=== PATIENT | female | born 1980 | race African-American/Black ===

== ENCOUNTER 2017-01-12 17:14 | Emergency (ER) | payer OTHER ==
[2017-01-12 17:28] VITALS: BP 159/116; PULSE 115; TEMP 98.6; BMI 38.6
[2017-01-12] MEDS ORDERED: predniSONE 20 MG TABLET (UD) PO ONE (19:34)
--- NOTE | 2017-01-12 19:38 | PDOC ---
History of Present Illness - General Chief Complaint: Asthma Stated Complaint: ASTHMA ATTACK Time Seen by Provider: 01/12/17 19:05 History Source: Patient Exam Limitations: No Limitations - History of Present Illness Initial Comments: 01/12/17 19:32 asthma exacerbation - empress EMT, given self 4 Albuterol treatments and requesting prednisone. has probable with asthma exacerbations with cold weather, and her recent move from [place] patient has without primary care. was intubated last year secondary to severe asthma attack, and feels she needs steroid treatment. States the episode where she needed intubation was by far worse than this asthma exacerbation. Denies fever, denies any ear or throat pain, states is probably primarily an asthma exacerbation with poor control 01/12/17 19:36 01/12/17 20:27 Timing/Duration: reports: changing over time, getting worse Severity: reports: moderate Associated Symptoms: reports: cough, fever/chills, nasal congestion, shortness of breath Past History - Travel Traveled outside of the country in the last 30 days: No Close contact w/someone who was outside of country & ill: No - Past Medical History Allergies/Adverse Reactions: Allergies Allergy/AdvReac Type Severity Reaction Status Date / Time No Known Allergies Allergy Verified 01/12/17 17:23 Home Medications: Ambulatory Orders Insulin Glargine,Hum.rec.anlog [Tonyaaglric Jeffers U-100] 30 unit SQ HS 10/18/16 Albuterol Sulfate Inhaler - [Ventolin HFA Inhaler -] 2 inh PO Q4H #1 inhaler Guaifenesin AC [Robitussin AC -] 5 ml PO TID PRN 3 Days MDD 15 cc /day 10/20/16 Montelukast Na [Singulair -] 10 mg PO HS #30 tablet 10/20/16 Tiotropium [place] [Spiriva] 1 puff IH DAILY #1 inh 10/20/16 Amlodipine Besylate [Norvasc -] 10 mg PO DAILY #30 tablet 10/21/16 Lisinopril [Prinivil] 20 mg PO DAILY #30 tablet 10/21/16 Prednisone 10 mg PO ASDIR #29 tablet 10/21/16 Prednisone [Deltasone -] 20 mg PO BID #20 tablet 01/12/17 Anemia: No Asthma: Yes Cancer: No Cardiac Disorders: No CVA: No COPD: No Dementia: No Diabetes: No Dialysis: No GI Disorders: No Disorders: No HTN: No Hypercholesterolemia: Yes HIV: No Kidney Stones: No Liver Disease: No Suicide Attempt (Hx): No Seizures: No - Surgical History Abdominal Surgery: No Appendectomy: No Cardiac Surgery: No Cholecystectomy: No Neurologic Surgery: No - Immunization History Td Vaccination: Yes TDAP Vaccination: No Immunization Up to Date: Yes - Psycho/Social/Smoking Cessation Hx Anxiety: No Suicidal Ideation: No Smoking Status: No Smoking History: Never smoked Years of Tobacco Use: 0 Have you smoked in the past 12 months: No Number of Cigarettes Smoked Daily: 0 Cigars Per Day: 0 Hx Alcohol Use: No Drug/Substance Use Hx: No Substance Use Type: None Respiratory Specific PMHX - Complaint Specific PMHX Bronchitis: Yes Review of Systems - Review of Systems Able to Perform ROS?: Yes Is the patient limited Italian proficient: Yes Constitutional: Yes: Symptoms Reported, See HPI, Loss of Appetite, Malaise. No : Fever HEENTM: Yes: Symptoms Reported, See HPI, Nose Congestion. No: Throat Pain Respiratory: Yes: Symptoms reported, See HPI, Cough, Orthopnea, Wheezing Musculoskeletal: Yes: Symptoms Reported, See HPI Integumentary: Yes: Symptoms Reported Neurological: Yes: Symptoms reported All Other Systems: Reviewed and Negative *Physical Exam - Vital Signs Last Vital Signs Temp Pulse Resp BP Pulse Ox 98.6 F 115 H 21 159/116 99 01/12/17 17:23 01/12/17 17:23 01/12/17 17:23 01/12/17 17:23 01/12/17 17:23 - Physical Exam General Appearance: Yes: Nourished, Appropriately Dressed, Apparent Distress, Mild Distress HEENT: positive: TAMMY, Normal ENT Inspection, TMs Normal (congested but landmarks easily visualized), Pharynx Normal, Nasal Congestion, Rhinorrhea. negative: Pharyngeal Erythema Neck: positive: Supple. negative: Lymphadenopathy (R), Lymphadenopathy (L) Respiratory/Chest: positive: Accessory Muscle Use, Wheezing (tight inspiratory and expiratory breath sounds with end expiratory wheezing throughout). negative : Lungs Clear, Normal Breath Sounds Gastrointestinal/Abdominal: positive: Soft Extremity: positive: Normal Capillary Refill, Normal Inspection, Normal Range of Motion Integumentary: positive: Dry, Warm, Pale Progress Note - Progress Note Progress Note: Severe asthma exacerbation, treating with duo nebs and prednisone, patient is clearing after fourth treatment Medical Decision Making - Medical Decision Making 01/12/17 20:54 much improved after 5th treat emt and Prednisone- mionmal wheezing and states is ready for discharge,. *DC/Admit/Observation/Transfer Diagnosis at time of Disposition: Acute asthma exacerbation Qualifiers: Asthma severity: unspecified severity Qualified Code(s): J45.901 - Unspecified asthma with (acute) exacerbation - Discharge Dispostion Disposition: HOME Condition at time of disposition: Stable Admit: No - Prescriptions Prescriptions: Prednisone [Deltasone -] 20 mg PO BID #10 tablet - Referrals Referrals: Mohinder Betancourt MD [Staff Physician] - - Patient Instructions Printed Discharge Instructions: Asthma -- Adult Additional Instructions: Rest, drink lots of fluids: Teas, water, soups, Pedialyte [place] gargles Steamy showers/seem to face break up mucus Avoid contact with others until fevers and cough resolved Lots of handwashing and good hygiene Continue [id number] medications for symptomatic relief Tylenol or Motrin for fever and pain Continue DuoNeb every 6 hours throughout weekend Continue prednisone 40 mg daily Followup with private physician in one to 2 days as needed Return to emergency department for worsened symptoms, fevers, dehydration - Post Discharge Activity Work/School Note: Back to Work
[2017-01-12] MEDS ORDERED: predniSONE 20 MG TABLET (UD) ONE (19:43)
[2017-01-12] MEDS ORDERED: ALBUTEROL SO4 2.5/IPRATROPIUM 0.5 INH SOL 3 ML VIAL.NEB. NEB ONE ×2 (19:47→20:27)
== END 2017-01-12 21:00 | disposition home or self-care (01) ==
LOC: JERFT 17:14
PROC: 3E0F7GC Introduction of Other Therapeutic Substance into Respiratory Tract, Via Natural or Artificial Opening (ICD-10-PCS; principal; 2017-01-12)
DX: J45.901 Unspecified asthma with (acute) exacerbation (principal)
CPT/HCPCS: 94640; 99281-25

== ENCOUNTER 2017-02-09 17:51 | Emergency (ER) | payer SELFPAY ==
[2017-02-09 18:01] VITALS: BMI 42.9
[2017-02-09] MEDS ORDERED: IPRATROPIUM BR 0.02% 0.5 MG/2.5 ML VIAL.NEB. NEB ONE (18:10)
[2017-02-09] MEDS ORDERED: ALBUTEROL SO4 0.083% IH SOL 2.5 MG/3 ML VIAL.NEB. NEB ONE ×2 (18:10→19:11)
[2017-02-09] MEDS ORDERED: MAGNESIUM SULF 50% (8.12 MEQ/2 ML-1 GM VIAL) IVPB ONE (18:10)
[2017-02-09] MEDS ORDERED: methylPREDNISolone NA SUCC 125 MG/2 ML VIAL IVPB ONE (18:10)
[2017-02-09 18:34] LABS: BASOPHIL 0.3 % (0-2.0); EOSINOPHIL 5.3 % (0-4.5); MCH 23.3 pg (25.7-33.7); MCHC 31.4 g/dl (32.0-36.0); MEAN CELL VOLUME 74.3 fl (80-96); MEAN PLT VOLUME 7.9 fl (7.5-11.1); NEUTROPHILS 58.8 % (42.8-82.8); PLATELET COUNT 282 K/MM3 (134-434); RDW 18.1 % (11.6-15.6)
--- NOTE | 2017-02-09 18:38 | PDOC ---
History of Present Illness - History of Present Illness Initial Comments: 02/09/17 18:57 Patient is a 36 year old female with significant medical hx of HTN, GERD, obesity, asthma (intubation 2015), coma secondary to respiratory failure (03/2015 ), and diabetes who is presenting to the ED with asthma exacerbation for the past two days. Patient complains of wheezing and shortness of breath that worsened today; the patient arrived in the ED in respiratory distress and anxious. The patient was immediately seen by ER physician upon arrival. Denies fevers, chills, coughing, weakness, headache, palpitations or chest pain. <Dejah Garrett - Last Filed: 02/09/17 18:57> - General History Source: Patient Exam Limitations: No Limitations <Keaton Marion - Last Filed: 02/09/17 19:03> <Edith Eduardo - Last Filed: 02/10/17 20:12> - General Chief Complaint: Asthma Stated Complaint: ASTHMA Time Seen by Provider: 02/09/17 17:54 Past History <Dejah Garrett - Last Filed: 02/09/17 18:57> - Past Medical History Anemia: No Asthma: Yes Cancer: No Cardiac Disorders: No CVA: No COPD: No Dementia: No Diabetes: Yes Dialysis: No GI Disorders: No Disorders: No HTN: No Hypercholesterolemia: Yes HIV: No Kidney Stones: No Liver Disease: No Suicide Attempt (Hx): No Seizures: No Other medical history: intubated 2014 - Surgical History Abdominal Surgery: No Appendectomy: No Cardiac Surgery: No Cholecystectomy: No Neurologic Surgery: No - Immunization History Td Vaccination: Yes TDAP Vaccination: No Immunization Up to Date: Yes - Psycho/Social/Smoking Cessation Hx Anxiety: No Suicidal Ideation: No Smoking Status: No Smoking History: Never smoked Years of Tobacco Use: 0 Have you smoked in the past 12 months: No Number of Cigarettes Smoked Daily: 0 Cigars Per Day: 0 Information on smoking cessation initiated: No Hx Alcohol Use: No Drug/Substance Use Hx: No Substance Use Type: None <Keaton Marion - Last Filed: 02/09/17 19:03> <Edith Eduardo - Last Filed: 02/10/17 20:12> - Past Medical History Allergies/Adverse Reactions: Allergies Allergy/AdvReac Type Severity Reaction Status Date / Time No Known Allergies Allergy Verified 02/09/17 17:59 Home Medications: Ambulatory Orders Insulin Glargine,Hum.rec.anlog [Basaglar Lauraikpen U-100] 30 unit SQ HS 10/18/16 Albuterol Sulfate Inhaler - [Ventolin HFA Inhaler -] 2 inh PO Q4H #1 inhaler Montelukast Na [Singulair -] 10 mg PO HS #30 tablet 10/20/16 Tiotropium [place] [Spiriva] 1 puff IH DAILY #1 inh 10/20/16 Amlodipine Besylate [Norvasc -] 10 mg PO DAILY #30 tablet 10/21/16 Lisinopril [Prinivil] 20 mg PO DAILY #30 tablet 10/21/16 Azithromycin [Zithromax -] 250 mg PO DAILY #4 tablet 02/09/17 Prednisone [Deltasone -] 40 mg PO DAILY #10 tablet 02/09/17 Review of Systems - Review of Systems Comments:: 02/09/17 18:58 GENERAL/CONSTITUTIONAL: No fever or chills. No weakness. HEAD, EYES, EARS, NOSE AND THROAT: No change in vision. No ear pain or discharge. No sore throat. CARDIOVASCULAR: No chest pain. RESPIRATORY: Wheezing, shortness of breath. No cough or hemoptysis. GASTROINTESTINAL: No nausea, vomiting, diarrhea or constipation. GENITOURINARY: No dysuria, frequency, or change in urination. MUSCULOSKELETAL: No joint or muscle swelling or pain. No neck or back pain. SKIN: No rash NEUROLOGIC: No headache, vertigo, loss of consciousness, or change in strength/ sensation. <Dejah Garrett - Last Filed: 02/09/17 18:57> *Physical Exam - Vital Signs Last Vital Signs Temp Pulse Resp BP Pulse Ox 98.4 F 109 H 22 141/101 100 02/09/17 17:59 02/09/17 18:45 02/09/17 18:45 02/09/17 18:45 02/09/17 18:45 - Physical Exam Comments: 02/09/17 18:58 GENERAL: Awake, alert, and fully oriented. Anxious, in moderate distress HEAD: No signs of trauma EYES: PERRLA, EOMI, sclera anicteric, conjunctiva clear ENT: Auricles normal inspection, hearing grossly normal, nares patent, oropharynx clear without exudates. Moist mucosa NECK: Normal ROM, supple, no lymphadenopathy, JVD, or masses LUNGS: Respiratory distress. Expiratory wheezing bilaterally. Speaking with few words. HEART: Regular rate and rhythm, normal S1 and S2, no murmurs, rubs or gallops ABDOMEN: Soft, nontender, normoactive bowel sounds. No guarding, no rebound. No masses EXTREMITIES: Normal range of motion, no edema. No clubbing or cyanosis. No cords, erythema, or tenderness NEUROLOGICAL: Cranial nerves II through XII grossly intact. Normal speech, normal gait SKIN: Warm, Dry, normal turgor, no rashes or lesions noted. ENDOCRINE: No increased thirst. No abnormal weight change. HEMATOLOGIC/LYMPHATIC: No anemia, easy bleeding, or history of blood clots. ALLERGIC/IMMUNOLOGIC: No hives or skin allergy. <Dejah Garrett - Last Filed: 02/09/17 18:57> - Vital Signs Last Vital Signs Temp Pulse Resp BP Pulse Ox 98.4 F 147 H 32 H 148/96 100 02/09/17 17:59 02/09/17 17:59 02/09/17 17:59 02/09/17 17:59 02/09/17 18:10 <Keaton Marion - Last Filed: 02/09/17 19:03> - Vital Signs Last Vital Signs Temp Pulse Resp BP Pulse Ox 98.2 F 104 H 26 H 145/94 100 02/09/17 19:50 02/09/17 19:50 02/09/17 19:50 02/09/17 19:50 02/09/17 19:50 <Edith Eduardo - Last Filed: 02/10/17 20:12> ED Treatment Course - LABORATORY CBC & Chemistry Diagram: 02/09/17 18:20 02/09/17 18:20 - ADDITIONAL ORDERS Additional order review: Laboratory Results 02/09/17 18:20 Serum , Qual Negative 02/09/17 18:20 RBC 4.61 MCV 74.3 L MCHC 31.4 L RDW 18.1 H MPV 7.9 Neutrophils % 58.8 D Lymphocytes % 30.0 D Monocytes % 5.6 D Eosinophils % 5.3 H D Basophils % 0.3 - Medications Given in the ED: ED Medications Discontinued Medications Generic Name Dose Route Start Last Admin Trade Name Jesús PRN Reason Stop Dose Admin Albuterol Sulfate 3 amp 02/09/17 18:10 02/09/17 18:01 Ventolin 0.083% Nebulizer Soln - NEB 02/09/17 18:11 3 amp ONCE ONE Administration Ipratropium [place] 1 amp 02/09/17 18:10 02/09/17 18:00 Atrovent 0.02% Nebulizer - NEB 02/09/17 18:11 1 amp ONCE ONE Administration Magnesium Sulfate 2 gm 02/09/17 18:10 02/09/17 18:00 Magnesium Sulfate IVPB 02/09/17 18:11 2 gm ONCE ONE Administration Methylprednisolone Sodium Succinate 125 mg 02/09/17 18:10 02/09/17 18:08 Solu-Medrol - IVPB 02/09/17 18:11 125 mg ONCE ONE Administration <Dejah Garrett - Last Filed: 02/09/17 18:57> - LABORATORY CBC & Chemistry Diagram: 02/09/17 18:20 02/09/17 18:20 - RADIOLOGY Radiology Studies Ordered: Category Date Time Status CHEST X-RAY PORTABLE* [RAD] Stat Radiology 02/09/17 18:10 Ordered - Medications Given in the ED: ED Medications Discontinued Medications Generic Name Dose Route Start Last Admin Trade Name Jesús PRN Reason Stop Dose Admin Albuterol Sulfate 3 amp 02/09/17 18:10 02/09/17 18:01 Ventolin 0.083% Nebulizer Soln - NEB 02/09/17 18:11 3 amp ONCE ONE Administration Ipratropium [place] 1 amp 02/09/17 18:10 02/09/17 18:00 Atrovent 0.02% Nebulizer - NEB 02/09/17 18:11 1 amp ONCE ONE Administration Magnesium Sulfate 2 gm 02/09/17 18:10 02/09/17 18:00 Magnesium Sulfate IVPB 02/09/17 18:11 2 gm ONCE ONE Administration Methylprednisolone Sodium Succinate 125 mg 02/09/17 18:10 02/09/17 18:08 Solu-Medrol - IVPB 02/09/17 18:11 125 mg ONCE ONE Administration <Keaton Marion - Last Filed: 02/09/17 19:03> - LABORATORY CBC & Chemistry Diagram: 02/09/17 18:20 02/09/17 18:20 - ADDITIONAL ORDERS Additional order review: Laboratory Results 02/09/17 02/09/17 18:20 18:20 Sodium 141 Potassium 4.1 Chloride 109 H Carbon Dioxide 25 Anion Gap 7 L BUN 8 Creatinine 0.8 Creat Clearance w eGFR > 60 Random Glucose 125 H Calcium 8.8 Total Bilirubin 0.2 D AST 16 D ALT 24 D Alkaline Phosphatase 95 Total Protein 6.6 Albumin 3.4 Serum , Qual Negative 02/09/17 18:20 RBC 4.61 MCV 74.3 L MCHC 31.4 L RDW 18.1 H MPV 7.9 Neutrophils % 58.8 D Lymphocytes % 30.0 D Monocytes % 5.6 D Eosinophils % 5.3 H D Basophils % 0.3 - Medications Given in the ED: ED Medications Discontinued Medications Generic Name Dose Route Start Last Admin Trade Name Freq PRN Reason Stop Dose Admin Albuterol Sulfate 3 amp 02/09/17 18:10 02/09/17 18:01 Ventolin 0.083% Nebulizer Soln - NEB 02/09/17 18:11 3 amp ONCE ONE Administration Ipratropium [place] 1 amp 02/09/17 18:10 02/09/17 18:00 Atrovent 0.02% Nebulizer - NEB 02/09/17 18:11 1 amp ONCE ONE Administration Magnesium Sulfate 2 gm 02/09/17 18:10 02/09/17 18:00 Magnesium Sulfate IVPB 02/09/17 18:11 2 gm ONCE ONE Administration Methylprednisolone Sodium Succinate 125 mg 02/09/17 18:10 02/09/17 18:08 Solu-Medrol - IVPB 02/09/17 18:11 125 mg ONCE ONE Administration <Edith Eduardo - Last Filed: 02/10/17 20:12> Medical Decision Making - Medical Decision Making 02/09/17 18:49 A portion of this note was documented by scribe services under my direction. I have reviewed the details of the note, within reason, and agree with the documentation with the following case summary and management plan written by me. Patient treated in the ED. Nursing notes are reviewed and incorporated into the medical decision-making. Vital signs reviewed. Peripheral IV access obtained by the nurse, laboratory studies are drawn and sent, reviewed and interpreted by myself. Vital Signs Temp Pulse Resp BP Pulse Ox 98.4 F 109 H 22 141/101 100 02/09/17 17:59 02/09/17 18:45 02/09/17 18:45 02/09/17 18:45 02/09/17 18:45 36-year-old female with past medical history obesity, asthma, diabetes, prior history of intubation last year presents with asthma exacerbation. Patient reports several days of wheezing that worsened today. Denies coughing. She came into the ED in respiratory distress and anxiousness. Patient has been diffusely wheezy and patient seen immediately by me. She is placed on BiPAP and given several rounds of nebulizers, SoluMedrol and IV magnesium. We'll obtain labs and chest x-ray given the respiratory distress. Low threshold for antibiotics. 02/09/17 19:03 Case signed out to DR. Eduardo for further management and disposition. <Keaton Marion - Last Filed: 02/09/17 19:03> - Medical Decision Making 02/10/17 20:11 Pt improved throughout the night. SHe improved with her meds. Ultimately we removed her from the BiPAP and she ambulated about the ER without desaturation of oxygen. She will go home with steroids and singulair. Follow with medicine clinic; Call 911 for further asthma exacerbation <Edith Eduardo - Last Filed: 02/10/17 20:12> *DC/Admit/Observation/Transfer - Attestations Scribe Attestion: 02/09/17 18:59 Documentation prepared by Dejah Garrett, acting as medical research assistant for Keaton Marion MD. <Dejah Garrett - Last Filed: 02/09/17 18:57> <Keaton Marion - Last Filed: 02/09/17 19:03> - Discharge Dispostion Admit: No <Edith Eduardo - Last Filed: 02/10/17 20:12> Diagnosis at time of Disposition: Acute asthma exacerbation, Bronchitis, Cough - Discharge Dispostion Disposition: HOME Condition at time of disposition: Improved - Prescriptions Prescriptions: Prednisone [Deltasone -] 40 mg PO DAILY #10 tablet Azithromycin [Zithromax -] 250 mg PO DAILY #4 tablet - Referrals Referrals: Dave Don MD [Staff Physician] - - Patient Instructions Printed Discharge Instructions: Asthma -- Adult, DI for Acute Bronchitis
[2017-02-09 19:01] LABS: ALBUMIN 3.4 g/dl (3.4-5.0); ANION GAP 7 (8-16); BILIRUBIN,TOTAL 0.2 mg/dL (0.2-1.0); CO2 25 mmol/L (21-32); CREATININE 0.8 mg/dL (0.55-1.02); GLUCOSE,RANDOM 125 mg/dL (74-106); SGOT/AST 16 U/L (15-37); SGPT/ALT 24 U/L (12-78); TOT PROT 6.6 g/dl (6.4-8.2)
[2017-02-09 19:18] LABS: ALK PHOS 95 U/L (45-117); CALCIUM 8.8 mg/dL (8.5-10.1)
[2017-02-09] MEDS ORDERED: AZITHROMYCIN 250 MG TABLET (FP) PO ONE (22:55)
[2017-02-09] MEDS ORDERED: AZITHROMYCIN 250 MG TABLET (FP) ONE (23:08)
[2017-02-09 23:29] VITALS: BP 156/93; PULSE 100; TEMP 97.6
== END 2017-02-09 23:23 | disposition home or self-care (01) ==
LOC: JER 17:51
PROC: 3E0F7GC Introduction of Other Therapeutic Substance into Respiratory Tract, Via Natural or Artificial Opening (ICD-10-PCS; principal; 2017-02-09)
PROC: 3E0F7GC Introduction of Other Therapeutic Substance into Respiratory Tract, Via Natural or Artificial Opening (ICD-10-PCS; 2017-02-09)
PROC: 3E0333Z Introduction of Anti-inflammatory into Peripheral Vein, Percutaneous Approach (ICD-10-PCS; 2017-02-09)
PROC: 3E033GC Introduction of Other Therapeutic Substance into Peripheral Vein, Percutaneous Approach (ICD-10-PCS; 2017-02-09)
PROC: 5A09357 Assistance with Respiratory Ventilation, Less than 24 Consecutive Hours, Continuous Positive Airway Pressure (ICD-10-PCS; 2017-02-09)
DX: J45.901 Unspecified asthma with (acute) exacerbation (principal)
CPT/HCPCS: 36415; 71010-TC; 80053; 84703; 85025; 99284-25

== ENCOUNTER 2017-02-24 12:16 | Inpatient (IN) | payer OTHER ==
[2017-02-24] MEDS ORDERED: ALBUTEROL SO4 2.5/IPRATROPIUM 0.5 INH SOL 3 ML VIAL.NEB. NEB ONE ×2 (12:56→12:58)
[2017-02-24] MEDS ORDERED: predniSONE 20 MG TABLET (UD) ONE (12:57)
--- NOTE | 2017-02-24 13:01 | PDOC ---
History of Present Illness - General History Source: Patient Exam Limitations: No Limitations - History of Present Illness Initial Comments: 02/24/17 13:06 Patient is a 36 year old female with a significant past medical hx of HTN, GERD , obesity, asthma (intubation 2015), seasonal allergies, coma secondary to respiratory failure (03/2015), and diabetes, who is revisiting to the ED with difficulty breathing. She was seen in the ED on 02/08/17 and was treated with inhalers and steroids. She was called on 02/10/17 after her chest x-ray results came back and was informed she may have pneumonia. She was subsequently put on Amoxicillin. She states her symptoms are a little better but still bad. Patient denies fever, chills, nausea, vomiting, diarrhea, dysuria, hematuria. She denies smoking, drinking alcohol. <Christiano Lewis - Last Filed: 02/24/17 13:06> <Mariela Munoz - Last Filed: 02/24/17 17:00> - General Chief Complaint: Wheezing Stated Complaint: SOB Time Seen by Provider: 02/24/17 12:48 Past History <Christiano Lewis - Last Filed: 02/24/17 13:06> - Past Medical History Anemia: No Asthma: Yes Cancer: No Cardiac Disorders: No CVA: No COPD: No Dementia: No Diabetes: Yes Dialysis: No GI Disorders: No Disorders: No HTN: No Hypercholesterolemia: Yes HIV: No Kidney Stones: No Liver Disease: No Suicide Attempt (Hx): No Seizures: No - Surgical History Abdominal Surgery: No Appendectomy: No Cardiac Surgery: No Cholecystectomy: No Neurologic Surgery: No - Immunization History Td Vaccination: Yes TDAP Vaccination: No Immunization Up to Date: Yes - Psycho/Social/Smoking Cessation Hx Anxiety: No Suicidal Ideation: No Smoking Status: No Smoking History: Never smoked Years of Tobacco Use: 0 Have you smoked in the past 12 months: No Number of Cigarettes Smoked Daily: 0 Cigars Per Day: 0 Information on smoking cessation initiated: No Hx Alcohol Use: No Drug/Substance Use Hx: No Substance Use Type: None <Mariela Munoz - Last Filed: 02/24/17 17:00> - Past Medical History Allergies/Adverse Reactions: Allergies Allergy/AdvReac Type Severity Reaction Status Date / Time No Known Allergies Allergy Verified 02/24/17 12:26 Home Medications: Ambulatory Orders Insulin Glargine,Hum.rec.anlog [Tonyaaglric Ortizpen U-100] 30 unit SQ HS 10/18/16 Albuterol Sulfate Inhaler - [Ventolin HFA Inhaler -] 2 inh PO Q4H #1 inhaler Montelukast Na [Singulair -] 10 mg PO HS #30 tablet 10/20/16 Tiotropium [place] [Spiriva] 1 puff IH DAILY #1 inh 10/20/16 Amlodipine Besylate [Norvasc -] 10 mg PO DAILY #30 tablet 10/21/16 Lisinopril [Prinivil] 20 mg PO DAILY #30 tablet 10/21/16 Respiratory Specific PMHX - Complaint Specific PMHX Bronchitis: Yes <Mariela Munoz - Last Filed: 02/24/17 17:00> Review of Systems - Review of Systems Able to Perform ROS?: Yes Comments:: 02/24/17 13:06 GENERAL/CONSTITUTIONAL: No fever or chills. No weakness. HEAD, EYES, EARS, NOSE AND THROAT: No change in vision. No ear pain or discharge. No sore throat. CARDIOVASCULAR: No chest pain or shortness of breath. RESPIRATORY: + wheezing, cough. No hemoptysis. GASTROINTESTINAL: No nausea, vomiting, diarrhea or constipation. GENITOURINARY: No dysuria, frequency, or change in urination. MUSCULOSKELETAL: No joint or muscle swelling or pain. No neck or back pain. SKIN: No rash NEUROLOGIC: No headache, vertigo, loss of consciousness, or change in strength/ sensation. ENDOCRINE: No increased thirst. No abnormal weight change. HEMATOLOGIC/LYMPHATIC: No anemia, easy bleeding, or history of blood clots. ALLERGIC/IMMUNOLOGIC: No hives or skin allergy. <Christiano Lewis - Last Filed: 02/24/17 13:06> *Physical Exam - Vital Signs Last Vital Signs Temp Pulse Resp BP Pulse Ox 98.1 F 102 H 20 150/119 99 02/24/17 12:26 02/24/17 12:26 02/24/17 12:26 02/24/17 12:26 02/24/17 12:26 - Physical Exam Comments: 02/24/17 13:07 GENERAL: Awake, alert, and fully oriented, in no acute distress HEAD: No signs of trauma EYES: PERRLA, EOMI, sclera anicteric, conjunctiva clear ENT: Auricles normal inspection, hearing grossly normal, nares patent, oropharynx clear without exudates. Moist mucosa NECK: Normal ROM, supple, no lymphadenopathy, JVD, or masses LUNGS: Bilateral wheezing, clear to auscultation bilaterally. No wheezes, and no crackles HEART: Tachycardia. Normal S1 and S2, no murmurs, rubs or gallops ABDOMEN: Soft, nontender, normoactive bowel sounds. No guarding, no rebound. No masses EXTREMITIES: Normal range of motion, no edema. No clubbing or cyanosis. No cords, erythema, or tenderness NEUROLOGICAL: Normal speech, normal gait SKIN: Warm, Dry, normal turgor, no rashes or lesions noted. <Christiano Lewis - Last Filed: 02/24/17 13:06> - Vital Signs Last Vital Signs Temp Pulse Resp BP Pulse Ox 98.1 F 102 H 20 150/119 99 02/24/17 12:26 02/24/17 12:26 02/24/17 12:26 02/24/17 12:26 02/24/17 12:26 <Mariela Munoz - Last Filed: 02/24/17 17:00> ED Treatment Course - Medications Given in the ED: ED Medications Discontinued Medications Generic Name Dose Route Start Last Admin Trade Name Freq PRN Reason Stop Dose Admin Albuterol/Ipratropium 1 amp 02/24/17 12:56 02/24/17 13:05 Duoneb - NEB 02/24/17 12:57 1 amp ONCE ONE Administration <Christiano Lewis - Last Filed: 02/24/17 13:06> - LABORATORY CBC & Chemistry Diagram: 02/24/17 14:10 02/24/17 14:10 <Mariela Munoz - Last Filed: 02/24/17 17:00> Medical Decision Making - Medical Decision Making 02/24/17 13:00 36 yo F with h/o DM, asthma recently seen and released for asthma exacerbation on 02/08/17. dc on prednisone and amoxicillin. called back to [facility] on cxr on 02/10.pt states finished amoxicillin. no imrpvoment to sxs. still wheezing. no f/c no n/v no chest pain .no h/o dvt or pe. on exam bilateral wheezing differential: pna, bronchitis, asthma exacerbation allergy trigger. plan cxr nebs. steroids. reasses. <Mariela Munoz - Last Filed: 02/24/17 17:00> *DC/Admit/Observation/Transfer - Attestations Scribe Attestion: 02/24/17 13:09 Documentation prepared by Christiano Lewis, acting as health care / medical job titles for Mariela Munoz MD, . <Christiano Lewis - Last Filed: 02/24/17 13:06> - Discharge Dispostion Admit: Yes <Mariela Munoz - Last Filed: 02/24/17 17:00> Diagnosis at time of Disposition: Asthma exacerbation, Pneumonia
[2017-02-24] MEDS ORDERED: MAGNESIUM SULF 50% (8.12 MEQ/2 ML-1 GM VIAL) ONE (13:39)
[2017-02-24] MEDS ORDERED: MAGNESIUM SULF 50% (8.12 MEQ/2 ML-1 GM VIAL) IVPB ONE (13:39)
[2017-02-24] MEDS ORDERED: predniSONE 20 MG TABLET (UD) PO ONE (14:10)
[2017-02-24] MEDS ORDERED: LEVOFLOXACIN 750 MG IVPB 150 ML IVPB ONE ×2 (14:14→14:29)
[2017-02-24 14:18] LABS: BASOPHIL 0.3 % (0-2.0); EOSINOPHIL 4.8 % (0-4.5); MCHC 32.1 g/dl (32.0-36.0); MEAN CELL VOLUME 74.7 fl (80-96); MEAN PLT VOLUME 7.3 fl (7.5-11.1); NEUTROPHILS 48.2 % (42.8-82.8); PLATELET COUNT 256 K/MM3 (134-434); RDW 18.2 % (11.6-15.6); WHITE BLOOD COUNT 7.4 K/mm3 (4.0-10.0)
[2017-02-24 14:44] LABS: ALBUMIN 3.2 g/dl (3.4-5.0); ANION GAP 11 (8-16); CALCIUM 8.4 mg/dL (8.5-10.1); CO2 24 mmol/L (21-32); COCKROFT - GAULT 125.6215; GLUCOSE,RANDOM 123 mg/dL (74-106); SGOT/AST 16 U/L (15-37); SGPT/ALT 23 U/L (12-78)
[2017-02-24 14:46] LABS: ALK PHOS 82 U/L (45-117); BILIRUBIN,TOTAL 0.2 mg/dL (0.2-1.0); TOT PROT 6.3 g/dl (6.4-8.2)
--- NOTE | 2017-02-24 17:18 | HP ---
CHIEF COMPLAINT: wheezing,shortness of breath PCP: none/needs referral HISTORY OF PRESENT ILLNESS: The patient is a 36 year old female, with significant past medical history of asthma (intubated 2015), coma secondary to respiratory failure (03/2015) seasonal allergies,and diabetes. Patient is revisiting to the ED with difficulty breathing. She was seen in the ED on 02/08/17 and was treated with inhalers and steroids. She was called on 02/10/17 after her chest x-ray results showed possible pneumonia. She was put then prescribed Amoxicillin and her symptoms improved slightly. but now worsening. Patient denies fever, chills, nausea, vomiting or diarrhea. She is a non smoker. ER course was notable for: (1) chl 110, cbc,bmp, chest xray (2) Predinsone 60mg PO, magnesium iv x 1 (3) dunoneb nebulizer treatments Recent Travel: denies PAST MEDICAL HISTORY: asthma (intubated 2015), coma secondary to respiratory failure (03/2015) seasonal allergies,and diabetes PAST SURGICAL HISTORY: Social History: Smoking: denies Alcohol: occasional Drugs: denies Family History: Allergies: nectar No Known Allergies Allergy (Verified 02/24/17 12:26) HOME MEDICATIONS: Home Medications Medication Instructions Recorded Albuterol Sulfate Inhaler - 2 inh PO Q4H #1 inhaler 10/20/16 [Ventolin HFA Inhaler -] Amlodipine Besylate [Norvasc -] 10 mg PO DAILY #30 tablet 10/21/16 Lisinopril [Prinivil] 20 mg PO DAILY #30 tablet 10/21/16 Albuterol 0.083% Nebulizer Nahomy 1 neb NEB QID 02/24/17 [Ventolin 0.083%] Insulin (Novolog) [Novolog] 0 units SQ TID 02/24/17 Insulin Glargine,Hum.rec.anlog 30 units SQ HS 02/24/17 [Lantus Solostar PEN (NF)] REVIEW OF SYSTEMS CONSTITUTIONAL: Absent: fever, chills, diaphoresis, generalized weakness, malaise, loss of appetite, weight change HEENT: Absent: rhinorrhea, nasal congestion, throat pain, throat swelling, difficulty swallowing, mouth swelling, ear pain, eye pain, visual changes CARDIOVASCULAR: Absent: chest pain, syncope, palpitations, irregular heart rate, lightheadedness , peripheral edema RESPIRATORY: Present: non productive cough, shortness of breath, dyspnea, +wheezing on bilateral lung alvarado, anterior lungs +wheezing. GASTROINTESTINAL: Absent: abdominal pain, abdominal distension, nausea, vomiting, diarrhea, constipation, melena, hematochezia GENITOURINARY: Absent: dysuria, frequency, urgency, hesitancy, hematuria, flank pain, genital pain MUSCULOSKELETAL: Absent: myalgia, arthralgia, joint swelling, back pain, neck pain SKIN: Absent: rash, itching, pallor HEMATOLOGIC/IMMUNOLOGIC: Absent: easy bleeding, easy bruising, lymphadenopathy, frequent infections ENDOCRINE: Absent: unexplained weight gain, unexplained weight loss, heat intolerance, cold intolerance NEUROLOGIC: Absent: headache, focal weakness or paresthesias, dizziness, unsteady gait, seizure, mental status changes, bladder or bowel incontinence PSYCHIATRIC: Absent: anxiety, depression, suicidal or homicidal ideation, hallucinations. PHYSICAL EXAMINATION Vital Signs - 24 hr 02/24/17 16:48 Temperature 98.0 F Pulse Rate [ 120 H Right] Respiratory 22 Rate Blood Pressure 162/100 [Left Arm] O2 Sat by Pulse 95 Oximetry (%) GENERAL: Awake, alert, and fully oriented, in mild respiratory distress. HEAD: Normal with no signs of trauma. EYES: Pupils equal, round and reactive to light, extraocular movements intact, sclera anicteric, conjunctiva clear. No lid lag. EARS, NOSE, THROAT: Ears normal, nares patent, oropharynx clear without exudates. Moist mucous membranes. NECK: Normal range of motion, supple without lymphadenopathy, JVD, or masses. LUNGS: Breath sounds equal, clear to auscultation bilaterally. b/l diffuse wheezes present both inspiratory and expiratory, some conversational dyspnea No accessory muscle use. HEART: Regular rate and rhythm, normal S1 and S2 without murmur, rub or gallop. ABDOMEN: Soft, nontender, not distended, normoactive bowel sounds, no guarding, no rebound, no masses. No hepatomegaly or splenomegaly. MUSCULOSKELETAL: Normal range of motion at all joints. No bony deformities or tenderness. No CVA tenderness. UPPER EXTREMITIES: 2+ pulses, warm, well-perfused. No cyanosis. No clubbing. Cap refill <2 seconds. No peripheral edema. LOWER EXTREMITIES: 2+ pulses, warm, well-perfused. No calf tenderness. No peripheral edema. NEUROLOGICAL: Cranial nerves II-XII intact. Normal speech. Normal gait. PSYCHIATRIC: Cooperative. Good eye contact. Appropriate mood and affect. SKIN: Warm, dry, normal turgor, no rashes or lesions noted. ASSESSMENT/PLAN: The patient is a 36 year old female, with significant past medical history of asthma (intubated 2015), coma secondary to respiratory failure (03/2015) seasonal allergies,and diabetes. Patient is revisiting to the ED with difficulty breathing. She was seen in the ED on 02/08/17 and was treated with inhalers and steroids. She was called on 02/10/17 after her chest x-ray results showed possible pneumonia. She was then prescribed Amoxicillin and her symptoms improved slightly. but now worsening. Patient denies fever, chills, nausea, vomiting or diarrhea. She is a non smoker. Pulmonary: Acute exacerbation of asthma Assessment/Plan: In ER, her symptoms improved when she received a single dose of magnesium, duonebs and prednisone 60mg Continues to have dyspnea with minimal exertion, some conversational dyspnea on exam. Duonebs scheduled q 4 Levaquin 750mg daily Solumedrol 40mg q 6 2 liters of nasal cannula ordered Singular @ hs Claritin daily Pulmonary consult Cardiology: Hypertension - chronic Assessment/Plan: On Lisinopril and Amlodopine Monitor BP Endocrine: Diabetes II Assessment/Plan: On sliding scale Will add Levemir 30units @ hs Monitor blood sugar diabetic diet F.E.N. Fluids: tolerating PO Electrolytes: monitor with bmp Nutrition: diabetic diet Prophylaxis: DVT: heparin BID, ambulation GI: Protonix 40mg daily Disposition: Requires inpatient hospitalization. Full Code. Visit type - Emergency Visit Emergency Visit: Yes ED Registration Date: 02/24/17 Care time: The patient presented to the Emergency Department on the above date and was hospitalized for further evaluation of their emergent condition. - New Patient This patient is new to me today: Yes Date on this admission: 02/25/17 - Critical Care Critical Care patient: No
[2017-02-24] MEDS ORDERED: ALBUTEROL SO4 2.5/IPRATROPIUM 0.5 INH SOL 3 ML VIAL.NEB. NEB SCH (18:00)
[2017-02-24] MEDS: methylPREDNISolone NA SUCC 40 MG/1 ML VIAL IVPB SCH ×2 (19:13→20:49)
[2017-02-24] MEDS: LORATADINE 10 MG TABLET PO SCH (19:13)
[2017-02-24] MEDS: FLUTICASONE/SALMETEROL 100 MCG/50 MCG DISKUS IH SCH ×2 (19:14→22:07)
[2017-02-24 19:23] VITALS: BMI 42.7
[2017-02-24] MEDS: MONTELUKAST NA 10 MG TABLET PO SCH (21:51)
[2017-02-24] MEDS: DOCUSATE SODIUM 100 MG CAPSULE (FP) PO SCH (21:51)
[2017-02-24] MEDS: HEPARIN NA (PORCINE) 5,000 UNITS/ML 1ML VIAL SQ SCH (21:51)
[2017-02-24] MEDS: INSULIN DETEMIR 100 UNITS/ML MDV SQ SCH (21:52)
[2017-02-24] MEDS: INSULIN SLIDING SCALE (NOVOLOG) 1 VIAL SQ SCH (21:53)
[2017-02-24] MEDS ORDERED: PT OWN MED DRAWER 7, Y5N ONE (22:04)
[2017-02-24] MEDS: ALBUTEROL SO4 2.5/IPRATROPIUM 0.5 INH SOL 3 ML VIAL.NEB. NEB SCH (22:30)
[2017-02-25] MEDS: ALBUTEROL SO4 2.5/IPRATROPIUM 0.5 INH SOL 3 ML VIAL.NEB. NEB SCH ×3 (01:45→10:05)
[2017-02-25] MEDS: methylPREDNISolone NA SUCC 40 MG/1 ML VIAL IVPB SCH ×4 (03:37→21:44)
[2017-02-25] MEDS: INSULIN SLIDING SCALE (NOVOLOG) 1 VIAL SQ SCH ×4 (06:14→22:50)
[2017-02-25 08:00] LABS: BASOPHIL 0.2 % (0-2.0); MCH 23.8 pg (25.7-33.7); MEAN CELL VOLUME 74.5 fl (80-96); MEAN PLT VOLUME 7.7 fl (7.5-11.1); NEUTROPHILS 91.7 % (42.8-82.8); PLATELET COUNT 262 K/MM3 (134-434); RDW 17.7 % (11.6-15.6); WHITE BLOOD COUNT 12.2 K/mm3 (4.0-10.0)
[2017-02-25 08:42] LABS: ALBUMIN 3.1 g/dl (3.4-5.0); ALK PHOS 81 U/L (45-117); ANION GAP 8 (8-16); BILIRUBIN,TOTAL 0.4 mg/dL (0.2-1.0); CALCIUM 8.5 mg/dL (8.5-10.1); CO2 23 mmol/L (21-32); CREATININE 0.9 mg/dL (0.55-1.02); GLUCOSE,RANDOM 177 mg/dL (74-106); MAGNESIUM 2.2 mg/dL (1.8-2.4); SGOT/AST 15 U/L (15-37); SGPT/ALT 21 U/L (12-78); TOT PROT 6.5 g/dl (6.4-8.2)
[2017-02-25] MEDS: FLUTICASONE/SALMETEROL 100 MCG/50 MCG DISKUS IH SCH (09:08)
[2017-02-25] MEDS: DOCUSATE SODIUM 100 MG CAPSULE (FP) PO SCH ×2 (09:09→21:46)
[2017-02-25] MEDS: HEPARIN NA (PORCINE) 5,000 UNITS/ML 1ML VIAL SQ SCH ×2 (09:09→21:46)
[2017-02-25] MEDS: LEVOFLOXACIN 750 MG IVPB 150 ML IVPB SCH (09:09)
[2017-02-25] MEDS: LORATADINE 10 MG TABLET PO SCH (09:09)
[2017-02-25] MEDS: amLODIPine BESYLATE 10 MG TABLET (FP) PO SCH (09:09)
[2017-02-25] MEDS: PANTOPRAZOLE 40 MG TABLET (FP) PO SCH (09:10)
--- NOTE | 2017-02-25 09:43 | PN ---
Physical Exam: SUBJECTIVE: Patient seen and examined. Patient complaining of midsternal chest pain/pressure, 8/10 that started now. She denies that the chest pain radiates to either arm or associated with shortness of breath States the pain is worse when she is laying down flat in the bed, hurts to take a deep breath in. Pain improves with position changes Patient states she was coughing during the night As per patient she had a sleep study done @ [place] and was on a CPAP but had insurance difficulties and did not use it @ home. State she wakes up at night short of breath and has to grab her inhaler for relief. OBJECTIVE: Chest pain reproducible on palpation of midsternal area Troponin stat now and q 6 hours x 3 EKG shows normal sinus rhythm, no ST elevation seen, compared with EKG of 02/24 which shows sinus tachycardia Motrin 600mg x 1 for acute pain Monitor closely Guaifenesin DM tussin ordered CPAP ordered Vital Signs Period Temp Pulse Resp BP Sys/Mendez Pulse Ox Last 24 Hr 98.0 F-98.7 F 97-120 18-22 121-162/84-100 95-98 GENERAL: Awake, alert, and fully oriented, in mild respiratory distress. HEAD: Normal with no signs of trauma. EYES: Pupils equal, round and reactive to light, extraocular movements intact, sclera anicteric, conjunctiva clear. No lid lag. EARS, NOSE, THROAT: Ears normal, nares patent, oropharynx clear without exudates. Moist mucous membranes. NECK: Normal range of motion, supple without lymphadenopathy, JVD, or masses. LUNGS: Breath sounds equal, clear to auscultation bilaterally. No wheezing auscultated on exam, bilateral lung alvarado diminished but mostly clear ABDOMEN: Soft, nontender, not distended, normoactive bowel sounds, no guarding, no rebound, no masses. No hepatomegaly or splenomegaly. MUSCULOSKELETAL: chest pain reproducible on palpation of midsternal region UPPER EXTREMITIES: 2+ pulses, warm, well-perfused. No cyanosis. No clubbing. Cap refill <2 seconds. No peripheral edema. LOWER EXTREMITIES: 2+ pulses, warm, well-perfused. No calf tenderness. No peripheral edema. NEUROLOGICAL: Normal speech. Normal gait. PSYCHIATRIC: Cooperative. Good eye contact. Appropriate mood and affect. SKIN: Warm, dry, normal turgor, no rashes or lesions noted. Laboratory Results - last 24 hr 02/24/17 02/25/17 02/25/17 21:50 06:00 06:00 WBC 12.2 H D RBC 4.44 Hgb 10.6 L Hct 33.1 MCV 74.5 L MCHC 32.0 RDW 17.7 H Plt Count 262 MPV 7.7 Neutrophils % 91.7 H D Lymphocytes % 6.3 L D Monocytes % 1.8 L D Eosinophils % 0.0 D Basophils % 0.2 Sodium 140 Potassium 4.5 Chloride 109 H Carbon Dioxide 23 Anion Gap 8 BUN 12 Creatinine 0.9 Creat Clearance w eGFR > 60 POC Glucometer 224 Random Glucose 177 H D Calcium 8.5 Magnesium 2.2 Total Bilirubin 0.4 D AST 15 ALT 21 Alkaline Phosphatase 81 Total Protein 6.5 Albumin 3.1 L 02/25/17 06:12 WBC RBC Hgb Hct MCV MCHC RDW Plt Count MPV Neutrophils % Lymphocytes % Monocytes % Eosinophils % Basophils % Sodium Potassium Chloride Carbon Dioxide Anion Gap BUN Creatinine Creat Clearance w eGFR POC Glucometer 189 Random Glucose Calcium Magnesium Total Bilirubin AST ALT Alkaline Phosphatase Total Protein Albumin Active Medications Generic Name Dose Route Start Last Admin Trade Name Freq PRN Reason Stop Dose Admin Albuterol/Ipratropium 1 amp 02/24/17 22:00 02/25/17 07:08 Duoneb - NEB 1 amp Q4HPO SARAVANAN Administration Amlodipine Besylate 10 mg 02/25/17 10:00 02/25/17 09:09 Norvasc - PO 10 mg DAILY SARAVANAN Administration Docusate Sodium 100 mg 02/24/17 22:00 02/25/17 09:09 Colace - PO 100 mg BID SARAVANAN Administration Heparin Sodium (Porcine) 5,000 unit 02/24/17 22:00 02/25/17 09:09 Heparin - SQ 5,000 unit BID SARAVANAN Administration Levofloxacin 150 mls @ 150 mls/hr 02/25/17 10:00 02/25/17 09:09 Levaquin 750 Mg Premixed Ivpb - IVPB 150 mls/hr DAILY SARAVANAN Administration Insulin Aspart 1 vial 02/24/17 22:00 02/25/17 06:14 Novolog Vial Sliding Scale - SQ 2 units ACHS SARAVANAN Administration Protocol Insulin Detemir 30 units 02/24/17 22:00 02/24/17 21:52 Levemir Vial SQ 30 units HS SARAVANAN Administration Lisinopril 20 mg 02/25/17 10:00 02/25/17 09:10 Prinivil PO 20 mg DAILY SARAVANAN Administration Loratadine 10 mg 02/24/17 17:45 02/25/17 09:09 Claritin - PO 10 mg DAILY SARAVANAN Administration Methylprednisolone Sodium Succinate 40 mg 02/24/17 17:15 02/25/17 09:08 Solu-Medrol - IVPB 40 mg Q6H-IV SARAVANAN Administration Montelukast Sodium 10 mg 02/24/17 22:00 02/24/17 21:51 Singulair - PO 10 mg HS SARAVANAN Administration Pantoprazole Sodium 40 mg 02/25/17 10:00 02/25/17 09:10 Protonix - PO 40 mg DAILY SARAVANAN Administration Fluticasone/Salmeterol 1 puff 02/24/17 22:00 02/25/17 09:08 Advair 100mcg/50mcg - IH 1 puff BID SARAVANAN Administration ASSESSMENT/PLAN: The patient is a 36 year old female, with significant past medical history of asthma (intubated 2015), coma secondary to respiratory failure (03/2015) seasonal allergies,sleep apnea and diabetes. Patient is revisiting to the ED with difficulty breathing. She was seen in the ED on 02/08/17 and was treated with inhalers and steroids. She was called on 02/10/17 after her chest x-ray results showed possible pneumonia. She was then prescribed Amoxicillin and her symptoms improved slightly. but now worsening. Patient denies fever, chills, nausea, vomiting or diarrhea. She is a non smoker. Pulmonary: Acute exacerbation of asthma - improving Assessment/Plan: Tolerating room air with 2 liters of oxygen prn Less dyspnea on exam, lungs clear to auscultation, no wheezing Levaquin 750mg (day 2) Solumedrol 40mg q6, will taper as tolerated Duonebs scheduled q 4 Singulair @ hs Claritin daily CPAP at night, as pt states she was recommended to wear a cpap but she never did secondary to lack of funds Pulmonary following Cardiology: Hypertension - chronic Assessment/Plan: On Lisinopril 20mg and Amlodopine 10mg home dose BPs elevated today, will increase to Lisinopril 40mg and monitor Chest Pain - acute Assessment/Plan: Mid-sternal chest pain this a.m. with elevated BP Chest pain reproducible on palpation, pain does not radiate, chest pain better with positioning Patient states she was coughing all night - anti-tussive added Troponins x 1 negative, await 2 more EKG reviewed, no significant changes Monitor troponins Endocrine: Diabetes II Assessment/Plan: On sliding scale Levemir 30units @ hs Monitor blood sugar q6 ac/hs diabetic diet F.E.N. Fluids: tolerating PO Electrolytes: monitor with bmp Nutrition: diabetic diet Prophylaxis: DVT: heparin BID, ambulation GI: Protonix 40mg daily Disposition: Requires inpatient hospitalization. Full Code. Visit type - Emergency Visit Emergency Visit: Yes ED Registration Date: 02/24/17 Care time: The patient presented to the Emergency Department on the above date and was hospitalized for further evaluation of their emergent condition. - New Patient This patient is new to me today: No - Critical Care Critical Care patient: No - Discharge Referral Referred to [facility] Med P.C.: No
[2017-02-25] MEDS ORDERED: guaiFENesin/D-M SUGAR-FREE/ACLHOL-FREE 118 ML BOTTLE PO PRN ×2 (09:52→10:30)
[2017-02-25] MEDS ORDERED: LISINOPRIL 20 MG TABLET (FP) PO SCH (10:00)
[2017-02-25] MEDS ORDERED: IBUPROFEN 600 MG TABLET (FP) PO ONE (10:15)
[2017-02-25 10:25] LABS: TROPONIN I < 0.02 ng/ml (0.00-0.05)
--- NOTE | 2017-02-25 10:40 | EKG ---
Test Reason : Blood Pressure : / mmHG Vent. Rate : 092 BPM Atrial Rate : 092 BPM P-R Int : 156 ms QRS Dur : 084 ms QT Int : 382 ms P-R-T Axes : 046 010 011 degrees QTc Int : 472 ms NORMAL SINUS RHYTHM MINIMAL VOLTAGE CRITERIA FOR LVH, MAY BE NORMAL VARIANT Confirmed by MD LAILA, LETITIA ([id number]) on 02/25/2017 10:40:00 AM Referred By: JORDY RIBERA Confirmed By:LETITIA ULLOA MD
--- NOTE | 2017-02-25 10:54 | EKG ---
Test Reason : Blood Pressure : / mmHG Vent. Rate : 117 BPM Atrial Rate : 117 BPM P-R Int : 138 ms QRS Dur : 082 ms QT Int : 362 ms P-R-T Axes : 007 027 039 degrees QTc Int : 504 ms SINUS TACHYCARDIA NONSPECIFIC T WAVE ABNORMALITY ABNORMAL ECG Confirmed by MD LAILA, LETITIA ([id number]) on 02/25/2017 10:54:24 AM Referred By: Confirmed By:LETITIA ULLOA MD
--- NOTE | 2017-02-25 12:47 | PN ---
Progress Note (short form) - Note Progress Note: PULMONARY CONSULTATION DICTATED 02/25/17 IMP CHRONIC PERSISTENT ASTHMA WITH ACUTE EXACERBATION RECENT PNEUMONIA OSAS HTN DM PLAN IV STEROIDS INHALED BRONCHODILATORS NASAL O2 PEAK FLOW IGE LEVEL OUTPATIENT PFTS OUTPATIENT CPAP TITRATION OUTPATIENT DR RIVERA Problem List - Problems (1) Asthma exacerbation Code(s): J45.901 - UNSPECIFIED ASTHMA WITH (ACUTE) EXACERBATION (2) Acute asthma exacerbation Code(s): J45.901 - UNSPECIFIED ASTHMA WITH (ACUTE) EXACERBATION (3) Cough Code(s): R05 - COUGH (4) Diabetes Code(s): E11.9 - TYPE 2 DIABETES MELLITUS WITHOUT COMPLICATIONS (5) Hypertension Code(s): I10 - ESSENTIAL (PRIMARY) HYPERTENSION (6) Sleep apnea, obstructive Code(s): G47.33 - OBSTRUCTIVE SLEEP APNEA (ADULT) (PEDIATRIC)
[2017-02-25] MEDS ORDERED: ALBUTEROL SO4 0.5 % INH SOLN 2.5 MG/0.5 ML VIAL.NEB. NEB PRN (12:49)
[2017-02-25] MEDS ORDERED: predniSONE 20 MG TABLET (UD) PO ONE (12:57)
[2017-02-25] MEDS ORDERED: LISINOPRIL 20 MG TABLET (FP) PO ONE ×2 (13:14→16:30)
[2017-02-25] MEDS ORDERED: ALBUTEROL SO4 0.5 % INH SOLN 2.5 MG/0.5 ML VIAL.NEB. NEB ONE (13:30)
[2017-02-25] MEDS: TIOTROPIUM BROMIDE 18 MCG/INH (DEVICE W/ 5 CAPSULES) IH SCH (16:29)
[2017-02-25] MEDS: guaiFENesin/D-M SUGAR-FREE/ACLHOL-FREE 118 ML BOTTLE PO SCH (16:29)
[2017-02-25] MEDS: BUDESONIDE/FORMETEROL FUMARATE 160/4.5 mcg INHALER IH SCH ×2 (16:30→22:45)
--- NOTE | 2017-02-25 21:27 | CONS ---
DATE OF CONSULTATION: 02/25/2017 REFERRING PROVIDER: HEIDI Mccoy The patient is a 36-year-old black female with a past medical history of chronic persistent asthma, history of respiratory failure in the past, chronic ventilatory support in 2014, obstructive sleep apnea, not on CPAP, nonsmoker, admitted to [facility] with complaint of increasing shortness of breath, cough, and wheezing. The patient states that she had been doing well. For the past month or so she started noticing increasing shortness of breath and cough. She went to the emergency room on February 18 and was treated with inhaled bronchodilators and steroids. At the time, she was called back secondary to an abnormality on her chest x-ray, who felt that she had pneumonia. She was prescribed Augmentin, with improvement in her symptoms. She now presented to [facility] with increasing shortness of breath and bronchospasm, dyspnea on exertion. Denies any nausea, vomiting or diaphoresis. Denies any fevers or chills. Denies hemoptysis. Past medical history again includes obstructive sleep apnea, not on CPAP, history of chronic persistent asthma, intubated in 2015, as well as 2014. Past medical history also includes diabetes as well as hypertension. REVIEW OF SYSTEMS: Positive orthopnea, positive dyspnea, positive cough, positive bronchospasm, positive snoring, positive excessive daytime sleepiness. No abdominal pain. No fevers, no chills. No hemoptysis. No lower extremity edema. Current medications prior to admission include albuterol, amlodipine, lisinopril (Prinivil), NovoLog, Solu-Medrol, Advair, Levaquin, heparin, , DuoNeb, Colace, Levemir, Singulair, Protonix. PHYSICAL EXAMINATION: General: The patient is an obese female, was awake, alert, in no acute distress. Vital Signs: She is currently afebrile. Blood pressure 155/90. Respiratory rate is 18. O2 is 98% on room air. HEENT: Normocephalic, atraumatic. Neck: Supple. Heart: Regular, S1, S2. Chest: A few scattered bilateral wheezes. Abdomen: Soft. Bowel sounds are positive. Extremities: No cyanosis, edema. LABORATORIES: WBC 12.2, hemoglobin 10.6, hematocrit 33.1, with a platelet count of 262,000. BUN 12, creatinine 0.9. Chest x-ray: No acute infiltrates or effusions. IMPRESSION: 1. Chronic persistent asthma acute exacerbation. 2. Obstructive sleep apnea, not on CPAP. 3. Hypertension. 4. Diabetes. PLAN: Continue inhaled bronchodilator, supplemental O2, steroids, slow taper, CPAP, CPAP titration as outpatient. Glycemic control. PFTs as outpatient, and DVT prophylaxis, and supplemental O2. NATALIE RIVERA M.D. [id number]
[2017-02-25] MEDS: MONTELUKAST NA 10 MG TABLET PO SCH (21:46)
[2017-02-25] MEDS: INSULIN DETEMIR 100 UNITS/ML MDV SQ SCH (21:47)
[2017-02-26] MEDS: guaiFENesin/D-M SUGAR-FREE/ACLHOL-FREE 118 ML BOTTLE PO SCH ×5 (00:50→19:02)
[2017-02-26] MEDS: methylPREDNISolone NA SUCC 40 MG/1 ML VIAL IVPB SCH ×3 (02:04→21:00)
[2017-02-26] MEDS: ACETAMINOPHEN 325 MG TABLET (FP) PO PRN ×2 (04:41→13:32)
[2017-02-26] MEDS: INSULIN SLIDING SCALE (NOVOLOG) 1 VIAL SQ SCH ×4 (06:14→21:04)
[2017-02-26 08:08] LABS: BASOPHIL 0.2 % (0-2.0); MCH 23.8 pg (25.7-33.7); MCHC 31.8 g/dl (32.0-36.0); MEAN CELL VOLUME 74.8 fl (80-96); MEAN PLT VOLUME 7.8 fl (7.5-11.1); NEUTROPHILS 91.5 % (42.8-82.8); PLATELET COUNT 242 K/MM3 (134-434); RDW 18.4 % (11.6-15.6); WHITE BLOOD COUNT 14.6 K/mm3 (4.0-10.0)
[2017-02-26 08:42] LABS: ALBUMIN 3.1 g/dl (3.4-5.0); ALK PHOS 79 U/L (45-117); ANION GAP 7 (8-16); BILIRUBIN,TOTAL 0.3 mg/dL (0.2-1.0); CALCIUM 8.6 mg/dL (8.5-10.1); CO2 25 mmol/L (21-32); CREATININE 0.8 mg/dL (0.55-1.02); GLUCOSE,RANDOM 185 mg/dL (74-106); SGOT/AST 10 U/L (15-37); SGPT/ALT 20 U/L (12-78); TOT PROT 6.4 g/dl (6.4-8.2)
[2017-02-26 08:58] LABS: TROPONIN I < 0.02 ng/ml (0.00-0.05)
[2017-02-26] MEDS ORDERED: PT OWN MED DRAWER 7, Y5N ONE ×4 (10:20→18:47)
[2017-02-26] MEDS: TIOTROPIUM BROMIDE 18 MCG/INH (DEVICE W/ 5 CAPSULES) IH SCH (10:27)
[2017-02-26] MEDS: LISINOPRIL 20 MG TABLET (FP) PO SCH (10:28)
[2017-02-26] MEDS: PANTOPRAZOLE 40 MG TABLET (FP) PO SCH (10:28)
[2017-02-26] MEDS: amLODIPine BESYLATE 10 MG TABLET (FP) PO SCH (10:28)
[2017-02-26] MEDS: HEPARIN NA (PORCINE) 5,000 UNITS/ML 1ML VIAL SQ SCH ×2 (10:28→21:00)
[2017-02-26] MEDS: LORATADINE 10 MG TABLET PO SCH (10:28)
[2017-02-26] MEDS: DOCUSATE SODIUM 100 MG CAPSULE (FP) PO SCH ×2 (10:28→20:59)
[2017-02-26] MEDS: LEVOFLOXACIN 750 MG IVPB 150 ML IVPB SCH (10:29)
--- NOTE | 2017-02-26 10:46 | PN ---
Progress Note (short form) - Note Progress Note: PULMONARY States breathing is significantly improved. Peak flow after nebulizer yesterday 370, her previous best was 350. +cough and wheezing. Last Vital Signs Temp Pulse Resp BP Pulse Ox 98 F 85 20 153/84 98 02/26/17 05:44 02/26/17 05:44 02/26/17 05:44 02/26/17 05:44 02/25/17 20:58 Gen: NAD at rest Heart: RRR Lung: distant breath sounds, no wheezes Abd: soft, nontender Ext: no edema CBC, BMP 02/26/17 07:00 02/26/17 07:00 Active Medications Acetaminophen (Tylenol -) 650 mg PO Q4H PRN PRN Reason: FEVER OR PAIN Last Admin: 02/26/17 04:41 Dose: 650 mg Albuterol Sulfate (Ventolin 0.5% -) 1 amp NEB Q4H PRN PRN Reason: SHORT OF BREATH/WHEEZING Last Admin: 02/25/17 13:32 Dose: 1 amp Amlodipine Besylate (Norvasc -) 10 mg PO DAILY [facility] Last Admin: 02/26/17 10:28 Dose: 10 mg Budesonide/Formoterol Fumarate (Symbicort 160/4.5mcg -) 2 puff IH BID [facility] Last Admin: 02/25/17 22:45 Dose: 2 puff Docusate Sodium (Colace -) 100 mg PO BID [facility] Last Admin: 02/26/17 10:28 Dose: 100 mg Guaifenesin (Diabetic Tussin Dm -) 10 ml PO Q6HPO [facility] Last Admin: 02/26/17 08:47 Dose: Not Given Heparin Sodium (Porcine) (Heparin -) 5,000 unit SQ BID [facility] Last Admin: 02/26/17 10:28 Dose: 5,000 unit Levofloxacin (Levaquin 750 Mg Premixed Ivpb -) 150 mls @ 150 mls/hr IVPB DAILY [facility] Last Admin: 02/26/17 10:29 Dose: 150 mls/hr Insulin Aspart (Novolog Vial Sliding Scale -) 1 vial SQ ACHS [facility] PRN Reason: Protocol Last Admin: 02/26/17 06:14 Dose: 2 units Insulin Detemir (Levemir Vial) 30 units SQ HS [facility] Last Admin: 02/25/17 21:47 Dose: 30 units Lisinopril (Prinivil) 40 mg PO DAILY [facility] Last Admin: 02/26/17 10:28 Dose: 40 mg Loratadine (Claritin -) 10 mg PO DAILY [facility] Last Admin: 02/26/17 10:28 Dose: 10 mg Methylprednisolone Sodium Succinate (Solu-Medrol -) 40 mg IVPB Q6H-IV [facility] Last Admin: 02/26/17 09:32 Dose: 40 mg Montelukast Sodium (Singulair -) 10 mg PO HS [facility] Last Admin: 02/25/17 21:46 Dose: 10 mg Pantoprazole Sodium (Protonix -) 40 mg PO DAILY [facility] Last Admin: 02/26/17 10:28 Dose: 40 mg Tiotropium [place] (Spiriva -) 1 puff IH DAILY [facility] Last Admin: 02/26/17 10:27 Dose: 1 puff A/P Acute Asthma Exacerbation Obstructive Sleep Apnea Morbid Obesity HTN DM - can decrease medrol to q12h - inhaled bronchodilators - monitor peak flow - O2 as needed - CPAP at night - PFTs as outpt - DVT prophylaxis
[2017-02-26] MEDS ORDERED: INSULIN (NOVOLOG) ASPART 100 UNITS/ML 10ML VIAL ONE (12:11)
--- NOTE | 2017-02-26 14:03 | PN ---
Physical Exam: SUBJECTIVE: Patient seen and examined. States she feels better, able to ambulate up and down the pod tolerating room air without shortness of breath. Could not tolerate CPAP last night. Asking for PCP and Pulmonary referrals on d/c Denies chest pain. OBJECTIVE: Patient ambulating, no dyspnea on ambulation Bilateral upper wheezing, but much improved Troponins negative to date Having upper back pain - will order Lidoderm patch Vital Signs Period Temp Pulse Resp BP Sys/Mendez Pulse Ox Last 24 Hr 97.6 F-98.0 F 85-112 20-20 127-153/70-95 98-100 GENERAL: Awake, alert, and fully oriented, in no respiratory distress. HEAD: Normal with no signs of trauma. EYES: Pupils equal, round and reactive to light, extraocular movements intact, sclera anicteric, conjunctiva clear. No lid lag. EARS, NOSE, THROAT: Ears normal, nares patent, oropharynx clear without exudates. Moist mucous membranes. NECK: Normal range of motion, supple without lymphadenopathy, JVD, or masses. LUNGS: very mild expiratory wheezing on posterior upper lobes. ABDOMEN: Soft, nontender, not distended, normoactive bowel sounds, no guarding, no rebound, no masses. MUSCULOSKELETAL: having pain of upper back - lidoderm patch ordered UPPER EXTREMITIES: 2+ pulses, warm, well-perfused. No cyanosis. No clubbing. Cap refill <2 seconds. No peripheral edema. LOWER EXTREMITIES: 2+ pulses, warm, well-perfused. No calf tenderness. No peripheral edema. NEUROLOGICAL: Normal speech. Normal gait. PSYCHIATRIC: Cooperative. Good eye contact. Appropriate mood and affect. SKIN: Warm, dry, normal turgor, no rashes or lesions noted. Laboratory Results - last 24 hr 02/25/17 02/25/17 02/25/17 16:47 18:45 21:42 WBC RBC Hgb Hct MCV MCHC RDW Plt Count MPV Neutrophils % Lymphocytes % Monocytes % Eosinophils % Basophils % Sodium Potassium Chloride Carbon Dioxide Anion Gap BUN Creatinine Creat Clearance w eGFR POC Glucometer 187 248 Random Glucose Calcium Total Bilirubin AST ALT Alkaline Phosphatase Creatine Kinase Troponin I < 0.02 Total Protein Albumin 02/26/17 02/26/17 02/26/17 05:52 07:00 07:00 WBC 14.6 H RBC 4.16 Hgb 9.9 L Hct 31.1 L MCV 74.8 L MCHC 31.8 L RDW 18.4 H Plt Count 242 MPV 7.8 Neutrophils % 91.5 H Lymphocytes % 5.5 L Monocytes % 2.8 L Eosinophils % 0.0 Basophils % 0.2 Sodium 141 Potassium 4.5 Chloride 109 H Carbon Dioxide 25 Anion Gap 7 L BUN 15 D Creatinine 0.8 Creat Clearance w eGFR > 60 POC Glucometer 190 Random Glucose 185 H Calcium 8.6 Total Bilirubin 0.3 D AST 10 L D ALT 20 Alkaline Phosphatase 79 Creatine Kinase 138 Troponin I < 0.02 Total Protein 6.4 Albumin 3.1 L 02/26/17 07:00 WBC RBC Hgb Hct MCV MCHC RDW Plt Count MPV Neutrophils % Lymphocytes % Monocytes % Eosinophils % Basophils % Sodium Potassium Chloride Carbon Dioxide Anion Gap BUN Creatinine Creat Clearance w eGFR POC Glucometer Random Glucose Calcium Total Bilirubin AST ALT Alkaline Phosphatase Creatine Kinase Troponin I Cancelled Total Protein Albumin Active Medications Generic Name Dose Route Start Last Admin Trade Name Freq PRN Reason Stop Dose Admin Acetaminophen 650 mg 02/26/17 04:07 02/26/17 13:32 Tylenol - PO 650 mg Q4H PRN Administration FEVER OR PAIN Albuterol Sulfate 1 amp 02/25/17 12:49 02/25/17 13:32 Ventolin 0.5% - NEB 1 amp Q4H PRN Administration SHORT OF BREATH/WHEEZING Amlodipine Besylate 10 mg 02/25/17 10:00 02/26/17 10:28 Norvasc - PO 10 mg DAILY [facility] Administration Budesonide/Formoterol Fumarate 2 puff 02/25/17 13:00 02/25/17 22:45 Symbicort 160/4.5mcg - IH 2 puff BID SAR[facility]NAN Administration Docusate Sodium 100 mg 02/24/17 22:00 02/26/17 10:28 Colace - PO 100 mg BID [facility]N Administration Guaifenesin 10 ml 02/25/17 13:00 02/26/17 12:47 Diabetic Tussin Dm - PO 10 ml Q6HPO [facility] Administration Heparin Sodium (Porcine) 5,000 unit 02/24/17 22:00 02/26/17 10:28 Heparin - SQ 5,000 unit BID [facility]N Administration Levofloxacin 150 mls @ 150 mls/hr 02/25/17 10:00 02/26/17 10:29 Levaquin 750 Mg Premixed Ivpb - IVPB 150 mls/hr DAILY [facility] Administration Insulin Aspart 1 vial 02/24/17 22:00 02/26/17 12:13 Novolog Vial Sliding Scale - SQ 2 units ACHS [facility]N Administration Protocol Insulin Detemir 30 units 02/24/17 22:00 02/25/17 21:47 Levemir Vial SQ 30 units HS [facility] Administration Lidocaine 1 patch 02/26/17 14:00 Lidoderm Patch - TP DAILY [facility]N Lisinopril 40 mg 02/26/17 10:00 02/26/17 10:28 Prinivil PO 40 mg DAILY [facility] Administration Loratadine 10 mg 02/24/17 17:45 02/26/17 10:28 Claritin - PO 10 mg DAILY [facility] Administration Methylprednisolone Sodium Succinate 40 mg 02/26/17 22:00 Solu-Medrol - IVPB BID [facility]NAN Montelukast Sodium 10 mg 02/24/17 22:00 02/25/17 21:46 Singulair - PO 10 mg HS [facility] Administration Pantoprazole Sodium 40 mg 02/25/17 10:00 02/26/17 10:28 Protonix - PO 40 mg DAILY [facility]N Administration Tiotropium [place] 1 puff 02/25/17 13:00 02/26/17 10:27 Spiriva - IH 1 puff DAILY [facility]N Administration ASSESSMENT/PLAN: The patient is a 36 year old female, with significant past medical history of asthma (intubated 2015), coma secondary to respiratory failure (03/2015) seasonal allergies,sleep apnea and diabetes. Patient is revisiting to the ED with difficulty breathing. She was seen in the ED on 02/08/17 and was treated with inhalers and steroids. She was called on 02/10/17 after her chest x-ray results showed possible pneumonia. She was then prescribed Amoxicillin and her symptoms improved slightly. but now worsening. Patient denies fever, chills, nausea, vomiting or diarrhea. 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 Pulmonary: Acute exacerbation of asthma - much improved Assessment/Plan: Tolerating room air, ambulating without any shortness of breath very mild expiratory wheezing on upper lobes Levaquin 750mg (day 3) Solumedrol 40mg q12 Duonebs, Singulair @ hs, Claritin daily CPAP at night, but patient is now refusing cpap Pulmonary following Cardiology: Hypertension - chronic Assessment/Plan: On Lisinopril 40mg and Amlodopine 10mg home dose monitor bp Chest Pain - resolved Assessment/Plan: Troponins x 3 negative EKG reviewed, no significant changes Endocrine: Diabetes II Assessment/Plan: On sliding scale Levemir 30units @ hs Monitor blood sugar ac/hs diabetic diet F.E.N. Fluids: tolerating PO Electrolytes: monitor with bmp Nutrition: diabetic diet Prophylaxis: DVT: heparin BID, ambulation GI: Protonix 40mg daily Disposition: Requires inpatient hospitalization. Full Code. Visit type - Emergency Visit Emergency Visit: Yes ED Registration Date: 02/24/17 Care time: The patient presented to the Emergency Department on the above date and was hospitalized for further evaluation of their emergent condition. - New Patient This patient is new to me today: No - Critical Care Critical Care patient: No - Discharge Referral Referred to [facility] No
[2017-02-26] MEDS: LIDOCAINE 5% TOPICAL PATCH TP SCH (16:59)
[2017-02-26] MEDS: BUDESONIDE/FORMETEROL FUMARATE 160/4.5 mcg INHALER IH SCH ×2 (17:38→21:06)
[2017-02-26] MEDS: MONTELUKAST NA 10 MG TABLET PO SCH (20:59)
[2017-02-26] MEDS: INSULIN DETEMIR 100 UNITS/ML MDV SQ SCH (21:05)
[2017-02-27] MEDS: guaiFENesin/D-M SUGAR-FREE/ACLHOL-FREE 118 ML BOTTLE PO SCH ×6 (00:11→23:43)
[2017-02-27] MEDS ORDERED: PT OWN MED DRAWER 7, Y5N ONE (05:30)
[2017-02-27] MEDS: INSULIN SLIDING SCALE (NOVOLOG) 1 VIAL SQ SCH ×4 (06:25→21:05)
[2017-02-27 07:55] LABS: BASOPHIL 0.2 % (0-2.0); MCH 23.6 pg (25.7-33.7); MCHC 31.7 g/dl (32.0-36.0); MEAN CELL VOLUME 74.7 fl (80-96); NEUTROPHILS 83.2 % (42.8-82.8); PLATELET COUNT 233 K/MM3 (134-434); RDW 18.1 % (11.6-15.6); WHITE BLOOD COUNT 11.5 K/mm3 (4.0-10.0)
[2017-02-27 08:14] LABS: ALBUMIN 2.9 g/dl (3.4-5.0); ANION GAP 10 (8-16); CALCIUM 8.4 mg/dL (8.5-10.1); CO2 27 mmol/L (21-32); CREATININE 0.8 mg/dL (0.55-1.02); GLUCOSE,RANDOM 179 mg/dL (74-106); SGOT/AST 7 U/L (15-37); SGPT/ALT 17 U/L (12-78)
[2017-02-27 08:17] LABS: ALK PHOS 74 U/L (45-117); BILIRUBIN,TOTAL 0.4 mg/dL (0.2-1.0); TOT PROT 6.1 g/dl (6.4-8.2)
--- NOTE | 2017-02-27 10:27 | PN ---
Progress Note (short form) - Note Progress Note: PULMONARY Breathing continues to improve. Last Vital Signs Temp Pulse Resp BP Pulse Ox 97.9 F 70 20 157/97 99 02/27/17 06:00 02/27/17 06:00 02/27/17 06:00 02/27/17 06:00 02/26/17 21:00 Gen: NAD at rest Heart: RRR Lung: distant breath sounds, no wheezes Abd: soft, nontender Ext: no edema CBC, BMP 02/27/17 06:00 02/27/17 06:00 Active Medications Acetaminophen (Tylenol -) 650 mg PO Q4H PRN PRN Reason: FEVER OR PAIN Last Admin: 02/26/17 13:32 Dose: 650 mg Albuterol Sulfate (Ventolin 0.5% -) 1 amp NEB Q4H PRN PRN Reason: SHORT OF BREATH/WHEEZING Last Admin: 02/25/17 13:32 Dose: 1 amp Amlodipine Besylate (Norvasc -) 10 mg PO DAILY [facility] Last Admin: 02/26/17 10:28 Dose: 10 mg Budesonide/Formoterol Fumarate (Symbicort 160/4.5mcg -) 2 puff IH BID [facility] Last Admin: 02/26/17 21:06 Dose: 2 puff Docusate Sodium (Colace -) 100 mg PO BID [facility] Last Admin: 02/26/17 20:59 Dose: 100 mg Guaifenesin (Diabetic Tussin Dm -) 10 ml PO Q6HPO [facility] Last Admin: 02/27/17 06:25 Dose: 10 ml Heparin Sodium (Porcine) (Heparin -) 5,000 unit SQ BID [facility] Last Admin: 02/26/17 21:00 Dose: 5,000 unit Levofloxacin (Levaquin 750 Mg Premixed Ivpb -) 150 mls @ 150 mls/hr IVPB DAILY [facility] Last Admin: 02/26/17 10:29 Dose: 150 mls/hr Insulin Aspart (Novolog Vial Sliding Scale -) 1 vial SQ ACHS [facility] PRN Reason: Protocol Last Admin: 02/27/17 06:25 Dose: 4 units Insulin Detemir (Levemir Vial) 30 units SQ HS [facility] Last Admin: 02/26/17 21:05 Dose: 30 units Lidocaine (Lidoderm Patch -) 1 patch TP DAILY [facility] Last Admin: 02/26/17 16:59 Dose: 1 patch Lisinopril (Prinivil) 40 mg PO DAILY [facility] Last Admin: 02/26/17 10:28 Dose: 40 mg Loratadine (Claritin -) 10 mg PO DAILY [facility] Last Admin: 02/26/17 10:28 Dose: 10 mg Methylprednisolone Sodium Succinate (Solu-Medrol -) 40 mg IVPB BID [facility] Last Admin: 02/26/17 21:00 Dose: 40 mg Montelukast Sodium (Singulair -) 10 mg PO HS [facility] Last Admin: 02/26/17 20:59 Dose: 10 mg Pantoprazole Sodium (Protonix -) 40 mg PO DAILY [facility] Last Admin: 02/26/17 10:28 Dose: 40 mg Tiotropium [place] (Spiriva -) 1 puff IH DAILY [facility] Last Admin: 02/26/17 10:27 Dose: 1 puff A/P Acute Asthma Exacerbation improving Obstructive Sleep Apnea Morbid Obesity HTN DM - can change steroids to PO prednisone 40mg daily in AM and taper as outpt - inhaled bronchodilators - monitor peak flow - O2 as needed - CPAP at night - PFTs as outpt - DVT prophylaxis
[2017-02-27] MEDS: LEVOFLOXACIN 750 MG IVPB 150 ML IVPB SCH (10:40)
[2017-02-27] MEDS: HEPARIN NA (PORCINE) 5,000 UNITS/ML 1ML VIAL SQ SCH ×2 (10:41→21:01)
[2017-02-27] MEDS: LIDOCAINE 5% TOPICAL PATCH TP SCH (10:41)
[2017-02-27] MEDS: DOCUSATE SODIUM 100 MG CAPSULE (FP) PO SCH ×2 (10:42→21:01)
[2017-02-27] MEDS: LORATADINE 10 MG TABLET PO SCH (10:42)
[2017-02-27] MEDS: LISINOPRIL 20 MG TABLET (FP) PO SCH (10:42)
[2017-02-27] MEDS: amLODIPine BESYLATE 10 MG TABLET (FP) PO SCH (10:42)
[2017-02-27] MEDS: PANTOPRAZOLE 40 MG TABLET (FP) PO SCH (10:42)
[2017-02-27] MEDS: methylPREDNISolone NA SUCC 40 MG/1 ML VIAL IVPB SCH ×2 (10:43→21:06)
[2017-02-27] MEDS: TIOTROPIUM BROMIDE 18 MCG/INH (DEVICE W/ 5 CAPSULES) IH SCH (10:43)
[2017-02-27] MEDS: BUDESONIDE/FORMETEROL FUMARATE 160/4.5 mcg INHALER IH SCH ×2 (10:43→21:00)
--- NOTE | 2017-02-27 16:31 | PN ---
Physical Exam: SUBJECTIVE: Patient seen and examined. She reports her breathing has significantly improved since admission. No longer using supplemental oxygen. Able to ambulate up and down the pod without any shortness of breath. Denies any chest pain, discomfort. Has chronic back pain. OBJECTIVE: No wheezing on exam, appears comfortable on room air Discharge planning discussed with patient who is in agreement to follow up with Dr. Betancourt Vital Signs Period Temp Pulse Resp BP Sys/Mendez Pulse Ox Last 24 Hr 97.9 F-98.9 F 70-88 18-20 140-166/78-109 99-99 ENERAL: Awake, alert, and fully oriented, in no respiratory distress. - on room air HEAD: Normal with no signs of trauma. EYES: Pupils equal, round and reactive to light, extraocular movements intact, sclera anicteric, conjunctiva clear. No lid lag. EARS, NOSE, THROAT: Ears normal, nares patent, oropharynx clear without exudates. Moist mucous membranes. NECK: Normal range of motion, supple without lymphadenopathy, JVD, or masses. LUNGS: No wheezing auscultated on exam. lungs clear bilaterally. ABDOMEN: Soft, nontender, not distended, normoactive bowel sounds, no guarding, no rebound, no masses. MUSCULOSKELETAL: having pain of upper back - lidoderm patch ordered UPPER EXTREMITIES: 2+ pulses, warm, well-perfused. No cyanosis. No clubbing. Cap refill <2 seconds. No peripheral edema. LOWER EXTREMITIES: 2+ pulses, warm, well-perfused. No calf tenderness. No peripheral edema. NEUROLOGICAL: Normal speech. Normal gait. PSYCHIATRIC: Cooperative. Good eye contact. Appropriate mood and affect. SKIN: Warm, dry, normal turgor, no rashes or lesions noted. Laboratory Results - last 24 hr 02/26/17 02/26/17 02/26/17 12:06 17:34 21:03 WBC RBC Hgb Hct MCV MCHC RDW Plt Count MPV Neutrophils % Lymphocytes % Monocytes % Eosinophils % Basophils % Sodium Potassium Chloride Carbon Dioxide Anion Gap BUN Creatinine Creat Clearance w eGFR POC Glucometer 175 165 239 Random Glucose Calcium Total Bilirubin AST ALT Alkaline Phosphatase Total Protein Albumin 02/27/17 02/27/17 02/27/17 05:41 06:00 06:00 WBC 11.5 H RBC 4.34 Hgb 10.3 L Hct 32.4 MCV 74.7 L MCHC 31.7 L RDW 18.1 H Plt Count 233 MPV 8.0 Neutrophils % 83.2 H Lymphocytes % 11.9 D Monocytes % 4.7 Eosinophils % 0.0 Basophils % 0.2 Sodium 142 Potassium 4.4 Chloride 105 Carbon Dioxide 27 Anion Gap 10 BUN 13 Creatinine 0.8 Creat Clearance w eGFR > 60 POC Glucometer 202 Random Glucose 179 H Calcium 8.4 L Total Bilirubin 0.4 D AST 7 L D ALT 17 Alkaline Phosphatase 74 Total Protein 6.1 L Albumin 2.9 L 02/27/17 13:08 WBC RBC Hgb Hct MCV MCHC RDW Plt Count MPV Neutrophils % Lymphocytes % Monocytes % Eosinophils % Basophils % Sodium Potassium Chloride Carbon Dioxide Anion Gap BUN Creatinine Creat Clearance w eGFR POC Glucometer 140 Random Glucose Calcium Total Bilirubin AST ALT Alkaline Phosphatase Total Protein Albumin Active Medications Generic Name Dose Route Start Last Admin Trade Name Freq PRN Reason Stop Dose Admin Acetaminophen 650 mg 02/26/17 04:07 02/26/17 13:32 Tylenol - PO 650 mg Q4H PRN Administration FEVER OR PAIN Albuterol Sulfate 1 amp 02/25/17 12:49 02/25/17 13:32 Ventolin 0.5% - NEB 1 amp Q4H PRN Administration SHORT OF BREATH/WHEEZING Amlodipine Besylate 10 mg 02/25/17 10:00 02/27/17 10:42 Norvasc - PO 10 mg DAILY [facility] Administration Budesonide/Formoterol Fumarate 2 puff 02/25/17 13:00 02/27/17 10:43 Symbicort 160/4.5mcg - IH 2 puff BID [facility] Administration Docusate Sodium 100 mg 02/24/17 22:00 02/27/17 10:42 Colace - PO 100 mg BID [facility] Administration Guaifenesin 10 ml 02/25/17 13:00 02/27/17 06:25 Diabetic Tussin Dm - PO 10 ml Q6HPO [facility] Administration Heparin Sodium (Porcine) 5,000 unit 02/24/17 22:00 02/27/17 10:41 Heparin - SQ 5,000 unit BID [facility] Administration Levofloxacin 150 mls @ 150 mls/hr 02/25/17 10:00 02/27/17 10:40 Levaquin 750 Mg Premixed Ivpb - IVPB 150 mls/hr DAILY [facility] Administration Insulin Aspart 1 vial 05/20/17 22:00 02/27/17 16:02 Novolog Vial Sliding Scale - SQ Not Given ACHS [facility] Protocol Insulin Detemir 30 units 02/24/17 22:00 02/26/17 21:05 Levemir Vial SQ 30 units HS [facility] Administration Lidocaine 1 patch 02/26/17 14:00 02/27/17 10:41 Lidoderm Patch - TP 1 patch DAILY [facility] Administration Lisinopril 40 mg 02/26/17 10:00 02/27/17 10:42 Prinivil PO 40 mg DAILY [facility] Administration Loratadine 10 mg 02/24/17 17:45 02/27/17 10:42 Claritin - PO 10 mg DAILY [facility] Administration Methylprednisolone Sodium Succinate 40 mg 02/26/17 22:00 02/27/17 10:43 Solu-Medrol - IVPB 40 mg BID [facility] Administration Montelukast Sodium 10 mg 02/24/17 22:00 02/26/17 20:59 Singulair - PO 10 mg HS [facility] Administration Pantoprazole Sodium 40 mg 02/25/17 10:00 02/27/17 10:42 Protonix - PO 40 mg DAILY [facility] Administration Tiotropium [place] 1 puff 02/25/17 13:00 02/27/17 10:43 Spiriva - IH 1 puff DAILY [facility] Administration ASSESSMENT/PLAN: The patient is a 36 year old female, with significant past medical history of asthma (intubated 2015), coma secondary to respiratory failure (03/2015) seasonal allergies,sleep apnea and diabetes. Patient is revisiting to the ED with difficulty breathing. She was seen in the ED on 02/08/17 and was treated with inhalers and steroids. She was called on 02/10/17 after her chest x-ray results showed possible pneumonia. She was then prescribed Amoxicillin and her symptoms improved slightly. but now worsening. Patient denies fever, chills, nausea, vomiting or diarrhea. 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: Acute exacerbation of asthma - much improved/no wheezing/tolerating room air - resolving Assessment/Plan: Tolerating room air, ambulating without any shortness of breath No wheezing auscultated on exam, Levaquin 750mg (day 4) - will convert to PO tomorrow Solumedrol 40mg q12 today, will convert to Prednisone 40mg PO tomorrow [place]dr[place] @ hs, Claritin daily CPAP at night, but patient is now refusing cpap Sleep study as outpatient if patient is willing Pre and post prior to discharge Pulmonary following Cardiology: Hypertension - chronic Assessment/Plan: On Lisinopril 40mg and Amlodopine 10mg home dose monitor bp Chest Pain - resolved Assessment/Plan: Troponins x 3 negative EKG reviewed, no significant changes Endocrine: Diabetes II - chronic Assessment/Plan: On sliding scale Levemir 30units @ hs Monitor blood sugar ac/hs diabetic diet F.E.N. Fluids: tolerating PO Electrolytes: monitor with bmp Nutrition: diabetic diet Prophylaxis: DVT: heparin BID, ambulation GI: Protonix 40mg daily Disposition: Requires inpatient hospitalization. Likely discharge tomorrow with PCP and Pulmonary (Dr. Betancourt) follow up. Patient requesting PCP referral. Full Code. Visit type - Emergency Visit Emergency Visit: Yes ED Registration Date: 02/24/17 Care time: The patient presented to the Emergency Department on the above date and was hospitalized for further evaluation of their emergent condition. - New Patient This patient is new to me today: No - Critical Care Critical Care patient: No - Discharge Referral Referred to [facility] No
[2017-02-27] MEDS ORDERED: INSULIN (NOVOLOG) ASPART 100 UNITS/ML 10ML VIAL ONE ×2 (17:53→20:34)
[2017-02-27] MEDS: hydrALAZINE HCL 10 MG TABLET PO SCH (18:11)
[2017-02-27] MEDS ORDERED: hydrALAZINE HCL 20 MG/ML VIAL IVPUSH ONE (20:38)
[2017-02-27] MEDS ORDERED: hydrALAZINE HCL 10 MG TABLET PO ONE (20:42)
[2017-02-27] MEDS: MONTELUKAST NA 10 MG TABLET PO SCH (21:02)
[2017-02-27] MEDS: INSULIN DETEMIR 100 UNITS/ML MDV SQ SCH (21:03)
[2017-02-28] MEDS ORDERED: LEVOFLOXACIN 250 MG TABLET (FP) PO SCH (06:00)
[2017-02-28] MEDS: guaiFENesin/D-M SUGAR-FREE/ACLHOL-FREE 118 ML BOTTLE PO SCH ×3 (06:23→18:56)
[2017-02-28] MEDS: INSULIN SLIDING SCALE (NOVOLOG) 1 VIAL SQ SCH ×3 (06:25→18:55)
[2017-02-28] MEDS ORDERED: INSULIN (NOVOLOG) ASPART 100 UNITS/ML 10ML VIAL ONE (06:47)
[2017-02-28] MEDS: hydrALAZINE HCL 10 MG TABLET PO SCH ×2 (06:56→09:27)
[2017-02-28 07:44] LABS: BASOPHIL 0.6 % (0-2.0); EOSINOPHIL 0.1 % (0-4.5); MCHC 32.1 g/dl (32.0-36.0); MEAN CELL VOLUME 74.9 fl (80-96); MEAN PLT VOLUME 8.4 fl (7.5-11.1); NEUTROPHILS 82.2 % (42.8-82.8); PLATELET COUNT 221 K/MM3 (134-434); RDW 17.9 % (11.6-15.6); WHITE BLOOD COUNT 11.8 K/mm3 (4.0-10.0)
[2017-02-28 07:58] LABS: ALBUMIN 2.9 g/dl (3.4-5.0); ANION GAP 10 (8-16); BILIRUBIN,TOTAL 0.2 mg/dL (0.2-1.0); CALCIUM 8.3 mg/dL (8.5-10.1); CO2 24 mmol/L (21-32); CREATININE 0.8 mg/dL (0.55-1.02); GLUCOSE,RANDOM 188 mg/dL (74-106); SGOT/AST 10 U/L (15-37); SGPT/ALT 20 U/L (12-78); TOT PROT 6.3 g/dl (6.4-8.2)
[2017-02-28 07:59] LABS: ALK PHOS 77 U/L (45-117)
[2017-02-28] MEDS ORDERED: PT OWN MED DRAWER 7, Y5N ONE (09:24)
[2017-02-28] MEDS: amLODIPine BESYLATE 10 MG TABLET (FP) PO SCH (09:27)
[2017-02-28] MEDS: LORATADINE 10 MG TABLET PO SCH (09:27)
[2017-02-28] MEDS: LISINOPRIL 20 MG TABLET (FP) PO SCH (09:27)
[2017-02-28] MEDS: PANTOPRAZOLE 40 MG TABLET (FP) PO SCH (09:27)
[2017-02-28] MEDS: TIOTROPIUM BROMIDE 18 MCG/INH (DEVICE W/ 5 CAPSULES) IH SCH (09:28)
[2017-02-28] MEDS: LIDOCAINE 5% TOPICAL PATCH TP SCH (09:28)
[2017-02-28] MEDS: BUDESONIDE/FORMETEROL FUMARATE 160/4.5 mcg INHALER IH SCH (09:28)
[2017-02-28] MEDS: HEPARIN NA (PORCINE) 5,000 UNITS/ML 1ML VIAL SQ SCH (09:28)
[2017-02-28] MEDS: DOCUSATE SODIUM 100 MG CAPSULE (FP) PO SCH (09:28)
[2017-02-28] MEDS ORDERED: predniSONE 20 MG TABLET (UD) PO SCH (10:00)
[2017-02-28] MEDS ORDERED: HYDROCHLOROTHIAZIDE 25 MG TABLET (FP) PO ONE ×2 (10:05→13:08)
--- NOTE | 2017-02-28 10:23 | DS ---
Physical Exam: SUBJECTIVE: Patient seen and examined in AM. Pt states she is agitated d.t being woken up in the middle of the night for BP checks and could not fall back asleep. She c/o back pain d/t hospital bed. OBJECTIVE: Vital Signs Period Temp Pulse Resp BP Sys/Mendez Pulse Ox Last 24 Hr 98.5 F-98.9 F 68-112 18-18 143-168/87-112 94 PE Neuro: alert, awake, cn 2-12intact Pulm: distant, but clear, no wheezing no sob/cough CV: s1 s2 rrr no mrg Abd: s nt nd + bs Ext: warm, no le edema Laboratory Results - last 24 hr 02/28/17 02/28/17 02/28/17 06:10 06:10 06:15 WBC 11.8 H RBC 4.81 Hgb 11.5 D Hct 36.0 MCV 74.9 L MCHC 32.1 RDW 17.9 H Plt Count 221 MPV 8.4 Neutrophils % 82.2 Lymphocytes % 12.5 Monocytes % 4.6 Eosinophils % 0.1 D Basophils % 0.6 Sodium 140 Potassium 4.6 Chloride 106 Carbon Dioxide 24 Anion Gap 10 BUN 14 Creatinine 0.8 Creat Clearance w eGFR > 60 POC Glucometer 178 Random Glucose 188 H Calcium 8.3 L Total Bilirubin 0.2 D AST 10 L D ALT 20 Alkaline Phosphatase 77 Total Protein 6.3 L Albumin 2.9 L HOSPITAL COURSE: Date of Admission:02/24/17 Date of Discharge: 02/28/17 Minutes to complete discharge: 35 Discharge Summary Reason For Visit: ASTHMA WITH ACUTE EXCERBATION,PNEUMONIA Current Active Problems Asthma exacerbation (Acute) Pneumonia (Acute) Sleep apnea, obstructive (Acute) Hospital Course: Initial Hospital Course: Briefly, this 36 year old female, with significant past medical history of asthma (intubated 2015), coma secondary to respiratory failure (03/2015) seasonal allergies,and diabetes admitted with difficulty breathing. She was seen in the ED on 02/08/17 and was treated with inhalers and steroids. She was called on 02/10/17 after her chest x-ray results showed possible pneumonia. She was put then prescribed Amoxicillin and her symptoms improved slightly. but then returned with worsening symptoms. Subsequent Hospital Course/Progress Note/Discharge Summary by a/p Plan: 1. Acute asthma exacerbation - Completed course solumedrol - Home with po prednisone taper - CPAP at night - Outpt sleep study - Continue singular - Continue spiriva - Continue symbicort - Levaquin 750mg x7 days 2. HTN - Prior to discharge elevated BP, improved with x1 dose of clonidine 0.1mg - Home with increased dose lisinopril 40mg - Amlodipine 10mg - Restart HCTZ 25mg daily - Outpt follow up with Cardiology Dr. 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 Atypical chest pa - Resolved - r/o [place] trops x3 resolved - EKG with no is Diabetes II - chronic Assessment/Plan: On sliding scale Levemir 30units @ hs Monitor blood sugar ac/hs diabetic diet F.E.N. Fluids: tolerating PO Electrolytes: monitor with bmp Nutrition: diabetic diet Prophylaxis: DVT: heparin BID, ambulation GI: Protonix 40mg daily Disposition: Requires inpatient hospitalization. Likely discharge tomorrow with PCP and Pulmonary (Dr. Betancourt) follow up. Patient requesting PCP referral. Full Code. Condition: Improved - Instructions Diet, Activity, Other Instructions: Please return to the ED for any new, persistent, or worsening symptoms. Follow up with your PCP in 1 week. (referral enclosed) or refer [facility] for alternate clinic Please follow up with Dr. Betancourt within 1 week after discharge. Follow up with Dr. Lynch (cardiology) for cardiology management. Take medication as listed on home medication list Lisinopril 40mg daily Amlodipine 10mg daily Hydrochlorothiazide 25mg daily Take prednisone taper as directed Complete antibiotics as directed Referrals: Mohinder Betancourt MD [Staff Physician] - Rafita Vasquez MD [Staff Physician] - Tomas Lynch MD [Staff Physician] - Disposition: HOME - Home Medications Comprehensive Discharge Medication List: Ambulatory Orders Amlodipine Besylate [Norvasc -] 10 mg PO DAILY #30 tablet 10/21/16 Albuterol 0.083% Nebulizer [place] [Ventolin 0.083% Nebulizer Soln -] 1 neb NEB QID 02/24/17 Insulin (Novolog) [Novolog -] 0 units SQ TID 02/24/17 Insulin Glargine,Hum.rec.anlog [Lantus Solostar PEN -] 30 units SQ HS 02/24/17 Albuterol Sulfate Inhaler - [Ventolin HFA Inhaler -] 2 inh PO Q4H #1 inhaler Budesonide/Formeterol Fumarate [SYMBICORT 160/4.5mcg -] 2 puff IH BID #1 inhaler 02/27/17 Levofloxacin [Levaquin -] 750 mg PO DAILY@0600 #3 tablet 02/27/17 Loratadine [Claritin -] 10 mg PO DAILY tablet 02/27/17 Montelukast Na [Singulair -] 10 mg PO HS #30 tablet 02/27/17 Pantoprazole Sodium [Protonix -] 40 mg PO DAILY #30 tab 02/27/17 Tiotropium [place] [Spiriva] 1 puff IH DAILY #1 inh 02/27/17 Hydrochlorothiazide 25 mg PO DAILY #30 tablet 02/28/17 Lisinopril [Prinivil -] 40 mg PO DAILY #30 tablet 02/28/17 Prednisone 10 mg PO ASDIR #30 tablet 02/28/17 - Discharge Referral Referred to [facility] No
[2017-02-28 14:55] VITALS: TEMP 98.1
[2017-02-28] MEDS ORDERED: METOPROLOL TARTRATE 5 MG/5 ML VIAL IVPB ONE (15:22)
[2017-02-28] MEDS ORDERED: LIDOCAINE 5% TOPICAL PATCH TP ONE (15:23)
[2017-02-28] MEDS ORDERED: traMADol HCL 50 MG TABLET PO ONE (15:45)
[2017-02-28] MEDS ORDERED: cloNIDine HCL 0.1 MG TABLET PO ONE (17:28)
[2017-02-28 20:09] VITALS: BP 140/90; PULSE 86
[2017-02-28] MEDS ORDERED: LIDOCAINE PATCH REMOVAL MC SCH (22:00)
== END 2017-02-28 21:18 | disposition home or self-care (01) | DRG 141 ==
LOC: JER 12:16 → JERBED 16:16 → J7W 17:58
PROVIDERS: ADMIT Internal Medicine; ATTEND Nurse Practitioner Acute Care
DX: J45.901 Unspecified asthma with (acute) exacerbation (principal); E66.01 Morbid (severe) obesity due to excess calories; E11.9 Type 2 diabetes mellitus without complications; Z68.41 Body mass index [BMI] 40.0-44.9, adult; I10 Essential (primary) hypertension; K21.9 Gastro-esophageal reflux disease without esophagitis; E66.9 Obesity, unspecified; J45.909 Unspecified asthma, uncomplicated; G47.33 Obstructive sleep apnea (adult) (pediatric); R07.89 Other chest pain; Z79.4 Long term (current) use of insulin
CPT/HCPCS: 36415; 71020-TC; 80048; 80053; 82550; 82553; 83735; 84484; 85025; 85027; 87040; 93005; 93010; 94150; 94640; 94660; 94761; 97116-GP; 97161-GP; 99284-25; J1644

== ENCOUNTER 2017-04-09 18:27 | Emergency (ER) | payer OTHER ==
[2017-04-09 18:32] VITALS: BP 138/98; PULSE 117; TEMP 98.3; BMI 42.1
--- NOTE | 2017-04-09 20:50 | PDOC ---
History of Present Illness - General History Source: Patient Exam Limitations: No Limitations - History of Present Illness Initial Comments: 04/09/17 20:51 Chief Complaint: L hand pain History of Present Illness: The patient is a 36 year old female, with a significant past medical history of Asthma, Diabetes, HTN, GERD who presents to the emergency department with injury to the L hand. Patient is a [employer] employee who injured her L 3rd metacarpal area last night 04/08/2016. Patient states she caught her hand on a stretcher. Patient denies any further injuries or trauma. Patient denies taking any medications for relief nor is she requesting any medications in the ED. She reports icing the area relieves the pain. Patient requesting X Ray and note for work. She denies any numbness or tingling in her L hand. Patient presents to the ED for further evaluation Note: Patient is L hand dominant and states she is not . <Cassie Gottlieb - Last Filed: 04/09/17 20:51> <Jess Pavon - Last Filed: 04/09/17 21:22> - General Chief Complaint: Injury Stated Complaint: LT HAND INJURY Time Seen by Provider: 04/09/17 19:56 Past History <Cassie Gottlieb - Last Filed: 04/09/17 20:51> - Past Medical History Anemia: No Asthma: Yes (intubation x1) Cancer: No Cardiac Disorders: No CVA: No COPD: No Dementia: No Diabetes: Yes (iddm) Dialysis: No GI Disorders: No Disorders: No HTN: Yes Hypercholesterolemia: Yes HIV: No Kidney Stones: No Liver Disease: No Suicide Attempt (Hx): No Seizures: No - Surgical History Abdominal Surgery: No Appendectomy: No Cardiac Surgery: No Cholecystectomy: No Neurologic Surgery: No - Immunization History Td Vaccination: Yes TDAP Vaccination: No Immunization Up to Date: Yes - Psycho/Social/Smoking Cessation Hx Anxiety: No Suicidal Ideation: No Smoking Status: No Smoking History: Never smoked Years of Tobacco Use: 0 Have you smoked in the past 12 months: No Number of Cigarettes Smoked Daily: 0 Cigars Per Day: 0 Information on smoking cessation initiated: No Hx Alcohol Use: No Drug/Substance Use Hx: No Substance Use Type: None <Jess Pavon - Last Filed: 04/09/17 21:22> - Past Medical History Allergies/Adverse Reactions: Allergies Allergy/AdvReac Type Severity Reaction Status Date / Time No Known Allergies Allergy Verified 04/09/17 18:28 Home Medications: Ambulatory Orders Amlodipine Besylate [Norvasc -] 10 mg PO DAILY #30 tablet 10/21/16 Albuterol 0.083% Nebulizer Nahomy [Ventolin 0.083% Nebulizer Soln -] 1 neb NEB QID 02/24/17 Insulin (Novolog) [Novolog -] 0 units SQ TID 02/24/17 Insulin Glargine,Hum.rec.anlog [Lantus Solostar PEN -] 30 units SQ HS 02/24/17 Albuterol Sulfate Inhaler - [Ventolin HFA Inhaler -] 2 inh PO Q4H #1 inhaler Budesonide/Formeterol Fumarate [SYMBICORT 160/4.5mcg -] 2 puff IH BID #1 inhaler 02/27/17 Levofloxacin [Levaquin -] 750 mg PO DAILY@0600 #3 tablet 02/27/17 Loratadine [Claritin -] 10 mg PO DAILY tablet 02/27/17 Montelukast Na [Singulair -] 10 mg PO HS #30 tablet 02/27/17 Pantoprazole Sodium [Protonix -] 40 mg PO DAILY #30 tab 02/27/17 Tiotropium [place] [Spiriva] 1 puff IH DAILY #1 inh 02/27/17 Hydrochlorothiazide 25 mg PO DAILY #30 tablet 02/28/17 Lisinopril [Prinivil -] 40 mg PO DAILY #30 tablet 02/28/17 Prednisone 10 mg PO ASDIR #30 tablet 02/28/17 Review of Systems - Review of Systems Able to Perform ROS?: Yes Comments:: 04/09/17 20:52 CONSTITUTIONAL: Absent: fever, no chills, no fatigue EYES: Absent: visual changes ENT: Absent: ear pain, no sore throat CARDIOVASCULAR: Absent: chest pain, no palpitations RESPIRATORY: Absent: cough, no SOB GI: Absent: abdominal pain, no nausea, no vomiting, no constipation, no diarrhea GENITOURINARY: Absent: dysuria, no frequency, no hematuria MUSCULOSKELETAL: +L hand pain. Absent: back pain, no arthralgia, no myalgia SKIN: Absent: rash NEURO: Absent: headache <Cassie Gottlieb - Last Filed: 04/09/17 20:51> *Physical Exam - Vital Signs Last Vital Signs Temp Pulse Resp BP Pulse Ox 98.3 F 117 H 18 138/98 100 04/09/17 18:30 04/09/17 18:30 04/09/17 18:30 04/09/17 18:30 04/09/17 18:30 - Physical Exam Comments: 04/09/17 20:52 GENERAL: Well-appearing, well-nourished. No apparent distress. HEENT: Normocephalic, atraumatic. PERRL, EOM intact. CARDIOVASCULAR: Normal S1, S2. Regular rate and rhythm. PULMONARY: Clear to auscultation bilaterally. ABDOMEN: Soft, non-distended, non-tender. EXTREMITIES: +Slight swelling over L 3rd metacarpal joint. +Full ROM for L wrist and R digits. +Minimal swelling no redness noted. No decreased sensation in L digits. No gross deformities. SKIN: Warm, dry. No rash NEUROLOGICAL: No focal neurological deficits. <Cassie Gottlieb - Last Filed: 04/09/17 20:51> - Vital Signs Last Vital Signs Temp Pulse Resp BP Pulse Ox 98.3 F 117 H 18 138/98 100 04/09/17 18:30 04/09/17 18:30 04/09/17 18:30 04/09/17 18:30 04/09/17 18:30 <Jess Pavon - Last Filed: 04/09/17 21:22> ED Treatment Course - RADIOLOGY Radiology Studies Ordered: Category Date Time Status HAND- LEFT [RAD] Stat Radiology 04/09/17 20:39 Ordered <Jess Pavon - Last Filed: 04/09/17 21:22> Medical Decision Making - Medical Decision Making 04/09/17 21:18 04/09/17 21:19 The patient is a 36 year old female, with a significant past medical history of Asthma, Diabetes, HTN, GERD who presents to the emergency department with injury to the L hand. Patient is a [employer] employee who injured her L 3rd metacarpal area last night 04/08/2016. Patient states she caught her hand on a stretcher. Patient denies any further injuries or trauma. Patient denies taking any medications for relief nor is she requesting any medications in the ED. She reports icing the area relieves the pain. r/o fracture left hand PLAN: xray left hand no fracture noted acetaminophen 1000 mg po now martin wrap left hand 3 inch follow up with orthopedist in 2 days <Jess Pavon - Last Filed: 04/09/17 21:22> *DC/Admit/Observation/Transfer - Attestations Scribe Attestion: 04/09/17 20:53 Documentation prepared by Cassie Gottlieb, acting as medical director/head team physician for Jess Pavon NP <Cassie Gottlieb - Last Filed: 04/09/17 20:51> <Jess Pavon - Last Filed: 04/09/17 21:22> Diagnosis at time of Disposition: Contusion of hand, left Qualifiers: Encounter type: initial encounter Qualified Code(s): S60.222A - Contusion of left hand, initial encounter - Discharge Dispostion Disposition: HOME Condition at time of disposition: Stable - Referrals Referrals: Moncho Villela MD [Primary Care Provider] - Nino Canales MD [Staff Physician] - - Patient Instructions Additional Instructions: You may continue to apply ice to left hand every 2-3 hours for 10-15 minutes each time today and tomorrow Wear Martin wrap during the day may take off at night to left hand Follow-up with orthopedist in 2 days if pain persists Take acetaminophen as needed as directed by supervisor multifocal lens for pain Return to emergency room if pain worsens or any numbness of your left hand or fingers Patient voiced understanding of discharge instructions and all questions were answered - Post Discharge Activity Work/School Note: Back to Work
[2017-04-09] MEDS ORDERED: ACETAMINOPHEN 500 MG TABLET (FP) PO ONE (21:23)
[2017-04-09] MEDS ORDERED: ACETAMINOPHEN 500 MG TABLET (FP) ONE (21:24)
== END 2017-04-09 21:34 | disposition home or self-care (01) ==
LOC: JERFT 18:27
DX: S60.222A Contusion of left hand, initial encounter (principal); W23.0XXA Caught, crushed, jammed, or pinched between moving objects, initial encounter; Y93.F9 Activity, other caregiving; Y92.89 Other specified places as the place of occurrence of the external cause; Y99.0 Civilian activity done for income or pay; I10 Essential (primary) hypertension; E11.9 Type 2 diabetes mellitus without complications; Z79.4 Long term (current) use of insulin; E78.00 Pure hypercholesterolemia, unspecified; J45.909 Unspecified asthma, uncomplicated
CPT/HCPCS: 73130-TC-LT; 99281-25

== ENCOUNTER 2017-08-03 22:59 | Emergency (ER) | payer OTHER ==
[2017-08-03 23:03] VITALS: TEMP 99.4; BMI 40.7
[2017-08-03] MEDS ORDERED: ALBUTEROL SO4 2.5/IPRATROPIUM 0.5 INH SOL 3 ML VIAL.NEB. NEB ONE ×3 (23:16→23:53)
--- NOTE | 2017-08-03 23:17 | PDOC ---
Attending Attestation - Resident Resident Name: NeKaela - HPI HPI: 08/04/17 01:40 Wheezing after exposure to bleach and bathroom shallot cleaner earlier tonight - Physicial Exam PE: 08/04/17 01:42 VSS/NAD - Medical Decision Making 08/04/17 01:[address] Olivia's Assessment and plan 08/04/17 04:57 Patient still wheezing 08/04/17 05:00 Patient is willing to stay simply because she does not feel well enough to go home. 08/04/17 05:[address] Ojeda and her team, patient refusing to stay - wants to go home, will dc with antibiotics and steroids. Discharge Disposition - Diagnosis Bronchitis, Cough Asthma exacerbation Qualifiers: Asthma severity: moderate Acute asthma exacerbation Qualifiers: Asthma severity: moderate Asthma persistence: persistent Qualified Code(s): J45.41 - Moderate persistent asthma with (acute) exacerbation; J45.41 - Moderate persistent asthma with (acute) exacerbation; J45.41 - Moderate persistent asthma with (acute) exacerbation - Discharge Dispostion Disposition: HOME Condition at time of disposition: Improved Last Admission D/C Date: 02/28/17 Admit: No - Prescriptions
[2017-08-03] MEDS: ASPIRIN 325 MG TABLET PO ONE ×2 (23:42→23:46)
[2017-08-03] MEDS ORDERED: ASPIRIN 325 MG TABLET ONE (23:42)
[2017-08-03] MEDS ORDERED: predniSONE 20 MG TABLET (UD) PO ONE (23:53)
[2017-08-03] MEDS ORDERED: predniSONE 20 MG TABLET (UD) ONE (23:53)
--- NOTE | 2017-08-04 00:22 | PDOC ---
History of Present Illness - General History Source: Patient - History of Present Illness Initial Comments: 08/04/17 00:18 Patient is a 36 y.o. female with a PMH of Asthma who presents with two days of increasing dyspnea following cleaning fungus from her bathroom with a bleach cleaning solution. Patient endorses pleuritic chest pain, however does note " it feels like an elephant on my chest" and also notes an intermittent non- productive cough. Patient denies any diaphoresis, lightheadedness, palpitations. 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 Patient further notes she has been self-treating at home with multiple nebulizer treatments. NKDA Surgical: none Social: denies cigarettes, denies alcohol, denies recreational drug PMD: Dr. Vasquez <Kaela Olivia - Last Filed: 08/04/17 05:37> <Dinesh Fisher - Last Filed: 08/04/17 06:00> - General Chief Complaint: Shortness of Breath Stated Complaint: SHORTNESS OF BREATH Time Seen by Provider: 08/03/17 23:15 Past History - Past Medical History Anemia: No Asthma: Yes (intubation x1) Cancer: No Cardiac Disorders: No CVA: No COPD: No Dementia: No Diabetes: Yes (iddm) Dialysis: No GI Disorders: No Disorders: No HTN: Yes Hypercholesterolemia: Yes Kidney Stones: No Liver Disease: No Seizures: No - Surgical History Abdominal Surgery: No Appendectomy: No Cardiac Surgery: No Cholecystectomy: No Neurologic Surgery: No - Immunization History Td Vaccination: Yes TDAP Vaccination: No Immunization Up to Date: Yes - Suicide/Smoking/Psychosocial Hx Smoking Status: No Smoking History: Never smoked Years of Tobacco Use: 0 Have you smoked in the past 12 months: No Number of Cigarettes Smoked Daily: 0 Cigars Per Day: 0 Hx Alcohol Use: No Drug/Substance Use Hx: No Substance Use Type: None <Kaela Olivia - Last Filed: 08/04/17 05:37> <Dinesh Fisher - Last Filed: 08/04/17 06:00> - Past Medical History Allergies/Adverse Reactions: Allergies Allergy/AdvReac Type Severity Reaction Status Date / Time No Known Allergies Allergy Verified 08/03/17 23:03 Home Medications: Ambulatory Orders Amlodipine Besylate [Norvasc -] 10 mg PO DAILY #30 tablet 10/21/16 Albuterol 0.083% Nebulizer Nahomy [Ventolin 0.083% Nebulizer Soln -] 1 neb NEB QID 02/24/17 Albuterol Sulfate Inhaler - [Ventolin HFA Inhaler -] 2 inh PO Q4H #1 inhaler Budesonide/Formeterol Fumarate [SYMBICORT 160/4.5mcg -] 2 puff IH BID #1 inhaler 02/27/17 Montelukast Na [Singulair -] 10 mg PO HS #30 tablet 02/27/17 Pantoprazole Sodium [Protonix -] 40 mg PO DAILY #30 tab 02/27/17 Tiotropium [place] [Spiriva] 1 puff IH DAILY #1 inh 02/27/17 Hydrochlorothiazide 25 mg PO DAILY #30 tablet 02/28/17 Lisinopril [Prinivil -] 40 mg PO DAILY #30 tablet 02/28/17 Metformin HCl [Metformin HCl ER] 500 mg PO BID 08/04/17 Review of Systems - Review of Systems Constitutional: No: Chills, Fever Respiratory: Yes: Cough, Shortness of Breath Cardiac (ROS): Yes: Chest Pain. No: Lightheadedness, Palpitations ABD/GI: No: Constipated, Diarrhea, Nausea, Vomiting <Kaela Olivia - Last Filed: 08/04/17 05:37> *Physical Exam - Vital Signs Last Vital Signs Temp Pulse Resp BP Pulse Ox 99.4 F 105 H 20 139/102 97 08/03/17 23:00 08/03/17 23:00 08/03/17 23:00 08/03/17 23:00 08/03/17 23:00 - Physical Exam General Appearance: Yes: Nourished, Obese Respiratory/Chest: positive: Wheezing (B/L wheezing in all 3 lung alvarado) Cardiovascular: positive: S1, S2 Integumentary: positive: Normal Color, Dry, Warm Neurologic: positive: Fully Oriented <Kaela Olivia - Last Filed: 08/04/17 05:37> - Vital Signs Last Vital Signs Temp Pulse Resp BP Pulse Ox 99.4 F 102 H 20 126/76 95 08/03/17 23:00 08/04/17 05:36 08/04/17 05:36 08/04/17 05:36 08/04/17 05:36 <Dinesh Fisher - Last Filed: 08/04/17 06:00> ED Treatment Course - LABORATORY CBC & Chemistry Diagram: 08/04/17 00:00 08/04/17 00:00 - RADIOLOGY Radiology Studies Ordered: Category Date Time Status CHEST PA & LAT [RAD] Stat Radiology 08/03/17 23:20 Ordered - Medications Given in the ED: ED Medications Discontinued Medications Generic Name Dose Route Start Last Admin Trade Name Jesús PRN Reason Stop Dose Admin Albuterol/Ipratropium 1 amp 08/03/17 23:26 08/03/17 23:20 Duoneb - NEB 08/03/17 23:27 1 amp ONCE ONE Administration Albuterol/Ipratropium 1 amp 08/03/17 23:53 08/03/17 23:55 Duoneb - NEB 08/03/17 23:54 1 amp ONCE ONE Administration Aspirin 325 mg 08/03/17 23:22 08/03/17 23:46 Asa - PO 08/03/17 23:23 Not Given ONCE ONE Prednisone 60 mg 08/03/17 23:53 08/03/17 23:55 Deltasone - PO 08/03/17 23:54 60 mg ONCE ONE Administration <Kaela Olivia - Last Filed: 08/04/17 05:37> - LABORATORY CBC & Chemistry Diagram: 08/04/17 00:00 08/04/17 00:00 - ADDITIONAL ORDERS Additional order review: Laboratory Results 08/04/17 00:00 Sodium 142 Potassium 3.7 Chloride 108 H Carbon Dioxide 22 Anion Gap 12 BUN 11 D Creatinine 0.8 Creat Clearance w eGFR > 60 Random Glucose 82 D Calcium 8.4 L Magnesium 1.9 Total Bilirubin 0.4 D AST 13 L D ALT 24 Alkaline Phosphatase 79 Creatine Kinase 199 H Creatine Kinase Index 0.5 CK-MB (CK-2) < 1.000 Troponin I < 0.02 Total Protein 6.6 Albumin 3.4 08/04/17 00:00 RBC 4.09 MCV 74.6 L MCHC 32.9 RDW 17.1 H MPV 7.7 Neutrophils % 57.3 D Lymphocytes % 32.7 D Monocytes % 5.2 Eosinophils % 3.9 D Basophils % 0.9 - Medications Given in the ED: ED Medications Discontinued Medications Generic Name Dose Route Start Last Admin Trade Name Jesús PRN Reason Stop Dose Admin Albuterol/Ipratropium 1 amp 08/03/17 23:26 08/03/17 23:20 Duoneb - NEB 08/03/17 23:27 1 amp ONCE ONE Administration Albuterol/Ipratropium 1 amp 08/03/17 23:53 08/03/17 23:55 Duoneb - NEB 08/03/17 23:54 1 amp ONCE ONE Administration Aspirin 325 mg 08/03/17 23:22 08/03/17 23:46 Asa - PO 08/03/17 23:23 Not Given ONCE ONE Ceftriaxone Sodium 2 gm/ 100 mls @ 200 mls/hr 08/04/17 04:35 08/04/17 05:26 Dextrose IVPB 08/04/17 05:04 200 mls/hr ONCE ONE Administration Magnesium Sulfate 2 gm 08/04/17 02:56 08/04/17 03:35 Magnesium Sulfate IVPB 08/04/17 02:57 2 gm ONCE ONE Administration Methylprednisolone Sodium Succinate 125 mg 08/04/17 02:56 08/04/17 03:35 Solu-Medrol - IVPUSH 08/04/17 02:57 125 mg ONCE ONE Administration Prednisone 60 mg 08/03/17 23:53 08/03/17 23:55 Deltasone - PO 08/03/17 23:54 60 mg ONCE ONE Administration <Dinesh Fisher - Last Filed: 08/04/17 06:00> Medical Decision Making - Medical Decision Making 08/04/17 03:20 Patient is a 36 y.o. female with a PMH who presents with dyspnea and wheezing following the use of bleach cleaning solution. PLAN: 1. Duo Nebs 2. Predisone 3. CXR 4. Troponin - low likelihood for ACS, Heart Score +1 however patient c/o of "elephant on my chest" pain Reasess 08/04/17 03:42 Troponin (-) x1 As patient continues to wheeze, IV Solumedrol + Duo Nebs + Mg, patient refuses to stand for X-ray, portable XR pending 08/04/17 05:35 Upon re-evaluation patient continues to have diffuse, B/L wheezing in upper and lower lung alvarado. Patient of [place], hospitalist paged for admission requests PFT, patient to be admitted to observation. <Kaela Olivia - Last Filed: 08/04/17 05:37> *DC/Admit/Observation/Transfer <Kaela Olivia - Last Filed: 08/04/17 05:37> - Discharge Dispostion Admit: No <Dinesh Fisher - Last Filed: 08/04/17 06:00> Diagnosis at time of Disposition: Bronchitis, Cough Asthma exacerbation Qualifiers: Qualified Code(s): J45.41 - Moderate persistent asthma with (acute) exacerbation - Discharge Dispostion Disposition: HOME Condition at time of disposition: Improved
[2017-08-04 00:46] LABS: BASOPHIL 0.9 % (0-2.0); EOSINOPHIL 3.9 % (0-4.5); MCH 24.5 pg (25.7-33.7); MCHC 32.9 g/dl (32.0-36.0); MEAN CELL VOLUME 74.6 fl (80-96); MEAN PLT VOLUME 7.7 fl (7.5-11.1); NEUTROPHILS 57.3 % (42.8-82.8); PLATELET COUNT 246 K/MM3 (134-434); RDW 17.1 % (11.6-15.6); WHITE BLOOD COUNT 9.4 K/mm3 (4.0-10.0)
[2017-08-04 01:15] LABS: ALBUMIN 3.4 g/dl (3.4-5.0); ANION GAP 12 (8-16); BILIRUBIN,TOTAL 0.4 mg/dL (0.2-1.0); CALCIUM 8.4 mg/dL (8.5-10.1); CO2 22 mmol/L (21-32); CREATININE 0.8 mg/dL (0.55-1.02); GLUCOSE,RANDOM 82 mg/dL (74-106); MAGNESIUM 1.9 mg/dL (1.8-2.4); SGOT/AST 13 U/L (15-37); SGPT/ALT 24 U/L (12-78); TOT PROT 6.6 g/dl (6.4-8.2)
[2017-08-04 01:18] LABS: ALK PHOS 79 U/L (45-117); CPK 199 IU/L (26-192); TROPONIN I < 0.02 ng/ml (0.00-0.05)
[2017-08-04] MEDS ORDERED: methylPREDNISolone NA SUCC 125 MG/2 ML VIAL IVPUSH ONE (02:56)
[2017-08-04] MEDS ORDERED: MAGNESIUM SULF 50% (8.12 MEQ/2 ML-1 GM VIAL) IVPB ONE (02:56)
[2017-08-04] MEDS ORDERED: MAGNESIUM SULF 50% (8.12 MEQ/2 ML-1 GM VIAL) ONE (03:02)
[2017-08-04] MEDS ORDERED: methylPREDNISolone NA SUCC 125 MG/2 ML VIAL ONE (03:03)
[2017-08-04] MEDS ORDERED: CEFTRIAXONE 2 GM in DEXTROSE 5%-WATER - 100 ML IVPB ONE (04:35)
[2017-08-04] MEDS ORDERED: AZITHROMYCIN IVPB 500 MG in DEXTROSE 5%-WATER - 250 ML IVPB ONE (04:35)
[2017-08-04] MEDS ORDERED: AZITHROMYCIN IVPB 250 ML IVPB ONE (05:21)
[2017-08-04] MEDS ORDERED: CEFTRIAXONE 100 ML IVPB ONE (05:25)
[2017-08-04 05:38] VITALS: BP 126/76; PULSE 102
--- NOTE | 2017-08-04 06:05 | PDOC ---
*Physical Exam - Vital Signs Last Vital Signs Temp Pulse Resp BP Pulse Ox 99.4 F 102 H 20 126/76 95 08/03/17 23:00 08/04/17 05:36 08/04/17 05:36 08/04/17 05:36 08/04/17 05:36 ED Treatment Course - LABORATORY CBC & Chemistry Diagram: 08/04/17 00:00 08/04/17 00:00 - ADDITIONAL ORDERS Additional order review: Laboratory Results 08/04/17 00:00 Sodium 142 Potassium 3.7 Chloride 108 H Carbon Dioxide 22 Anion Gap 12 BUN 11 D Creatinine 0.8 Creat Clearance w eGFR > 60 Random Glucose 82 D Calcium 8.4 L Magnesium 1.9 Total Bilirubin 0.4 D AST 13 L D ALT 24 Alkaline Phosphatase 79 Creatine Kinase 199 H Creatine Kinase Index 0.5 CK-MB (CK-2) < 1.000 Troponin I < 0.02 Total Protein 6.6 Albumin 3.4 08/04/17 00:00 RBC 4.09 MCV 74.6 L MCHC 32.9 RDW 17.1 H MPV 7.7 Neutrophils % 57.3 D Lymphocytes % 32.7 D Monocytes % 5.2 Eosinophils % 3.9 D Basophils % 0.9 - Medications Given in the ED: ED Medications Discontinued Medications Generic Name Dose Route Start Last Admin Trade Name Jesús PRN Reason Stop Dose Admin Albuterol/Ipratropium 1 amp 08/03/17 23:26 08/03/17 23:20 Duoneb - NEB 08/03/17 23:27 1 amp ONCE ONE Administration Albuterol/Ipratropium 1 amp 08/03/17 23:53 08/03/17 23:55 Duoneb - NEB 08/03/17 23:54 1 amp ONCE ONE Administration Aspirin 325 mg 08/03/17 23:22 08/03/17 23:46 Asa - PO 08/03/17 23:23 Not Given ONCE ONE Ceftriaxone Sodium 2 gm/ 100 mls @ 200 mls/hr 08/04/17 04:35 08/04/17 05:26 Dextrose IVPB 08/04/17 05:04 200 mls/hr ONCE ONE Administration Magnesium Sulfate 2 gm 08/04/17 02:56 08/04/17 03:35 Magnesium Sulfate IVPB 08/04/17 02:57 2 gm ONCE ONE Administration Methylprednisolone Sodium Succinate 125 mg 08/04/17 02:56 08/04/17 03:35 Solu-Medrol - IVPUSH 08/04/17 02:57 125 mg ONCE ONE Administration Prednisone 60 mg 08/03/17 23:53 08/03/17 23:55 Deltasone - PO 08/03/17 23:54 60 mg ONCE ONE Administration *DC/Admit/Observation/Transfer Diagnosis at time of Disposition: Bronchitis, Cough Asthma exacerbation Qualifiers: Asthma severity: moderate Acute asthma exacerbation Qualifiers: Asthma severity: moderate Asthma persistence: persistent Qualified Code(s): J45.41 - Moderate persistent asthma with (acute) exacerbation - Discharge Dispostion Disposition: HOME Condition at time of disposition: Improved Admit: No - Prescriptions Prescriptions: Methylprednisolone [Medrol Dose David] 4 mg PO ASDIR #21 tablet Azithromycin [Zithromax -] 250 mg PO UTDICT #6 tab - Referrals Referrals: Rafita Vasquez MD [Staff Physician] - - Patient Instructions Printed Discharge Instructions: DI for Asthma -- Adult - Post Discharge Activity Forms/Work/School Notes: Back to Work
--- NOTE | 2017-08-04 09:40 | EKG ---
Test Reason : Blood Pressure : / mmHG Vent. Rate : 098 BPM Atrial Rate : 098 BPM P-R Int : 148 ms QRS Dur : 082 ms QT Int : 364 ms P-R-T Axes : 045 011 011 degrees QTc Int : 464 ms NORMAL SINUS RHYTHM MINIMAL VOLTAGE CRITERIA FOR LVH, MAY BE NORMAL VARIANT BORDERLINE ECG WHEN COMPARED WITH ECG OF 25-FEB-2017 09:46, NO SIGNIFICANT CHANGE WAS FOUND Confirmed by BEKA BRIZUELA, JANETTE ([id number]) on 08/04/2017 9:39:24 AM Referred By: Confirmed By:JANETTE IRELAND MD
== END 2017-08-04 06:11 | disposition home or self-care (01) ==
LOC: JER 22:59 → JERBED 08-04 05:01 → UNDOADMOB 08-04 05:01 → JERBED 08-04 05:35 → UNDOADMOB 08-04 05:35 → JER 08-04 06:11
PROC: 3E0F7GC Introduction of Other Therapeutic Substance into Respiratory Tract, Via Natural or Artificial Opening (ICD-10-PCS; principal; 2017-08-03)
PROC: 3E0F7GC Introduction of Other Therapeutic Substance into Respiratory Tract, Via Natural or Artificial Opening (ICD-10-PCS; 2017-08-03)
PROC: 3E03329 Introduction of Other Anti-infective into Peripheral Vein, Percutaneous Approach (ICD-10-PCS; 2017-08-03)
PROC: 3E0333Z Introduction of Anti-inflammatory into Peripheral Vein, Percutaneous Approach (ICD-10-PCS; 2017-08-03)
PROC: 3E033GC Introduction of Other Therapeutic Substance into Peripheral Vein, Percutaneous Approach (ICD-10-PCS; 2017-08-03)
DX: J45.41 Moderate persistent asthma with (acute) exacerbation (principal); J40 Bronchitis, not specified as acute or chronic
CPT/HCPCS: 36415; 80053; 82550; 82553; 83735; 84484; 85025; 93005; 93010; 94640; 96365; 96375; 99283-25

== ENCOUNTER 2017-09-19 16:15 | Inpatient (IN) | payer OTHER ==
[2017-09-19] MEDS ORDERED: ALBUTEROL SO4 2.5/IPRATROPIUM 0.5 INH SOL 3 ML VIAL.NEB. NEB ONE ×5 (16:24→22:23)
--- NOTE | 2017-09-19 16:24 | PDOC ---
Rapid Medical Evaluation Chief Complaint: Asthma Time Seen by Provider: 09/19/17 16:21 Medical Evaluation: Allergies Allergy/AdvReac Type Severity Reaction Status Date / Time No Known Allergies Allergy Verified 09/19/17 16:21 09/19/17 16:22 The patient presents with a chief complaint of: asthma exac, went to pulmologist , Dr. Wall who gave alb neb without improvement and sent her to the ED for further management I have performed a brief in-person evaluation of this patient. Pertinent physical exam findings: inspiratory/expiratory wheezing, 96 % ra I have ordered the following: duo The patient will proceed to the ED for further evaluation. Discharge Disposition - Diagnosis Acute asthma exacerbation - Referrals - Patient Instructions - Post Discharge Activity
[2017-09-19] MEDS ORDERED: predniSONE 20 MG TABLET (UD) PO ONE (17:52)
[2017-09-19] MEDS ORDERED: MAGNESIUM SULF 50% (8.12 MEQ/2 ML-1 GM VIAL) IVPB ONE (17:53)
[2017-09-19] MEDS ORDERED: predniSONE 20 MG TABLET (UD) ONE (18:04)
[2017-09-19] MEDS ORDERED: MAGNESIUM SULF 50% (8.12 MEQ/2 ML-1 GM VIAL) ONE ×2 (18:04→18:08)
[2017-09-19] MEDS: ALBUTEROL SO4 2.5/IPRATROPIUM 0.5 INH SOL 3 ML VIAL.NEB. NEB SCH ×2 (18:32→18:51)
--- NOTE | 2017-09-19 18:43 | PDOC ---
History of Present Illness - General Chief Complaint: Asthma Stated Complaint: ASTHMA Time Seen by Provider: 09/19/17 16:21 - History of Present Illness Initial Comments: 09/19/17 18:40 "The patient is a 36 year old female with a significant PMH of asthma, HTN, diabetes, and recurrent pneumonia (~6 in the past year) who presents to the emergency department after being sent by Dr. Wall for evaluation of asthma exacerbation. The patient reports shortness of breath beginning approximately 3 days ago which has progressively worsened despite using her home Albuterol nebulizer and Spiriva with minimal relief. Pt denies F/C. Denies cough. Denies chest pain. Pt has been intubated once in the past but states she feels nowhere near as bad as she did that time. The patient denies chest pain, shortness of breath, headache and dizziness. Denies fever, chills, nausea, vomit, diarrhea and constipation. Denies dysuria, frequency, urgency and hematuria. Allergies: NKA Past surgical history: None reported. Social history: No reported cigarette, alcohol, or drug use. PCP: Dr. Vasquez Appeals Reviewer Veteran: Dr. Wall " Past History - Past Medical History Allergies/Adverse Reactions: Allergies Allergy/AdvReac Type Severity Reaction Status Date / Time No Known Allergies Allergy Verified 09/19/17 16:21 Home Medications: Ambulatory Orders Amlodipine Besylate [Norvasc -] 10 mg PO DAILY #30 tablet 10/21/16 Albuterol 0.083% Nebulizer Nahomy [Ventolin 0.083% Nebulizer Soln -] 1 neb NEB QID 02/24/17 Albuterol Sulfate Inhaler - [Ventolin HFA Inhaler -] 2 inh PO Q4H #1 inhaler Budesonide/Formeterol Fumarate [SYMBICORT 160/4.5mcg -] 2 puff IH BID #1 inhaler 02/27/17 Montelukast Na [Singulair -] 10 mg PO HS #30 tablet 02/27/17 Pantoprazole Sodium [Protonix -] 40 mg PO DAILY #30 tab 02/27/17 Tiotropium [place] [Spiriva] 1 puff IH DAILY #1 inh 02/27/17 Hydrochlorothiazide 25 mg PO DAILY #30 tablet 05/24/17 Lisinopril [Prinivil -] 40 mg PO DAILY #30 tablet 02/28/17 Azithromycin [Zithromax -] 250 mg PO UTDICT #6 tab 08/04/17 Metformin HCl [Metformin HCl ER] 500 mg PO BID 08/04/17 Methylprednisolone [Medrol Dose David] 4 mg PO ASDIR #21 tablet 08/04/17 Anemia: No Asthma: Yes (intubation x1) Cancer: No Cardiac Disorders: No CVA: No COPD: No Dementia: No Diabetes: Yes (iddm) Dialysis: No GI Disorders: No Disorders: No HTN: Yes Hypercholesterolemia: Yes Kidney Stones: No Liver Disease: No Seizures: No - Surgical History Abdominal Surgery: No Appendectomy: No Cardiac Surgery: No Cholecystectomy: No Neurologic Surgery: No - Immunization History Td Vaccination: Yes TDAP Vaccination: No Immunization Up to Date: Yes - Suicide/Smoking/Psychosocial Hx Smoking Status: No Smoking History: Never smoked Years of Tobacco Use: 0 Have you smoked in the past 12 months: No Number of Cigarettes Smoked Daily: 0 Cigars Per Day: 0 Hx Alcohol Use: No Drug/Substance Use Hx: No Substance Use Type: None Respiratory Specific PMHX - Complaint Specific PMHX Bronchitis: Yes Review of Systems - Review of Systems Comments:: 09/19/17 18:42 "GENERAL/CONSTITUTIONAL: No fever or chills. No weakness. HEAD, EYES, EARS, NOSE AND THROAT: No change in vision. No ear pain or discharge. No sore throat. CARDIOVASCULAR: (+) shortness of breath, wheezing. No chest pain. RESPIRATORY: No cough, wheezing, or hemoptysis. GASTROINTESTINAL: No nausea, vomiting, diarrhea or constipation. GENITOURINARY: No dysuria, frequency, or change in urination. MUSCULOSKELETAL: No joint or muscle swelling or pain. No neck or back pain. SKIN: No rash NEUROLOGIC: No headache, vertigo, loss of consciousness, or change in strength/ sensation. ENDOCRINE: No increased thirst. No abnormal weight change. HEMATOLOGIC/LYMPHATIC: No anemia, easy bleeding, or history of blood clots. ALLERGIC/IMMUNOLOGIC: No hives or skin allergy. " *Physical Exam - Vital Signs Last Vital Signs Temp Pulse Resp BP Pulse Ox 98.1 F 114 H 22 149/90 98 09/19/17 16:21 09/19/17 16:21 09/19/17 16:21 09/19/17 16:21 09/19/17 16:21 - Physical Exam Comments: 09/19/17 18:42 "GENERAL: Awake, alert, and fully oriented, in no acute distress HEAD: No signs of trauma EYES: PERRLA, EOMI, sclera anicteric, conjunctiva clear ENT: Auricles normal inspection, hearing grossly normal, nares patent, oropharynx clear without exudates. Moist mucosa NECK: Nontender, no stepoffs, Normal ROM, supple, no lymphadenopathy, JVD, or masses LUNGS: bilateral inspiratory and expiratory wheezes, no rhonchi, no rales HEART: Regular rate and rhythm, normal S1 and S2, no murmurs, rubs or gallops ABDOMEN: Soft, nontender, normoactive bowel sounds. No guarding, no rebound. No masses EXTREMITIES: Normal range of motion, no edema. No clubbing or cyanosis. No cords, erythema, or tenderness NEUROLOGICAL: Cranial nerves II through XII intact. 5/5 strength and sensation in all extremities, Normal speech, normal gait SKIN: Warm, Dry, normal turgor, no rashes or lesions noted. " ED Treatment Course - LABORATORY CBC & Chemistry Diagram: 09/19/17 18:50 09/19/17 18:37 - RADIOLOGY Radiology Studies Ordered: Category Date Time Status CHEST PA & LAT [RAD] Stat Radiology 09/19/17 17:51 Ordered - Medications Given in the ED: ED Medications Discontinued Medications Generic Name Dose Route Start Last Admin Trade Name Freq PRN Reason Stop Dose Admin Albuterol/Ipratropium 1 amp 09/19/17 16:24 09/19/17 17:27 Duoneb - NEB 09/19/17 16:25 1 amp ONCE ONE Administration Prednisone 40 mg 09/19/17 17:52 09/19/17 18:32 Deltasone - PO 09/19/17 17:53 40 mg ONCE ONE Administration Medical Decision Making - Medical Decision Making 09/19/17 18:42 36 F with wheezing x 3 days, consistent with asthma exacerbation. Pt with no fevers to suggest infectious process but has h/o recurrent PNA. Pt with no DVT risk factors. - Labs - CXR - Duonebs, prednisone, Mg - Reassess 09/19/17 19:35 Pt signed out to oncoming attending at 7pm, pending labs, CXR, and re- evaluation. *DC/Admit/Observation/Transfer Diagnosis at time of Disposition: Acute asthma exacerbation - Referrals Referrals: Rafita Vasquez MD [Primary Care Provider] - - Patient Instructions - Post Discharge Activity
[2017-09-19 19:02] LABS: BASOPHIL 0.4 % (0-2.0); EOSINOPHIL 5.4 % (0-4.5); MCH 24.4 pg (25.7-33.7); MCHC 32.4 g/dl (32.0-36.0); MEAN CELL VOLUME 75.5 fl (80-96); MEAN PLT VOLUME 7.2 fl (7.5-11.1); NEUTROPHILS 52.6 % (42.8-82.8); PLATELET COUNT 327 K/MM3 (134-434); RDW 17.2 % (11.6-15.6); WHITE BLOOD COUNT 7.4 K/mm3 (4.0-10.0)
[2017-09-19 20:14] LABS: ALBUMIN 3.1 g/dl (3.4-5.0); ANION GAP 10 (8-16); CALCIUM 8.5 mg/dL (8.5-10.1); CO2 27 mmol/L (21-32); CREATININE 0.9 mg/dL (0.55-1.02); GLUCOSE,RANDOM 181 mg/dL (74-106); SGOT/AST 14 U/L (15-37); TOT PROT 6.3 g/dl (6.4-8.2)
[2017-09-19 20:32] LABS: ALK PHOS 81 U/L (45-117); BILIRUBIN,TOTAL 0.1 mg/dL (0.2-1.0); SGPT/ALT 18 U/L (12-78)
--- NOTE | 2017-09-19 21:54 | PDOC ---
*Physical Exam - Vital Signs Last Vital Signs Temp Pulse Resp BP Pulse Ox 98.1 F 114 H 22 149/90 98 09/19/17 16:21 09/19/17 16:21 09/19/17 16:21 09/19/17 16:21 09/19/17 16:21 ED Treatment Course - LABORATORY CBC & Chemistry Diagram: 09/19/17 18:50 09/19/17 19:32 - ADDITIONAL ORDERS Additional order review: Laboratory Results 09/19/17 09/19/17 19:32 18:37 Sodium 140 Cancelled Potassium 3.1 L Cancelled Chloride 103 Cancelled Carbon Dioxide 27 D Cancelled Anion Gap 10 Cancelled BUN 9 Cancelled Creatinine 0.9 Cancelled Creat Clearance w eGFR > 60 Cancelled Random Glucose 181 H D Cancelled Calcium 8.5 Cancelled Total Bilirubin 0.1 L D Cancelled AST 14 L Cancelled ALT 18 D Cancelled Alkaline Phosphatase 81 Cancelled Total Protein 6.3 L Cancelled Albumin 3.1 L Cancelled 09/19/17 18:50 RBC 4.08 MCV 75.5 L MCHC 32.4 RDW 17.2 H MPV 7.2 L Neutrophils % 52.6 Lymphocytes % 35.9 Monocytes % 5.7 Eosinophils % 5.4 H Basophils % 0.4 - Medications Given in the ED: ED Medications Discontinued Medications Generic Name Dose Route Start Last Admin Trade Name Trayq PRN Reason Stop Dose Admin Albuterol/Ipratropium 1 amp 09/19/17 16:24 09/19/17 17:27 Duoneb - NEB 09/19/17 16:25 1 amp ONCE ONE Administration Albuterol/Ipratropium 1 amp 09/19/17 18:00 09/19/17 18:51 Duoneb - NEB 09/19/17 18:46 1 amp Q15M SARAVANAN Administration Magnesium Sulfate 2 gm 09/19/17 17:53 09/19/17 18:50 Magnesium Sulfate IVPB 09/19/17 17:54 2 gm ONCE ONE Administration Prednisone 40 mg 09/19/17 17:52 09/19/17 18:32 Deltasone - PO 09/19/17 17:53 40 mg ONCE ONE Administration Medical Decision Making - Medical Decision Making 09/19/17 21:56 Pt still has very coarse wheezing despite treatment in the department. Pt still have has persistent cough. Will admit pt. *DC/Admit/Observation/Transfer Diagnosis at time of Disposition: Acute asthma exacerbation - Discharge Dispostion Condition at time of disposition: Stable Admit: Yes - Referrals Referrals: Rafita Vasquez MD [Primary Care Provider] - - Patient Instructions - Post Discharge Activity
[2017-09-19] MEDS ORDERED: LEVOFLOXACIN 750 MG IVPB 750 MG/150 ML BAG IVPB ONE ×2 (21:55→22:24)
[2017-09-19] MEDS ORDERED: POTASSIUM CHLORIDE TABS 20 MEQ TABLET.ER (FP) PO ONE ×2 (21:56→22:23)
[2017-09-19] MEDS ORDERED: ALBUTEROL SO4 0.083% IH SOL 2.5 MG/3 ML VIAL.NEB. NEB PRN (23:00)
--- NOTE | 2017-09-19 23:39 | HP ---
<Carlos Lugo - Last Filed: 09/20/17 01:38> 36 year old female with history of asthma, previous intubation and recent hospitalization for asthma exacerbation presents to the ED c/o SOB and wheezing that did not respond to home medications ( nebulizers) Patient is seen and examined. Vital Signs Temperature 98.1 F 09/19/17 16:21 Pulse Rate 114 H 09/19/17 16:21 Respiratory Rate 22 09/19/17 16:21 Blood Pressure 149/90 09/19/17 16:21 O2 Sat by Pulse Oximetry (%) 98 09/19/17 16:21 LUNGS: Prolonged expiratory phase. Diffuse wheezes. No rales or rhonchi. No accessory muscle use. HEART: Tachycardic, normal S1 and S2 without murmur ABDOMEN: Soft, nontender, nondistended, normoactive bowel sounds, no guarding MUSCULOSKELETAL: No CVA tenderness. CBC, BMP 09/19/17 18:50 09/19/17 19:32 1. Acute asthma exacerbation- history of prior intubation, no improvement afterinhaled steroids - IV steroids BID - nebs - peak flow - O2 2. Hypomagnesemia and hypokalemia - supplement and repeat levels 3. Uncontrolled DM - SS coverage - HB a1c Based on the high risk of respiratory failure and intubation , need for IV steroids and gradual taper , respiratory monitoring , Peak flow monitoring anticipated length of stay is greater then 2 midnights. Will admit <Augie Casanova - Last Filed: 09/20/17 04:17> CHIEF COMPLAINT: Wheezing PCP: Dr. Vasquez In Home Baby Sitter: Dr. Wall HISTORY OF PRESENT ILLNESS: 36yo F with significant history of asthma with one time intubation, recently diagnosed OFELIA, HTN, and DM who presented to the ED for wheezing. Pt reports having increased wheezing and non-productive cough starting a day ago. 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 Pt reports trying her inhaler at home for the wheezing however she had only had at maximum 1 minute of relief. Pt saw Dr. Wall today for her asthma exacerbation and was sent here for further evaluation. Pt denies any fever/chills, sore throat, ear pain, sinus pain, CP, abdominal pain, diarrhea/ constipation. Pt was previously seen in ER for same symptoms, however at that time pt's exacerbation was triggered by cleaning aerosols that she was using. Pt was discharged from ED at that point due to complete resolution of symptoms. ER course was notable for: (1) Duonebs, Prednisone 40mg, MgSO4 2gm and KDur 40mEq administration (2) CXR - No acute pathology or infilitrates seen (3) Levaquin 750 given Recent Travel: Denies PAST MEDICAL HISTORY: Asthma OFELIA HTN DM PAST SURGICAL HISTORY: None Social History: Smoking: Denies Alcohol: Holidays Drugs: None Allergies No Known Allergies Allergy (Verified 09/19/17 16:21) HOME MEDICATIONS: Home Medications Medication Instructions Recorded Amlodipine Besylate [Norvasc -] 10 mg PO DAILY #30 tablet 10/21/16 Albuterol 0.083% Nebulizer Nahomy 1 neb NEB QID 02/24/17 [Ventolin 0.083% Nebulizer Soln -] Albuterol Sulfate Inhaler - 2 inh PO Q4H #1 inhaler 02/27/17 [Ventolin HFA Inhaler -] Budesonide/Formeterol Fumarate 2 puff IH BID #1 inhaler 02/27/17 [SYMBICORT 160/4.5mcg -] Montelukast Na [Singulair -] 10 mg PO HS #30 tablet 02/27/17 Pantoprazole Sodium [Protonix -] 40 mg PO DAILY #30 tab 02/27/17 Tiotropium [place] [Spiriva] 1 puff IH DAILY #1 inh 02/27/17 Hydrochlorothiazide 25 mg PO DAILY #30 tablet 02/28/17 Lisinopril [Prinivil -] 40 mg PO DAILY #30 tablet 02/28/17 Azithromycin [Zithromax -] 250 mg PO UTDICT #6 tab 08/04/17 Metformin HCl [Metformin HCl ER] 500 mg PO BID 08/04/17 Methylprednisolone [Medrol Dose 4 mg PO ASDIR #21 tablet 08/04/17 David] REVIEW OF SYSTEMS CONSTITUTIONAL: Absent: fever, chills, diaphoresis, generalized weakness, malaise, loss of appetite, weight change HEENT: Absent: rhinorrhea, nasal congestion, throat pain, throat swelling, difficulty swallowing, mouth swelling, ear pain, eye pain, visual changes CARDIOVASCULAR: Absent: chest pain, syncope, palpitations, irregular heart rate, lightheadedness , peripheral edema RESPIRATORY: Present: cough, shortness of breath, Absent: dyspnea with exertion, orthopnea, wheezing, stridor, hemoptysis GASTROINTESTINAL: Absent: abdominal pain, abdominal distension, nausea, vomiting, diarrhea, constipation, melena, hematochezia GENITOURINARY: Absent: dysuria, frequency, urgency, hesitancy, hematuria, flank pain, genital pain MUSCULOSKELETAL: Absent: myalgia, arthralgia, joint swelling, back pain, neck pain NEUROLOGIC: Absent: headache, focal weakness or paresthesias, dizziness, unsteady gait, seizure, mental status changes, bladder or bowel incontinence PSYCHIATRIC: Absent: anxiety, depression PHYSICAL EXAMINATION Vital Signs - 24 hr 09/19/17 16:21 Temperature 98.1 F Pulse Rate 114 H Respiratory 22 Rate Blood Pressure 149/90 O2 Sat by Pulse 98 Oximetry (%) GENERAL: NAD, awake, alert, undergoing duoneb treatment HEENT: NC/AT, EOMI, ANA, No JVD, Moist mucous membranes, no erythema or plaques in posterior oropharynx. Absent nasal flairing LUNGS: Prolonged expiratory phase. Diffuse expiratory wheezes. No rales or rhonchi. No accessory muscle use. HEART: Tachycardic, normal S1 and S2 without murmur ABDOMEN: Soft, nontender, nondistended, normoactive bowel sounds, no guarding MUSCULOSKELETAL: No CVA tenderness. EXTREMITIES: 2+ DP pulses, warm, well-perfused. No peripheral edema. NEUROLOGICAL: Nonfocal. Normal speech. Normal gait. strength 5/5 throughout PSYCHIATRIC: Cooperative. Good eye contact. Appropriate mood and affect. SKIN: Warm, no rashes or lesions noted, cap refill <2sec Laboratory Results - last 24 hr 09/19/17 09/19/17 09/19/17 18:37 18:50 19:32 WBC 7.4 RBC 4.08 Hgb 10.0 L Hct 30.8 L MCV 75.5 L MCH 24.4 L MCHC 32.4 RDW 17.2 H Plt Count 327 D MPV 7.2 L Neutrophils % 52.6 Lymphocytes % 35.9 Monocytes % 5.7 Eosinophils % 5.4 H Basophils % 0.4 Sodium Cancelled 140 Potassium Cancelled 3.1 L Chloride Cancelled 103 Carbon Dioxide Cancelled 27 D Anion Gap Cancelled 10 BUN Cancelled 9 Creatinine Cancelled 0.9 Creat Clearance w eGFR Cancelled > 60 Random Glucose Cancelled 181 H D Calcium Cancelled 8.5 Total Bilirubin Cancelled 0.1 L D AST Cancelled 14 L ALT Cancelled 18 D Alkaline Phosphatase Cancelled 81 Total Protein Cancelled 6.3 L Albumin Cancelled 3.1 L ASSESSMENT/PLAN: 36yo F with significant history of asthma with one time intubation, recently diagnosed OFELIA, HTN, and DM who presented to the ED for wheezing found to be in acute asthma exacerbation 1) Asthma exacerbation --Duonebs QID henry --Albuterol neb q4h PRN --Continue singulair --Hold symbicort --Solumedrol 40mg BID IV --SpO2 currently 98% on RA --Mg given in ER 2) HTN --Continued Norvasc 10mg qdaily --Continued HCTZ 25mg qDaily --Continue Lisinopri 40mg qDaily --Currently BP is 139/90, however most likely elevated due to exacerbation --Continue to monitor 3) DM --BGM ACHS --ISS coverage --Held metformin currently --Diabetic diet 4) GERD --Continued protonix 40mg qdaily FEN: Fluids: Not indicated currently Electrolyte abnormalities: Hypokalemia (repleted in ED 40 KDur; trend) Nutrition: Diabetic Diet PPX DVT - SCDs GI - no indicated, however takes protonix anyway Dispo: Admit to M/S Case discussed with Dr. Parish Casanova, DO - Internal Medicine PGY-1 Visit type - Emergency Visit Emergency Visit: Yes ED Registration Date: 09/19/17 Care time: The patient presented to the Emergency Department on the above date and was hospitalized for further evaluation of their emergent condition. - New Patient This patient is new to me today: Yes Date on this admission: 09/20/17 - Critical Care Critical Care patient: No
[2017-09-20] MEDS: ALBUTEROL SO4 2.5/IPRATROPIUM 0.5 INH SOL 3 ML VIAL.NEB. NEB SCH ×3 (00:13→18:00)
[2017-09-20 05:24] VITALS: BMI 40.7
[2017-09-20] MEDS: INSULIN SLIDING SCALE (NOVOLOG) 1 VIAL SQ SCH ×4 (06:54→21:20)
--- NOTE | 2017-09-20 07:39 | PN ---
Physical Exam: SUBJECTIVE: Patient seen and examined. Pt states she is doing better, breathing better. Initially wanted to sign out AMA, but explained to patient that we recommend her staying in the hospital continuing her steroid treatments. States she feels back to normal. No CP, no SOB. OBJECTIVE: Vital Signs Period Temp Pulse Resp BP Sys/Mendez Pulse Ox Last 24 Hr 98.1 F-98.6 F 114-116 20-22 138-149/85-90 98-98 GEN: AAOx3, NAD, speaking in full sentences, initially agitated and wanting to go home HEENT: PERRLA, EOMi CV: S1, S2, RRR, no murmur LUNG: Poor air movement, Inspiratory wheezes, prolonged expiratory phase ABD: Obese, soft, NT, ND MSK: No edema, no erythema NEURO: CN 2-12 intact, no sensation or MSK deficits Active Medications Generic Name Dose Route Start Last Admin Trade Name Freq PRN Reason Stop Dose Admin Albuterol Sulfate 1 amp 09/19/17 23:00 Ventolin 0.083% Nebulizer Soln - NEB Q4H PRN SHORT OF BREATH/WHEEZING Albuterol/Ipratropium 1 amp 09/20/17 00:00 09/20/17 00:13 Duoneb - NEB 1 amp QIDR SARAVANAN Administration Amlodipine Besylate 10 mg 09/20/17 10:00 Norvasc - PO DAILY SARAVANAN Hydrochlorothiazide 25 mg 09/20/17 10:00 Hctz - PO DAILY SARAVANAN Insulin Aspart 1 vial 09/20/17 07:00 09/20/17 06:54 Novolog Vial Sliding Scale - SQ Not Given ACHS SARAVANAN Protocol Lisinopril 40 mg 09/20/17 10:00 Prinivil PO DAILY SARAVANAN Methylprednisolone Sodium Succinate 40 mg 09/20/17 10:00 Solu-Medrol - IVPUSH BID SARAVANAN Montelukast Sodium 10 mg 09/20/17 22:00 Singulair - PO HS SARAVANAN Pantoprazole Sodium 40 mg 09/20/17 10:00 Protonix - PO DAILY SARAVANAN ASSESSMENT/PLAN: 36yo F with significant history of asthma with one time intubation, recently diagnosed OFELIA, HTN, and DM who presented to the ED for wheezing found to be in acute asthma exacerbation # Acute Asthma Exacerbation - Sent from Dr Wall (pulmonology) office after running out of medications. IV Solumderol 40mg BID. Patient states she is doing better but still objectively wheezes with poor air movement. Increase IV Solumedrol to 60 TID. Continue Duonebs QID + Albuterol Q4 PRN. Continue Singulair, Spiriva, Symbicort. Received Levaquin in the ER, no concern for infection, CXR clear, will d/c for now. - Discussed w/ Dr Wall, who will see the patient, agrees with current management. If patient improves, can d/c tmrw on prednisone taper starting 40mg taper by 10mg Q3 days. # OFELIA - Primary study completed as outpatient, needs titration study. Discussed w/ Dr Wall, will start on CPAP at 10 HS. # Hypokalemia - Repleted in ED, check today # HTN - Well controlled on home medications Norvasc 10 daily, HCTZ 25 daily, Lisinopril 40 daily # NIDDM - Hold metformin, continue BGM + ISS ACHS # GERD - Continue home protonix 40 daily # FEN - No IVF, watch hypokalemia, diabetic diet # PPx - SCDs, no GI ppx needed, PT not needed # Dispo - Continue monitoring with IV steroids d/w Dr Rosalia Arreola MD - PGY1 resident Internal Medicine Visit type - Emergency Visit Emergency Visit: No - New Patient This patient is new to me today: No - Critical Care Critical Care patient: No - Discharge Referral [facility]erred to [facility] Med P.C.: No
[2017-09-20 09:35] LABS: MCH 23.7 pg (25.7-33.7); MCHC 31.2 g/dl (32.0-36.0); MEAN CELL VOLUME 75.9 fl (80-96); MEAN PLT VOLUME 7.1 fl (7.5-11.1); PLATELET COUNT 345 K/MM3 (134-434); RDW 17.5 % (11.6-15.6); WHITE BLOOD COUNT 10.3 K/mm3 (4.0-10.0)
[2017-09-20] MEDS ORDERED: BUDESONIDE/FORMETEROL FUMARATE 160/4.5 mcg INHALER IH SCH (10:00)
[2017-09-20 10:11] LABS: ANION GAP 10 (8-16); CALCIUM 8.8 mg/dL (8.5-10.1); CO2 25 mmol/L (21-32); CREATININE 0.9 mg/dL (0.55-1.02); GLUCOSE,RANDOM 149 mg/dL (74-106); MAGNESIUM 2.2 mg/dL (1.8-2.4)
[2017-09-20] MEDS: HYDROCHLOROTHIAZIDE 25 MG TABLET (FP) PO SCH (10:44)
[2017-09-20] MEDS: LISINOPRIL 20 MG TABLET (FP) PO SCH (10:44)
[2017-09-20] MEDS: methylPREDNISolone NA SUCC 40 MG/1 ML VIAL IVPUSH SCH ×2 (10:45→17:15)
[2017-09-20] MEDS: amLODIPine BESYLATE 10 MG TABLET (FP) PO SCH (10:45)
[2017-09-20] MEDS: PANTOPRAZOLE 40 MG TABLET (FP) PO SCH (10:45)
[2017-09-20] MEDS ORDERED: ZOLPIDEM TARTRATE 5 MG TABLET PO PRN (12:49)
--- NOTE | 2017-09-20 14:08 | PN ---
Teaching Attending Note Name of Resident: Navin Arreola ATTENDING PHYSICIAN STATEMENT I saw and evaluated the patient. I reviewed the resident's note and discussed the case with the resident. I agree with the resident's findings and plan as documented. SUBJECTIVE:continues to have dyspnea at rest and unable to sleep due to breathing. continues to have non productive cough. 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 was using rescue inhaler around the clock the 3 days prior to coming in including throughout the night. denies CP, fever, chills, N/V/C/D, hemopysis. baseline peak flow 350 OBJECTIVE: Last Vital Signs Temp Pulse Resp BP Pulse Ox 98.6 F 110 H 18 133/74 98 09/20/17 04:58 09/20/17 12:21 09/20/17 10:00 09/20/17 10:00 09/20/17 12:21 General NAD CV S1 S2 tachy Lungs diffuse wheezing abdomen soft NT/ND Extremities no pedal edema ASSESSMENT AND PLAN: 36yo F wtih PMH asthma with intubation in 2014, HTN and morbid obesity presented to the ER with dyspnea 1. Acute Asthma exacerbation- remains dyspnic although able to speak in full sentences. increase medrol dosing to 60mg Q8H, duonebs RTC and prn. obtain peak flow to monitor progress. consult pulmonary. received levaquin in the ER. will d /c at this time as CXR clear, afebrile, no leukocytosis and non productive cough. cont symbicort, singulair 2. Hypomagnesmia- resolved 3. hypokalemia- resolved 4. Microcytic anemia- check iron studies. hggb stable. no signs of bleeding 5. HTN- controlled. 6. OFELIA-newly diagnosed. call place to pulmonolgist for CPAP settings. 7. Morbid obesity- bariatric referral 8. DVT ppx- start loenox
--- NOTE | 2017-09-20 15:05 | CON.PULM ---
Consult - History of Present Illness Chief Complaint: shortness of breath History of Present Illness: 36 year old woman transferred from office to ED because of status astmaticus. Pt has a long history of bronchial asthma. Recently she had increased wheezing and dyspnea. She ran out of Proair and required neb treatment and treatment with Lama in the office before she could be sent to the ER. No chest pain or palpitations. No syncope. No history of hemoptysis or Tb. Non-smoker. Several years ago had to be intubated because of asthma while living in [place]. Patient has Obstructive Sleep Apnea-polysomnography at [facility] 07/25/2017 revealed AHI 26.7. Pt was also treated for pneumonia and exacerbation bronchial asthma about ago at the [facility] ER and was treated with a course of Prednisone. - History Source History Provided By: Patient, Medical Record - Past Medical History ...: No - Alcohol/Substance Use Hx Alcohol Use: No - Smoking History Smoking history: Never smoked Have you smoked in the past 12 months: No Aproximately how many cigarettes per day: 0 Home Medications - Allergies Allergies/Adverse Reactions: Allergies Allergy/AdvReac Type Severity Reaction Status Date / Time No Known Allergies Allergy Verified 09/19/17 16:21 - Home Medications Home Medications: Ambulatory Orders Amlodipine Besylate [Norvasc -] 10 mg PO DAILY #30 tablet 10/21/16 Albuterol 0.083% Nebulizer Nahomy [Ventolin 0.083% Nebulizer Soln -] 1 neb NEB QID 02/24/17 Albuterol Sulfate Inhaler - [Ventolin HFA Inhaler -] 2 inh PO Q4H #1 inhaler Budesonide/Formeterol Fumarate [SYMBICORT 160/4.5mcg -] 2 puff IH BID #1 inhaler 02/27/17 Montelukast Na [Singulair -] 10 mg PO HS #30 tablet 02/27/17 Pantoprazole Sodium [Protonix -] 40 mg PO DAILY #30 tab 02/27/17 Tiotropium [place] [Spiriva] 1 puff IH DAILY #1 inh 02/27/17 Hydrochlorothiazide 25 mg PO DAILY #30 tablet 02/28/17 Lisinopril [Prinivil -] 40 mg PO DAILY #30 tablet 02/28/17 Azithromycin [Zithromax -] 250 mg PO UTDICT #6 tab 08/04/17 Metformin HCl [Metformin HCl ER] 500 mg PO BID 08/04/17 Methylprednisolone [Medrol Dose David] 4 mg PO ASDIR #21 tablet 08/04/17 Review of Systems - Review of Systems Constitutional: denies: Chills, Fever Cardiovascular: reports: Shortness of Breath. denies: Chest Pain, Edema, Palpitations Respiratory: reports: Cough, SOB, Wheezing. denies: Hemoptysis Gastrointestinal: denies: Abdominal Pain, Rectal Bleeding, Vomiting, Vomiting Blood Neurological: denies: Syncope Physical Exam Vital Sings: Vital Signs Temperature 98.6 F 09/20/17 04:58 Pulse Rate 110 H 09/20/17 12:21 Respiratory Rate 18 09/20/17 10:00 Blood Pressure 133/74 09/20/17 10:00 O2 Sat by Pulse Oximetry (%) 98 09/20/17 12:21 Labs: CBC, BMP 09/20/17 09:24 09/20/17 09:24 Imaging - Results Chest X-ray: Report Reviewed, Image Reviewed (KAYDEN)
--- NOTE | 2017-09-20 15:27 | CON.PULM ---
Consult - History of Present Illness History of Present Illness: 36 year old woman transferred from office to ED because of status astmaticus. Pt has a long history of bronchial asthma. Recently she had increased wheezing and dyspnea. She ran out of Proair and required neb treatment and treatment with Lama in the office before she could be sent to the ER. No chest pain or palpitations. No syncope. No history of hemoptysis or Tb. Non-smoker. Several years ago had to be intubated because of asthma while living in [place]. Patient has Obstructive Sleep Apnea-polysomnography at [facility] 07/25/2017 revealed AHI 26.7. Pt was also treated for pneumonia and exacerbation bronchial asthma about ago at the [facility] ER and was treated with a course of Prednisone. - - Past Medical History ...: No - Alcohol/Substance Use Hx Alcohol Use: No - Smoking History Smoking history: Never smoked Have you smoked in the past 12 months: No Aproximately how many cigarettes per day: 0 Home Medications - Allergies Allergies/Adverse Reactions: Allergies Allergy/AdvReac Type Severity Reaction Status Date / Time No Known Allergies Allergy Verified 09/19/17 16:21 - Home Medications Home Medications: Ambulatory Orders Amlodipine Besylate [Norvasc -] 10 mg PO DAILY #30 tablet 10/21/16 Albuterol 0.083% Nebulizer Nahomy [Ventolin 0.083% Nebulizer Soln -] 1 neb NEB QID 02/24/17 Albuterol Sulfate Inhaler - [Ventolin HFA Inhaler -] 2 inh PO Q4H #1 inhaler Budesonide/Formeterol Fumarate [SYMBICORT 160/4.5mcg -] 2 puff IH BID #1 inhaler 02/27/17 Montelukast Na [Singulair -] 10 mg PO HS #30 tablet 02/27/17 Pantoprazole Sodium [Protonix -] 40 mg PO DAILY #30 tab 02/27/17 Tiotropium [place] [Spiriva] 1 puff IH DAILY #1 inh 02/27/17 Hydrochlorothiazide 25 mg PO DAILY #30 tablet 02/28/17 Lisinopril [Prinivil -] 40 mg PO DAILY #30 tablet 02/28/17 Azithromycin [Zithromax -] 250 mg PO UTDICT #6 tab 08/04/17 Metformin HCl [Metformin HCl ER] 500 mg PO BID 08/04/17 Methylprednisolone [Medrol Dose David] 4 mg PO ASDIR #21 tablet 08/04/17 Review of Systems - Review of Systems Constitutional: denies: Chills, Fever Cardiovascular: reports: Shortness of Breath. denies: Chest Pain, Edema, Palpitations Respiratory: reports: Cough, SOB, Wheezing. denies: Hemoptysis Gastrointestinal: denies: Abdominal Pain, Rectal Bleeding, Vomiting Blood Neurological: denies: Syncope Physical Exam Vital Sings: Vital Signs Temperature 98.6 F 09/20/17 04:58 Pulse Rate 110 H 09/20/17 12:21 Respiratory Rate 18 09/20/17 10:00 Blood Pressure 133/74 09/20/17 10:00 O2 Sat by Pulse Oximetry (%) 98 09/20/17 12:21 Constitutional: Yes: No Distress, Obese Eyes: No: Sclera Icterus HENT: Yes: Atraumatic, Pharyngeal Erythema Neck: Yes: Supple, Trachea Midline Cardiovascular: Yes: Regular Rate and Rhythm. No: JVD Respiratory: Yes: CTA Bilaterally ...Percussion: No: Dullnes, Hyperresonance ...Clubbing: No Gastrointestinal: Yes: Soft. No: Hepatomegaly, Splenomegaly, Tenderness Edema: No Neurological: Yes: Alert, Oriented Labs: CBC, BMP 09/20/17 09:24 09/20/17 09:24 Imaging - Results Chest X-ray: Report Reviewed, Image Reviewed (KAYDEN) Problem List - Problems (1) Status asthmaticus Code(s): J45.902 - UNSPECIFIED ASTHMA WITH STATUS ASTHMATICUS (2) Obstructive sleep apnea (adult) (pediatric) Code(s): G47.33 - OBSTRUCTIVE SLEEP APNEA (ADULT) (PEDIATRIC) Assessment/Plan 36 year old with status asthmaticus. Pt now improving with stable respiratory status. Pt also has Obstructive Sleep Apnea. A titation study is pending. Suggest: Systemic steroid taper is in progress Spiriva and Synbicort Montelukast Albuterol PRN O2 to maintain SaO2 greater than 90 As outpt :Titration study In hospital trial of CPAP 10 cm during sleep. Thank you for referring this patient for consultation.
[2017-09-20] MEDS: ENOXAPARIN NA (PORCINE) 40 MG/0.4 ML DISP.SYRIN SQ SCH (15:36)
[2017-09-20] MEDS ORDERED: INSULIN (NOVOLOG) ASPART 100 UNITS/ML 10ML VIAL ONE ×2 (17:10→20:52)
[2017-09-20] MEDS: BUDESONIDE/FORMETEROL FUMARATE 160/4.5 mcg INHALER IH SCH (21:46)
[2017-09-20] MEDS ORDERED: MONTELUKAST NA 10 MG TABLET PO SCH (22:00)
[2017-09-21] MEDS: ALBUTEROL SO4 2.5/IPRATROPIUM 0.5 INH SOL 3 ML VIAL.NEB. NEB SCH ×3 (00:15→11:43)
[2017-09-21] MEDS: methylPREDNISolone NA SUCC 40 MG/1 ML VIAL IVPUSH SCH ×3 (03:04→11:48)
[2017-09-21] MEDS: INSULIN SLIDING SCALE (NOVOLOG) 1 VIAL SQ SCH ×2 (06:28→12:20)
[2017-09-21 07:48] VITALS: TEMP 97.8
[2017-09-21 07:59] LABS: MCH 24.1 pg (25.7-33.7); MEAN CELL VOLUME 75.5 fl (80-96); MEAN PLT VOLUME 7.5 fl (7.5-11.1); PLATELET COUNT 341 K/MM3 (134-434); RDW 17.5 % (11.6-15.6); WHITE BLOOD COUNT 11.1 K/mm3 (4.0-10.0)
[2017-09-21 08:36] LABS: ANION GAP 7 (8-16); CALCIUM 8.8 mg/dL (8.5-10.1); CO2 26 mmol/L (21-32); CREATININE 0.7 mg/dL (0.55-1.02); GLUCOSE,RANDOM 143 mg/dL (74-106)
[2017-09-21 08:38] LABS: FERRITIN 9.499 ng/ml (6.9-282.5)
[2017-09-21 09:21] VITALS: BP 146/92; PULSE 96
[2017-09-21] MEDS ORDERED: TIOTROPIUM BROMIDE 18 MCG/INH (DEVICE W/ 5 CAPSULES) IH SCH (10:00)
[2017-09-21] MEDS: ENOXAPARIN NA (PORCINE) 40 MG/0.4 ML DISP.SYRIN SQ SCH (11:31)
[2017-09-21] MEDS: PANTOPRAZOLE 40 MG TABLET (FP) PO SCH (11:31)
[2017-09-21] MEDS: LISINOPRIL 20 MG TABLET (FP) PO SCH (11:31)
[2017-09-21] MEDS: HYDROCHLOROTHIAZIDE 25 MG TABLET (FP) PO SCH (11:31)
[2017-09-21] MEDS: amLODIPine BESYLATE 10 MG TABLET (FP) PO SCH (11:31)
[2017-09-21] MEDS: BUDESONIDE/FORMETEROL FUMARATE 160/4.5 mcg INHALER IH SCH (11:47)
[2017-09-21] MEDS ORDERED: predniSONE 20 MG TABLET (UD) PO ONE (12:00)
--- NOTE | 2017-09-21 12:05 | PN ---
Teaching Attending Note Name of Resident: Navin Arreola ATTENDING PHYSICIAN STATEMENT I saw and evaluated the patient. I reviewed the resident's note and discussed the case with the resident. I agree with the resident's findings and plan as documented. SUBJECTIVE:improved. requesting to go home. denies Cp, SOB, fever, chills, cough , n/V/C/D OBJECTIVE: Last Vital Signs Temp Pulse Resp BP Pulse Ox 97.8 F 96 H 18 146/92 95 09/21/17 06:00 09/21/17 09:20 09/21/17 09:20 09/21/17 09:20 09/20/17 22:00 General NAD CV S1 S2 RRR no murmur/rub/gallop Lungs minimal wheezing, improved inspiratory effort ASSESSMENT AND PLAN: 36yo F wtih PMH asthma with intubation in 2014, HTN and morbid obesity presented to the ER with dyspnea 1. Acute Asthma exacerbation-clinically improved. peak flow today 330. baseline 350. slow steroid taper as per pulmonary. encouraged need for compliance and follow up. instructed to call pulm if becomes more dyspnic during taper as he may be instructed to increase steroid. should follow up with pulm prior to completing steroid dose. cont symbicort, spiriva, singulair 2. Hypomagnesmia- resolved 3. hypokalemia- resolved 4. Microcytic anemia- iron studies pending. hggb stable. no signs of bleeding.instructed ot have PMD follow up iron studies as may require iron supplements 5. HTN- controlled. 6. OFELIA-newly diagnosed. tolerated cpap most of the night. slept better. f/u with pulm for cpap machine 7. Morbid obesity- bariatric referral 8. DVT ppx- start loenox 9. d/c home
[2017-09-21] MEDS ORDERED: INSULIN (NOVOLOG) ASPART 100 UNITS/ML 10ML VIAL ONE (12:09)
[2017-09-22 08:10] LABS: SERUM IRON 28 ug/dL (27-159); TOTAL IRON BINDING CAPACITY 370 ug/dL (250-450); UIBC 342 ug/dL (131-425)
== END 2017-09-21 13:46 | disposition home or self-care (01) | DRG 141 ==
LOC: JER 16:15 → JERBED 21:54 → OBSVTOIN 22:35 → J5S 09-20 04:59
PROVIDERS: ADMIT Internal Medicine; ATTEND Internal Medicine
PROC: 5A09357 Assistance with Respiratory Ventilation, Less than 24 Consecutive Hours, Continuous Positive Airway Pressure (ICD-10-PCS; principal; 2017-09-20)
DX: J45.902 Unspecified asthma with status asthmaticus (principal); I10 Essential (primary) hypertension; E66.01 Morbid (severe) obesity due to excess calories; E83.42 Hypomagnesemia; E78.00 Pure hypercholesterolemia, unspecified; E11.9 Type 2 diabetes mellitus without complications; E87.6 Hypokalemia; D64.9 Anemia, unspecified; G47.33 Obstructive sleep apnea (adult) (pediatric); Z68.41 Body mass index [BMI] 40.0-44.9, adult; K21.9 Gastro-esophageal reflux disease without esophagitis; Z79.84 Long term (current) use of oral hypoglycemic drugs
CPT/HCPCS: 36415; 71020-TC; 80048; 80053; 82728; 83540; 83550; 83735; 84703; 85025; 85027; 87040; 94150; 94640; 99282-25; G0378

== ENCOUNTER 2017-10-01 17:37 | Emergency (ER) | payer OTHER ==
[2017-10-01 17:45] VITALS: BP 134/97; PULSE 116; TEMP 99.6; BMI 37.8
--- NOTE | 2017-10-01 18:44 | PDOC ---
History of Present Illness - General Chief Complaint: Edema Stated Complaint: SWELLING ON LT SIDE OF FACE Time Seen by Provider: 10/01/17 17:59 History Source: Patient Exam Limitations: No Limitations - History of Present Illness Initial Comments: 10/01/17 18:40 The patient is a 36F with a PMH of asthma, HTN, diabetes, and recurrent pneumonia who presents to the ER with L sided facial swelling. The patient states that the swelling and pain started yesterday while she was at work and has worsened until her presentation today. She states that she has had a subjective fever (temp 99.6) and tenderness to palpation. She also states she has been "getting a lot more sick recently". She denies chills, nausea, vomiting , CP, SOB. Past History - Past Medical History Allergies/Adverse Reactions: Allergies Allergy/AdvReac Type Severity Reaction Status Date / Time No Known Allergies Allergy Verified 10/01/17 17:43 Home Medications: Ambulatory Orders Amlodipine Besylate [Norvasc -] 10 mg PO DAILY #30 tablet 10/21/16 Albuterol 0.083% Nebulizer Nahomy [Ventolin 0.083% Nebulizer Soln -] 1 neb NEB QID 02/24/17 Budesonide/Formeterol Fumarate [SYMBICORT 160/4.5mcg -] 2 puff IH BID #1 inhaler 02/27/17 Montelukast Na [Singulair -] 10 mg PO HS #30 tablet 02/27/17 Pantoprazole Sodium [Protonix -] 40 mg PO DAILY #30 tab 02/27/17 Tiotropium [place] [Spiriva] 1 puff IH DAILY #1 inh 02/27/17 Hydrochlorothiazide 25 mg PO DAILY #30 tablet 02/28/17 Lisinopril [Prinivil -] 40 mg PO DAILY #30 tablet 02/28/17 Metformin HCl [Metformin HCl ER] 500 mg PO BID 08/04/17 Albuterol 0.083% Nebulizer Nahomy [Ventolin 0.083% Nebulizer Soln -] 1 amp NEB Q4H PRN #1 amp 09/21/17 Albuterol Sulfate Inhaler - [Ventolin HFA Inhaler -] 2 inh PO Q4H #1 inhaler Anemia: No Asthma: Yes (intubation x1) Cancer: No Cardiac Disorders: No CVA: No COPD: No Dementia: No Diabetes: Yes (iddm) Dialysis: No GI Disorders: No Disorders: No HTN: Yes Hypercholesterolemia: Yes Kidney Stones: No Liver Disease: No Seizures: No Thyroid Disease: No - Surgical History Abdominal Surgery: No Appendectomy: No Cardiac Surgery: No Cholecystectomy: No Neurologic Surgery: No - Immunization History Td Vaccination: Yes TDAP Vaccination: No Immunization Up to Date: Yes - Suicide/Smoking/Psychosocial Hx Smoking Status: No Smoking History: Never smoked Years of Tobacco Use: 0 Have you smoked in the past 12 months: No Number of Cigarettes Smoked Daily: 0 Cigars Per Day: 0 Hx Alcohol Use: No Drug/Substance Use Hx: No Substance Use Type: None Hx Substance Use Treatment: No Review of Systems - Review of Systems Able to Perform ROS?: Yes Comments:: 10/01/17 18:58 GENERAL/CONSTITUTIONAL: No fever or chills. No weakness. HEAD, EYES, EARS, NOSE AND THROAT: Positive for swelling of the face. No change in vision. No ear pain or discharge. No sore throat. GASTROINTESTINAL: No nausea, vomiting, diarrhea, constipation, or abdominal pain. GENITOURINARY: No dysuria, frequency, hematuria, or change in urination. CARDIOVASCULAR: No chest pain, palpitations, or lightheadedness. RESPIRATORY: No cough, wheezing, shortness of breath, or hemoptysis. MUSCULOSKELETAL: No joint or muscle swelling or pain. No neck or back pain. SKIN: No rash or lesions. NEUROLOGIC: No headache, numbness, tingling, weakness, loss of consciousness, or change in strength/sensation. ENDOCRINE: No increased thirst. No abnormal weight change. HEMATOLOGIC/LYMPHATIC: No anemia, easy bleeding, or history of blood clots. ALLERGIC/IMMUNOLOGIC: No hives or skin allergy. Is the patient limited Malay proficient: No *Physical Exam - Vital Signs Last Vital Signs Temp Pulse Resp BP Pulse Ox 99.6 F 116 H 18 134/97 100 10/01/17 17:43 10/01/17 17:43 10/01/17 17:43 10/01/17 17:43 10/01/17 17:43 - Physical Exam Comments: 10/01/17 19:00 GENERAL: Well developed, well nourished. Awake and alert. No acute distress. HEENT: L sided facial swelling near mandibular gland. Intact dentition. No abscess seen on inside of mouth. Normocephalic, atraumatic. Hearing grossly normal. Moist mucous membranes. PERRLA, EOMI. No conjunctival pallor. Sclera are non-icteric. Oropharynx is clear. NECK: Supple. Full ROM. No JVD. Carotid pulses 2+ and symmetric, without bruits. No thyromegaly. No lymphadenopathy. CARDIOVASCULAR: Regular rate and rhythm. No murmurs, rubs, or gallops. Distal pulses are 2+ and symmetric. PULMONARY: No evidence of respiratory distress. Lungs clear to auscultation bilaterally. No wheezing, rales or rhonchi. ABDOMINAL: Soft. Non-tender. Non-distended. No rebound or guarding. No organomegaly. Normoactive bowel sounds. GENITOURINARY: No CVA tenderness bilaterally. MUSCULOSKELETAL: Normal range of motion at all joints. No bony deformities or tenderness. EXTREMITIES: No cyanosis. No clubbing. No edema. No calf tenderness. SKIN: Warm and dry. Normal capillary refill. No rashes. No jaundice. NEUROLOGICAL: Alert, awake, appropriate. Cranial nerves 2-12 intact. Normal speech. Gait is normal without ataxia. PSYCHIATRIC: Cooperative. Good eye contact. Appropriate mood and affect. ED Treatment Course - RADIOLOGY Radiology Studies Ordered: Category Date Time Status FACIAL BONES CT W/O CONTRAST [CT] Stat CT Scan 10/01/17 18:29 Ordered Medical Decision Making - Medical Decision Making 10/01/17 19:01 The patient is a 36F with a PMH of asthma, HTN, diabetes, and recurrent pneumonia who presents with L sided mandibular swelling. I will order u-preg and CT face to look for abscess, tracking, infectious process and dispo the patient based on findings. 10/01/17 19:10 Patient signed out to fermin Cardona team. *DC/Admit/Observation/Transfer - Referrals Referrals: Rafita Vasquez MD [Primary Care Provider] - - Patient Instructions - Post Discharge Activity
--- NOTE | 2017-10-01 20:14 | PDOC ---
Attending Attestation - Resident Resident Name: Tomas Hatch - ED Attending Attestation I have performed the following: I have examined & evaluated the patient, The case was reviewed & discussed with the resident, I agree w/resident's findings & plan, Exceptions are as noted - Medical Decision Making 10/01/17 20:05 36yo F hx asthma, recurrent PNA p/w L facial swelling. Temp mildly elevated to 99.6, exam with swelling of parotid gland, tenderness c/f possible collection vs parotitis. Will obtain labs, CT, reassess 10/01/17 20:59 CT with parotitis w/o abscess. Given low grade temps, will prescribe augmentin and advise sialogogues and warm compresses. Results explained to patient, requests DC home. I discussed the physical exam findings, ancillary test results and final diagnoses with the patient. I answered all of the patient's questions. The patient was satisfied with the care received and felt comfortable with the discharge plan and treatment plan. The patient will call their primary care physician within 24 hours to arrange follow-up and will return to the Emergency Department with any new, persistent or worsening symptoms. <Yuriy Fernandez - Last Filed: 10/01/17 20:59> - HPI HPI: 10/01/17 20:46 The patient is a 36 year old female with history of hypertension, diabetes, asthma, who presents to the ED complaining of 1 day of left sided face and jaw swelling and pain.She also reports low grade fever, Tmax 99.6. The patient denies chills, nausea, vomiting, or diarrhea. - Physicial Exam PE: 10/01/17 21:34 GENERAL: Awake, alert, and fully oriented, in no acute distress HEAD: L parotid gland is tender and edematous, no fluctuance or erythema EYES: PERRLA, EOMI, sclera anicteric, conjunctiva clear ENT: No intraoral abscesses, no tenderness with pressure to the left maxillary teeth. Auricles normal inspection, hearing grossly normal, nares patent, oropharynx clear without exudates. Moist mucosa NECK: Normal ROM, supple, no lymphadenopathy, JVD, or masses LUNGS: Breath sounds equal, clear to auscultation bilaterally. No wheezes, and no crackles HEART: Regular rate and rhythm, normal S1 and S2, no murmurs, rubs or gallops ABDOMEN: Soft, nontender, normoactive bowel sounds. No guarding, no rebound. No masses EXTREMITIES: Normal range of motion, no edema. No clubbing or cyanosis. No cords, erythema, or tenderness BACK: No midline spinal tenderness in cervical/thoracic/lumbar region NEUROLOGICAL: Normal speech, cranial nerves intact, negative pronator drift, 5/ 5 strength in all 4 extremities, normal sensation to light touch in all 4 extremities, normal cerebellar exam, normal gait, normal reflexes and tone SKIN: Warm, Dry, normal turgor, no rashes or lesions noted. - Medical Decision Making 10/01/17 20:[address], read and reviewed by Imaging Medium Cycle Salesperson. IMPRESSION: Left-sided parotitis without abscess. Documentation prepared by Eunice Kimble, acting as medical reception for Yuriy Fernandez MD. <Eunice Kimble - Last Filed: 10/01/17 21:34> Discharge Disposition - Discharge Dispostion Last Admission D/C Date: 09/21/17 <Yuriy Fernandez - Last Filed: 10/01/17 20:59> <Eunice Kimble - Last Filed: 10/01/17 21:34> - Diagnosis Parotitis - Discharge Dispostion Disposition: HOME Condition at time of disposition: Stable - Prescriptions Prescriptions: Amox-Tr/K Cl [Augmentin - 250Mg Tablet] 1 tab PO Q8H #9 tablet - Referrals Referrals: Rafita Vasquez MD [Primary Care Provider] - - Patient Instructions Printed Discharge Instructions: DI for Parotitis-Adult Additional Instructions: For your parotitis, use chewing gum or sialogogues such as lemon drops or sour candy and warm compresses to help with the swelling. Follow up with Dr. Rivera within 2-3 days. Return to the emergency department if you have any new, worsening, or concerning symptoms. - Post Discharge Activity
== END 2017-10-01 21:09 | disposition home or self-care (01) ==
LOC: JER 17:37
DX: K11.20 Sialoadenitis, unspecified (principal); J45.909 Unspecified asthma, uncomplicated
CPT/HCPCS: 70486-TC; 84703; 99281-25

== ENCOUNTER 2017-11-22 13:55 | Emergency (ER) | payer OTHER ==
[2017-11-22 14:22] VITALS: BP 152/97; PULSE 113; TEMP 98.1; BMI 39.4
--- NOTE | 2017-11-22 15:00 | PDOC ---
History of Present Illness - General Chief Complaint: Pain, Acute Stated Complaint: SEND BY PCP Time Seen by Provider: 11/22/17 14:37 Past History - Past Medical History Allergies/Adverse Reactions: Allergies Allergy/AdvReac Type Severity Reaction Status Date / Time No Known Allergies Allergy Verified 11/22/17 14:16 Home Medications: Ambulatory Orders Amlodipine Besylate [Norvasc -] 10 mg PO DAILY #30 tablet 10/21/16 Albuterol 0.083% Nebulizer Nahomy [Ventolin 0.083% Nebulizer Soln -] 1 neb NEB QID 02/24/17 Budesonide/Formeterol Fumarate [SYMBICORT 160/4.5mcg -] 2 puff IH BID #1 inhaler 02/27/17 Montelukast Na [Singulair -] 10 mg PO HS #30 tablet 02/27/17 Pantoprazole Sodium [Protonix -] 40 mg PO DAILY #30 tab 02/27/17 Tiotropium [place] [Spiriva] 1 puff IH DAILY #1 inh 02/27/17 Hydrochlorothiazide 25 mg PO DAILY #30 tablet 02/28/17 Lisinopril [Prinivil -] 40 mg PO DAILY #30 tablet 02/28/17 Metformin HCl [Metformin HCl ER] 500 mg PO BID 08/04/17 Albuterol 0.083% Nebulizer [place]ah[place] [Ventolin 0.083% Nebulizer Soln -] 1 amp NEB Q4H PRN #1 amp 09/21/17 Albuterol Sulfate Inhaler - [Ventolin HFA Inhaler -] 2 inh PO Q4H #1 inhaler Anemia: No Asthma: Yes (intubation x1) Cancer: No Cardiac Disorders: No CVA: No COPD: No Dementia: No Diabetes: Yes (iddm) Dialysis: No GI Disorders: No Disorders: No HTN: Yes Hypercholesterolemia: Yes Kidney Stones: No Liver Disease: No Seizures: No Thyroid Disease: No - Surgical History Abdominal Surgery: No Appendectomy: No Cardiac Surgery: No Cholecystectomy: No Neurologic Surgery: No - Immunization History Td Vaccination: Yes TDAP Vaccination: No Immunization Up to Date: Yes - Suicide/Smoking/Psychosocial Hx Smoking Status: No Smoking History: Never smoked Years of Tobacco Use: 0 Have you smoked in the past 12 months: No Number of Cigarettes Smoked Daily: 0 Cigars Per Day: 0 Information on smoking cessation initiated: No Hx Alcohol Use: No Drug/Substance Use Hx: No Substance Use Type: None Hx Substance Use Treatment: No *Physical Exam - Vital Signs Last Vital Signs Temp Pulse Resp BP Pulse Ox 98.1 F 113 H 17 152/97 99 11/22/17 14:17 11/22/17 14:17 11/22/17 14:17 11/22/17 14:17 11/22/17 14:17 Medical Decision Making - Medical Decision Making 11/22/17 16:08 DVT study is negative at this time. No evidence of DVT, Loving's cyst in the right leg. Most likely a strain at this time. We'll discharge home with ortho follow-up. *DC/Admit/Observation/Transfer Diagnosis at time of Disposition: Hamstring strain Qualifiers: Encounter type: initial encounter Laterality: unspecified laterality Qualified Code(s): S76.319A - Strain of muscle, fascia and tendon of the posterior muscle group at thigh level, unspecified thigh, initial encounter - Discharge Dispostion Disposition: HOME Condition at time of disposition: Stable Admit: No - Referrals Referrals: Rafita Vasquez MD [Primary Care Provider] - Nino Canales MD [Staff Physician] - Juan Perkins MD [Staff Physician] - - Patient Instructions Printed Discharge Instructions: DI for Hamstring Strain Additional Instructions: Your DVT study today was negative. There is no evidence of blood clot at this time. You most likely have a muscle strain. Please take Tylenol 650 mg every 4 hours as needed for pain, not to exceed 4000 mg a day. Apply heat to the area. Please follow-up with orthopedics in the next week. Return to the emergency department if you have worsening leg pain, numbness and tingling to the foot, weakness of the leg, or any changes in your symptoms. - Post Discharge Activity Forms/Work/School Notes: Back to Work
--- NOTE | 2017-11-22 16:08 | PDOC ---
*Physical Exam - Vital Signs Last Vital Signs Temp Pulse Resp BP Pulse Ox 98.1 F 113 H 17 152/97 99 11/22/17 14:17 11/22/17 14:17 11/22/17 14:17 11/22/17 14:17 11/22/17 14:17 Medical Decision Making - Medical Decision Making 11/22/17 16:08 Pt seen by the Advanced Practice Provider under my direct supervision Ancillary studies reviewed I agree with plan as outlined by the Advanced Practice Provider RANDEE Stewart *DC/Admit/Observation/Transfer Diagnosis at time of Disposition: Hamstring strain - Discharge Dispostion Disposition: HOME Condition at time of disposition: Stable - Referrals Referrals: Rafita Vasquez MD [Primary Care Provider] - Juan Perkins MD [Staff Physician] - Nino Canales MD [Staff Physician] - - Patient Instructions Printed Discharge Instructions: DI for Hamstring Strain Additional Instructions: Your DVT study today was negative. There is no evidence of blood clot at this time. You most likely have a muscle strain. Please take Tylenol 650 mg every 4 hours as needed for pain, not to exceed 4000 mg a day. Apply heat to the area. Please follow-up with orthopedics in the next week. Return to the emergency department if you have worsening leg pain, numbness and tingling to the foot, weakness of the leg, or any changes in your symptoms. - Post Discharge Activity Forms/Work/School Notes: Back to Work
== END 2017-11-22 17:27 | disposition home or self-care (01) ==
LOC: JER 13:55
DX: S76.311A Strain of muscle, fascia and tendon of the posterior muscle group at thigh level, right thigh, initial encounter (principal); X58.XXXA Exposure to other specified factors, initial encounter; Y93.89 Activity, other specified; Y92.89 Other specified places as the place of occurrence of the external cause; Y99.8 Other external cause status
CPT/HCPCS: 93971-TC; 99282-25

== ENCOUNTER 2018-04-02 11:37 | Emergency (ER) | payer OTHER ==
[2018-04-02] MEDS ORDERED: ALBUTEROL SO4 2.5/IPRATROPIUM 0.5 INH SOL 3 ML VIAL.NEB. NEB ONE ×3 (11:43→13:06)
[2018-04-02] MEDS ORDERED: methylPREDNISolone NA SUCC 125 MG/2 ML VIAL IVPB ONE (11:44)
[2018-04-02] MEDS ORDERED: methylPREDNISolone NA SUCC 125 MG/2 ML VIAL ONE (11:44)
[2018-04-02] MEDS ORDERED: RANITIDINE HCL 50 MG/2 ML VIAL ONE (11:45)
[2018-04-02] MEDS ORDERED: RANITIDINE HCL 150 MG TABLET (FP) NR ONE (11:47)
[2018-04-02 11:52] VITALS: TEMP 98.2; BMI 37.8
--- NOTE | 2018-04-02 11:53 | PDOC ---
Medical Decision Making - Medical Decision Making 04/02/18 11:50 37 yo F with a history of allergic reaction to plums Pt ate a plum Became short of breath Examination significant for : No uvula edema No urticarial rash (+) wheezing diffusely Given: Solumedrol Benadryl Nebs Re assess Pt seen by Midlevel Provider under my direct supervision I agree with plan as outlined by Midlevel Provider *DC/Admit/Observation/Transfer Diagnosis at time of Disposition: Allergic reaction - Discharge Dispostion Disposition: HOME Condition at time of disposition: Improved - Prescriptions Prescriptions: Albuterol 0.083% Nebulizer [place] [Ventolin 0.083% Nebulizer Soln -] 1 neb NEB Q4H PRN #1 box PRN Reason: Wheezing - Referrals - Patient Instructions Printed Discharge Instructions: DI for General Allergic Reactions Additional Instructions: Relax today staying indoors. Drink plenty of fluids. Carry your albuterol inhaler with you. If any given time, you experience similar symptoms return to ED, by calling 911 - Post Discharge Activity Forms/Work/School Notes: Back to Work
--- NOTE | 2018-04-02 12:00 | PDOC ---
History of Present Illness - General Chief Complaint: Allergic Reaction Stated Complaint: ALLERGIC REACTION Time Seen by Provider: 04/02/18 11:43 History Source: Patient Exam Limitations: No Limitations - History of Present Illness Initial Comments: 04/02/18 11:35 37 yr old female presents to the ED with complaints of difficulty breathing, wheezing and throat itching after eating a plum approximately half hour ago. Patient states history of allergies to cherries and peaches with similar reaction. Pt took 2 Benadryl prior to arrival. Patient states symptoms continued and so decided come to the ER. Patient denies chest pain, nausea, dizziness, weakness. Timing/Duration: 1/2 hour, 1 hour Severity: moderate Associated Symptoms: reports: cough, shortness of breath Past History - Travel Traveled outside of the country in the last 30 days: No - Past Medical History Allergies/Adverse Reactions: Allergies Allergy/AdvReac Type Severity Reaction Status Date / Time No Known Allergies Allergy Verified 04/02/18 11:47 Home Medications: Ambulatory Orders Amlodipine Besylate [Norvasc -] 10 mg PO DAILY #30 tablet 10/21/16 Albuterol 0.083% Nebulizer Nahomy [Ventolin 0.083% Nebulizer Soln -] 1 neb NEB QID PRN 02/24/17 Budesonide/Formeterol Fumarate [SYMBICORT 160/4.5mcg -] 2 puff IH BID #1 inhaler 02/27/17 Montelukast Na [Singulair -] 10 mg PO HS #30 tablet 02/27/17 Pantoprazole Sodium [Protonix -] 40 mg PO DAILY #30 tab 02/27/17 Tiotropium [place] [Spiriva] 1 puff IH DAILY #1 inh 02/27/17 Hydrochlorothiazide 25 mg PO DAILY #30 tablet 02/28/17 Lisinopril [Prinivil -] 40 mg PO DAILY #30 tablet 02/28/17 Metformin HCl [Metformin HCl ER] 500 mg PO BID 08/04/17 Albuterol Sulfate Inhaler - [Ventolin HFA Inhaler -] 2 inh PO Q4H #1 inhaler Anemia: No Asthma: Yes (intubation x1) Cancer: No Cardiac Disorders: No CVA: No COPD: No Dementia: No Diabetes: Yes (iddm) Dialysis: No GI Disorders: No Disorders: No HTN: Yes Hypercholesterolemia: Yes Kidney Stones: No Liver Disease: No Seizures: No Thyroid Disease: No - Surgical History Abdominal Surgery: No Appendectomy: No Cardiac Surgery: No Cholecystectomy: No Neurologic Surgery: No - Immunization History Td Vaccination: Yes TDAP Vaccination: No Immunization Up to Date: Yes - Suicide/Smoking/Psychosocial Hx Smoking Status: No Smoking History: Never smoked Years of Tobacco Use: 0 Have you smoked in the past 12 months: No Number of Cigarettes Smoked Daily: 0 Cigars Per Day: 0 Information on smoking cessation initiated: No Hx Alcohol Use: No Drug/Substance Use Hx: No Substance Use Type: None Hx Substance Use Treatment: No Patient Lives Alone: No Review of Systems - Review of Systems Able to Perform ROS?: No Constitutional: No: Symptoms Reported HEENTM: Yes: Difficulty Swallowing Respiratory: Yes: Cough, Wheezing Cardiac (ROS): No: Symptoms Reported ABD/GI: No: Symptoms Reported : No: Symptoms Reported Musculoskeletal: No: Symptoms Reported Integumentary: No: Symptoms Reported, Rash Neurological: No: Symptoms reported Endocrine: No: Symptoms Reported *Physical Exam - Vital Signs Last Vital Signs Temp Pulse Resp BP Pulse Ox 98.2 F 133 H 26 H 139/108 95 04/02/18 11:48 04/02/18 11:48 04/02/18 11:48 04/02/18 11:48 04/02/18 11:48 - Physical Exam General Appearance: Yes: Nourished, Appropriately Dressed. No: Apparent Distress HEENT: positive: EOMI, TAMMY, TMs Normal, Pharyngeal Erythema (no pettechia. uvula midline. non-elongated). negative: Tonsillar Exudate Neck: positive: Supple Respiratory/Chest: positive: Wheezing (expiratory bilateral). negative: Respiratory Distress, Accessory Muscle Use Cardiovascular: positive: Regular Rhythm, Tachycardia. negative: Murmur Vascular Pulses: Dorsalis-Pedis (R): 2+, Doralis-Pedis (L): 2+ Extremity: positive: Normal Capillary Refill Integumentary: positive: Normal Color, Warm, Moist. negative: Erythema, Rash, Swelling Neurologic: positive: Motor Strength 5/5 (ambulatory) ED Treatment Course - Medications Given in the ED: ED Medications Discontinued Medications Generic Name Dose Route Start Last Admin Trade Name Freq PRN Reason Stop Dose Admin Albuterol/Ipratropium 1 amp 04/02/18 11:44 04/02/18 11:45 Duoneb - NEB 04/02/18 11:45 1 amp ONCE ONE Administration Methylprednisolone Sodium Succinate 125 mg 04/02/18 11:44 04/02/18 11:54 Solu-Medrol - IVPB 04/02/18 11:45 125 mg ONCE ONE Administration Ranitidine HCl 50 mg 04/02/18 11:47 04/02/18 11:54 Zantac - NR 04/02/18 11:48 50 mg ONCE ONE Administration Medical Decision Making - Medical Decision Making 04/02/18 12:00 Patient with allergic reaction after ingesting a plum. Patient states history of allergies to peaches and cherries. Patient arrives with expiratory wheeze bilateral mild erythema to the posterior found next without uvula elongation or edema. Patient had IV placed immediately upon arrival. She then took 2 Benadryl prior to arrival. Patient was given Solu-Medrol and Zantac IV along with a DuoNeb. Patient placed on harbor department manager with pulse oximetry monitoring 04/02/18 12:07 She states feeling moderately better after receiving DuoNeb. We will continue to observe. Heart rate 105. Oxygen 98% on room air 04/02/18 13:38 After receiving second DuoNeb patient is ambulatory around the emergency department ate lunch without any complaints. Reexam -lungs clear to all station bilaterally. Patient be given a work note for tonight and a refill for her nebulizer solution as requested. Patient also given supportive care instructions and strict instructions to return to ED if symptoms recur by calling 911 *DC/Admit/Observation/Transfer Diagnosis at time of Disposition: Allergic reaction - Discharge Dispostion Disposition: HOME Condition at time of disposition: Improved - Referrals - Patient Instructions Printed Discharge Instructions: DI for General Allergic Reactions Additional Instructions: Relax today staying indoors. Drink plenty of fluids. Carry your albuterol inhaler with you. If any given time, you experience similar symptoms return to ED, by calling 911 - Post Discharge Activity
[2018-04-02 13:48] VITALS: BP 138/89; PULSE 89
== END 2018-04-02 13:48 | disposition home or self-care (01) ==
LOC: JER 11:37
PROC: 3E0F7GC Introduction of Other Therapeutic Substance into Respiratory Tract, Via Natural or Artificial Opening (ICD-10-PCS; principal; 2018-04-02)
PROC: 3E0F7GC Introduction of Other Therapeutic Substance into Respiratory Tract, Via Natural or Artificial Opening (ICD-10-PCS; 2018-04-02)
PROC: 3E0333Z Introduction of Anti-inflammatory into Peripheral Vein, Percutaneous Approach (ICD-10-PCS; 2018-04-02)
DX: T78.1XXA Other adverse food reactions, not elsewhere classified, initial encounter (principal); I10 Essential (primary) hypertension; E11.9 Type 2 diabetes mellitus without complications; Z79.4 Long term (current) use of insulin; E78.00 Pure hypercholesterolemia, unspecified; J45.909 Unspecified asthma, uncomplicated
CPT/HCPCS: 94640; 96374; 99282-25; J7620

== ENCOUNTER 2018-05-12 00:44 | Emergency (ER) | payer OTHER ==
[2018-05-12 00:53] VITALS: BP 135/80; PULSE 82; TEMP 99.9; BMI 37.8
[2018-05-12] MEDS ORDERED: ACETAMINOPHEN 1000 MG/100 ML VIAL (NON FORMULARY) IVPB ONE (01:00)
[2018-05-12] MEDS ORDERED: SODIUM CHLORIDE 1,000 ML IV STA ×2 (01:00→03:49)
[2018-05-12] MEDS ORDERED: ONDANSETRON 4 MG/2 ML VIAL IVPUSH ONE (01:00)
[2018-05-12] MEDS ORDERED: FAMOTIDINE 20 MG/50 ML IVPB 20 MG/50 ML MG IVPB ONE ×2 (01:00→01:21)
[2018-05-12] MEDS: ALBUTEROL SO4 2.5/IPRATROPIUM 0.5 INH SOL 3 ML VIAL.NEB. NEB ONE (01:15)
[2018-05-12] MEDS ORDERED: ONDANSETRON 4 MG/2 ML VIAL ONE (01:20)
[2018-05-12] MEDS ORDERED: ALBUTEROL SO4 2.5/IPRATROPIUM 0.5 INH SOL 3 ML VIAL.NEB. NEB ONE (01:20)
--- NOTE | 2018-05-12 01:20 | PDOC ---
Attending Attestation - Resident Resident Name: EliasRajan deluna - ED Attending Attestation I have performed the following: I have examined & evaluated the patient, The case was reviewed & discussed with the resident, I agree w/resident's findings & plan, Exceptions are as noted - Physicial Exam PE: 05/12/18 01:17 awake alert lungs clear bilaterally heart rrr no mrg abd soft ruq ttp, epigastric ttp. no rebound no guarding. skin warm and dry. - Medical Decision Making 05/12/18 01:18 differential diagnosis cholelithiasis, renal colic uti pyelo. plan labs bedside us ruq, lipase, ua ucg, pt with wheezing on exam. will treat with duonebs, labs focused ED us RUQ indication: epigastric pain gallbladder scanned in two planes. no pericholecystic fluid, no wall edema. neg sonographic coronado's. wall <4mm. cbd <4mm no stones impression: normal gallbladder <Mariela Munoz - Last Filed: 05/12/18 01:17> - HPI HPI: 05/12/18 01:21 Patient is a 37 year old female with a significant past medical history of Asthma, OFELIA, HTN, DM, who presents to the ED with complaints of diffuse abdominal pain that began earlier this week. Patient reports experiencing epigastric abdominal pain that she states began x3 days ago that radiates towards her back that she states is increased in intensity when lying flat. She reports experiencing associated symptoms of nausea, vomiting, dry cough, fever and runny nose. She reports her last bowel movement was yesterday evening. Denies chest pain, sob. Denies nausea, vomiting. Denies contact with sick individuals, out of state travelling. Denies dysuria, hematuria. Denies diarrhea , constipation. Denies any other symptoms. Allergies: None Social history: No smoking. No alcohol. No illicit drugs. Surgical history: None PMD: Dr. Vasquez <Benigno Vargas - Last Filed: 05/12/18 01:21>
--- NOTE | 2018-05-12 01:23 | PDOC ---
History of Present Illness - General Chief Complaint: Pain Stated Complaint: LOW BLOOD SUGAR Time Seen by Provider: 05/12/18 00:52 History Source: Patient Exam Limitations: No Limitations - History of Present Illness Initial Comments: 05/12/18 01:17 Patient is a 37F with history of asthma IDDM, and GERD here today complaining of 3 days of vomiting, fevers, chills, epigastric abdominal pain. Patient also endorses increased wheezing. Patient states that her abdominal pain radiates to her back and rates it 10/10. Patient states that she can't get comfortable. Denies chest pain, endorses shortness of breath. Endorses nonbilious, nonbloody vomiting. Denies dysuria and frequency. Last bowel movement yesterday. Denies prior surgical history. Past History - Past Medical History Allergies/Adverse Reactions: Allergies Allergy/AdvReac Type Severity Reaction Status Date / Time No Known Allergies Allergy Verified 04/02/18 11:47 Home Medications: Ambulatory Orders Amlodipine Besylate [Norvasc -] 10 mg PO DAILY #30 tablet 10/21/16 Albuterol 0.083% Nebulizer Nahomy [Ventolin 0.083% Nebulizer Soln -] 1 neb NEB QID PRN 02/24/17 Budesonide/Formeterol Fumarate [SYMBICORT 160/4.5mcg -] 2 puff IH BID #1 inhaler 02/27/17 Montelukast Na [Singulair -] 10 mg PO HS #30 tablet 02/27/17 Pantoprazole Sodium [Protonix -] 40 mg PO DAILY #30 tab 02/27/17 Tiotropium [place] [Spiriva] 1 puff IH DAILY #1 inh 02/27/17 Hydrochlorothiazide 25 mg PO DAILY #30 tablet 02/28/17 Lisinopril [Prinivil -] 40 mg PO DAILY #30 tablet 02/28/17 Metformin HCl [Metformin HCl ER] 500 mg PO BID 08/04/17 Albuterol Sulfate Inhaler - [Ventolin HFA Inhaler -] 2 inh PO Q4H #1 inhaler Albuterol 0.083% Nebulizer Nahomy [Ventolin 0.083% Nebulizer Soln -] 1 neb NEB Q4H PRN #1 box 04/02/18 Anemia: No Asthma: Yes (intubation x1) Cancer: No Cardiac Disorders: No CVA: No COPD: No Dementia: No Diabetes: Yes (iddm) Dialysis: No GI Disorders: No Disorders: No HTN: Yes Hypercholesterolemia: Yes Kidney Stones: No Liver Disease: No Seizures: No Thyroid Disease: No - Surgical History Abdominal Surgery: No Appendectomy: No Cardiac Surgery: No Cholecystectomy: No Neurologic Surgery: No - Immunization History Td Vaccination: Yes TDAP Vaccination: No Immunization Up to Date: Yes - Suicide/Smoking/Psychosocial Hx Smoking Status: No Smoking History: Never smoked Years of Tobacco Use: 0 Have you smoked in the past 12 months: No Number of Cigarettes Smoked Daily: 0 Cigars Per Day: 0 Information on smoking cessation initiated: No Hx Alcohol Use: No Drug/Substance Use Hx: No Substance Use Type: None Hx Substance Use Treatment: No Review of Systems - Review of Systems Comments:: 05/12/18 01:24 GENERAL/CONSTITUTIONAL: +fever +chills. No weakness. HEAD, EYES, EARS, NOSE AND THROAT: No change in vision. No sore throat. CARDIOVASCULAR: No chest pain +shortness of breath RESPIRATORY: No cough, wheezing, or hemoptysis. GASTROINTESTINAL: +nausea, +vomiting, No diarrhea or constipation. GENITOURINARY: No dysuria, frequency, or change in urination. MUSCULOSKELETAL: No joint or muscle swelling or pain. No neck or back pain. SKIN: No rash NEUROLOGIC: No headache, vertigo, loss of consciousness, or change in strength/ sensation. ENDOCRINE: No increased thirst. No abnormal weight change HEMATOLOGIC/LYMPHATIC: No anemia, easy bleeding, or history of blood clots. ALLERGIC/IMMUNOLOGIC: No hives or skin allergy. *Physical Exam - Vital Signs Last Vital Signs Temp Pulse Resp BP Pulse Ox 99.9 F H 82 20 135/80 99 05/12/18 00:47 05/12/18 00:47 05/12/18 00:47 05/12/18 00:47 05/12/18 00:47 - Physical Exam Comments: 05/12/18 01:25 GENERAL: Awake, alert, and fully oriented, moaning in bed, moving constantly HEAD: No signs of trauma, normocephalic, atraumatic EYES: PERRLA, EOMI, sclera anicteric, conjunctiva clear ENT: Auricles normal inspection, hearing grossly normal, nares patent, oropharynx clear without exudates. Moist mucosa NECK: Normal ROM, supple, no lymphadenopathy, JVD, or masses LUNGS: No distress, speaks full sentences, diffuse wheezes bilaterally HEART: Regular rate and rhythm, normal S1 and S2, no murmurs, rubs or gallops, peripheral pulses normal and equal bilaterally. ABDOMEN: +RUQ +epigastric pain. No guarding, no rebound. No masses EXTREMITIES: Normal inspection, Normal range of motion, no edema. No clubbing or cyanosis. NEUROLOGICAL: Cranial nerves II through XII grossly intact. Normal speech, normal gait, no focal sensorimotor deficits SKIN: Warm, Dry, normal turgor, no rashes or lesions noted. ED Treatment Course - RADIOLOGY Radiology Studies Ordered: Category Date Time Status ABDOMEN & PELVIS CT WITH CONTR [CT] Stat CT Scan 05/12/18 01:15 Ordered Medical Decision Making - Medical Decision Making 05/12/18 01:25 Patient is 37F with history of IDDM, asthma, GERD here today with epigastric pain, nausea, vomiting. Vital signs normal and stable. DDx includes, but is not limited to: cholecystitis, pancreatitis, nephrolithiasis, gastritis. Will treat with fluids, zofran, duonebs, pepcid, iv tylenol. Will evaluate with abdominal labs. POCUS ultrasound shows no gallstones, normal call bladder wall thickness, normal CBD, no pericholecystic fluid. CT scan of abd/pelvis ordered. 05/12/18 01:37 EKG shows sinus tachycardia to 120. Poor baseline. No st elevations/ depressions. Normal axis. Normal intervals. No significant t wave abnormalities. Signed out to Dr Macias. Pending labs/ct. *DC/Admit/Observation/Transfer Diagnosis at time of Disposition: Abdominal pain - Discharge Dispostion Condition at time of disposition: Stable - Referrals Referrals: Rafita Vasquez MD [Primary Care Provider] - - Patient Instructions - Post Discharge Activity
--- NOTE | 2018-05-12 01:39 | PDOC ---
*Physical Exam - Vital Signs Last Vital Signs Temp Pulse Resp BP Pulse Ox 99.9 F H 82 20 135/80 99 05/12/18 00:47 05/12/18 00:47 05/12/18 00:47 05/12/18 00:47 05/12/18 00:47 - Physical Exam Comments: 05/12/18 01:35 Care endorsed to me by Dr. Mendoza at the end of his shift. Patient is a 37 YOF with h/o IDDM, asthma, and GERD. She presented c/o URI symptoms with epigastric abdominal pain radiating to her back, nausea, vomiting, has not eaten all day. On exam she was writhing in bed, bilateral wheezes, but satting well on room air. Shge was given IVF, DuoNebs, Ofirmev, Pepcid. EKG showed sinus tach to 120s on EKG, no ischemic changes. Bedside US with normal GB. Pending labs, UDS, CT, likely can go home if no concerning findings. Rectal Exam: positive: other (left superior gluteal cleft with ~10 scabbed excoriations and a few newer vesicular lesions on erythematous base which are tender to light palpation, no warmth or induration or fluctuance or active drainage or e/o infection) ED Treatment Course - LABORATORY CBC & Chemistry Diagram: 05/12/18 01:45 05/12/18 01:45 Medical Decision Making - Medical Decision Making 05/12/18 03:50 Patient could not be taken to CT as patient noted urine sample she gave was lost ; UA and U-preg not resulted. Added on serum preg and sent label to lab. U-preg is negative and patient can be taken to CT. Patient's rectal temp is 100.3 after having gotten Ofirmev (ordered before 2am). Placed sepsis order set with lactate, blood culture, another liter IVF. 05/12/18 04:18 Placed order for Zosyn 4.5 mg IVPB. 05/12/18 04:41 Imaging [facility] [employer] report for abdominal CT shows 3.8 cm uterine fibroid. Laboratory Tests 05/12/18 05/12/18 05/12/18 01:45 01:45 01:45 WBC 9.9 RBC 4.33 Hgb 10.9 Hct 33.1 MCV 76.4 L MCH 25.3 L MCHC 33.1 RDW 16.3 H Plt Count 236 D MPV 7.7 Absolute Neuts (auto) 8.3 Neutrophils % 83.4 H D Lymphocytes % 8.5 D Monocytes % 5.5 Eosinophils % 2.1 Basophils % 0.5 Nucleated RBC % 0 Sodium 137 Potassium 3.7 Chloride 103 Carbon Dioxide 25 Anion Gap 9 BUN 14 Creatinine 1.2 H Creat Clearance w eGFR 50.01 Random Glucose 128 H Calcium 8.8 Total Bilirubin 0.4 AST 278 H ALT 139 H Alkaline Phosphatase 113 Total Protein 6.8 Albumin 3.4 Lipase 141 Serum , Qual Negative DISCHARGE Patient's repeat exam of gluteal cleft c/w left S3 dermatomal HSV Zoster. No e/o HSV encephalitis or MERCHANDISER involvement. Exam is not concerning for emergency-level pathology at this time. Patient is not reportedly immune compromised. No infants at home, no immune compromised individuals at home. The Pt is appropriate for discharge with close outpatient follow up. They are comfortable with this plan and will follow up with their PCP in 1-3 days. They have insurance that will cover valacyclovir. E-Rx for Valacyclovir sent by Dr. Eduardo to Pts pharmacy and they will take the whole course. They are counseled that their condition could spread to others. They are counseled to avoid contact with infants, elderly, ill, or immune compromised individuals. Specific return precautions are discussed and they will come back to the ER if necessary. *DC/Admit/Observation/Transfer Diagnosis at time of Disposition: CARLENE (acute kidney injury), Transaminasemia Abdominal pain Qualifiers: Abdominal location: unspecified location Qualified Code(s): R10.9 - Unspecified abdominal pain Shingles Qualifiers: Herpes zoster complications: without complications Qualified Code(s): B02.9 - Zoster without complications - Discharge Dispostion Disposition: HOME Condition at time of disposition: Stable Decision to Admit order: No - Prescriptions Prescriptions: Valacyclovir HCl [Valtrex] 1,000 mg PO TID #21 tablet - Referrals Referrals: Rafita Vasquez MD [Primary Care Provider] - - Patient Instructions Printed Discharge Instructions: DI for Shingles Additional Instructions: You were seen in the ER for abdominal pain, asthma exacerbation, and a rash that we believe is shingles (herpes zoster). We gave you a dose of an antiviral , and sent a prescription to your pharmacy for the remaining antiviral doses in a course. We did lab work and imaging studies and we found that your liver enzymes were elevated, but we did not find anything else abnormal in your abdomen on your CT scan. Your chest X-ray did not show any signs of pneumonia or bronchitis. After our assessment, we do not believe you are having a medical emergency at this time, and we believe you are safe to go home. Please garbage pick up man the prescription from your pharmacy and start the course at the correct time interval after the initial dose in the ER today. You must complete the entire course of antiviral pills as directed on the prescription, whether or not you feel better before the course is completed. Please follow up with your regular PCP in 1-3 days. Call their clinic, tell them you were seen in the ER, and tell them you need a follow-up. If you have any new or worsening symptoms, especially increasing pain and redness to the area or other signs of infection like fever, please come back to the ER at any time (24 hours a day). If you are having severe or life threatening symptoms, or symptoms that make it unsafe to drive or have someone drive you, please call 911. - Post Discharge Activity
[2018-05-12 01:53] LABS: BASO % 0.5 % (0-2.0); EOS % 2.1 % (0-4.5); HEMATOCRIT 33.1 % (32.4-45.2); HEMOGLOBIN 10.9 GM/dL (10.7-15.3); LYMPH % 8.5 % (8-40); MCH 25.3 pg (25.7-33.7); MCHC 33.1 g/dl (32.0-36.0); MEAN CELL VOLUME 76.4 fl (80-96); MEAN PLT VOLUME 7.7 fl (7.5-11.1); MONO % 5.5 % (3.8-10.2); NEUT % 83.4 % (42.8-82.8); PLATELET COUNT 236 K/MM3 (134-434); RBC 4.33 M/mm3 (3.60-5.2); RDW 16.3 % (11.6-15.6); WHITE BLOOD COUNT 9.9 K/mm3 (4.0-10.0)
[2018-05-12] MEDS ORDERED: ACETAMINOPHEN INJECTION 100 ML IVPB ONE (02:03)
[2018-05-12 02:15] LABS: ALBUMIN 3.4 g/dl (3.4-5.0); ALK PHOS 113 U/L (45-117); ANION GAP 9 (8-16); BILIRUBIN,TOTAL 0.4 mg/dL (0.2-1.0); BLOOD UREA NITROGEN 14 mg/dL (7-18); CALCIUM 8.8 mg/dL (8.5-10.1); CHLORIDE 103 mmol/L (98-107); CO2 25 mmol/L (21-32); CREATININE 1.2 mg/dL (0.55-1.02); GLUCOSE,RANDOM 128 mg/dL (74-106); LIPASE 141 U/L (73-393); POTASSIUM 3.7 mmol/L (3.5-5.1); SGOT/AST 278 U/L (15-37); SGPT/ALT 139 U/L (12-78); SODIUM 137 mmol/L (136-145); TOT PROT 6.8 g/dl (6.4-8.2)
[2018-05-12] MEDS ORDERED: PIPERACILLIN/TAZOB 4.5 GM 4.5 GM in DEXTROSE 5%-WATER 100 ML IVPB ONE (04:20)
[2018-05-12] MEDS ORDERED: PIPERACILLIN/TAZOB 4.5 GM 4.5 GM/100 ML BAG IVPB ONE (04:47)
--- NOTE | 2018-05-12 04:58 | PDOC ---
*Physical Exam - Vital Signs Last Vital Signs Temp Pulse Resp BP Pulse Ox 99.9 F H 82 20 135/80 99 05/12/18 00:47 05/12/18 00:47 05/12/18 00:47 05/12/18 00:47 05/12/18 00:47 ED Treatment Course - LABORATORY CBC & Chemistry Diagram: 05/12/18 01:45 05/12/18 01:45 - ADDITIONAL ORDERS Additional order review: Laboratory Results 05/12/18 05/12/18 01:45 01:45 Sodium 137 Potassium 3.7 Chloride 103 Carbon Dioxide 25 Anion Gap 9 BUN 14 Creatinine 1.2 H Creat Clearance w eGFR 50.01 Random Glucose 128 H Calcium 8.8 Total Bilirubin 0.4 AST 278 H ALT 139 H Alkaline Phosphatase 113 Total Protein 6.8 Albumin 3.4 Lipase 141 Serum , Qual Negative 05/12/18 01:45 RBC 4.33 MCV 76.4 L MCHC 33.1 RDW 16.3 H MPV 7.7 Neutrophils % 83.4 H D Lymphocytes % 8.5 D Monocytes % 5.5 Eosinophils % 2.1 Basophils % 0.5 - Medications Given in the ED: ED Medications Discontinued Medications Generic Name Dose Route Start Last Admin Trade Name Freq PRN Reason Stop Dose Admin Acetaminophen 1,000 mg 05/12/18 01:00 05/12/18 02:04 Ofirmev Injection - IVPB 05/12/18 01:01 1,000 mg ONCE ONE Administration Albuterol/Ipratropium 1 amp 05/12/18 01:04 05/12/18 01:15 Duoneb - NEB 05/12/18 01:05 1 amp ONCE ONE Administration Famotidine/Sodium Chloride 20 mg in 50 mls @ 100 mls/hr 05/12/18 01:00 01:15 Pepcid 20 Mg Premixed Ivpb - IVPB 05/12/18 01:29 100 mls/hr ONCE ONE Administration Sodium Chloride 1,000 mls @ 1,000 mls/hr 05/12/18 01:00 05/12/18 01:15 Normal Saline - IV 05/12/18 01:59 1,000 mls/hr ASDIR STA Administration Ondansetron HCl 4 mg 05/12/18 01:00 05/12/18 01:15 Zofran Injection IVPUSH 05/12/18 01:01 4 mg ONCE ONE Administration Medical Decision Making - Medical Decision Making 05/12/18 04:58 Patient Name: EDGAR CELAYA THIS IS A PRELIMINARY REPORT FROM [facility] [employer] [facility] DATE OF SERVICE: 2018-05-12 03:56:36 IMAGES: [id number] EXAM: ABDOMEN \T\ PELVIS CT WITH CONTR HISTORY: Epigastric pain COMPARISON: None. FINDINGS: Lung bases are clear other than mild bibasilar linear atelectasis. The visualized cardiac chambers are normal size and configuration. Normal liver, gallbladder, pancreas, spleen, adrenal glands and kidneys. The stomach and abdominal small and large bowel are normal. There is no aortic aneurysm. There is no significant retroperitoneal lymphadenopathy. The pelvic small and large bowel are normal. The appendix is normal. The uterus and adnexal structures are norm notable for a 3.8 cm left fundal intramural fibroid. . Urinary bladder is unremarkable. There is no pelvic free fluid. No discrete pelvic lymphadenopathy is identified. IMPRESSION: 3.8 cm fibroid may be followed up with nonemergent ultrasound. No definite acute pathology. Individualized dose optimization techniques were used for this CT. THIS DOCUMENT HAS BEEN ELECTRONICALLY SIGNED 05/12/18 05:13 Pt has shingles in her S3 dermatome on the left side. She will be treated with valtrex and home with 1g TID x 1 week 05/12/18 05:49 Pt needs to follow with Dr. Vasquez for her elevated AST and ALT and hepatitis C testing (as she has several tatoos) *DC/Admit/Observation/Transfer Diagnosis at time of Disposition: CARLENE (acute kidney injury), Transaminasemia, Shingles Abdominal pain Qualifiers: Abdominal location: unspecified location Qualified Code(s): R10.9 - Unspecified abdominal pain - Discharge Dispostion Disposition: HOME Condition at time of disposition: Stable - Prescriptions Prescriptions: Valacyclovir HCl [Valtrex] 1,000 mg PO TID #21 tablet - Referrals Referrals: Rafita Vasquez MD [Primary Care Provider] - - Patient Instructions Printed Discharge Instructions: DI for Shingles Additional Instructions: You were seen in the ER for abdominal pain, asthma exacerbation, and a rash that we believe is shingles (herpes zoster). We gave you a dose of an antiviral , and sent a prescription to your pharmacy for the remaining antiviral doses in a course. We did lab work and imaging studies and we found that your liver enzymes were elevated, but we did not find anything else abnormal in your abdomen on your CT scan. Your chest X-ray did not show any signs of pneumonia or bronchitis. After our assessment, we do not believe you are having a medical emergency at this time, and we believe you are safe to go home. Please pick up attendant the prescription from your pharmacy and start the course at the correct time interval after the initial dose in the ER today. You must complete the entire course of antiviral pills as directed on the prescription, whether or not you feel better before the course is completed. Please follow up with your regular PCP in 1-3 days. Call their clinic, tell them you were seen in the ER, and tell them you need a follow-up. If you have any new or worsening symptoms, especially increasing pain and redness to the area or other signs of infection like fever, please come back to the ER at any time (24 hours a day). If you are having severe or life threatening symptoms, or symptoms that make it unsafe to drive or have someone drive you, please call 911. - Post Discharge Activity
[2018-05-12] MEDS ORDERED: valACYclovir HCL 1000 MG TABLET PO ONE (05:27)
[2018-05-12] MEDS ORDERED: valACYclovir HCL 500 MG TABLET (FP) ONE (05:45)
--- NOTE | 2018-05-12 20:03 | EKG ---
Test Reason : Blood Pressure : / mmHG Vent. Rate : 120 BPM Atrial Rate : 120 BPM P-R Int : 138 ms QRS Dur : 060 ms QT Int : 316 ms P-R-T Axes : 067 043 022 degrees QTc Int : 446 ms POOR DATA QUALITY, INTERPRETATION MAY BE ADVERSELY AFFECTED SINUS TACHYCARDIA OTHERWISE NORMAL ECG WHEN COMPARED WITH ECG OF 04-AUG-2017 00:27, ST ELEVATION NOW PRESENT IN INFERIOR LEADS Confirmed by BEKA BRIZUELA, JANETTE ([id number]) on 05/12/2018 8:03:05 PM Referred By: Confirmed By:JANETTE IRELAND MD
== END 2018-05-12 05:49 | disposition home or self-care (01) ==
LOC: JER 00:44
PROC: 3E03329 Introduction of Other Anti-infective into Peripheral Vein, Percutaneous Approach (ICD-10-PCS; principal; 2018-05-12)
PROC: 3E033NZ Introduction of Analgesics, Hypnotics, Sedatives into Peripheral Vein, Percutaneous Approach (ICD-10-PCS; 2018-05-12)
PROC: 3E0337Z Introduction of Electrolytic and Water Balance Substance into Peripheral Vein, Percutaneous Approach (ICD-10-PCS; 2018-05-12)
PROC: 3E033GC Introduction of Other Therapeutic Substance into Peripheral Vein, Percutaneous Approach (ICD-10-PCS; 2018-05-12)
PROC: 3E0F7GC Introduction of Other Therapeutic Substance into Respiratory Tract, Via Natural or Artificial Opening (ICD-10-PCS; 2018-05-12)
DX: B02.9 Zoster without complications (principal); N17.9 Acute kidney failure, unspecified; R74.0 Nonspecific elevation of levels of transaminase and lactic acid dehydrogenase [LDH]; R10.9 Unspecified abdominal pain; I10 Essential (primary) hypertension; E11.9 Type 2 diabetes mellitus without complications; G47.33 Obstructive sleep apnea (adult) (pediatric); J45.909 Unspecified asthma, uncomplicated; K21.9 Gastro-esophageal reflux disease without esophagitis; E78.00 Pure hypercholesterolemia, unspecified; Z79.4 Long term (current) use of insulin
CPT/HCPCS: 36415; 71045-TC-FY; 74177-TC; 80053; 83690; 84703; 85025; 93005; 93010; 99281-25; J0131; J7030; J7620

== ENCOUNTER 2018-07-27 22:09 | Observation (INO) | payer OTHER ==
[2018-07-27 22:16] VITALS: BP 148/100; PULSE 108; TEMP 99.7; BMI 36.8
--- NOTE | 2018-07-27 22:20 | PDOC ---
History of Present Illness - General Chief Complaint: Asthma Stated Complaint: ASTHMA Time Seen by Provider: 07/27/18 22:18 - History of Present Illness Initial Comments: 07/27/18 23:12 The patient is a 37 year old female with a history of asthma, IDDM, HTN, HLD who presents for evaluation of cough and shortness of breath. The patient reports a 3 day history of worsening shortness of breath, wheezing, and non- productive cough despite taking her home nebulizer treatments prompting her presentation to the ED for further evaluation. She reports that she has had 1 intubation in the past for her asthma and her last admission for asthma exacerbation was several months ago. She states her symptoms feel similar to her severe asthma exacerbations. She notes that she took 2 albuteral nebulizers at home just prior to presentation to the ED. She otherwise denies fevers, chills, Chest pain, nausea, vomiting, abdominal pain, or changes with urination or bowel movements. Past History - Past Medical History Allergies/Adverse Reactions: Allergies Allergy/AdvReac Type Severity Reaction Status Date / Time No Known Allergies Allergy Verified 07/27/18 22:14 Home Medications: Ambulatory Orders Amlodipine Besylate [Norvasc -] 10 mg PO DAILY #30 tablet 10/21/16 Albuterol 0.083% Nebulizer Nahomy [Ventolin 0.083% Nebulizer Soln -] 1 neb NEB QID PRN 02/24/17 Budesonide/Formeterol Fumarate [SYMBICORT 160/4.5mcg -] 2 puff IH BID #1 inhaler 02/27/17 Montelukast Na [Singulair -] 10 mg PO HS #30 tablet 02/27/17 Pantoprazole Sodium [Protonix -] 40 mg PO DAILY #30 tab 02/27/17 Tiotropium [place] [Spiriva] 1 puff IH DAILY #1 inh 02/27/17 Hydrochlorothiazide 25 mg PO DAILY #30 tablet 02/28/17 Lisinopril [Prinivil -] 40 mg PO DAILY #30 tablet 02/28/17 Albuterol Sulfate Inhaler - [Ventolin HFA Inhaler -] 2 inh PO Q4H #1 inhaler Albuterol 0.083% Nebulizer Nahomy [Ventolin 0.083% Nebulizer Soln -] 1 neb NEB Q4H PRN #1 box 06/26/18 Prednisone [Prednisone 50 MG TABLETS] 60 mg PO DAILY #5 tablet 07/28/18 Anemia: No Asthma: Yes (intubation x1) Cancer: No Cardiac Disorders: No CVA: No COPD: No Dementia: No Diabetes: Yes (iddm) Dialysis: No GI Disorders: No Disorders: No HTN: Yes Hypercholesterolemia: Yes Kidney Stones: No Liver Disease: No Seizures: No Thyroid Disease: No - Surgical History Abdominal Surgery: No Appendectomy: No Cardiac Surgery: No Cholecystectomy: No Neurologic Surgery: No - Immunization History Td Vaccination: Yes TDAP Vaccination: No Immunization Up to Date: Yes - Suicide/Smoking/Psychosocial Hx Smoking Status: No Smoking History: Never smoked Years of Tobacco Use: 0 Have you smoked in the past 12 months: No Number of Cigarettes Smoked Daily: 0 Cigars Per Day: 0 Hx Alcohol Use: No Drug/Substance Use Hx: No Substance Use Type: None Hx Substance Use Treatment: No Review of Systems - Review of Systems Comments:: 07/27/18 23:15 Constitutional: No fevers, chills, fatigue, malaise HEENT: No Rhinorrhea, nasal congestion, visual changes Cardiovascular: No chest pain, syncope, palpitations, lightheadedness Respiratory: Cough, SOB. No Hemoptysis, Gastrointestinal: No Abdominal pain, Nausea, Vomiting, Constipation, Diarrhea, Melena Genitourinary: No Dysuria, Frequency, Urgency, Hesitancy, Hematuria, Flank pain Musculoskeletal: No Myalgia, arthralgia Skin: No rashes, itching, bruising, pallor Neurologic: No Headache, Dizziness, Numbness, Weakness, or Tingling Psychiatric: No Hallucinations. No SI or HI *Physical Exam - Vital Signs Last Vital Signs Temp Pulse Resp BP Pulse Ox 99.7 F H 108 H 20 148/100 98 07/27/18 22:14 07/27/18 22:14 07/27/18 22:14 07/27/18 22:14 07/27/18 22:14 - Physical Exam Comments: 07/27/18 23:15 General Appearance: Nourished. No Apparent Distress HEENT: No Pharyngeal Erythema, Tonsillar Exudate, Tonsillar Erythema Neck: No Cervical Lymphadenopathy Respiratory/Chest: Coarse breath sounds bilaterally with inspiratory and expiratory wheezing noted bilaterally. No Crackles, Rales, Rhonchi, Cardiovascular: Regular Rhythm, Regular Rate. No Murmur, Gallops, Rubs Gastrointestinal/Abdominal: Normal Bowel Sounds, Soft. No Guarding, Rebound, Tenderness Musculoskeletal: No CVA Tenderness Extremity: Normal Capillary Refill Integumentary: Normal Color, Dry, Warm Neurologic: Fully Oriented, Alert, Normal Mood/Affect, Normal Response, ED Treatment Course - LABORATORY CBC & Chemistry Diagram: 07/27/18 22:45 07/27/18 22:45 Medical Decision Making - Medical Decision Making 07/27/18 23:16 The patient is a 37 year old female with a history of asthma, IDDM, HTN, HLD who presents for evaluation of cough and shortness of breath. Given the patient 's history and physical exam, it is likely her symptoms are due to a severe asthma exacerbation. We will obtain a cbc, cmp, ekg, chest plain film to evaluate further. We will treat with duonebs and prednisone here in the ED. Given her physical exam after nebulizer treatments it is likely that she will require admission for further management. We will continue to monitor and reassess. 07/28/18 00:02 CBC, CMP are unremarkable. Patient is pending chest plain film and reassessment after medications *DC/Admit/Observation/Transfer Diagnosis at time of Disposition: Acute asthma exacerbation - Discharge Dispostion Disposition: AGAINST MEDICAL ADVICE Condition at time of disposition: Good - Prescriptions - Referrals - Patient Instructions - Post Discharge Activity
[2018-07-27] MEDS ORDERED: ALBUTEROL SO4 2.5/IPRATROPIUM 0.5 INH SOL 3 ML VIAL.NEB. NEB ONE ×4 (22:22→23:38)
[2018-07-27] MEDS ORDERED: predniSONE 20 MG TABLET (UD) PO ONE (22:31)
[2018-07-27] MEDS ORDERED: predniSONE 20 MG TABLET (UD) ONE (22:58)
[2018-07-27 22:59] LABS: BASO % 1.3 % (0-2.0); EOS % 5.7 % (0-4.5); HEMATOCRIT 34.5 % (32.4-45.2); HEMOGLOBIN 11.3 GM/dL (10.7-15.3); LYMPH % 29.4 % (8-40); MCH 24.9 pg (25.7-33.7); MCHC 32.7 g/dl (32.0-36.0); MEAN CELL VOLUME 76.1 fl (80-96); MEAN PLT VOLUME 7.7 fl (7.5-11.1); MONO % 5.5 % (3.8-10.2); NEUT % 58.1 % (42.8-82.8); PLATELET COUNT 301 K/MM3 (134-434); RBC 4.53 M/mm3 (3.60-5.2); RDW 17.3 % (11.6-15.6)
[2018-07-27 23:37] LABS: ALBUMIN 3.6 g/dl (3.4-5.0); ALK PHOS 85 U/L (45-117); ANION GAP 9 MMOL/L (8-16); BILIRUBIN,TOTAL 0.2 mg/dL (0.2-1); BLOOD UREA NITROGEN 9 mg/dL (7-18); CALCIUM 9.1 mg/dL (8.5-10.1); CHLORIDE 105 mmol/L (98-107); CO2 25 mmol/L (21-32); CREATININE 0.9 mg/dL (0.55-1.3); GLUCOSE,RANDOM 106 mg/dL (74-106); POTASSIUM 3.7 mmol/L (3.5-5.1); SGOT/AST 20 U/L (15-37); SGPT/ALT 20 U/L (13-61); SODIUM 139 mmol/L (136-145); TOT PROT 7.3 g/dl (6.4-8.2)
[2018-07-27] MEDS ORDERED: MAGNESIUM SULF 50% (8.12 MEQ/2 ML-1 GM VIAL) IVPB ONE (23:38)
[2018-07-28] MEDS ORDERED: MAGNESIUM 1GM/D5W - 1 GM/100 ML IVPB IVPB ONE ×2 (00:27→01:01)
[2018-07-28] MEDS ORDERED: MAGNESIUM SULF 50% (8.12 MEQ/2 ML-1 GM VIAL) IVPB ONE (00:43)
--- NOTE | 2018-07-28 00:43 | PDOC ---
Attending Attestation - Resident Resident Name: Bull Lanier - ED Attending Attestation I have performed the following: I have examined & evaluated the patient, The case was reviewed & discussed with the resident, I agree w/resident's findings & plan, Exceptions are as noted - HPI HPI: 07/28/18 01:59 37yo F hx asthma, IDDM, HTN, HLD presents to the ED with 3 days of SOB, cough, wheezing that has not responded to nebulizer treatments. She reports symptoms are very similar to previous asthma exacerbations and PNA. +fevers. No chills, cp, N/V/D, abd pain, urinary sxs. No recent travel. - Physicial Exam PE: 07/28/18 00:44 GENERAL: Awake, alert, and fully oriented, in no acute distress HEAD: No signs of trauma EYES: Sclera anicteric, conjunctiva clear ENT: Oropharynx clear without exudates. Moist mucosa LUNGS: diffuse audible wheezing, fair air movement, no crackes. No increased WOB HEART: tachy but regular, normal S1 and S2, no murmurs, rubs or gallops ABDOMEN: Soft, nontender, normoactive bowel sounds. No guarding, no rebound. No masses EXTREMITIES: Normal range of motion, no edema. No clubbing or cyanosis. No cords, erythema, or tenderness NEUROLOGICAL: Normal speech, cranial nerves intact, 5/5 strength in all 4 extremities, normal sensation to light touch in all 4 extremities, normal gait SKIN: Warm, Dry, normal turgor, no rashes or lesions noted. - Medical Decision Making 07/28/18 00:45 37yo F hx asthma (on daily meds, intubated 2 years ago) p/w sob, wheezing, fevers. Exam with audible wheezing. Pt also with low grade oral temp, likely febrile rectally. Pt s/p nebs/steroids, minimal improvement, adding Mg 2G. Will obtain CXR to eval for PNA and reassess. 07/28/18 02:19 CXR pending Pt continues to have wheezing although slightly improved Case signed out to ON attending for further mgmt/dispo Heart Score/ECG Review #1 07/28/18 02:19 Twelve-lead EKG was performed and reviewed by me. Normal sinus rhythm, rate 96. Normal axis and intervals. No ST elevations.
[2018-07-28] MEDS ORDERED: ACETAMINOPHEN 1000 MG/100 ML VIAL (NON FORMULARY) IVPB ONE (00:44)
[2018-07-28] MEDS ORDERED: ACETAMINOPHEN INJECTION 100 ML IVPB ONE (01:01)
--- NOTE | 2018-07-28 01:45 | PDOC ---
*Physical Exam - Vital Signs Last Vital Signs Temp Pulse Resp BP Pulse Ox 99.7 F H 108 H 20 148/100 98 07/27/18 22:14 07/27/18 22:14 07/27/18 22:14 07/27/18 22:14 07/27/18 22:14 ED Treatment Course - LABORATORY CBC & Chemistry Diagram: 07/27/18 22:45 07/27/18 22:45 - ADDITIONAL ORDERS Additional order review: Laboratory Results 07/27/18 22:45 Sodium 139 Potassium 3.7 Chloride 105 Carbon Dioxide 25 Anion Gap 9 BUN 9 Creatinine 0.9 Creat Clearance w eGFR > 60 Random Glucose 106 Calcium 9.1 Total Bilirubin 0.2 AST 20 ALT 20 Alkaline Phosphatase 85 Total Protein 7.3 Albumin 3.6 07/28/18 01:03 Influenza Types A,B Antigen - Preliminary Nasopharyngeal Swab - Preliminary 07/27/18 22:45 RBC 4.53 MCV 76.1 L MCHC 32.7 RDW 17.3 H MPV 7.7 Neutrophils % 58.1 D Lymphocytes % 29.4 D Monocytes % 5.5 Eosinophils % 5.7 H D Basophils % 1.3 - Medications Given in the ED: ED Medications Discontinued Medications Generic Name Dose Route Start Last Admin Trade Name Trayq PRN Reason Stop Dose Admin Acetaminophen 1,000 mg 07/28/18 00:44 07/28/18 01:12 Ofirmev Injection - IVPB 07/28/18 00:45 1,000 mg ONCE ONE Administration Albuterol/Ipratropium 1 amp 07/27/18 22:22 07/27/18 22:23 Duoneb - NEB 07/27/18 22:23 1 amp NOW ONE Administration Albuterol/Ipratropium 1 amp 07/27/18 22:30 07/27/18 23:02 Duoneb - NEB 07/27/18 22:31 1 amp ONCE ONE Administration Albuterol/Ipratropium 1 amp 07/27/18 23:38 07/28/18 00:25 Duoneb - NEB 07/27/18 23:39 1 amp ONCE ONE Administration Magnesium Sulfate 1 gm 07/27/18 23:38 07/28/18 00:36 Magnesium Sulfate IVPB 07/27/18 23:39 1 gm ONCE ONE Administration Prednisone 60 mg 07/27/18 22:31 07/27/18 23:03 Deltasone - PO 07/27/18 22:32 60 mg ONCE ONE Administration Medical Decision Making - Medical Decision Making 07/28/18 01:46 The patient is a 37 year old female with a history of asthma, IDDM, HTN, HLD who presents for evaluation of cough and shortness of breath. Vitals: 99.7, HR 108 (had duonebs) RR20 PE: wheezing. Pt stated that she still feels short of breath. CXR: no infiltrates. Audible wheezing after 3 duoneb, mg and prednisone. Will admit. 07/28/18 04:02 Pt admitted to hospitalist *DC/Admit/Observation/Transfer Diagnosis at time of Disposition: Acute asthma exacerbation - Discharge Dispostion Condition at time of disposition: Good Decision to Admit order: Yes - Referrals - Patient Instructions - Post Discharge Activity
--- NOTE | 2018-07-28 03:46 | HP ---
CHIEF COMPLAINT: PCP: HISTORY OF PRESENT ILLNESS: The patient is a 37 year old female with a history of asthma, IDDM, HTN, HLD who presents for evaluation of cough and shortness of breath. The patient reports a 3 day history of worsening shortness of breath, wheezing, and non- productive cough despite taking her home nebulizer treatments prompting her presentation to the ED for further evaluation. She reports that she has had 1 intubation in the past for her asthma and her last admission for asthma exacerbation was several months ago. She states her symptoms feel similar to her severe asthma exacerbations. She notes that she took 2 albuteral nebulizers at home just prior to presentation to the ED. She otherwise denies fevers, chills, Chest pain, nausea, vomiting, abdominal pain, or changes with urination or bowel movements. ER course was notable for: (1) (2) (3) Recent Travel: PAST MEDICAL HISTORY: PAST SURGICAL HISTORY: Social History: Smoking: Alcohol: Drugs: Family History: Allergies No Known Allergies Allergy (Verified 07/27/18 22:14) HOME MEDICATIONS: Home Medications Medication Instructions Recorded Amlodipine Besylate [Norvasc -] 10 mg PO DAILY #30 tablet 10/21/16 Albuterol 0.083% Nebulizer Nahomy 1 neb NEB QID PRN 02/24/17 [Ventolin 0.083% Nebulizer Soln -] Budesonide/Formeterol Fumarate 2 puff IH BID #1 inhaler 02/27/17 [SYMBICORT 160/4.5mcg -] Montelukast Na [Singulair -] 10 mg PO HS #30 tablet 02/27/17 Pantoprazole Sodium [Protonix -] 40 mg PO DAILY #30 tab 02/27/17 Tiotropium [place] [Spiriva] 1 puff IH DAILY #1 inh 02/27/17 Hydrochlorothiazide 25 mg PO DAILY #30 tablet 02/28/17 Lisinopril [Prinivil -] 40 mg PO DAILY #30 tablet 02/28/17 Albuterol Sulfate Inhaler - 2 inh PO Q4H #1 inhaler 09/21/17 [Ventolin HFA Inhaler -] Albuterol 0.083% Nebulizer Nahomy 1 neb NEB Q4H PRN #1 box 04/02/18 [Ventolin 0.083% Nebulizer Soln -] REVIEW OF SYSTEMS CONSTITUTIONAL: Absent: fever, chills, diaphoresis, generalized weakness, malaise, loss of appetite, weight change HEENT: Absent: rhinorrhea, nasal congestion, throat pain, throat swelling, difficulty swallowing, mouth swelling, ear pain, eye pain, visual changes CARDIOVASCULAR: Absent: chest pain, syncope, palpitations, irregular heart rate, lightheadedness , peripheral edema RESPIRATORY: Absent: cough, shortness of breath, dyspnea with exertion, orthopnea, wheezing, stridor, hemoptysis GASTROINTESTINAL: Absent: abdominal pain, abdominal distension, nausea, vomiting, diarrhea, constipation, melena, hematochezia GENITOURINARY: Absent: dysuria, frequency, urgency, hesitancy, hematuria, flank pain, genital pain MUSCULOSKELETAL: Absent: myalgia, arthralgia, joint swelling, back pain, neck pain SKIN: Absent: rash, itching, pallor HEMATOLOGIC/IMMUNOLOGIC: Absent: easy bleeding, easy bruising, lymphadenopathy, frequent infections ENDOCRINE: Absent: unexplained weight gain, unexplained weight loss, heat intolerance, cold intolerance NEUROLOGIC: Absent: headache, focal weakness or paresthesias, dizziness, unsteady gait, seizure, mental status changes, bladder or bowel incontinence PSYCHIATRIC: Absent: anxiety, depression, suicidal or homicidal ideation, hallucinations. PHYSICAL EXAMINATION Vital Signs - 24 hr 07/27/18 22:14 Temperature 99.7 F H Pulse Rate 108 H Respiratory 20 Rate Blood Pressure 148/100 O2 Sat by Pulse 98 Oximetry (%) GENERAL: Awake, alert, and fully oriented, in no acute distress. HEAD: Normal with no signs of trauma. EYES: Pupils equal, round and reactive to light, extraocular movements intact, sclera anicteric, conjunctiva clear. No lid lag. EARS, NOSE, THROAT: Ears normal, nares patent, oropharynx clear without exudates. Moist mucous membranes. NECK: Normal range of motion, supple without lymphadenopathy, JVD, or masses. LUNGS: Breath sounds equal, clear to auscultation bilaterally. No wheezes, and no crackles. No accessory muscle use. HEART: Regular rate and rhythm, normal S1 and S2 without murmur, rub or gallop. ABDOMEN: Soft, nontender, not distended, normoactive bowel sounds, no guarding, no rebound, no masses. No hepatomegaly or splenomegaly. MUSCULOSKELETAL: Normal range of motion at all joints. No bony deformities or tenderness. No CVA tenderness. UPPER EXTREMITIES: 2+ pulses, warm, well-perfused. No cyanosis. No clubbing. No peripheral edema. LOWER EXTREMITIES: 2+ pulses, warm, well-perfused. No calf tenderness. No peripheral edema. NEUROLOGICAL: Cranial nerves II-XII intact. Normal speech. Normal gait. PSYCHIATRIC: Cooperative. Good eye contact. Appropriate mood and affect. SKIN: Warm, dry, normal turgor, no rashes or lesions noted, normal capillary refill. Laboratory Results - last 24 hr 07/27/18 07/27/18 22:45 22:45 WBC 9.0 RBC 4.53 Hgb 11.3 Hct 34.5 MCV 76.1 L MCH 24.9 L MCHC 32.7 RDW 17.3 H Plt Count 301 D MPV 7.7 Absolute Neuts (auto) 5.2 Neutrophils % 58.1 D Lymphocytes % 29.4 D Monocytes % 5.5 Eosinophils % 5.7 H D Basophils % 1.3 Nucleated RBC % 0 Sodium 139 Potassium 3.7 Chloride 105 Carbon Dioxide 25 Anion Gap 9 BUN 9 Creatinine 0.9 Creat Clearance w eGFR > 60 Random Glucose 106 Calcium 9.1 Total Bilirubin 0.2 AST 20 ALT 20 Alkaline Phosphatase 85 Total Protein 7.3 Albumin 3.6 ASSESSMENT/PLAN:
--- NOTE | 2018-07-28 05:44 | PN ---
Progress Note (short form) - Note Progress Note: patient left AMA before I could see her.
--- NOTE | 2018-07-28 11:09 | EKG ---
Test Reason : Blood Pressure : / mmHG Vent. Rate : 096 BPM Atrial Rate : 096 BPM P-R Int : 156 ms QRS Dur : 082 ms QT Int : 354 ms P-R-T Axes : 059 030 024 degrees QTc Int : 447 ms NORMAL SINUS RHYTHM NORMAL ECG WHEN COMPARED WITH ECG OF 12-MAY-2018 01:15, ST NO LONGER ELEVATED IN INFERIOR LEADS Confirmed by JULIAN POWERS MD ([id number]) on 07/28/2018 11:09:08 AM Referred By: Confirmed By:JULIAN POWERS MD
== END 2018-07-28 05:23 | disposition left against medical advice (07) ==
LOC: JER 22:09 → JERBED 07-28 03:19
PROVIDERS: ADMIT Internal Medicine; ATTEND Internal Medicine
PROC: 3E033NZ Introduction of Analgesics, Hypnotics, Sedatives into Peripheral Vein, Percutaneous Approach (ICD-10-PCS; principal; 2018-07-28)
PROC: 3E033GC Introduction of Other Therapeutic Substance into Peripheral Vein, Percutaneous Approach (ICD-10-PCS; 2018-07-28)
PROC: 3E0F7GC Introduction of Other Therapeutic Substance into Respiratory Tract, Via Natural or Artificial Opening (ICD-10-PCS; 2018-07-28)
DX: J45.901 Unspecified asthma with (acute) exacerbation (principal); I10 Essential (primary) hypertension; E78.5 Hyperlipidemia, unspecified; E11.9 Type 2 diabetes mellitus without complications; Z79.4 Long term (current) use of insulin
CPT/HCPCS: 36415; 71046-TC-FY; 80053; 85025; 87804; 93005; 93010; 94640; 96374; 96375; 99283-25; G0378; J0131

== ENCOUNTER 2018-08-30 18:42 | Inpatient (IN) | payer OTHER ==
[2018-08-30] MEDS ORDERED: ALBUTEROL SO4 0.083% IH SOL 2.5 MG/3 ML VIAL.NEB. NEB PRN ×2 (19:05→22:31)
[2018-08-30] MEDS: ALBUTEROL SO4 2.5/IPRATROPIUM 0.5 INH SOL 3 ML VIAL.NEB. NEB SCH ×4 (19:10→22:17)
[2018-08-30] MEDS ORDERED: ALBUTEROL SO4 2.5/IPRATROPIUM 0.5 INH SOL 3 ML VIAL.NEB. NEB ONE ×3 (19:10→21:27)
--- NOTE | 2018-08-30 19:12 | PDOC ---
Rapid Medical Evaluation Chief Complaint: Asthma Time Seen by Provider: 08/30/18 19:03 Medical Evaluation: Allergies Allergy/AdvReac Type Severity Reaction Status Date / Time No Known Allergies Allergy Verified 07/27/18 22:14 08/30/18 19:06 I have performed a brief in person evaluation of this patient. The patient presents with a chief complaints of:sob x3d +H/O intubation x1 Pertinent physical exam findings:inspiratory and exp wheezes I have ordered the following: duo neg, IV The patient will proceed to the ED for further evaluation.
[2018-08-30] MEDS ORDERED: methylPREDNISolone NA SUCC 40 MG/1 ML VIAL IVPUSH ONE (20:07)
[2018-08-30] MEDS ORDERED: SODIUM CHLORIDE 1,000 ML IV STA (20:10)
[2018-08-30] MEDS ORDERED: methylPREDNISolone NA SUCC 40 MG/1 ML VIAL ONE ×2 (20:24→20:29)
--- NOTE | 2018-08-30 20:29 | PDOC ---
Attending Attestation - Resident Resident Name: Liliya Tejada - ED Attending Attestation I have performed the following: I have examined & evaluated the patient, The case was reviewed & discussed with the resident, I agree w/resident's findings & plan, Exceptions are as noted - Medical Decision Making 08/30/18 20:29 I, Dr. Monae Batista, DO, attest that this document has been prepared under my direction and personally reviewed by me in its entirety. I further attest, that it accurately reflects all work, treatment, procedures and medical decision -making performed by me. 08/30/18 20:49 a/p: 37yo female with hx of asthma with wheezing and sob -diffuse wheezing on exam after multiple nebs -will give iv steroids, mag, ivf hydration -labs and xray ordered from E -will continue nebs -will monitor and reassess 08/30/18 20:[address] Wall 08/30/18 21:54 resident discussed the case with - marcio who accepts the patient to service 08/30/18 21:54 cxr clear 08/30/18 21:55 no elevated wbc on labs <Monae Batista - Last Filed: 08/30/18 22:36> - HPI HPI: 08/30/18 22:53 The patient is a 37 year old female, with a significant past medical history of asthma (previous intubations and hospitalizations), who presents to the emergency department with, acute onset of shortness of breath and chest tightness. Patient endorses similar symptoms in the past when the seasons change. Allergies: apple, burton, peach, plum Primary Care Physician: Dr. Vasquez - Physicial Exam PE: 08/30/18 22:53 Constitutional: Awake, alert, oriented. No acute distress. Head: Normocephalic. Atraumatic Eyes: PERRL. EOMI. Conjunctivae are not pale. ENT: Mucous membranes are moist and intact. Posterior pharynx without exudates or erythema. Uvula midline. Neck: Supple. Full ROM. No lymphadenopathy. Cardiovascular: Regular rate. Regular rhythm. S1, S2 regular. Distal pulses are 2+ and symmetric. +Pulmonary/Chest: Diffuse wheezing bilaterally. Abdominal: Soft and non-distended. There is no tenderness. No rebound, guarding or rigidity. No organomegaly. No palpable masses. Good bowel sounds. Back: No CVA tenderness. Musculoskeletal: No edema. No cyanosis. No clubbing. Full range of motion in all extremities. No calf tenderness. Radial/pedal pulses are intact and 2+ bilaterally Skin: Skin is warm and dry. No petechiae. No purpura. Neurological: Alert and oriented to person, place, and time. Cranial nerves II -XII are grossly intact. Normal speech. Strength is grossly symmetric. No sensory deficits. Psychiatric: Good eye contact. Normal interaction, affect and behavior. <Ish Malone - Last Filed: 08/30/18 22:53> Heart Score/ECG Review - ECG Intrepretation Comment:: 08/30/18 22:36 sinus at 87, nl axis, nl interval, no acute st/t wave findings <Monae Batista - Last Filed: 08/30/18 22:36> Attestations - Attestations 08/30/18 22:53 Documentation prepared by Ish Malone, acting as medical record administrator for Monae Batista DO. <Ish Malone - Last Filed: 08/30/18 22:53>
[2018-08-30 20:35] LABS: BASO % 0.8 % (0-2.0); EOS % 5.5 % (0-4.5); HEMATOCRIT 34.1 % (32.4-45.2); HEMOGLOBIN 11.6 GM/dL (10.7-15.3); LYMPH % 35.9 % (8-40); MCH 26.4 pg (25.7-33.7); MCHC 34.1 g/dl (32.0-36.0); MEAN CELL VOLUME 77.3 fl (80-96); MEAN PLT VOLUME 7.7 fl (7.5-11.1); MONO % 6.1 % (3.8-10.2); NEUT % 51.7 % (42.8-82.8); PLATELET COUNT 328 K/MM3 (134-434); RBC 4.41 M/mm3 (3.60-5.2); WHITE BLOOD COUNT 6.1 K/mm3 (4.0-10.0)
--- NOTE | 2018-08-30 20:40 | PDOC ---
History of Present Illness - General Chief Complaint: Asthma Stated Complaint: ASTHMA Time Seen by Provider: 08/30/18 19:03 History Source: Patient Exam Limitations: No Limitations - History of Present Illness Initial Comments: Pt is a 37 yo F, with PMH of asthma, HTN, HLD, and NIDDM, with known allergies to apples and cherries, who is presenting with congestion, dry cough, and wheezing x3 days. Pt states at onset 3 days ago, pt had a piece of apple accidentally, which triggered swelling in her throat. She took a benadryl, which improved her throat swelling. Since that time, pt has needed more of her asthma medications, and noticed non-productive cough, nasal congestion, and wheezing since that time. Her asthma is usually exacerbated by the cold. She has been hospitalized in the past and has been intubated. Pt denies any fevers/ chills, headache, vision changes, chest pain, palpitations, nausea/vomiting, abdominal pain, urinary symptoms, diarrhea/constipation, or leg swelling. Pt denies any cigarette, alcohol, or drug use. Pt denies any recent travel or sick contacts. 08/30/18 21:33 Past History - Travel Traveled outside of the country in the last 30 days: No Close contact w/someone who was outside of country & ill: No - Past Medical History Allergies/Adverse Reactions: Allergies Allergy/AdvReac Type Severity Reaction Status Date / Time apple Allergy Verified 08/30/18 22:44 burton Allergy Verified 08/30/18 22:44 peach Allergy Verified 08/30/18 22:44 plum Allergy Verified 08/30/18 22:44 Home Medications: Ambulatory Orders Amlodipine Besylate [Norvasc -] 10 mg PO DAILY #30 tablet 10/21/16 Albuterol 0.083% Nebulizer Nahomy [Ventolin 0.083% Nebulizer Soln -] 1 neb NEB QID PRN 02/24/17 Budesonide/Formeterol Fumarate [SYMBICORT 160/4.5mcg -] 2 puff IH BID #1 inhaler 02/27/17 Montelukast Na [Singulair -] 10 mg PO HS #30 tablet 02/27/17 Pantoprazole Sodium [Protonix -] 40 mg PO DAILY #30 tab 02/27/17 Tiotropium [place] [Spiriva] 1 puff IH DAILY #1 inh 02/27/17 Hydrochlorothiazide 25 mg PO DAILY #30 tablet 02/28/17 Lisinopril [Prinivil -] 40 mg PO DAILY #30 tablet 02/28/17 Albuterol Sulfate Inhaler - [Ventolin HFA Inhaler -] 2 inh PO Q4H #1 inhaler Albuterol 0.083% Nebulizer Nahomy [Ventolin 0.083% Nebulizer Soln -] 1 neb NEB Q4H PRN #1 box 04/02/18 Prednisone [Prednisone 50 MG TABLETS] 60 mg PO DAILY #5 tablet 07/28/18 Anemia: No Asthma: Yes (intubation x1) Cancer: No Cardiac Disorders: No CVA: No COPD: No Dementia: No Diabetes: Yes (niddm) Dialysis: No GI Disorders: No Disorders: No HTN: Yes Hypercholesterolemia: Yes Kidney Stones: No Liver Disease: No Seizures: No Thyroid Disease: No - Surgical History Abdominal Surgery: No Appendectomy: No Cardiac Surgery: No Cholecystectomy: No Neurologic Surgery: No - Immunization History Td Vaccination: Yes TDAP Vaccination: No Immunization Up to Date: Yes - Suicide/Smoking/Psychosocial Hx Smoking Status: No Smoking History: Never smoked Years of Tobacco Use: 0 Have you smoked in the past 12 months: No Number of Cigarettes Smoked Daily: 0 Cigars Per Day: 0 Information on smoking cessation initiated: No Hx Alcohol Use: No Drug/Substance Use Hx: No Substance Use Type: None Hx Substance Use Treatment: No Review of Systems - Review of Systems Able to Perform ROS?: Yes Is the patient limited Dutch proficient: No Constitutional: Yes: Weight Stable. No: Chills, Diaphoresis, Fever, Loss of Appetite, Weakness HEENTM: Yes: Nose Congestion, Throat Swelling (after consuming apple). No: Blurred Vision, Double Vision, Throat Pain, Mouth Pain, Difficulty Swallowing Respiratory: Yes: Cough, Shortness of Breath, SOB with Exertion, SOB at Rest, Wheezing. No: Orthopnea, Stridor, Productive cough, Hemoptysis Cardiac (ROS): Yes: Chest Tightness. No: Chest Pain, Edema, Irregular Heart Rate, Lightheadedness, Palpitations, Syncope ABD/GI: No: Abdominal Distended, Constipated, Diarrhea, Nausea, Poor Appetite, Poor Fluid Intake, Vomiting, Abdominal cramping : No: Burning, Dysuria, Frequency, Hematuria, Pain, Urgency Musculoskeletal: No: Back Pain, Joint Pain Integumentary: No: Rash Neurological: No: Headache, Seizure, Unsteady Gait, Ataxia, Dizziness Psychiatric: No: Sleep Pattern Change, Change in Appetite Endocrine: No: Increased Urine, Change in Weight Hematologic/Lymphatic: No: Anemia, Blood Clots, Easy Bleeding, Easy Bruising All Other Systems: Reviewed and Negative *Physical Exam - Vital Signs Last Vital Signs Temp Pulse Resp BP Pulse Ox 98.8 F 108 H 20 172/92 H 98 08/30/18 19:07 08/30/18 19:07 08/30/18 19:07 08/30/18 19:07 08/30/18 19:07 - Physical Exam General Appearance: Yes: Nourished, Appropriately Dressed, Apparent Distress, Moderate Distress (HR 108, hypertensive, audible wheezing even without auscultation), Obese. No: Other (saturation 97-99%, pt speaking in full sentences) HEENT: positive: EOMI, TAMMY, Normal ENT Inspection, Normal Voice, Symmetrical, Pharynx Normal, Hearing Grossly Normal. negative: Scleral Icterus (R), Scleral Icterus (L), Pharyngeal Erythema, Tonsillar Exudate, Tonsillar Erythema, Rhinorrhea, Sinus Tenderness, Excessive drooling Neck: positive: Trachea midline, Normal Thyroid, Supple. negative: Tender, Rigid, Lymphadenopathy (R), Lymphadenopathy (L) Respiratory/Chest: positive: Respiratory Distress, Labored Respiration, Rapid RR , Decreased Breath Sounds, Wheezing. negative: Chest Tender, Lungs Clear, Normal Breath Sounds, Accessory Muscle Use, Crackles Cardiovascular: positive: Regular Rhythm, S1, S2, Tachycardia. negative: Regular Rate, Edema, JVD, Murmur Vascular Pulses: Carotid (R): 4+, Carotid (L): 4+ Gastrointestinal/Abdominal: positive: Normal Bowel Sounds, Soft, Protuberent. negative: Tender, Flat, Organomegaly, Pulsatile Mass Rectal Exam: positive: deferred Lymphatic: negative: Adenopathy, Tenderness Musculoskeletal: positive: Normal Inspection. negative: CVA Tenderness Extremity: positive: Normal Capillary Refill, Normal Inspection, Normal Range of Motion, Pelvis Stable, Other (mild decreased skin turgor). negative: Tender , Delayed Capillary Refill, Pedal Edema Integumentary: positive: Normal Color, Dry, Warm. negative: Jaundice, Clammy, Diaphoresis, Rash Neurologic: positive: television script writer II-XII NML intact, Fully Oriented, Alert, Normal Mood/ Affect, Normal Response, Motor Strength 02/09 ED Treatment Course - LABORATORY CBC & Chemistry Diagram: 08/30/18 20:20 08/30/18 20:20 - Medications Given in the ED: ED Medications Discontinued Medications Generic Name Dose Route Start Last Admin Trade Name Freq PRN Reason Stop Dose Admin Albuterol Sulfate 1 amp 08/30/18 19:05 08/30/18 19:10 Ventolin 0.083% Nebulizer Soln - NEB 1 amp Q1H PRN Administration SHORT OF BREATH/WHEEZING Albuterol/Ipratropium 1 amp 08/30/18 19:15 08/30/18 19:10 Duoneb - NEB 08/30/18 20:01 1 amp Q15M SARAVANAN Administration Medical Decision Making - Medical Decision Making Pt was seen at bedside, also will be seen by attending Dr. Batista. Pt presenting with congestion, dry cough, and wheezing x3 days. Pt has PMH of asthma, HTN, HLD, and NIDDM, with known allergies to apples and cherries. Pt states at onset 3 days ago, pt had a piece of apple accidentally, which triggered swelling in her throat. She took a benadryl, which improved her throat swelling. Since that time, pt has needed more of her asthma medications, and noticed non-productive cough, nasal congestion, and wheezing since that time. Pt denies any fevers/chills, headache, vision changes, chest pain, palpitations, nausea/vomiting, abdominal pain, urinary symptoms, diarrhea/ constipation, or leg swelling. PE showed no oropharyngeal exudate or swelling, dry mucous membranes. Diffuse b/ l wheezes, but good air movement b/l. No chest wall or abdominal tenderness, no significant increased WOB, and pt was able to ambulate. Considering asthma exacerbation vs new infection (bronchitis/pneumonia). Ordered work-up including CBC, CMP, and chest x-ray. Provided 1 L NS, multiple duoneb treatments (received 2 amps, has more on order) , 60 mg IV solumedrol for improvement of wheezing and air movement. Will continue to reassess pt and monitor for symptomatic improvement. Labs were sent. 08/30/18 20:18 Pt being provided solumedrol and fluid bolus (will evaluate after 250-500 mL at a time). Pt denying any additional nebulizers at this time, as she is "still feeling shaky". Pt able to speak in full sentences, and we will evaluate ambulatory saturation before pt is able to go home. Pending lab work and chest x-ray. 08/30/18 20:40 Pt willing to stay in the hospital. Providing 1 mg Magnesium, as pt still tight and wheezing after receiving additional duoneb. Pending x-ray and lab results. 08/30/18 20:47 Paging hospitalist team for admission. Pending call-back. Chest x-ray appears clear. CBC and CMP generally WNL. Repeat vitals: BP 145/110, HR 95, O2 96-97%. 08/30/18 21:22 (entered later) Hospitalist team accepted pt within 20 minutes of initial call. Pt stable, saturating 99-100%. Continuous albuterol nebs have been given. Pt able to speak in full sentences. Pt signed out to next resident team. Explained presentation, ED course, any pending results, and needed interventions to resident Dr. Nielson. Explained potential need for BiPAP and to check on pt intermittently to monitor respiratory status. 08/31/18 00:13 *DC/Admit/Observation/Transfer Diagnosis at time of Disposition: Asthma exacerbation Qualifiers: Asthma severity: moderate Asthma persistence: persistent Qualified Code(s): J45.41 - Moderate persistent asthma with (acute) exacerbation - Discharge Dispostion Condition at time of disposition: Stable Decision to Admit order: Yes - Referrals - Patient Instructions - Post Discharge Activity
[2018-08-30] MEDS ORDERED: MAGNESIUM SULF 50% (8.12 MEQ/2 ML-1 GM VIAL) IVPB ONE (20:47)
[2018-08-30 21:05] LABS: BLOOD UREA NITROGEN 9 mg/dL (7-18); CHLORIDE 109 mmol/L (98-107); GLUCOSE,RANDOM 117 mg/dL (74-106); POTASSIUM 4.3 mmol/L (3.5-5.1); SODIUM 143 mmol/L (136-145)
[2018-08-30 21:06] LABS: ALBUMIN 3.3 g/dl (3.4-5.0); ALK PHOS 91 U/L (45-117); ANION GAP 9 MMOL/L (8-16); BILIRUBIN,TOTAL 0.4 mg/dL (0.2-1); CALCIUM 8.3 mg/dL (8.5-10.1); CO2 25 mmol/L (21-32); SGOT/AST 33 U/L (15-37); SGPT/ALT 27 U/L (13-61)
[2018-08-30] MEDS ORDERED: MAGNESIUM 1GM/D5W - 1 GM/100 ML IVPB IVPB ONE (21:27)
--- NOTE | 2018-08-30 21:56 | PN ---
Teaching Attending Note Name of Resident: Ping Matias ATTENDING PHYSICIAN STATEMENT I saw and evaluated the patient. I reviewed the resident's note and discussed the case with the resident. I agree with the resident's findings and plan as documented. SUBJECTIVE: Patient is a 37 year old woman with PMH of asthma, HTN, HLD, and NIDDM, with known allergies to apples and cherries, who is presenting with congestion, dry cough, and wheezing x3 days. At onset 3 days ago, she had a piece of apple accidentally, which triggered swelling in her throat. She took a benadryl, which improved her throat swelling. Since that time, she has needed more of her asthma medications, and noticed non-productive cough, nasal congestion, and wheezing since that time. Her asthma is usually exacerbated by the cold. She has been hospitalized in the past and has been intubated. Patient denies any fevers/chills, headache, vision changes, chest pain, palpitations, nausea/ vomiting, abdominal pain, urinary symptoms, diarrhea/constipation, or leg swelling. OBJECTIVE: Alert Vital Signs Period Temp Pulse Resp BP Sys/Mendez Pulse Ox Last 24 Hr 98.8 F 108 20 172/92 98 HEENT: No Jaundice, eye redness or discharge, PERRLA, EOMI. Normocephalic, atraumatic. External ears are normal and hearing is grossly intact. No nasal discharge. Neck: Supple, nontender. No palpable adenopathy or thyromegaly. No JVD Chest: Good effort. Clear to auscultation and percussion. Heart: Regular. No S3, rub or murmur Abdomen: Not distended, soft, nontender and no HSM. No rebound or guarding. Normoactive bowel sounds. Ext: Peripheral pulses intact. No leg edema. Skin: Warm and dry. No petechiae, rash or ecchymosis. Neuro: Alert. Oriented x3. CN 2-12 grossly intact. Sensation grossly intact in all four extremities and DTR are symmetric. Current Medications Generic Name Dose Route Start Last Admin Trade Name Freq PRN Reason Stop Dose Admin Albuterol Sulfate 1 amp 08/30/18 21:45 Ventolin 0.083% Nebulizer Soln - NEB 08/30/18 22:31 Q15M [facility] Home Medications Medication Instructions Recorded Amlodipine Besylate [Norvasc -] 10 mg PO DAILY #30 tablet 10/21/16 Albuterol 0.083% Nebulizer Nahomy 1 neb NEB QID PRN 02/24/17 [Ventolin 0.083% Nebulizer Soln -] Budesonide/Formeterol Fumarate 2 puff IH BID #1 inhaler 02/27/17 [SYMBICORT 160/4.5mcg -] Montelukast Na [Singulair -] 10 mg PO HS #30 tablet 02/27/17 Pantoprazole Sodium [Protonix -] 40 mg PO DAILY #30 tab 02/27/17 Tiotropium [place] [Spiriva] 1 puff IH DAILY #1 inh 02/27/17 Hydrochlorothiazide 25 mg PO DAILY #30 tablet 02/28/17 Lisinopril [Prinivil -] 40 mg PO DAILY #30 tablet 02/28/17 Albuterol Sulfate Inhaler - 2 inh PO Q4H #1 inhaler 09/21/17 [Ventolin HFA Inhaler -] Albuterol 0.083% Nebulizer Nahomy 1 neb NEB Q4H PRN #1 box 04/02/18 [Ventolin 0.083% Nebulizer Soln -] Prednisone [Prednisone 50 MG 60 mg PO DAILY #5 tablet 07/28/18 TABLETS] Abnormal Lab Results 08/30/18 08/30/18 20:20 20:20 MCV 77.3 L RDW 18.0 H Eosinophils % 5.5 H Chloride 109 H Random Glucose 117 H Calcium 8.3 L Albumin 3.3 L ASSESSMENT AND PLAN: 1. Asthma exacerbation - No obvious precipitating factor. No acute infiltrate on CXR. Will treat with duoneb q 3 hours, solumedrol 60 mg q 8hr, symbicort q 12 protonix PO and monitor her closely since she has been intubated before. Restart home antihypertensive medications to attain normotension and stress nonpharmacologic measures to treat hypertension. 2. DM - Will implement sliding scale insulin regimen. Provide comprehensive diabetes care with patient teaching and counseling about the importance of euglycemia, eye care and foot care. 3. Obesity - Will provide patient all the necessary assistance, counseling and positive reinforcement to facilitate weight loss. Consult oral surgery technician. 4. DVT prophylaxis - Heparin 5000u sq tid. 5. Advance directives - Full code
[2018-08-30] MEDS ORDERED: ALBUTEROL SO4 0.083% IH SOL 2.5 MG/3 ML VIAL.NEB. NEB ONE (22:17)
[2018-08-30] MEDS: ALBUTEROL SO4 0.083% IH SOL 2.5 MG/3 ML VIAL.NEB. NEB SCH ×3 (22:24→22:36)
[2018-08-30] MEDS ORDERED: ALBUTEROL SO4 2.5/IPRATROPIUM 0.5 INH SOL 3 ML VIAL.NEB. NEB SCH ×2 (22:30→23:15)
--- NOTE | 2018-08-30 22:43 | HP ---
CHIEF COMPLAINT: SOB, wheezing x 3 days PCP: Dr. Garcia HISTORY OF PRESENT ILLNESS: 37 y/o F with PMH asthma (with past intubation; 2014), HTN, HLD, NIDDM, allergy to multiple fruits (cherries, peaches, plums), who presents to the ED c/o SOB, wheezing over the past 3 days. As per pt, three days prior, she ingested a granny spears apple and suddenly developed throat swelling. Her sx were temporarily alleviated by Benadryl, however soon after, she developed dry cough , wheezing and congestion. During this time, she had difficulty sleeping and took her albuterol nebs "all the time, without any relief." States that she was only able to sleep for [address] Garcia (PCP) last month and has been compliant with proair, albuterol, and symbicort. Does not take the spiriva because "it feels like an extra medication." Denies sick contacts, recent illnesses, PÉREZ, fever, chills, chest pain, or changes in urinary or bowel function. Best peak flow when feeling well up to 500. During exacerbations, states that peak flow is 250-300. Of note, in February 2015, she was hospitalized for an asthma exacerbation in [place], [place] where she was admitted to the ICU. During this stay, she had been intubated. 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 tried in past once, however has not smoked since Alcohol: denies; stopped drinking "a few years ago" Drugs: denies Family History: sister- breast [place], mother, grandmother - [place] Allergies apple (from current admission), burton, peach, plum HOME MEDICATIONS: Home Medications Medication Instructions Recorded Amlodipine Besylate [Norvasc -] 10 mg PO DAILY #30 tablet 10/21/16 Albuterol 0.083% Nebulizer Nahomy 1 neb NEB QID PRN 02/24/17 [Ventolin 0.083% Nebulizer Soln -] Budesonide/Formeterol Fumarate 2 puff IH BID #1 inhaler 02/27/17 [SYMBICORT 160/4.5mcg -] Montelukast Na [Singulair -] 10 mg PO HS #30 tablet 02/27/17 Pantoprazole Sodium [Protonix -] 40 mg PO DAILY #30 tab 02/27/17 Tiotropium [place] [Spiriva] 1 puff IH DAILY #1 inh 02/27/17 Hydrochlorothiazide 25 mg PO DAILY #30 tablet 02/28/17 Lisinopril [Prinivil -] 40 mg PO DAILY #30 tablet 02/28/17 Albuterol Sulfate Inhaler - 2 inh PO Q4H #1 inhaler 09/21/17 [Ventolin HFA Inhaler -] Albuterol 0.083% Nebulizer Nahomy 1 neb NEB Q4H PRN #1 box 04/02/18 [Ventolin 0.083% Nebulizer Soln -] Prednisone [Prednisone 50 MG 60 mg PO DAILY #5 tablet 07/28/18 TABLETS] Meds will need to be verified with pharmacy when open in AM REVIEW OF SYSTEMS CONSTITUTIONAL: Absent: fever, chills, diaphoresis, generalized weakness, malaise, loss of appetite, weight change HEENT: Absent: rhinorrhea, nasal congestion, throat pain, throat swelling, difficulty swallowing, mouth swelling, ear pain, eye pain, visual changes CARDIOVASCULAR: Absent: chest pain, syncope, palpitations, irregular heart rate, lightheadedness , peripheral edema RESPIRATORY: +cough, SOB, wheezing Absent: dyspnea with exertion, orthopnea, stridor, hemoptysis GASTROINTESTINAL: Absent: abdominal pain, abdominal distension, nausea, vomiting, diarrhea, constipation, melena, hematochezia GENITOURINARY: Absent: dysuria, frequency, urgency, hesitancy, hematuria, flank pain, genital pain MUSCULOSKELETAL: Absent: myalgia, arthralgia, joint swelling, back pain, neck pain SKIN: Absent: rash, itching, pallor HEMATOLOGIC/IMMUNOLOGIC: Absent: easy bleeding, easy bruising, lymphadenopathy, frequent infections ENDOCRINE: Absent: unexplained weight gain, unexplained weight loss, heat intolerance, cold intolerance NEUROLOGIC: Absent: headache, focal weakness or paresthesias, dizziness, unsteady gait, seizure, mental status changes, bladder or bowel incontinence PSYCHIATRIC: Absent: anxiety, depression, suicidal or homicidal ideation, hallucinations. PHYSICAL EXAMINATION Vital Signs - 24 hr 08/30/18 19:07 Temperature 98.8 F Pulse Rate 108 H Respiratory 20 Rate Blood Pressure 172/92 H O2 Sat by Pulse 98 Oximetry (%) GENERAL: Pleasant. Using nebulizer tx. in mild distress HEAD: Normal with no signs of trauma. EYES: Pupils equal, round and reactive to light, extraocular movements intact, sclera anicteric, conjunctiva clear. EARS, NOSE, THROAT: Ears normal, nares patent, oropharynx clear without exudates. Uvula visualized. Moist mucous membranes. NECK: Wide, normal range of motion, supple LUNGS: +with air movement, diffuse wheezes in all lunge alvarado. without rhonchi or crackles. no accessory m usage HEART: Regular rate and rhythm, normal S1 and S2 without murmur, rub or gallop. ABDOMEN: Soft, obese, nontender, not distended MUSCULOSKELETAL: Normal range of motion at all joints. LOWER EXTREMITIES: 2+ pt pulses, warm, well-perfused. No calf tenderness. No peripheral edema. NEUROLOGICAL: Cranial nerves II-XII intact. PSYCHIATRIC: Cooperative. SKIN: Warm, dry Laboratory Results - last 24 hr 08/30/18 08/30/18 20:20 20:20 WBC 6.1 RBC 4.41 Hgb 11.6 Hct 34.1 MCV 77.3 L MCH 26.4 MCHC 34.1 RDW 18.0 H Plt Count 328 MPV 7.7 Absolute Neuts (auto) 3.2 Neutrophils % 51.7 Lymphocytes % 35.9 D Monocytes % 6.1 Eosinophils % 5.5 H Basophils % 0.8 Nucleated RBC % 0 Sodium 143 Potassium 4.3 Chloride 109 H Carbon Dioxide 25 Anion Gap 9 BUN 9 Creatinine 1.0 Creat Clearance w eGFR > 60 Random Glucose 117 H Calcium 8.3 L Total Bilirubin 0.4 AST 33 ALT 27 Alkaline Phosphatase 91 Total Protein 7.0 Albumin 3.3 L ASSESSMENT/PLAN: 37 y/o F with PMH asthma (with past intubation; 2014), HTN, HLD, NIDDM, allergy to multiple fruits (cherries, peaches, plums), who presents to the ED c/o SOB, wheezing over the past 3 days. #Asthma exacerbation -Likely 2/2 fruit allergy. recently ingested apple. also with recent stress - working as EMT, possible sick contacts. has been compliant with meds. however may need med adjustment as pt states that "multiple meds decrease her compliance " -solumedrol 60mg IVP TID. will assess tomorrow, if improved, can change to PO -albuterol nebs RQID -duonebs q4h standing during evening to ensure pt receives treatments. can be changed to PRN in AM. -protonix 40mg PO qd -monitor peak flow. for pt's age and height, flow should be 427L/min. #HTN- uncontrolled -will need to confirm meds in AM -repeat BP ~140/90 -for now, will give HCTZ 12.5mg PO, lisinopril 20mg PO BID #NIDDM -BGM q4h -ISS ACHS -nutrition consult; weight loss #F/E/N tolerating PO intake continue to monitor lytes sodium controlled, diabetic diet #PPX DVT: Hep 5000 SQ TID #Dispo med-surg obs monitoring Visit type - Emergency Visit Emergency Visit: Yes ED Registration Date: 08/30/18 Care time: The patient presented to the Emergency Department on the above date and was hospitalized for further evaluation of their emergent condition. - New Patient This patient is new to me today: Yes Date on this admission: 08/31/18 - Critical Care Critical Care patient: No
[2018-08-30] MEDS ORDERED: HEPARIN NA (PORCINE) 5,000 UNITS/ML 1ML VIAL ONE (23:49)
[2018-08-30] MEDS ORDERED: LISINOPRIL 20 MG TABLET (FP) ONE (23:49)
[2018-08-31] MEDS: HYDROCHLOROTHIAZIDE 12.5 MG CAPSULE (FP) PO SCH ×2 (00:07→10:34)
[2018-08-31] MEDS: LISINOPRIL 20 MG TABLET (FP) PO SCH ×2 (00:07→10:34)
[2018-08-31] MEDS: BUDESONIDE/FORMETEROL FUMARATE 160/4.5 mcg INHALER IH SCH ×3 (00:07→21:14)
[2018-08-31] MEDS: HEPARIN NA (PORCINE) 5,000 UNITS/ML 1ML VIAL SQ SCH ×4 (00:07→21:15)
[2018-08-31] MEDS: ALBUTEROL SO4 2.5/IPRATROPIUM 0.5 INH SOL 3 ML VIAL.NEB. NEB SCH ×6 (01:34→22:10)
[2018-08-31] MEDS ORDERED: methylPREDNISolone NA SUCC 125 MG/2 ML VIAL IVPUSH SCH (06:00)
[2018-08-31] MEDS: INSULIN SLIDING SCALE (NOVOLOG) 1 VIAL SQ SCH ×4 (06:41→21:15)
[2018-08-31] MEDS ORDERED: PT OWN MED DRAWER 7, Y5N ONE ×4 (07:09→22:32)
[2018-08-31 08:40] LABS: BASO % 0.2 % (0-2.0); HEMATOCRIT 33.7 % (32.4-45.2); HEMOGLOBIN 10.6 GM/dL (10.7-15.3); LYMPH % 6.6 % (8-40); MCH 24.7 pg (25.7-33.7); MCHC 31.5 g/dl (32.0-36.0); MEAN CELL VOLUME 78.4 fl (80-96); MEAN PLT VOLUME 7.5 fl (7.5-11.1); MONO % 1.2 % (3.8-10.2); PLATELET COUNT 279 K/MM3 (134-434); WHITE BLOOD COUNT 7.5 K/mm3 (4.0-10.0)
[2018-08-31 09:17] LABS: ANION GAP 9 MMOL/L (8-16); BLOOD UREA NITROGEN 9 mg/dL (7-18); CALCIUM 8.6 mg/dL (8.5-10.1); CHLORIDE 107 mmol/L (98-107); CO2 23 mmol/L (21-32); CREATININE 0.8 mg/dL (0.55-1.3); GLUCOSE,RANDOM 111 mg/dL (74-106); PHOSPHOROUS 2.2 mg/dL (2.5-4.9); POTASSIUM 4.1 mmol/L (3.5-5.1); SODIUM 140 mmol/L (136-145)
--- NOTE | 2018-08-31 09:40 | PN ---
Progress Note (short form) - Note Progress Note: Patient is feeling better on meds. Vital Signs Temperature 98.6 F 08/31/18 01:22 Pulse Rate 95 H 08/31/18 01:22 Respiratory Rate 18 08/31/18 01:22 Blood Pressure 159/97 08/31/18 01:22 O2 Sat by Pulse Oximetry (%) 99 08/31/18 01:22 GENERAL: Pleasant. feeling better. HEAD: Normal with no signs of trauma. EYES: Pupils equal, round and reactive to light, extraocular movements intact, sclera anicteric, conjunctiva clear. EARS, NOSE, THROAT: Ears normal, oropharynx clear without exudates. Moist mucous membranes. NECK: Wide, normal range of motion, supple LUNGS: diffuse wheezes in all lunge alvarado with improvement. No r/r .no accessory m usage HEART: Regular rate and rhythm, normal S1 and S2 without murmur, rub or gallop. ABDOMEN: Soft, obese, nontender, not distended MUSCULOSKELETAL: Normal range of motion at all joints. EXTREMITIES: 2+ pt pulses, warm, well-perfused. No calf tenderness. No peripheral edema. NEUROLOGICAL: Cranial nerves II-XII intact. PSYCHIATRIC: Cooperative. SKIN: Warm, dry CBCD WBC 7.5 K/mm3 (4.0-10.0) 08/31/18 07:40 RBC 4.30 M/mm3 (3.60-5.2) 08/31/18 07:40 Hgb 10.6 GM/dL (10.7-15.3) L 08/31/18 07:40 Hct 33.7 % (32.4-45.2) 08/31/18 07:40 MCV 78.4 fl (80-96) L 08/31/18 07:40 MCHC 31.5 g/dl (32.0-36.0) L 08/31/18 07:40 RDW 18.0 % (11.6-15.6) H 08/31/18 07:40 Plt Count 279 K/MM3 (134-434) 08/31/18 07:40 MPV 7.5 fl (7.5-11.1) 08/31/18 07:40 CMP Sodium 140 mmol/L (136-145) 08/31/18 07:40 Potassium 4.1 mmol/L (3.5-5.1) 08/31/18 07:40 Chloride 107 mmol/L (98-107) 08/31/18 07:40 Carbon Dioxide 23 mmol/L (21-32) 08/31/18 07:40 Anion Gap 9 MMOL/L (8-16) 08/31/18 07:40 BUN 9 mg/dL (7-18) 08/31/18 07:40 Creatinine 0.8 mg/dL (0.55-1.3) 08/31/18 07:40 Creat Clearance w eGFR > 60 (>60) 08/31/18 07:40 Random Glucose 111 mg/dL (74-106) H 08/31/18 07:40 Calcium 8.6 mg/dL (8.5-10.1) 08/31/18 07:40 Total Bilirubin 0.4 mg/dL (0.2-1) 08/30/18 20:20 AST 33 U/L (15-37) 08/30/18 20:20 ALT 27 U/L (13-61) 08/30/18 20:20 Alkaline Phosphatase 91 U/L (45-117) 08/30/18 20:20 Total Protein 7.0 g/dl (6.4-8.2) 08/30/18 20:20 Albumin 3.3 g/dl (3.4-5.0) L 08/30/18 20:20 Current Medications Generic Name Dose Route Start Last Admin Trade Name Freq PRN Reason Stop Dose Admin Albuterol Sulfate 1 amp 08/30/18 22:31 Ventolin 0.083% Nebulizer Soln - NEB Q6H PRN SHORTNESS OF BREATH Albuterol/Ipratropium 1 amp 08/31/18 02:00 08/31/18 06:25 Duoneb - NEB Not Given Q4HPO [facility] Budesonide/Formoterol Fumarate 2 puff 08/30/18 22:45 08/31/18 00:07 Symbicort 160/4.5mcg - IH 2 puff BID [facility] Administration Heparin Sodium (Porcine) 5,000 unit 08/30/18 23:15 08/31/18 06:30 Heparin - SQ Not Given TID [facility] Hydrochlorothiazide 12.5 mg 08/30/18 22:35 08/31/18 00:07 Hctz - PO 12.5 mg DAILY [facility] Administration Insulin Aspart 1 vial 08/31/18 07:00 08/31/18 06:41 Novolog Vial Sliding Scale - SQ 2 units ACHS [facility] Administration Protocol Lisinopril 20 mg 08/30/18 22:45 08/31/18 00:07 Prinivil PO 20 mg BID [facility] Administration Methylprednisolone Sodium Succinate 60 mg 08/31/18 06:00 08/31/18 06:31 Solu-Medrol - IVPUSH 60 mg TID [facility] Administration Pantoprazole Sodium 40 mg 08/31/18 10:00 Protonix - PO DAILY [facility] Home Medications Medication Instructions Recorded Amlodipine Besylate [Norvasc -] 10 mg PO DAILY #30 tablet 10/21/16 Albuterol 0.083% Nebulizer Nahomy 1 neb NEB QID PRN 02/24/17 [Ventolin 0.083% Nebulizer Soln -] Budesonide/Formeterol Fumarate 2 puff IH BID #1 inhaler 02/27/17 [SYMBICORT 160/4.5mcg -] Montelukast Na [Singulair -] 10 mg PO HS #30 tablet 02/27/17 Pantoprazole Sodium [Protonix -] 40 mg PO DAILY #30 tab 02/27/17 Tiotropium [place] [Spiriva] 1 puff IH DAILY #1 inh 02/27/17 Hydrochlorothiazide 25 mg PO DAILY #30 tablet 02/28/17 Lisinopril [Prinivil -] 40 mg PO DAILY #30 tablet 02/28/17 Albuterol Sulfate Inhaler - 2 inh PO Q4H #1 inhaler 09/21/17 [Ventolin HFA Inhaler -] Albuterol 0.083% Nebulizer Nahomy 1 neb NEB Q4H PRN #1 box 04/02/18 [Ventolin 0.083% Nebulizer Soln -] Prednisone [Prednisone 50 MG 60 mg PO DAILY #5 tablet 07/28/18 TABLETS] A/P: Patient is a 37 y/o F with PMHx of asthma (with past intubation; 2014), HTN, HLD , NIDDM, allergy to multiple fruits (cherries, peaches, plums), who presents to the ED c/o SOB, wheezing over the past 3 days. #Acute Asthma exacerbation on IV steroid q8h 60mg will reduce the dose to 40mg iv Q8. continue neb. treatments. albuterol nebs and duoneb. peak flow, flow should be 427L/min. #HTN- uncontrolled ,will start the patient on Norvasc , continue HCTZ 12.5mg PO, and lisinopril 20mg PO BID #NIDDM BGM q4h, ISS ACHS; nutrition consult; weight loss DVT Px: Hep 5000 SQ TID placed in patient order. Visit type - Emergency Visit Emergency Visit: Yes ED Registration Date: 08/31/18 Care time: The patient presented to the Emergency Department on the above date and was hospitalized for further evaluation of their emergent condition. - New Patient This patient is new to me today: Yes Date on this admission: 09/01/18 - Critical Care Critical Care patient: No - Discharge Referral Referred to [facility] Med P.C.: No
[2018-08-31] MEDS ORDERED: PANTOPRAZOLE SODIUM 40 MG VIAL IVPUSH SCH (10:00)
[2018-08-31] MEDS: PANTOPRAZOLE 40 MG TABLET (FP) PO SCH (10:34)
[2018-08-31] MEDS ORDERED: INSULIN (NOVOLOG) ASPART 100 UNITS/ML 10ML VIAL ONE (10:46)
[2018-08-31 11:48] LABS: ANISOCYTOSIS 2+; MACROCYTOSIS 0; PLATELET ESTIMATE NORMAL
--- NOTE | 2018-08-31 11:57 | EKG ---
Test Reason : Blood Pressure : / mmHG Vent. Rate : 088 BPM Atrial Rate : 088 BPM P-R Int : 162 ms QRS Dur : 078 ms QT Int : 392 ms P-R-T Axes : 054 018 030 degrees QTc Int : 474 ms NORMAL SINUS RHYTHM NORMAL ECG WHEN COMPARED WITH ECG OF 27-JUL-2018 23:54, NO SIGNIFICANT CHANGE WAS FOUND Confirmed by JOHN HARTLEY MD ([id number]) on 08/31/2018 11:56:53 AM Referred By: Confirmed By:JOHN HARTLEY MD
[2018-08-31] MEDS ORDERED: methylPREDNISolone NA SUCC 40 MG/1 ML VIAL IVPUSH SCH ×3 (14:00→14:30)
[2018-08-31] MEDS ORDERED: amLODIPine BESYLATE 5 MG TABLET (FP) PO SCH (14:15)
[2018-08-31 16:29] VITALS: BMI 38.0
[2018-08-31] MEDS ORDERED: FAMOTIDINE 20 MG/50 ML IVPB 20 MG/50 ML MG IVPB ONE (17:15)
[2018-08-31] MEDS: methylPREDNISolone NA SUCC 40 MG/1 ML VIAL IVPUSH SCH (17:27)
[2018-09-01] MEDS: methylPREDNISolone NA SUCC 40 MG/1 ML VIAL IVPUSH SCH ×3 (02:07→17:20)
[2018-09-01] MEDS: LISINOPRIL 20 MG TABLET (FP) PO SCH ×3 (02:11→22:20)
[2018-09-01] MEDS: ALBUTEROL SO4 2.5/IPRATROPIUM 0.5 INH SOL 3 ML VIAL.NEB. NEB SCH ×5 (02:25→18:40)
[2018-09-01] MEDS: HEPARIN NA (PORCINE) 5,000 UNITS/ML 1ML VIAL SQ SCH ×3 (06:28→22:18)
[2018-09-01] MEDS: INSULIN SLIDING SCALE (NOVOLOG) 1 VIAL SQ SCH ×4 (06:28→22:18)
[2018-09-01] MEDS ORDERED: PT OWN MED DRAWER 7, Y5N ONE ×3 (09:35→22:52)
[2018-09-01] MEDS: HYDROCHLOROTHIAZIDE 12.5 MG CAPSULE (FP) PO SCH (09:38)
[2018-09-01] MEDS: amLODIPine BESYLATE 10 MG TABLET (FP) PO SCH (09:38)
[2018-09-01] MEDS: PANTOPRAZOLE 40 MG TABLET (FP) PO SCH (09:38)
[2018-09-01] MEDS: BUDESONIDE/FORMETEROL FUMARATE 160/4.5 mcg INHALER IH SCH ×2 (09:38→22:20)
[2018-09-01 10:18] LABS: HEMATOCRIT 35.7 % (32.4-45.2); HEMOGLOBIN 11.2 GM/dL (10.7-15.3); MCH 24.6 pg (25.7-33.7); MCHC 31.3 g/dl (32.0-36.0); MEAN CELL VOLUME 78.4 fl (80-96); MEAN PLT VOLUME 7.6 fl (7.5-11.1); PLATELET COUNT 307 K/MM3 (134-434); RBC 4.56 M/mm3 (3.60-5.2); RDW 18.5 % (11.6-15.6); WHITE BLOOD COUNT 10.8 K/mm3 (4.0-10.0)
[2018-09-01 10:31] LABS: ANION GAP 12 MMOL/L (8-16); BLOOD UREA NITROGEN 14 mg/dL (7-18); CALCIUM 8.9 mg/dL (8.5-10.1); CHLORIDE 107 mmol/L (98-107); CO2 23 mmol/L (21-32); GLUCOSE,RANDOM 105 mg/dL (74-106); MAGNESIUM 2.1 mg/dL (1.8-2.4); PHOSPHOROUS 3.8 mg/dL (2.5-4.9); POTASSIUM 4.2 mmol/L (3.5-5.1); SODIUM 142 mmol/L (136-145)
[2018-09-01] MEDS ORDERED: INSULIN (NOVOLOG) ASPART 100 UNITS/ML 10ML VIAL ONE (11:28)
--- NOTE | 2018-09-01 11:46 | PN ---
Physical Exam: SUBJECTIVE: Patient seen and examined. Pt. has refused heparin SQ throughout hospital stay so far. Pt. went down to hospital cafe ths morning to buy food and endorsed dyspnea on exertion. Pt. stated that she did it to test herself and to see if she is ready to go home. Pt. advised not to walk alone throughout hospital and that she will be assessed on exertion tomorrow. Pt. states that she has been having chest pain in her back that radiates to to the front. EKG has shown NSR x 2. OBJECTIVE: Vital Signs Period Temp Pulse Resp BP Sys/Mendez Pulse Ox Last 24 Hr 98 F-98.6 F 73-109 19-20 142-161/78-114 99-99 GENERAL: The patient is awake, alert, and fully oriented, in no acute distress. HEAD: Normal with no signs of trauma. EYES: Sclera anicteric, conjunctiva clear. No ptosis. ENT: Ears normal, nares patent, moist mucous membranes. NECK: Trachea midline, full range of motion, supple. LUNGS: Breath sounds equal, inspiratory wheezes, no crackles, no accessory muscle use. HEART: Regular rate and rhythm, S1, S2 without murmur ABDOMEN: Soft, nontender, nondistended, normoactive bowel sounds, no guarding, no rebound EXTREMITIES: 2+ dorsal pedal pulses, warm, well-perfused, no caf tenderness, no edema. NEUROLOGICAL: Normal speech, gait not observed. PSYCH: Anxious SKIN: Warm, dry, normal turgor, numerous tattoos over exposed forearms and chest Laboratory Results - last 24 hr 08/31/18 08/31/18 08/31/18 07:40 17:24 21:03 WBC RBC Hgb Hct MCV MCH MCHC RDW Plt Count MPV Neutrophils % (Manual) 90.1 H Band Neutrophils % 0.0 Lymphocytes % (Manual) 7.9 L Monocytes % (Manual) 2 L Eosinophils % (Manual) 0.0 Basophils % (Manual) 0.0 Myelocytes % (Man) 0 Promyelocytes % (Man) 0 Blast Cells % (Manual) 0 Nucleated RBC % 0 Metamyelocytes 0 Hypochromia 0 Platelet Estimate Normal Polychromasia 0 Poikilocytosis 1+ Anisocytosis 2+ Microcytosis 1+ Macrocytosis 0 Sodium Potassium Chloride Carbon Dioxide Anion Gap BUN Creatinine Creat Clearance w eGFR POC Glucometer 130 153 Random Glucose Calcium Phosphorus Magnesium 09/01/18 09/01/18 09/01/18 06:21 09:33 09:35 WBC 10.8 H RBC 4.56 Hgb 11.2 Hct 35.7 MCV 78.4 L MCH 24.6 L MCHC 31.3 L RDW 18.5 H Plt Count 307 MPV 7.6 Neutrophils % (Manual) Band Neutrophils % Lymphocytes % (Manual) Monocytes % (Manual) Eosinophils % (Manual) Basophils % (Manual) Myelocytes % (Man) Promyelocytes % (Man) Blast Cells % (Manual) Nucleated RBC % Metamyelocytes Hypochromia Platelet Estimate Polychromasia Poikilocytosis Anisocytosis Microcytosis Macrocytosis Sodium 142 Potassium 4.2 Chloride 107 Carbon Dioxide 23 Anion Gap 12 BUN 14 Creatinine 1.0 Creat Clearance w eGFR > 60 POC Glucometer 130 Random Glucose 105 Calcium 8.9 Phosphorus 3.8 Magnesium 2.1 Active Medications Current Medications Albuterol Sulfate (Ventolin 0.083% Nebulizer Soln -) 1 amp NEB Q6H PRN PRN Reason: SHORTNESS OF BREATH Albuterol/Ipratropium (Duoneb -) 1 amp NEB Q4HPO [facility] Last Admin: 09/01/18 09:30 Dose: 1 amp Amlodipine Besylate (Norvasc -) 10 mg PO DAILY [facility] Last Admin: 09/01/18 09:38 Dose: 10 mg Budesonide/Formoterol Fumarate (Symbicort 160/4.5mcg -) 2 puff IH BID [facility] Last Admin: 09/01/18 09:38 Dose: 2 puff Heparin Sodium (Porcine) (Heparin -) 5,000 unit SQ TID [facility] Last Admin: 09/01/18 06:28 Dose: Not Given Hydrochlorothiazide (Hctz -) 12.5 mg PO DAILY [facility] Last Admin: 09/01/18 09:38 Dose: 12.5 mg Insulin Aspart (Novolog Vial Sliding Scale -) 1 vial SQ ACHS [facility]; Protocol Last Admin: 09/01/18 12:17 Dose: 2 units Lisinopril (Prinivil) 40 mg PO BID [facility] Last Admin: 09/01/18 09:37 Dose: 40 mg Methylprednisolone Sodium Succinate (Solu-Medrol -) 20 mg IVPUSH Q8H-IV [facility] Pantoprazole Sodium (Protonix -) 40 mg PO DAILY [facility] Last Admin: 09/01/18 09:38 Dose: 40 mg Home Medications Medication Instructions Recorded Amlodipine Besylate [Norvasc -] 10 mg PO DAILY #30 tablet 10/21/16 Albuterol 0.083% Nebulizer Nahomy 1 neb NEB QID PRN 02/24/17 [Ventolin 0.083% Nebulizer Soln -] Budesonide/Formeterol Fumarate 2 puff IH BID #1 inhaler 02/27/17 [SYMBICORT 160/4.5mcg -] Montelukast Na [Singulair -] 10 mg PO HS #30 tablet 02/27/17 Pantoprazole Sodium [Protonix -] 40 mg PO DAILY #30 tab 02/27/17 Tiotropium [place] [Spiriva] 1 puff IH DAILY #1 inh 02/27/17 Hydrochlorothiazide 25 mg PO DAILY #30 tablet 02/28/17 Lisinopril [Prinivil -] 40 mg PO DAILY #30 tablet 02/28/17 Albuterol Sulfate Inhaler - 2 inh PO Q4H #1 inhaler 09/21/17 [Ventolin HFA Inhaler -] Albuterol 0.083% Nebulizer Nahomy 1 neb NEB Q4H PRN #1 box 04/02/18 [Ventolin 0.083% Nebulizer Soln -] Prednisone [Prednisone 50 MG 60 mg PO DAILY #5 tablet 07/28/18 TABLETS] ASSESSMENT/PLAN: 37 y/o F with PMH asthma (with past intubation; 2014), HTN, HLD, NIDDM, allergy to multiple fruits (cherries, peaches, plums and now apples), who presents to the ED c/o SOB, wheezing over the past few days. 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 has been compliant with meds. however may need med adjustment as pt states that "multiple meds decrease her compliance" -decreased solumedrol to 20 mg IVP TID. will assess tomorrow, if improved, can change to PO -albuterol nebs Q6H PRN -duonebs q4h standing -protonix 40mg PO qd -monitor peak flow, for pt's age and height, flow should be 427L/min. -c/w symbicort -c/w spiriva- counseled Pt. on importance of taking daily inhalers consistently #HTN- uncontrolled -will need to confirm meds in AM -increased Lisinopril to home dose of 40mg -increased Norvasc to 10mg -c/w HCTZ 12.5mg #NIDDM -BGM q4h -ISS ACHS -nutrition consult; weight loss #F/E/N tolerating PO intake continue to monitor electrolytes sodium controlled, diabetic diet #PPX DVT: Hep 5000 SQ TID SCDs started as Pt. has been refusing heparin #Dispo med-surg obs monitoring --> likely will D/C in morning Visit type - Emergency Visit Emergency Visit: Yes ED Registration Date: 08/31/18 Care time: The patient presented to the Emergency Department on the above date and was hospitalized for further evaluation of their emergent condition. - New Patient This patient is new to me today: Yes Date on this admission: 09/01/18 - Critical Care Critical Care patient: No - Discharge Referral Referred to [facility] Med P.C.: No
--- NOTE | 2018-09-01 13:39 | EKG ---
Test Reason : Blood Pressure : / mmHG Vent. Rate : 093 BPM Atrial Rate : 093 BPM P-R Int : 152 ms QRS Dur : 078 ms QT Int : 376 ms P-R-T Axes : 053 018 027 degrees QTc Int : 467 ms NORMAL SINUS RHYTHM WITH SINUS ARRHYTHMIA NORMAL ECG WHEN COMPARED WITH ECG OF 30-AUG-2018 22:26, NO SIGNIFICANT CHANGE WAS FOUND Confirmed by JOHN HARTLEY MD ([id number]) on 09/01/2018 1:38:51 PM Referred By: Confirmed By:JOHN HARTLEY MD
--- NOTE | 2018-09-01 16:48 | PN ---
Teaching Attending Note Name of Resident: Nino Estrada ATTENDING PHYSICIAN STATEMENT I saw and evaluated the patient. I reviewed the resident's note and discussed the case with the resident. I agree with the resident's findings and plan as documented. SUBJECTIVE: Patient is comfortable with no acute distress. feeling better. OBJECTIVE: Vital Signs Temperature 98.3 F 09/01/18 14:54 Pulse Rate 94 H 09/01/18 15:35 Respiratory Rate 19 09/01/18 15:35 Blood Pressure 155/86 09/01/18 15:35 O2 Sat by Pulse Oximetry (%) 99 09/01/18 09:00 Initial Vital Signs Temp Pulse Resp BP Pulse Ox 98.8 F 108 H 20 172/92 H 98 08/30/18 19:07 08/30/18 19:07 08/30/18 19:07 08/30/18 19:07 08/30/18 19:07 GENERAL: Pleasant. feeling better. HEAD: Normal with no signs of trauma. EYES: Pupils equal, round and reactive to light, extraocular movements intact, sclera anicteric, conjunctiva clear. EARS, NOSE, THROAT: Ears normal, oropharynx clear without exudates. Moist mucous membranes. NECK: Wide, normal range of motion, supple LUNGS: diffuse wheezes in all lunge alvarado with improvement. No r/r .no accessory m usage HEART: Regular rate and rhythm, normal S1 and S2 without murmur, rub or gallop. ABDOMEN: Soft, obese, nontender, not distended MUSCULOSKELETAL: Normal range of motion at all joints. EXTREMITIES: 2+ pt pulses, warm, well-perfused. No calf tenderness. No peripheral edema. NEUROLOGICAL: Cranial nerves II-XII intact. PSYCHIATRIC: Cooperative. SKIN: Warm, dry CBCD WBC 10.8 K/mm3 (4.0-10.0) H 09/01/18 09:35 RBC 4.56 M/mm3 (3.60-5.2) 09/01/18 09:35 Hgb 11.2 GM/dL (10.7-15.3) 09/01/18 09:35 Hct 35.7 % (32.4-45.2) 09/01/18 09:35 MCV 78.4 fl (80-96) L 09/01/18 09:35 MCHC 31.3 g/dl (32.0-36.0) L 09/01/18 09:35 RDW 18.5 % (11.6-15.6) H 09/01/18 09:35 Plt Count 307 K/MM3 (134-434) 09/01/18 09:35 MPV 7.6 fl (7.5-11.1) 09/01/18 09:35 CMP Sodium 142 mmol/L (136-145) 09/01/18 09:33 Potassium 4.2 mmol/L (3.5-5.1) 09/01/18 09:33 Chloride 107 mmol/L (98-107) 09/01/18 09:33 Carbon Dioxide 23 mmol/L (21-32) 09/01/18 09:33 Anion Gap 12 MMOL/L (8-16) 09/01/18 09:33 BUN 14 mg/dL (7-18) 09/01/18 09:33 Creatinine 1.0 mg/dL (0.55-1.3) 09/01/18 09:33 Creat Clearance w eGFR > 60 (>60) 09/01/18 09:33 Random Glucose 105 mg/dL (74-106) 09/01/18 09:33 Calcium 8.9 mg/dL (8.5-10.1) 09/01/18 09:33 Total Bilirubin 0.4 mg/dL (0.2-1) 08/30/18 20:20 AST 33 U/L (15-37) 08/30/18 20:20 ALT 27 U/L (13-61) 08/30/18 20:20 Alkaline Phosphatase 91 U/L (45-117) 08/30/18 20:20 Total Protein 7.0 g/dl (6.4-8.2) 08/30/18 20:20 Albumin 3.3 g/dl (3.4-5.0) L 08/30/18 20:20 Current Medications Generic Name Dose Route Start Last Admin Trade Name Freq PRN Reason Stop Dose Admin Albuterol Sulfate 1 amp 08/30/18 22:31 Ventolin 0.083% Nebulizer Soln - NEB Q6H PRN SHORTNESS OF BREATH Albuterol/Ipratropium 1 amp 08/31/18 02:00 09/01/18 15:25 Duoneb - NEB 1 amp Q4HPO [facility] Administration Amlodipine Besylate 10 mg 09/01/18 08:23 09/01/18 09:38 Norvasc - PO 10 mg DAILY [facility] Administration Budesonide/Formoterol Fumarate 2 puff 08/30/18 22:45 09/01/18 09:38 Symbicort 160/4.5mcg - IH 2 puff BID [facility] Administration Heparin Sodium (Porcine) 5,000 unit 08/30/18 23:15 09/01/18 14:14 Heparin - SQ Not Given TID [facility] Hydrochlorothiazide 12.5 mg 08/30/18 22:35 09/01/18 09:38 Hctz - PO 12.5 mg DAILY [facility] Administration Insulin Aspart 1 vial 08/31/18 07:00 09/01/18 12:17 Novolog Vial Sliding Scale - SQ 2 units ACHS [facility] Administration Protocol Lisinopril 40 mg 09/01/18 08:15 09/01/18 09:37 Prinivil PO 40 mg BID [facility] Administration Methylprednisolone Sodium Succinate 20 mg 09/01/18 13:54 Solu-Medrol - IVPUSH Q8H-IV [facility] Pantoprazole Sodium 40 mg 08/31/18 10:00 09/01/18 09:38 Protonix - PO 40 mg DAILY [facility] Administration Home Medications Medication Instructions Recorded Amlodipine Besylate [Norvasc -] 10 mg PO DAILY #30 tablet 10/21/16 Albuterol 0.083% Nebulizer Nahomy 1 neb NEB QID PRN 02/24/17 [Ventolin 0.083% Nebulizer Soln -] Budesonide/Formeterol Fumarate 2 puff IH BID #1 inhaler 02/27/17 [SYMBICORT 160/4.5mcg -] Montelukast Na [Singulair -] 10 mg PO HS #30 tablet 02/27/17 Pantoprazole Sodium [Protonix -] 40 mg PO DAILY #30 tab 02/27/17 Tiotropium [place] [Spiriva] 1 puff IH DAILY #1 inh 02/27/17 Hydrochlorothiazide 25 mg PO DAILY #30 tablet 02/28/17 Lisinopril [Prinivil -] 40 mg PO DAILY #30 tablet 02/28/17 Albuterol Sulfate Inhaler - 2 inh PO Q4H #1 inhaler 09/21/17 [Ventolin HFA Inhaler -] Albuterol 0.083% Nebulizer Nahomy 1 neb NEB Q4H PRN #1 box 04/02/18 [Ventolin 0.083% Nebulizer Soln -] Prednisone [Prednisone 50 MG 60 mg PO DAILY #5 tablet 07/28/18 TABLETS] ASSESSMENT AND PLAN: Patient is a 37 y/o F with PMHx of asthma (with past intubation; 2014), HTN, HLD , NIDDM, allergy to multiple fruits (cherries, peaches, plums), who presents to the ED c/o SOB, wheezing over the past 3 days. #Acute Asthma exacerbation on IV steroid q8h 60mg will reduce the dose further. continue neb. treatments. albuterol nebs and duoneb. peak flow, flow should be 427L/min. #HTN- uncontrolled , continue current therapy, continue Norvasc , continue HCTZ 12.5mg PO,and lisinopril 20mg PO BID #NIDDM BGM q4h, ISS ACHS; nutrition consult; weight loss DVT Px: Hep 5000 SQ TID placed in patient order. possible dc in am
[2018-09-01 21:44] VITALS: BP 130/74; PULSE 86; TEMP 98.8
[2018-09-02] MEDS: ALBUTEROL SO4 2.5/IPRATROPIUM 0.5 INH SOL 3 ML VIAL.NEB. NEB SCH ×3 (01:39→11:00)
[2018-09-02] MEDS: methylPREDNISolone NA SUCC 40 MG/1 ML VIAL IVPUSH SCH ×2 (02:18→11:51)
[2018-09-02] MEDS: INSULIN SLIDING SCALE (NOVOLOG) 1 VIAL SQ SCH ×2 (06:44→11:51)
[2018-09-02] MEDS: HEPARIN NA (PORCINE) 5,000 UNITS/ML 1ML VIAL SQ SCH (06:44)
[2018-09-02] MEDS ORDERED: PT OWN MED DRAWER 7, Y5N ONE (10:19)
[2018-09-02] MEDS: LISINOPRIL 20 MG TABLET (FP) PO SCH (10:44)
[2018-09-02] MEDS: PANTOPRAZOLE 40 MG TABLET (FP) PO SCH (10:44)
[2018-09-02] MEDS: HYDROCHLOROTHIAZIDE 12.5 MG CAPSULE (FP) PO SCH (10:44)
[2018-09-02] MEDS: BUDESONIDE/FORMETEROL FUMARATE 160/4.5 mcg INHALER IH SCH (10:45)
[2018-09-02] MEDS: amLODIPine BESYLATE 10 MG TABLET (FP) PO SCH (10:45)
--- NOTE | 2018-09-02 11:44 | PN ---
Teaching Attending Note Name of Resident: Nino Estrada ATTENDING PHYSICIAN STATEMENT I saw and evaluated the patient. I reviewed the resident's note and discussed the case with the resident. I agree with the resident's findings and plan as documented. SUBJECTIVE: Patient is comfortable with no acute distress. No fever or chills, no shortness of breath, no nausea or vomiting. As per Nurse Deedee: Patient kept leaving the floor and was witnessed by the staff that she was smoking outside OBJECTIVE: Vital Signs Temperature 98.8 F 09/01/18 21:43 Pulse Rate 86 09/01/18 21:43 Respiratory Rate 17 09/01/18 21:43 Blood Pressure 130/74 09/01/18 21:43 O2 Sat by Pulse Oximetry (%) 96 09/01/18 21:00 Initial Vital Signs Temp Pulse Resp BP Pulse Ox 98.8 F 108 H 20 172/92 H 98 08/30/18 19:07 08/30/18 19:07 08/30/18 19:07 08/30/18 19:07 08/30/18 19:07 GENERAL:feels better. in NAD HEAD: Normal with no signs of trauma. EYES: Pupils equal, round and reactive to light, extraocular movements intact, sclera anicteric, conjunctiva clear. EARS, NOSE, THROAT: Ears normal, oropharynx clear without exudates. Moist mucous membranes. NECK: Wide, normal range of motion, supple LUNGS: CTA BL ,No r/r . no labored breathing. HEART: Regular rate and rhythm, normal S1 and S2 without murmur, rub or gallop. ABDOMEN: Soft, obese, nontender, not distended MUSCULOSKELETAL: Normal range of motion at all joints. EXTREMITIES: 2+ pt pulses, warm, well-perfused. No calf tenderness. No peripheral edema. NEUROLOGICAL: Cranial nerves II-XII intact. PSYCHIATRIC: Cooperative. SKIN: Warm, dry CBCD WBC 10.8 K/mm3 (4.0-10.0) H 09/01/18 09:35 RBC 4.56 M/mm3 (3.60-5.2) 09/01/18 09:35 Hgb 11.2 GM/dL (10.7-15.3) 09/01/18 09:35 Hct 35.7 % (32.4-45.2) 09/01/18 09:35 MCV 78.4 fl (80-96) L 09/01/18 09:35 MCHC 31.3 g/dl (32.0-36.0) L 09/01/18 09:35 RDW 18.5 % (11.6-15.6) H 09/01/18 09:35 Plt Count 307 K/MM3 (134-434) 09/01/18 09:35 MPV 7.6 fl (7.5-11.1) 09/01/18 09:35 CMP Sodium 142 mmol/L (136-145) 09/01/18 09:33 Potassium 4.2 mmol/L (3.5-5.1) 09/01/18 09:33 Chloride 107 mmol/L (98-107) 09/01/18 09:33 Carbon Dioxide 23 mmol/L (21-32) 09/01/18 09:33 Anion Gap 12 MMOL/L (8-16) 09/01/18 09:33 BUN 14 mg/dL (7-18) 09/01/18 09:33 Creatinine 1.0 mg/dL (0.55-1.3) 09/01/18 09:33 Creat Clearance w eGFR > 60 (>60) 09/01/18 09:33 Random Glucose 105 mg/dL (74-106) 09/01/18 09:33 Calcium 8.9 mg/dL (8.5-10.1) 09/01/18 09:33 Total Bilirubin 0.4 mg/dL (0.2-1) 08/30/18 20:20 AST 33 U/L (15-37) 08/30/18 20:20 ALT 27 U/L (13-61) 08/30/18 20:20 Alkaline Phosphatase 91 U/L (45-117) 08/30/18 20:20 Total Protein 7.0 g/dl (6.4-8.2) 08/30/18 20:20 Albumin 3.3 g/dl (3.4-5.0) L 08/30/18 20:20 Current Medications Generic Name Dose Route Start Last Admin Trade Name Freq PRN Reason Stop Dose Admin Albuterol Sulfate 1 amp 08/30/18 22:31 Ventolin 0.083% Nebulizer Soln - NEB Q6H PRN SHORTNESS OF BREATH Albuterol/Ipratropium 1 amp 08/31/18 02:00 09/02/18 11:00 Duoneb - NEB Not Given Q4HPO [facility] Amlodipine Besylate 10 mg 09/01/18 08:23 09/02/18 10:45 Norvasc - PO 10 mg DAILY [facility] Administration Budesonide/Formoterol Fumarate 2 puff 08/30/18 22:45 09/02/18 10:45 Symbicort 160/4.5mcg - IH 2 puff BID [facility] Administration Heparin Sodium (Porcine) 5,000 unit 08/30/18 23:15 09/02/18 06:44 Heparin - SQ Not Given TID [facility] Hydrochlorothiazide 12.5 mg 08/30/18 22:35 09/02/18 10:44 Hctz - PO 12.5 mg DAILY [facility] Administration Insulin Aspart 1 vial 08/31/18 07:00 09/02/18 06:44 Novolog Vial Sliding Scale - SQ Not Given ACHS [facility] Protocol Lisinopril 40 mg 09/01/18 08:15 09/02/18 10:44 Prinivil PO 40 mg BID [facility] Administration Methylprednisolone Sodium Succinate 20 mg 09/01/18 13:54 09/02/18 02:18 Solu-Medrol - IVPUSH 20 mg Q8H-IV [facility] Administration Pantoprazole Sodium 40 mg 08/31/18 10:00 09/02/18 10:44 Protonix - PO 40 mg DAILY [facility] Administration Home Medications Medication Instructions Recorded Amlodipine Besylate [Norvasc -] 10 mg PO DAILY #30 tablet 10/21/16 Albuterol 0.083% Nebulizer Nahomy 1 neb NEB QID PRN 02/24/17 [Ventolin 0.083% Nebulizer Soln -] Budesonide/Formeterol Fumarate 2 puff IH BID #1 inhaler 02/27/17 [SYMBICORT 160/4.5mcg -] Pantoprazole Sodium [Protonix -] 40 mg PO DAILY #30 tab 02/27/17 Tiotropium [place] [Spiriva] 1 puff IH DAILY #1 inh 02/27/17 Hydrochlorothiazide 25 mg PO DAILY #30 tablet 02/28/17 Lisinopril [Prinivil -] 40 mg PO DAILY #30 tablet 02/28/17 Prednisone 10 mg PO DAILY #6 tab.ds.pk 09/02/18 ASSESSMENT AND PLAN: Patient is a 37 y/o F with PMHx of asthma (with past intubation; 2014), HTN, HLD , NIDDM, allergy to multiple fruits (cherries, peaches, plums), who presents to the ED c/o SOB, wheezing over the past 3 days. #Acute Asthma exacerbation on IV steroid q8h 60mg-->20mg IV, will taper for 3 more days of oral steroid continue home inhalers. #HTN- is controlled now, continue home regimen and continue Norvasc 10mg po daily that was on the medication at home. Also continue HCTZ 12.5mg PO,and lisinopril 20mg PO BID #Hx of NIDDM BGM q4h with coverage if needed since patient is placed o Steroid. weight loss is recommended. Discharge patient home.
--- NOTE | 2018-09-02 16:30 | DS ---
Physical Exam: SUBJECTIVE: Patient seen and examined. Patient refused to speak today. States that she was mistreated throughout hospital course, unable to specify exactly what occurred. Per nurse Pt. has been absconding off the floor to buy food in the cafe and to go outside to smoke marijuana. Pt. did smell like marijuana when I entered the room. OBJECTIVE: Vital Signs Period Temp Pulse Resp BP Sys/Mendez Pulse Ox Last 24 Hr 98.4 F-98.8 F 86-113 17-18 130-141/74-83 96 PHYSICAL EXAM Patient refused. LABS Laboratory Results - last 24 hr 09/01/18 09/02/18 17:17 11:50 POC Glucometer 131 111 HOSPITAL COURSE: Date of Admission:08/31/18 Date of Discharge: 09/02/18 Pt. observed for asthma exacerbation. Pt. treated with IV steroids and nebulizations. Pt. responded well to treatment. Pt. advised to take her medications as prescribed to avoid exacerbations. Pt. had co-morbidities treated with home doses of medications. Pt. counseled on use of Spirometer and encouraged to follow up with her Primary Care Physician as detailed below. Pt. discharged on Prednisone taper. Hospital course discussed with Pt. who felt that she was mistreated and yelled at hospital staff. Pt. clear and safe for discharge with follow-up recommendations as detailed below. Minutes to complete discharge: 38 Discharge Summary Reason For Visit: ASTHMA WITH ACUTE EXACERBATION Condition: Improved - Instructions Diet, Activity, Other Instructions: Your hospital visit You were admitted for an asthma exacerbation. You were treated with steroids to help control your breathing. Medications We will send you home on the following: -Steroid taper: Please take 3 pills of 10mg today (09/02), 2 pills of 10mg tomorrow (09/03), and 1 pill of 10mg on (09/04). -continue your medications as prescribed Follow-ups Please follow up with your Primary care Physician, Dr. Garcia within 1 week. Please return to the emergency room if you develop worsening shortness of breath or chest pain. Referrals: Rafita Vasquez MD [Staff Physician] - 1 Week Disposition: HOME - Home Medications Comprehensive Discharge Medication List: Ambulatory Orders Amlodipine Besylate [Norvasc -] 10 mg PO DAILY #30 tablet 10/21/16 Pantoprazole Sodium [Protonix -] 40 mg PO DAILY #30 tab 05/23/17 Tiotropium [place] [Spiriva] 1 puff IH DAILY #1 inh 02/27/17 Hydrochlorothiazide 25 mg PO DAILY #30 tablet 02/28/17 Lisinopril [Prinivil -] 40 mg PO DAILY #30 tablet 02/28/17 Albuterol 0.083% Nebulizer Nahomy [Ventolin 0.083% Nebulizer Soln -] 1 neb NEB QID PRN #1 inh 09/02/18 Budesonide/Formeterol Fumarate [SYMBICORT 160/4.5mcg -] 2 puff IH BID #1 inhaler 09/02/18 Prednisone 10 mg PO DAILY #6 tab.ds.pk 09/02/18 This patient is new to me today: No Emergency Visit: Yes ED Registration Date: 08/31/18 Care time: The patient presented to the Emergency Department on the above date and was hospitalized for further evaluation of their emergent condition. Critical Care patient: No - Discharge Referral Referred to [facility] No
== END 2018-09-02 12:52 | disposition home or self-care (01) | DRG 141 ==
LOC: JER 18:42 → JERBED 21:13 → J5S 08-31 00:42 → OBSVTOIN 08-31 14:00
PROVIDERS: ADMIT Internal Medicine; ATTEND Internal Medicine
DX: J45.41 Moderate persistent asthma with (acute) exacerbation (principal); I10 Essential (primary) hypertension; E78.5 Hyperlipidemia, unspecified; E11.9 Type 2 diabetes mellitus without complications; E66.9 Obesity, unspecified; Z68.38 Body mass index [BMI] 38.0-38.9, adult
CPT/HCPCS: 36415; 71046-TC-FY; 80048; 80053; 82962; 83735; 84100; 85025; 85027; 93005; 93010; 94640; 99283-25; G0378; J1644; J7030

== ENCOUNTER 2019-01-17 08:59 | Inpatient (IN) | payer OTHER ==
[2019-01-17] MEDS ORDERED: ALBUTEROL SO4 2.5/IPRATROPIUM 0.5 INH SOL 3 ML VIAL.NEB. NEB ONE ×6 (09:25→17:30)
[2019-01-17] MEDS ORDERED: DEXAMETHASONE 4 MG TABLET (FP) PO ONE (09:25)
--- NOTE | 2019-01-17 09:28 | PDOC ---
Attending Attestation - Resident Resident Name: Bertram Lagunas - ED Attending Attestation I have performed the following: I have examined & evaluated the patient, The case was reviewed & discussed with the resident, I agree w/resident's findings & plan, Exceptions are as noted - HPI HPI: 38 yo F history asthma, HTN presents with fever, cough, shortness of breath. She has had the symptoms for the past 3 days. Fever with tmax 102. +Diarrhea today. She has been intubated for asthma in the past. - Physicial Exam PE: GENERAL: Awake, alert, and fully oriented, in no acute distress. Obese. HEAD: No signs of trauma EYES: PERRLA, EOMI, sclera anicteric, conjunctiva clear ENT: Auricles normal inspection, hearing grossly normal, nares patent, oropharynx clear without exudates. Dry mucosa NECK: Normal ROM, supple, no lymphadenopathy, JVD, or masses LUNGS: Dec air entry B/L, +diffuse exp wheezes with prolonged exp phase. Speaking in full sentences. HEART: Regular rate and rhythm, normal S1 and S2, no murmurs, rubs or gallops ABDOMEN: Soft, nontender, normoactive bowel sounds. No guarding, no rebound. No masses EXTREMITIES: Normal range of motion, no edema. No clubbing or cyanosis. No cords, erythema, or tenderness NEUROLOGICAL: Cranial nerves II through XII grossly intact. Normal speech, normal gait. Motor and sensation intact SKIN: Warm, Dry, normal turgor, no rashes or lesions noted. - Medical Decision Making Pt with asthma exacerbation likely secondary to viral syndrome (suspect flu). Will obtain labs and CXR. Will give IV fluids, steroids, magnesium, and test for flu.
[2019-01-17] MEDS ORDERED: SODIUM CHLORIDE 0.9% 500 ML INFUS.BAG IV ONE ×2 (09:32→11:16)
--- NOTE | 2019-01-17 09:32 | PDOC ---
History of Present Illness - General Chief Complaint: Asthma Stated Complaint: ASTHMA Time Seen by Provider: 01/17/19 09:25 History Source: Patient Exam Limitations: No Limitations - History of Present Illness Initial Comments: 38 yo F w a pmh of asthma s/p intubation in 2012 and ICU stay for the worst asthma attack of her life, HTN, HLD, and NIDDM presents to the ER with shortness of breath, difficulty breathing, and wheezing stating she is having an asthma attack. She endorses a fever up to 102 for the past 36 hours associated with multiple episodes of watery diarrhea yesterday and today as well as generalized body aches and myalgias. She takes albuterol as needed for asthma control but it did not settle her current asthma symptoms so she came to the ER for help. She states that her current asthma attack is nowhere near as bad as when she needed to be intubated and goto the ICU. The shortness of breath and difficulty breathing only began this morning. Her last Asthma exacerbation was 3 months ago. Denies chest pain, headache, neck pain, nausea, vomiting, blurry vision, dysuria , frequency, urgency. LMP: last week. PCP: Dr. Vasquez Hand Ii Tube Bender: Dr. Wall PSH: None Social Hx: Endorses weekly marijuana usage. Denies cigarettes, alcohol, or other substance usage. Allergies: NKDA. Apple, burton, peach, plum. Past History - Past Medical History Allergies/Adverse Reactions: Allergies Allergy/AdvReac Type Severity Reaction Status Date / Time apple Allergy Verified 08/30/18 22:44 burton Allergy Verified 08/30/18 22:44 peach Allergy Verified 08/30/18 22:44 plum Allergy Verified 08/30/18 22:44 Home Medications: Ambulatory Orders Amlodipine Besylate [Norvasc -] 10 mg PO DAILY #30 tablet 10/21/16 Tiotropium [place] [Spiriva] 1 puff IH DAILY #1 inh 02/27/17 Hydrochlorothiazide 25 mg PO DAILY #30 tablet 02/28/17 Lisinopril [Prinivil -] 40 mg PO DAILY #30 tablet 02/28/17 Albuterol 0.083% Nebulizer Nahomy [Ventolin 0.083% Nebulizer Soln -] 1 neb NEB QID PRN #1 inh 09/02/18 Budesonide/Formeterol Fumarate [SYMBICORT 160/4.5mcg -] 2 puff IH BID #1 inhaler 09/02/18 Anemia: No Asthma: Yes (intubation x1) Cancer: No Cardiac Disorders: No CVA: No COPD: No Dementia: No Diabetes: Yes (niddm) Dialysis: No GI Disorders: No Disorders: No HTN: Yes Hypercholesterolemia: Yes Kidney Stones: No Liver Disease: No Seizures: No Thyroid Disease: No - Surgical History Abdominal Surgery: No Appendectomy: No Cardiac Surgery: No Cholecystectomy: No Neurologic Surgery: No - Immunization History Td Vaccination: Yes TDAP Vaccination: No Immunization Up to Date: Yes - Suicide/Smoking/Psychosocial Hx Smoking Status: No Smoking History: Never smoked Years of Tobacco Use: 0 Have you smoked in the past 12 months: No Number of Cigarettes Smoked Daily: 0 Cigars Per Day: 0 Information on smoking cessation initiated: No Hx Alcohol Use: No Drug/Substance Use Hx: No Substance Use Type: None Hx Substance Use Treatment: No Review of Systems - Review of Systems Able to Perform ROS?: Yes Comments:: CONSTITUTIONAL: Present: fever, chills, fatigue EYES: Absent: visual changes ENT: Absent: ear pain, no sore throat CARDIOVASCULAR: Absent: chest pain, no palpitations RESPIRATORY: Present: cough, SOB GI: Present: Diarrhea Absent: abdominal pain, no nausea, no vomiting, no constipation GENITOURINARY: Absent: dysuria, no frequency, no hematuria MUSKULOSKELETAL: Present: Myalgia Absent: back pain, no arthralgia SKIN: Absent: rash NEURO: Absent: headache *Physical Exam - Vital Signs Last Vital Signs Temp Pulse Resp BP Pulse Ox 98.6 F 121 H 16 186/114 H 95 01/17/19 09:11 01/17/19 09:11 01/17/19 09:11 01/17/19 09:11 01/17/19 09:11 - Physical Exam Comments: GENERAL: Moderate distress secondary to respiratory difficulty. Well-nourished. HEENT: Normocephalic, atraumatic. PERRL, EOM intact. CARDIOVASCULAR: Tachycardic rate. Normal S1, S2. Regular rhythm. PULMONARY: Clear evidence of respiratory distress. Diffuse wheezing throughout all lung alvarado. ABDOMEN: Soft, non-distended, non-tender. EXTREMITIES: Normal ROM in all four extremities. No gross deformities. SKIN: Warm, dry. No rash NEUROLOGICAL: No focal neurological deficits. ED Treatment Course - LABORATORY CBC & Chemistry Diagram: 01/17/19 10:00 01/17/19 09:25 - RADIOLOGY Radiology Studies Ordered: Category Date Time Status CHEST X-RAY PORTABLE* [RAD] Stat Radiology 01/17/19 09:25 Ordered Medical Decision Making - Medical Decision Making 38 yo F w a pmh of asthma s/p intubation in 2012 and ICU stay for the worst asthma attack of her life, HTN, HLD, and NIDDM presents to the ER with shortness of breath, difficulty breathing, and wheezing stating she is having an asthma attack. She endorses a fever up to 102 for the past 36 hours associated with multiple episodes of watery diarrhea yesterday and today as well as generalized body aches and myalgias. She takes albuterol as needed for asthma control but it did not settle her current asthma symptoms so she came to the ER for help. She states that her current asthma attack is nowhere near as bad as when she needed to be intubated and goto the ICU. The shortness of breath and difficulty breathing only began this morning. Her last Asthma exacerbation was 3 months ago. VS: Tachycardic, hypertensive - Patient has not taken home meds for nearly a month. Will give her 10 of norvasc to lower her BP. DDx IBNLT: Asthma exacerbation, PNA, influenza, URI, gastroenteritis, other infection. Plan: Labs, Urine, Duonebs, steroids, magnesium, CXR, ekg, flu swab, Peak flow, cardiac monitoring, re-assess. - EKG shows sinus tachycardia. - HCG negative - Labs unremarkable other than mild hypokalemia and slightly decreased MCV. Treating with oral potassium. Patient feels very tight and has SOB after duonebs, steroids, mag, and IV hydration. - Will order Bi-Pap for patient and more duonebs. Will admit for asthma exacerbation to hospital. *DC/Admit/Observation/Transfer Diagnosis at time of Disposition: Acute asthma exacerbation - Discharge Dispostion Condition at time of disposition: Guarded Decision to Admit order: Yes - Referrals Referrals: Rafita Vasquez MD [Primary Care Provider] - - Patient Instructions - Post Discharge Activity
[2019-01-17] MEDS ORDERED: MAGNESIUM SULF 50% (8.12 MEQ/2 ML-1 GM VIAL) IVPB ONE (09:42)
[2019-01-17] MEDS ORDERED: methylPREDNISolone NA SUCC 125 MG/2 ML VIAL ONE (09:44)
[2019-01-17] MEDS ORDERED: MAGNESIUM SULF 50% (8.12 MEQ/2 ML-1 GM VIAL) ONE (09:44)
[2019-01-17] MEDS ORDERED: methylPREDNISolone NA SUCC 125 MG/2 ML VIAL IVPB ONE (09:46)
[2019-01-17 10:10] LABS: BASO % 0.9 % (0-2.0); EOS % 0.2 % (0-4.5); HEMATOCRIT 36.9 % (32.4-45.2); HEMOGLOBIN 12.2 GM/dL (10.7-15.3); LYMPH % 18.8 % (8-40); MCH 26.1 pg (25.7-33.7); MCHC 33.1 g/dl (32.0-36.0); MEAN CELL VOLUME 78.8 fl (80-96); MEAN PLT VOLUME 7.6 fl (7.5-11.1); MONO % 8.4 % (3.8-10.2); NEUT % 71.7 % (42.8-82.8); PLATELET COUNT 228 K/MM3 (134-434); RBC 4.69 M/mm3 (3.60-5.2); RDW 16.5 % (11.6-15.6); WHITE BLOOD COUNT 5.1 K/mm3 (4.0-10.0)
--- NOTE | 2019-01-17 10:24 | EKG ---
Test Reason : Blood Pressure : / mmHG Vent. Rate : 110 BPM Atrial Rate : 110 BPM P-R Int : 142 ms QRS Dur : 078 ms QT Int : 350 ms P-R-T Axes : 041 015 017 degrees QTc Int : 473 ms SINUS TACHYCARDIA MINIMAL VOLTAGE CRITERIA FOR LVH, MAY BE NORMAL VARIANT CANNOT RULE OUT ANTERIOR INFARCT , AGE UNDETERMINED ABNORMAL ECG WHEN COMPARED WITH ECG OF 31-AUG-2018 18:00, NO SIGNIFICANT CHANGE WAS FOUND Confirmed by BEKA BRIZUELA, JANETTE ([id number]) on 01/17/2019 10:24:27 AM Referred By: Confirmed By:JANETTE IRELAND MD
[2019-01-17 10:34] LABS: ALBUMIN 3.5 g/dl (3.4-5.0); ALK PHOS 83 U/L (45-117); ANION GAP 9 MMOL/L (8-16); BILIRUBIN,TOTAL 0.3 mg/dL (0.2-1); BLOOD UREA NITROGEN 13 mg/dL (7-18); CALCIUM 8.6 mg/dL (8.5-10.1); CHLORIDE 107 mmol/L (98-107); CO2 25 mmol/L (21-32); GLUCOSE,RANDOM 98 mg/dL (74-106); POTASSIUM 3.1 mmol/L (3.5-5.1); SGOT/AST 19 U/L (15-37); SGPT/ALT 17 U/L (13-61); SODIUM 141 mmol/L (136-145); TOT PROT 7.2 g/dl (6.4-8.2)
[2019-01-17 10:41] LABS: HCG,QUALITATIVE URINE Negative
[2019-01-17] MEDS ORDERED: POTASSIUM CHLORIDE ORAL LIQUID 20 MEQ/15 ML PO ONE (10:57)
[2019-01-17 11:14] LABS: PH,URINE 5.5 (5.0-8.0); URINE APPEARANCE Clear; URINE BILIRUBIN Negative (NEGATIVE); URINE COLOR Yellow; URINE GLUCOSE (UA) Negative (NEGATIVE); URINE KETONE Trace (NEGATIVE); URINE LEUK ESTERASE Negative (NEGATIVE); URINE NITRITE Negative (NEGATIVE); URINE PROTEIN 1+ (NEGATIVE); URINE UROBILINOGEN 0.2 mg/dL (0.2-1.0)
[2019-01-17] MEDS ORDERED: POTASSIUM CHLORIDE ORAL LIQUID 20 MEQ/15 ML ONE (11:20)
[2019-01-17] MEDS ORDERED: amLODIPine BESYLATE 10 MG TABLET (FP) PO ONE (11:53)
[2019-01-17] MEDS ORDERED: amLODIPine BESYLATE 5 MG TABLET (FP) ONE (11:57)
[2019-01-17 12:02] LABS: EPI CELLS FEW /HPF; URINE BACTERIA FEW /hpf (NEGATIVE); URINE RBC 5 /hpf (0-4); URINE WBC 2 /hpf (0-5)
--- NOTE | 2019-01-17 12:28 | HP ---
CHIEF COMPLAINT: "I cant breathe today" PCP: sara HISTORY OF PRESENT ILLNESS: This is a 38 yo F with PMH of asthma (last admission 08/31/18), s/p intubation in 2012 and ICU stay, HTN, HLD, and NIDDM, medication noncompliant, who presents with sob, wheezing since yesterday and reports fever 102 at home + watery nonbloody diarrhea x 36 hrs. also reports myalgia. symptoms unrelieved by albuterol inhaler. last darrhea this morning. no changes in diet. no sick contacts In ED was satting 95% on RA but remained tight and uncomfortable after first round of treatment so was placed on BIPAP with significant symptom improvement : recently ambulated to bathroom on RA without difficulty. Denies cough, hemoptysis, cp, palpitations, h/a, n/v, hematemesis, melena, hematochezia, dysuria, hematuria. ER course was notable for: (1)cxr, labs (2)mag, medrl, nebs (3)bipap Recent Travel: denies PAST MEDICAL HISTORY: as above PAST SURGICAL HISTORY: as above Social History: Smoking: denies Alcohol:denies Drugs: marijuana Family History: noncontributory Allergies apple Allergy (Verified 08/30/18 22:44) burton Allergy (Verified 08/30/18 22:44) peach Allergy (Verified 08/30/18 22:44) plum Allergy (Verified 08/30/18 22:44) HOME MEDICATIONS: Home Medications Medication Instructions Recorded Amlodipine Besylate [Norvasc -] 10 mg PO DAILY #30 tablet 10/21/16 Tiotropium [place] [Spiriva] 1 puff IH DAILY #1 inh 02/27/17 Hydrochlorothiazide 25 mg PO DAILY #30 tablet 02/28/17 Lisinopril [Prinivil -] 40 mg PO DAILY #30 tablet 02/28/17 Albuterol 0.083% Nebulizer Nahomy 1 neb NEB QID PRN #1 inh 09/02/18 [Ventolin 0.083% Nebulizer Soln -] Budesonide/Formeterol Fumarate 2 puff IH BID #1 inhaler 09/02/18 [SYMBICORT 160/4.5mcg -] REVIEW OF SYSTEMS CONSTITUTIONAL: Absent: fever, chills HEENT: Absent: rhinorrhea, nasal congestion, throat pain CARDIOVASCULAR: Absent: chest pain, syncope, palpitations RESPIRATORY: Absent: cough, orthopnea, stridor, hemoptysis GASTROINTESTINAL: Absent: abdominal pain, abdominal distension, nausea, vomiting, constipation, melena, hematochezia GENITOURINARY: Absent: dysuria, flank pain MUSCULOSKELETAL: Absent: back pain, neck pain SKIN: Absent: rash, itching, pallor HEMATOLOGIC/IMMUNOLOGIC: Absent: frequent infections ENDOCRINE: Absent: heat intolerance, cold intolerance NEUROLOGIC: Absent: headache, focal weakness or paresthesias PSYCHIATRIC: Absent: anxiety PHYSICAL EXAMINATION Vital Signs - 24 hr 01/17/19 01/17/19 01/17/19 09:11 11:29 12:23 Temperature 98.6 F Pulse Rate 121 H Pulse Rate [ 100 H Apical] Respiratory 16 20 Rate Blood Pressure 186/114 H Blood Pressure 161/99 [Left Arm] O2 Sat by Pulse 95 97 99 Oximetry (%) GENERAL: Awake, alert, and fully oriented, in no acute distress. HEAD: Normal with no signs of trauma. EYES: Pupils equal, round and reactive to light, extraocular movements intact, sclera anicteric, conjunctiva clear. EARS, NOSE, THROAT: Moist mucous membranes. NECK: supple without lymphadenopathy LUNGS: diffusely restricted air movement with end expiratory wheezes HEART: Regular rate and rhythm, normal S1 and S2 ABDOMEN: Soft, nontender, not distended, normoactive bowel sounds, no guarding, no rebound, no masses. MUSCULOSKELETAL: No CVA tenderness. UPPER EXTREMITIES: 2+ pulses, warm, well-perfused. No peripheral edema. LOWER EXTREMITIES:warm, well-perfused. No calf tenderness. No peripheral edema. NEUROLOGICAL: Cranial nerves II-XII grossly intact. Normal speech. PSYCHIATRIC: Cooperative. Good eye contact. Appropriate mood and affect. SKIN: Warm, dry Laboratory Results - last 24 hr 01/17/19 01/17/19 01/17/19 09:25 09:25 10:00 WBC 5.1 RBC 4.69 Hgb 12.2 Hct 36.9 MCV 78.8 L MCH 26.1 MCHC 33.1 RDW 16.5 H Plt Count 228 D MPV 7.6 Absolute Neuts (auto) 3.7 Neutrophils % 71.7 D Lymphocytes % 18.8 D Monocytes % 8.4 D Eosinophils % 0.2 D Basophils % 0.9 D Nucleated RBC % 0 Sodium 141 Potassium 3.1 L Chloride 107 Carbon Dioxide 25 Anion Gap 9 BUN 13 Creatinine 1.0 Creat Clearance w eGFR 61.41 Random Glucose 98 Calcium 8.6 Total Bilirubin 0.3 AST 19 ALT 17 Alkaline Phosphatase 83 Total Protein 7.2 Albumin 3.5 Urine Color Urine Appearance Urine pH Ur Specific [place] Urine Protein Urine Glucose (UA) Urine Ketones Urine Blood Urine Nitrite Urine Bilirubin Urine Urobilinogen Ur Leukocyte Esterase Urine WBC (Auto) Urine RBC (Auto) U Epithel Cells (Auto) Urine Bacteria (Auto) Urine HCG, Qual Influenza A (Rapid) Negative Influenza B (Rapid) Negative 01/17/19 10:21 WBC RBC Hgb Hct MCV MCH MCHC RDW Plt Count MPV Absolute Neuts (auto) Neutrophils % Lymphocytes % Monocytes % Eosinophils % Basophils % Nucleated RBC % Sodium Potassium Chloride Carbon Dioxide Anion Gap BUN Creatinine Creat Clearance w eGFR Random Glucose Calcium Total Bilirubin AST ALT Alkaline Phosphatase Total Protein Albumin Urine Color Yellow Urine Appearance Clear Urine pH 5.5 Ur Specific [place] 1.020 Urine Protein 1+ H Urine Glucose (UA) Negative Urine Ketones Trace Urine Blood 1+ H Urine Nitrite Negative Urine Bilirubin Negative Urine Urobilinogen 0.2 Ur Leukocyte Esterase Negative Urine WBC (Auto) 2 Urine RBC (Auto) 5 U Epithel Cells (Auto) Few Urine Bacteria (Auto) Few Urine HCG, Qual Negative Influenza A (Rapid) Influenza B (Rapid) ASSESSMENT/PLAN: This is a 38 yo F with PMH of asthma (last admission 08/31/18), s/p intubation in 2012 and ICU stay, HTN, HLD, and NIDDM, medication noncompliant, who presents with sob, wheezing since yesterday and reports fever 102 at home + watery nonbloody diarrhea x 36 hrs. Acute asthma exacerbation uncontrolled HTN?HTN urgency HLD NIDDM Cardiomegaly -medrol 40 q 8h, albuterol, duonebs, symbicort. daily peak flow -cxr clear -improving in ED. PRN bipap, NC -186/114 on admission improved in ED. continue home Lisinopril, norvasc, HCTZ. cardiomegaly likely due to uncontrolled HTN -a1c, lipid panel Problem List - Problem (1) Acute asthma exacerbation Code(s): J45.901 - UNSPECIFIED ASTHMA WITH (ACUTE) EXACERBATION (2) Diabetes Code(s): E11.9 - TYPE 2 DIABETES MELLITUS WITHOUT COMPLICATIONS (3) Hypertension Code(s): I10 - ESSENTIAL (PRIMARY) HYPERTENSION Visit type - Emergency Visit Emergency Visit: Yes ED Registration Date: 01/17/19 Care time: The patient presented to the Emergency Department on the above date and was hospitalized for further evaluation of their emergent condition. - New Patient This patient is new to me today: Yes Date on this admission: 01/17/19 - Critical Care Critical Care patient: No
[2019-01-17] MEDS ORDERED: ALBUTEROL SO4 0.083% IH SOL 2.5 MG/3 ML VIAL.NEB. NEB PRN (12:29)
[2019-01-17] MEDS: ALBUTEROL SO4 2.5/IPRATROPIUM 0.5 INH SOL 3 ML VIAL.NEB. NEB SCH ×3 (12:39→23:00)
[2019-01-17] MEDS ORDERED: LISINOPRIL 20 MG TABLET (FP) ONE (16:00)
[2019-01-17] MEDS ORDERED: LISINOPRIL 20 MG TABLET (FP) PO ONE (16:01)
--- NOTE | 2019-01-17 16:01 | PN ---
Teaching Attending Note Name of Resident: Samia Sheikh ATTENDING PHYSICIAN STATEMENT I saw and evaluated the patient. I reviewed the resident's note and discussed the case with the resident. I agree with the resident's findings and plan as documented. SUBJECTIVE: This patient is a 38yo Female with PMHx of asthma with hx of intubation in 2012 , HTN, HLD, and NIDDM, medication noncompliant, who presents with sob, and wheezing since yesterday. Patient reports that it's all her fault since has no place to go and slept in the car. patient was placed on bipap in Ed. and given multiple treatments. OBJECTIVE: Vital Signs Temperature 98 F 01/17/19 14:01 Pulse Rate 98 H 01/17/19 15:57 Respiratory Rate 21 H 01/17/19 15:57 Blood Pressure 155/102 H 01/17/19 15:57 O2 Sat by Pulse Oximetry (%) 100 01/17/19 15:57 GENERAL: The patient is awake, alert, and fully oriented, in no acute distress. HEAD: Normal with no signs of trauma. EYES: PERRL, extraocular movements intact, sclera anicteric, conjunctiva clear. ENT: Ears normal, oropharynx clear without exudates, moist mucous membranes. NECK: Trachea midline, full range of motion, supple. LUNGS: decreased BS BL, CTA auscultation bilaterally post neb.treatments. s/p Bipap . HEART: Regular rate and rhythm, S1, S2 without murmur, rub or gallop. ABDOMEN: Soft, nontender, nondistended, normoactive bowel sounds, no guarding, no rebound, no hepatosplenomegaly, no masses. EXTREMITIES: 2+ pulses, warm, well-perfused, no edema. NEUROLOGICAL: Cranial nerves II through XII grossly intact. Normal speech, gait not observed. PSYCH: Normal mood, normal affect. SKIN: Warm, dry, normal turgor, no rashes or lesions noted CBCD WBC 5.1 K/mm3 (4.0-10.0) 01/17/19 10:00 RBC 4.69 M/mm3 (3.60-5.2) 01/17/19 10:00 Hgb 12.2 GM/dL (10.7-15.3) 01/17/19 10:00 Hct 36.9 % (32.4-45.2) 01/17/19 10:00 MCV 78.8 fl (80-96) L 01/17/19 10:00 MCHC 33.1 g/dl (32.0-36.0) 01/17/19 10:00 RDW 16.5 % (11.6-15.6) H 01/17/19 10:00 Plt Count 228 K/MM3 (134-434) D 01/17/19 10:00 MPV 7.6 fl (7.5-11.1) 01/17/19 10:00 CMP Sodium 141 mmol/L (136-145) 01/17/19 09:25 Potassium 3.1 mmol/L (3.5-5.1) L 01/17/19 09:25 Chloride 107 mmol/L (98-107) 01/17/19 09:25 Carbon Dioxide 25 mmol/L (21-32) 01/17/19 09:25 Anion Gap 9 MMOL/L (8-16) 01/17/19 09:25 BUN 13 mg/dL (7-18) 01/17/19 09:25 Creatinine 1.0 mg/dL (0.55-1.3) 01/17/19 09:25 Creat Clearance w eGFR 61.41 (>60) 01/17/19 09:25 Random Glucose 98 mg/dL (74-106) 01/17/19 09:25 Calcium 8.6 mg/dL (8.5-10.1) 01/17/19 09:25 Total Bilirubin 0.3 mg/dL (0.2-1) 01/17/19 09:25 AST 19 U/L (15-37) 01/17/19 09:25 ALT 17 U/L (13-61) 01/17/19 09:25 Alkaline Phosphatase 83 U/L (45-117) 01/17/19 09:25 Total Protein 7.2 g/dl (6.4-8.2) 01/17/19 09:25 Albumin 3.5 g/dl (3.4-5.0) 01/17/19 09:25 Current Medications Generic Name Dose Route Start Last Admin Trade Name Freq PRN Reason Stop Dose Admin Albuterol Sulfate 1 amp 01/17/19 12:29 Ventolin 0.083% Nebulizer Soln - NEB Q6H PRN SHORT OF BREATH/WHEEZING Albuterol/Ipratropium 1 amp 01/17/19 12:30 01/17/19 12:39 Duoneb - NEB 1 amp [id number] SARAVANAN Administration Amlodipine Besylate 10 mg 01/18/19 10:00 Norvasc - PO DAILY [facility] Budesonide/Formoterol Fumarate 2 puff 01/17/19 22:00 Symbicort 160/4.5mcg - IH BID SARAVANAN Hydrochlorothiazide 25 mg 01/18/19 10:00 Hctz - PO DAILY [facility] Lisinopril 40 mg 01/18/19 10:00 Prinivil PO DAILY [facility] Methylprednisolone Sodium Succinate 40 mg 01/17/19 18:00 Solu-Medrol - IVPUSH Q8H [facility] Home Medications Medication Instructions Recorded Amlodipine Besylate [Norvasc -] 10 mg PO DAILY #30 tablet 10/21/16 Tiotropium [place] [Spiriva] 1 puff IH DAILY #1 inh 02/27/17 Hydrochlorothiazide 25 mg PO DAILY #30 tablet 02/28/17 Lisinopril [Prinivil -] 40 mg PO DAILY #30 tablet 02/28/17 Albuterol 0.083% Nebulizer Nahomy 1 neb NEB QID PRN #1 inh 09/02/18 [Ventolin 0.083% Nebulizer Soln -] Budesonide/Formeterol Fumarate 2 puff IH BID #1 inhaler 09/02/18 [SYMBICORT 160/4.5mcg -] ASSESSMENT AND PLAN: This patient is a 38yo Female with PMHx of asthma with hx of intubation in 2012 , HTN, HLD, and NIDDM, medication noncompliant, who presents with sob, and wheezing since yesterday. Patient reports that it's all her fault since has no place to go and slept in the car. patient was placed on bipap in Ed. and given multiple treatments. Acute asthma exacerbation : nebs, steroid HTN urgency: continue wit lisinipril hctz,norvasc Obesity: weight loss and lifestyle modification Cardiomegaly: due to noncompliance with the meds. HLD: lipid panel NIDDM: hemoglobin A1c
[2019-01-17] MEDS ORDERED: methylPREDNISolone NA SUCC 40 MG/1 ML VIAL ONE (18:00)
[2019-01-17] MEDS: methylPREDNISolone NA SUCC 40 MG/1 ML VIAL IVPUSH SCH (18:14)
[2019-01-17 22:38] VITALS: BMI 37.5
[2019-01-17] MEDS: BUDESONIDE/FORMETEROL FUMARATE 160/4.5 mcg INHALER IH SCH (22:38)
[2019-01-18] MEDS: methylPREDNISolone NA SUCC 40 MG/1 ML VIAL IVPUSH SCH ×3 (02:36→18:16)
[2019-01-18] MEDS ORDERED: HYDROCHLOROTHIAZIDE 25 MG TABLET (FP) PO ONE (03:12)
[2019-01-18] MEDS ORDERED: MELATONIN 5 MG TABLETS PO ONE (03:12)
[2019-01-18] MEDS: ALBUTEROL SO4 2.5/IPRATROPIUM 0.5 INH SOL 3 ML VIAL.NEB. NEB SCH ×7 (03:20→23:06)
[2019-01-18] MEDS: HYDROCHLOROTHIAZIDE 25 MG TABLET (FP) PO SCH ×2 (06:21→11:42)
[2019-01-18 08:08] LABS: BASO % 0.2 % (0-2.0); HEMATOCRIT 35.8 % (32.4-45.2); HEMOGLOBIN 11.9 GM/dL (10.7-15.3); LYMPH % 4.3 % (8-40); MCHC 33.2 g/dl (32.0-36.0); MEAN CELL VOLUME 78.3 fl (80-96); MEAN PLT VOLUME 7.6 fl (7.5-11.1); NEUT % 92.5 % (42.8-82.8); PLATELET COUNT 259 K/MM3 (134-434); RBC 4.57 M/mm3 (3.60-5.2)
[2019-01-18 08:33] LABS: ANION GAP 9 MMOL/L (8-16); BLOOD UREA NITROGEN 10 mg/dL (7-18); CALCIUM 8.4 mg/dL (8.5-10.1); CHLORIDE 109 mmol/L (98-107); CHOLESTEROL 158 mg/dL (50-200); CO2 23 mmol/L (21-32); CREATININE 0.8 mg/dL (0.55-1.3); GLUCOSE,RANDOM 115 mg/dL (74-106); HDL CHOLESTEROL 87 mg/dL (40-60); MAGNESIUM 2.6 mg/dL (1.8-2.4); PHOSPHOROUS 3.6 mg/dL (2.5-4.9); POTASSIUM 4.2 mmol/L (3.5-5.1); SODIUM 140 mmol/L (136-145); TRIGLYCERIDES 39 mg/dL (0-150)
[2019-01-18] MEDS: amLODIPine BESYLATE 10 MG TABLET (FP) PO SCH (09:23)
[2019-01-18] MEDS: LISINOPRIL 20 MG TABLET (FP) PO SCH (09:23)
[2019-01-18] MEDS: BUDESONIDE/FORMETEROL FUMARATE 160/4.5 mcg INHALER IH SCH ×2 (09:24→22:10)
[2019-01-18 11:17] LABS: ANISOCYTOSIS 0; MACROCYTOSIS 0; PLATELET ESTIMATE NORMAL
[2019-01-18] MEDS ORDERED: ACETAMINOPHEN 325 MG TABLET (FP) PO PRN (16:19)
--- NOTE | 2019-01-18 20:16 | PN ---
Progress Note (short form) - Note Progress Note: Patient is feeling better, will continue current treatment. Vital Signs Temperature 98.6 F 01/18/19 09:00 Pulse Rate 120 H 01/18/19 16:00 Respiratory Rate 18 01/18/19 16:00 Blood Pressure 150/92 01/18/19 16:00 O2 Sat by Pulse Oximetry (%) 94 L 01/18/19 09:00 GENERAL: The patient is awake, alert, and fully oriented, in no acute distress. HEAD: Normal with no signs of trauma. EYES: PERRL, extraocular movements intact, sclera anicteric, conjunctiva clear. ENT: Ears normal, oropharynx clear without exudates, moist mucous membranes. NECK: Trachea midline, full range of motion, supple. LUNGS: decreased air entery bl , CTA auscultation bilaterally post neb.treatments. s/p Bipap . HEART: Regular rate and rhythm, S1, S2 without murmur, rub or gallop. ABDOMEN: Soft, nontender, nondistended, normoactive bowel sounds, no guarding, no rebound, no hepatosplenomegaly, no masses. EXTREMITIES: 2+ pulses, warm, well-perfused, no edema. NEUROLOGICAL: Cranial nerves II through XII grossly intact. Normal speech, gait not observed. PSYCH: Normal mood, normal affect. SKIN: Warm, dry, normal turgor, no rashes or lesions noted CBCD WBC 8.0 K/mm3 (4.0-10.0) 01/18/19 06:30 RBC 4.57 M/mm3 (3.60-5.2) 01/18/19 06:30 Hgb 11.9 GM/dL (10.7-15.3) 01/18/19 06:30 Hct 35.8 % (32.4-45.2) 01/18/19 06:30 MCV 78.3 fl (80-96) L 01/18/19 06:30 MCHC 33.2 g/dl (32.0-36.0) 01/18/19 06:30 RDW 17.0 % (11.6-15.6) H 01/18/19 06:30 Plt Count 259 K/MM3 (134-434) 01/18/19 06:30 MPV 7.6 fl (7.5-11.1) 01/18/19 06:30 CMP Sodium 140 mmol/L (136-145) 01/18/19 06:30 Potassium 4.2 mmol/L (3.5-5.1) 01/18/19 06:30 Chloride 109 mmol/L (98-107) H 01/18/19 06:30 Carbon Dioxide 23 mmol/L (21-32) 01/18/19 06:30 Anion Gap 9 MMOL/L (8-16) 01/18/19 06:30 BUN 10 mg/dL (7-18) 01/18/19 06:30 Creatinine 0.8 mg/dL (0.55-1.3) 01/18/19 06:30 Creat Clearance w eGFR 79.44 (>60) 01/18/19 06:30 Random Glucose 115 mg/dL (74-106) H 01/18/19 06:30 Calcium 8.4 mg/dL (8.5-10.1) L 01/18/19 06:30 Total Bilirubin 0.3 mg/dL (0.2-1) 01/17/19 09:25 AST 19 U/L (15-37) 01/17/19 09:25 ALT 17 U/L (13-61) 01/17/19 09:25 Alkaline Phosphatase 83 U/L (45-117) 01/17/19 09:25 Total Protein 7.2 g/dl (6.4-8.2) 01/17/19 09:25 Albumin 3.5 g/dl (3.4-5.0) 01/17/19 09:25 Current Medications Generic Name Dose Route Start Last Admin Trade Name Jesús PRN Reason Stop Dose Admin Acetaminophen 650 mg 01/18/19 16:19 01/18/19 16:29 Tylenol - PO 650 mg Q6H PRN Administration PAIN LEVEL 1 - 3 Albuterol Sulfate 1 amp 01/17/19 12:29 Ventolin 0.083% Nebulizer Soln - NEB Q6H PRN SHORT OF BREATH/WHEEZING Albuterol/Ipratropium 1 amp 01/17/19 12:30 01/18/19 16:10 Duoneb - NEB 1 amp RQ4H SARAVANAN Administration Amlodipine Besylate 10 mg 01/18/19 10:00 01/18/19 09:23 Norvasc - PO 10 mg DAILY SARAVANAN Administration Budesonide/Formoterol Fumarate 2 puff 01/17/19 22:00 01/18/19 09:24 Symbicort 160/4.5mcg - IH 2 puff BID SARAVANAN Administration Hydrochlorothiazide 25 mg 01/18/19 10:00 01/18/19 11:42 Hctz - PO Not Given DAILY SARAVANAN Lisinopril 40 mg 01/18/19 10:00 01/18/19 09:23 Prinivil PO 40 mg DAILY SARAVANAN Administration Methylprednisolone Sodium Succinate 40 mg 01/17/19 18:00 01/18/19 18:16 Solu-Medrol - IVPUSH 40 mg Q8H SARAVANAN Administration Home Medications Medication Instructions Recorded Amlodipine Besylate [Norvasc -] 10 mg PO DAILY #30 tablet 10/21/16 Tiotropium [place] [Spiriva] 1 puff IH DAILY #1 inh 02/27/17 Hydrochlorothiazide 25 mg PO DAILY #30 tablet 02/28/17 Lisinopril [Prinivil -] 40 mg PO DAILY #30 tablet 02/28/17 Albuterol 0.083% Nebulizer Nahomy 1 neb NEB QID PRN #1 inh 09/02/18 [Ventolin 0.083% Nebulizer Soln -] Budesonide/Formeterol Fumarate 2 puff IH BID #1 inhaler 09/02/18 [SYMBICORT 160/4.5mcg -] Assessement and plan: This patient is a 38yo Female with PMHx of asthma with hx of intubation in 2012 , HTN, HLD, and NIDDM, medication noncompliant, who presents with sob, and wheezing since yesterday. Patient reports that it's all her fault since has no place to go and slept in the car. patient was placed on bipap in Ed. and given multiple treatments. Acute asthma exacerbation: continue neb. treatments, continue symbicort. solumedrol HTN urgency: continue home meds since patient admitted that she was not taking them. Cardiomegaly: due to uncontrolled HTN due to noncompliance HLD NIDDM l Visit type - Emergency Visit Emergency Visit: Yes ED Registration Date: 01/17/19 Care time: The patient presented to the Emergency Department on the above date and was hospitalized for further evaluation of their emergent condition. - New Patient This patient is new to me today: No - Critical Care Critical Care patient: No - Discharge Referral Referred to [facility] No
[2019-01-18] MEDS ORDERED: guaiFENesin 200 MG/10 ML 10 ML UNIT-DOSE CUPS PO ONE (23:15)
[2019-01-19] MEDS: methylPREDNISolone NA SUCC 40 MG/1 ML VIAL IVPUSH SCH ×5 (02:01→22:48)
[2019-01-19] MEDS: ALBUTEROL SO4 2.5/IPRATROPIUM 0.5 INH SOL 3 ML VIAL.NEB. NEB SCH ×2 (04:15→07:35)
[2019-01-19] MEDS: LISINOPRIL 20 MG TABLET (FP) PO SCH ×2 (08:47→10:16)
[2019-01-19] MEDS: amLODIPine BESYLATE 10 MG TABLET (FP) PO SCH ×2 (08:48→10:16)
[2019-01-19] MEDS: HYDROCHLOROTHIAZIDE 25 MG TABLET (FP) PO SCH ×2 (08:48→10:16)
[2019-01-19] MEDS: BUDESONIDE/FORMETEROL FUMARATE 160/4.5 mcg INHALER IH SCH ×3 (08:48→21:39)
[2019-01-19] MEDS ORDERED: ALBUTEROL SO4 2.5/IPRATROPIUM 0.5 INH SOL 3 ML VIAL.NEB. NEB PRN (09:10)
[2019-01-19] MEDS: guaiFENesin/CODEINE 10 ML UNIT-DOSE CUPS PO SCH ×2 (10:14→18:40)
--- NOTE | 2019-01-19 11:16 | PN ---
Physical Exam: SUBJECTIVE: Patient seen and examined Patient siting is bed NAD. Afebrile, hemodynamically stable. No acute events overnight. tachycardic 120's and hypertensive 150's systolic despite BP regimen. Persistent cough productive of clear sputum. states she feels better. using own cpap at night. denies f/c, cp, sob, wheezing, calf pain. OBJECTIVE: Vital Signs Period Temp Pulse Resp BP Sys/Mendez Pulse Ox Last 24 Hr 98.8 F 120-127 18-18 144-165/92-123 94 GENERAL: The patient is awake, alert, and fully oriented, in no acute distress. HEAD: Normal with no signs of trauma. EYES: sclera anicteric, conjunctiva clear. No ptosis. ENT: moist mucous membranes. NECK: supple. LUNGS: Breath sounds equal, slightly restricted diffusely, no wheezes, no crackles, no accessory muscle use. HEART: tachy rate and regular rhythm, S1, S2 ABDOMEN: Soft, nontender, nondistended, normoactive bowel sounds EXTREMITIES: 2+ pulses, warm, well-perfused, no edema. NEUROLOGICAL: Cranial nerves II through XII grossly intact. Normal speech, gait not observed. PSYCH: Normal mood, normal affect. SKIN: Warm, dry Laboratory Results - last 24 hr 01/18/19 06:30 Neutrophils % (Manual) 90.6 H Band Neutrophils % 0.0 Lymphocytes % (Manual) 7.3 L Monocytes % (Manual) 2 L Eosinophils % (Manual) 0.0 Basophils % (Manual) 0.0 Myelocytes % (Man) 0 Promyelocytes % (Man) 0 Blast Cells % (Manual) 0 Nucleated RBC % 0 Metamyelocytes 0 Hypochromia 0 Platelet Estimate Normal Polychromasia 0 Poikilocytosis 0 Anisocytosis 0 Microcytosis 0 Macrocytosis 0 Active Medications Generic Name Dose Route Start Last Admin Trade Name Freq PRN Reason Stop Dose Admin Acetaminophen 650 mg 01/18/19 16:19 01/18/19 16:29 Tylenol - PO 650 mg Q6H PRN Administration PAIN LEVEL 1 - 3 Albuterol/Ipratropium 1 amp 01/19/19 09:10 Duoneb - NEB Q6H PRN SHORTNESS OF BREATH Amlodipine Besylate 10 mg 01/18/19 10:00 01/19/19 10:16 Norvasc - PO Not Given DAILY SARAVANAN Budesonide/Formoterol Fumarate 2 puff 01/17/19 22:00 01/19/19 10:16 Symbicort 160/4.5mcg - IH Not Given BID SARAVANAN Guaifenesin/Codeine Phosphate 10 ml 01/19/19 09:15 01/19/19 10:14 Robitussin Ac - PO 01/20/19 09:14 10 ml Q8H SARAVANAN Administration Hydrochlorothiazide 25 mg 01/18/19 10:00 01/19/19 10:16 Hctz - PO Not Given DAILY SARAVANAN Lisinopril 40 mg 01/18/19 10:00 01/19/19 10:16 Prinivil PO Not Given DAILY SARAVANAN Methylprednisolone Sodium Succinate 40 mg 01/19/19 11:00 01/19/19 10:54 Solu-Medrol - IVPUSH Not Given Q12H SARAVANAN ASSESSMENT/PLAN: This is a 38 yo F with PMH of asthma (last admission 08/31/18), s/p intubation in 2012 and ICU stay, HTN, HLD, and NIDDM, medication noncompliant, who presents with sob, wheezing since yesterday and reports fever 102 at home + watery nonbloody diarrhea x 36 hrs. Acute asthma exacerbation tachycardia, likely inhaler induced uncontrolled HTN/HTN urgency HLD NIDDM Cardiomegaly -improving; taper medrol to 40 BID, contnue albuterol, duonebs, symbicort. daily peak flow -sill hypertensive despite BP regimen, add hydralazine -possible dc tomorrow Problem List - Problems (1) Acute asthma exacerbation Code(s): J45.901 - UNSPECIFIED ASTHMA WITH (ACUTE) EXACERBATION (2) Diabetes Code(s): E11.9 - TYPE 2 DIABETES MELLITUS WITHOUT COMPLICATIONS (3) Hypertension Code(s): I10 - ESSENTIAL (PRIMARY) HYPERTENSION Visit type - Emergency Visit Emergency Visit: Yes ED Registration Date: 01/17/19 Care time: The patient presented to the Emergency Department on the above date and was hospitalized for further evaluation of their emergent condition. - New Patient This patient is new to me today: No - Critical Care Critical Care patient: No - Discharge Referral Referred to [facility] No
[2019-01-19] MEDS ORDERED: hydrALAZINE HCL 10 MG TABLET PO SCH (11:30)
[2019-01-19] MEDS ORDERED: PT OWN MED DRAWER 7, Y5N ONE (12:27)
[2019-01-19] MEDS ORDERED: hydrALAZINE HCL 25 MG TABLET (FP) PO ONE ×2 (18:08→18:10)
[2019-01-19] MEDS ORDERED: HYDROCHLOROTHIAZIDE 25 MG TABLET (FP) PO SCH (18:09)
--- NOTE | 2019-01-19 19:04 | PN ---
Teaching Attending Note Name of Resident: Samia Sheikh ATTENDING PHYSICIAN STATEMENT I saw and evaluated the patient. I reviewed the resident's note and discussed the case with the resident. I agree with the resident's findings and plan as documented. SUBJECTIVE: Patient is c/o having cough continues. OBJECTIVE: Vital Signs Temperature 98.2 F 01/19/19 14:52 Pulse Rate 116 H 01/19/19 18:00 Respiratory Rate 18 01/19/19 18:00 Blood Pressure 169/132 H 01/19/19 18:00 O2 Sat by Pulse Oximetry (%) 94 L 01/19/19 09:00 GENERAL: The patient is awake, alert, and fully oriented, in no acute distress. HEAD: Normal with no signs of trauma. EYES: PERRL, extraocular movements intact, sclera anicteric, conjunctiva clear. ENT: Ears normal, oropharynx clear without exudates, moist mucous membranes. NECK: Trachea midline, full range of motion, supple. LUNGS: Breath sounds equal, CTA auscultation bilaterally post neb.treatments. s/ p Bipap . HEART: Regular rate and rhythm, S1, S2 without murmur, rub or gallop. ABDOMEN: Soft, nontender, nondistended, normoactive bowel sounds, no guarding, no rebound, no hepatosplenomegaly, no masses. EXTREMITIES: 2+ pulses, warm, well-perfused, no edema. NEUROLOGICAL: Cranial nerves II through XII grossly intact. Normal speech, gait not observed. PSYCH: Normal mood, normal affect. SKIN: Warm, dry, normal turgor, no rashes or lesions noted CBCD WBC 8.0 K/mm3 (4.0-10.0) 01/18/19 06:30 RBC 4.57 M/mm3 (3.60-5.2) 01/18/19 06:30 Hgb 11.9 GM/dL (10.7-15.3) 01/18/19 06:30 Hct 35.8 % (32.4-45.2) 01/18/19 06:30 MCV 78.3 fl (80-96) L 01/18/19 06:30 MCHC 33.2 g/dl (32.0-36.0) 01/18/19 06:30 RDW 17.0 % (11.6-15.6) H 01/18/19 06:30 Plt Count 259 K/MM3 (134-434) 01/18/19 06:30 MPV 7.6 fl (7.5-11.1) 01/18/19 06:30 CMP Sodium 140 mmol/L (136-145) 01/18/19 06:30 Potassium 4.2 mmol/L (3.5-5.1) 01/18/19 06:30 Chloride 109 mmol/L (98-107) H 01/18/19 06:30 Carbon Dioxide 23 mmol/L (21-32) 01/18/19 06:30 Anion Gap 9 MMOL/L (8-16) 01/18/19 06:30 BUN 10 mg/dL (7-18) 01/18/19 06:30 Creatinine 0.8 mg/dL (0.55-1.3) 01/18/19 06:30 Creat Clearance w eGFR 79.44 (>60) 01/18/19 06:30 Random Glucose 115 mg/dL (74-106) H 01/18/19 06:30 Calcium 8.4 mg/dL (8.5-10.1) L 01/18/19 06:30 Total Bilirubin 0.3 mg/dL (0.2-1) 01/17/19 09:25 AST 19 U/L (15-37) 01/17/19 09:25 ALT 17 U/L (13-61) 01/17/19 09:25 Alkaline Phosphatase 83 U/L (45-117) 01/17/19 09:25 Total Protein 7.2 g/dl (6.4-8.2) 01/17/19 09:25 Albumin 3.5 g/dl (3.4-5.0) 01/17/19 09:25 Current Medications Generic Name Dose Route Start Last Admin Trade Name Freq PRN Reason Stop Dose Admin Acetaminophen 650 mg 01/18/19 16:19 01/18/19 16:29 Tylenol - PO 650 mg Q6H PRN Administration PAIN LEVEL 1 - 3 Albuterol/Ipratropium 1 amp 01/19/19 09:10 01/19/19 15:40 Duoneb - NEB 1 amp Q6H PRN Administration SHORTNESS OF BREATH Amlodipine Besylate 10 mg 01/18/19 10:00 01/19/19 10:16 Norvasc - PO Not Given DAILY [facility] Budesonide/Formoterol Fumarate 2 puff 01/17/19 22:00 01/19/19 10:16 Symbicort 160/4.5mcg - IH Not Given BID SARAVANAN Guaifenesin/Codeine Phosphate 10 ml 01/19/19 09:15 01/19/19 18:40 Robitussin Ac - PO 01/20/19 09:14 10 ml Q8H SARAVANAN Administration Hydralazine HCl 25 mg 01/19/19 22:00 Apresoline - PO TID SARAVANAN Lisinopril 40 mg 01/18/19 10:00 01/19/19 10:16 Prinivil PO Not Given DAILY [facility] Methylprednisolone Sodium Succinate 40 mg 01/19/19 11:00 01/19/19 10:54 Solu-Medrol - IVPUSH Not Given Q12H [facility] Home Medications Medication Instructions Recorded Amlodipine Besylate [Norvasc -] 10 mg PO DAILY #30 tablet 10/21/16 Tiotropium [place] [Spiriva] 1 puff IH DAILY #1 inh 02/27/17 Hydrochlorothiazide 25 mg PO DAILY #30 tablet 02/28/17 Lisinopril [Prinivil -] 40 mg PO DAILY #30 tablet 02/28/17 Albuterol 0.083% Nebulizer Nahomy 1 neb NEB QID PRN #1 inh 09/02/18 [Ventolin 0.083% Nebulizer Soln -] Budesonide/Formeterol Fumarate 2 puff IH BID #1 inhaler 09/02/18 [SYMBICORT 160/4.5mcg -] ASSESSMENT AND PLAN: This patient is a 38yo Female with PMHx of asthma with hx of intubation in 2012 , HTN, HLD, and NIDDM, medication noncompliant, who presents with sob, and wheezing since yesterday. Patient reports that it's all her fault since has no place to go and slept in the car. patient was placed on bipap in Ed. and given multiple treatments. Acute asthma exacerbation ; started on Robitussin Ac, neb. treatments, inhaler Cardiomegaly likely due to uncontrolled HTN HTN urgency; added hydralazine to her regimen since blood pressure was elevated. continue lisinopril/norvasc/hctz HLD NIDDM
[2019-01-19] MEDS ORDERED: hydrALAZINE HCL 25 MG TABLET (FP) PO SCH (22:00)
[2019-01-19 23:08] VITALS: BP 140/100; PULSE 94; TEMP 97.9
[2019-01-20] MEDS: guaiFENesin/CODEINE 10 ML UNIT-DOSE CUPS PO SCH (01:24)
--- NOTE | 2019-01-20 03:26 | PN ---
Progress Note (short form) - Note Progress Note: Called by nurse at 3:23am to be informed that patient was leaving unit and refusing to sign AMA papers. Elopement noted.
--- NOTE | 2019-01-21 10:59 | EKG ---
Test Reason : Blood Pressure : / mmHG Vent. Rate : 100 BPM Atrial Rate : 100 BPM P-R Int : 132 ms QRS Dur : 076 ms QT Int : 346 ms P-R-T Axes : 061 025 020 degrees QTc Int : 446 ms NORMAL SINUS RHYTHM NORMAL ECG WHEN COMPARED WITH ECG OF 17-JAN-2019 09:56, NO SIGNIFICANT CHANGE WAS FOUND Confirmed by MD Bolden Edward ([id number]) on 01/21/2019 10:59:09 AM Referred By: Confirmed By:Micky Bolden MD
--- NOTE | 2019-01-21 21:26 | DS ---
Physical Exam: SUBJECTIVE: Patient seen and examined Patient left the hospital as per notes, was not happy that she was getting a roommate. OBJECTIVE: Vital Signs Temperature 97.9 F 01/19/19 22:00 Pulse Rate 94 H 01/19/19 22:00 Respiratory Rate 20 01/19/19 22:00 Blood Pressure 140/100 01/19/19 22:00 O2 Sat by Pulse Oximetry (%) 94 L 01/19/19 09:00 Initial Vital Signs Temp Pulse Resp BP Pulse Ox 98.6 F 121 H 16 186/114 H 95 01/17/19 09:11 01/17/19 09:11 01/17/19 09:11 01/17/19 09:11 01/17/19 09:11 LABS CBCD WBC 8.0 K/mm3 (4.0-10.0) 01/18/19 06:30 RBC 4.57 M/mm3 (3.60-5.2) 01/18/19 06:30 Hgb 11.9 GM/dL (10.7-15.3) 01/18/19 06:30 Hct 35.8 % (32.4-45.2) 01/18/19 06:30 MCV 78.3 fl (80-96) L 01/18/19 06:30 MCHC 33.2 g/dl (32.0-36.0) 01/18/19 06:30 RDW 17.0 % (11.6-15.6) H 01/18/19 06:30 Plt Count 259 K/MM3 (134-434) 01/18/19 06:30 MPV 7.6 fl (7.5-11.1) 01/18/19 06:30 CMP Sodium 140 mmol/L (136-145) 01/18/19 06:30 Potassium 4.2 mmol/L (3.5-5.1) 01/18/19 06:30 Chloride 109 mmol/L (98-107) H 01/18/19 06:30 Carbon Dioxide 23 mmol/L (21-32) 01/18/19 06:30 Anion Gap 9 MMOL/L (8-16) 01/18/19 06:30 BUN 10 mg/dL (7-18) 01/18/19 06:30 Creatinine 0.8 mg/dL (0.55-1.3) 01/18/19 06:30 Creat Clearance w eGFR 79.44 (>60) 01/18/19 06:30 Random Glucose 115 mg/dL (74-106) H 01/18/19 06:30 Calcium 8.4 mg/dL (8.5-10.1) L 01/18/19 06:30 Total Bilirubin 0.3 mg/dL (0.2-1) 01/17/19 09:25 AST 19 U/L (15-37) 01/17/19 09:25 ALT 17 U/L (13-61) 01/17/19 09:25 Alkaline Phosphatase 83 U/L (45-117) 01/17/19 09:25 Total Protein 7.2 g/dl (6.4-8.2) 01/17/19 09:25 Albumin 3.5 g/dl (3.4-5.0) 01/17/19 09:25 Home Medications Medication Instructions Recorded Amlodipine Besylate [Norvasc -] 10 mg PO DAILY #30 tablet 10/21/16 Tiotropium [place] [Spiriva] 1 puff IH DAILY #1 inh 02/27/17 Hydrochlorothiazide 25 mg PO DAILY #30 tablet 02/28/17 Lisinopril [Prinivil -] 40 mg PO DAILY #30 tablet 02/28/17 Albuterol 0.083% Nebulizer Nahomy 1 neb NEB QID PRN #1 inh 09/02/18 [Ventolin 0.083% Nebulizer Soln -] Budesonide/Formeterol Fumarate 2 puff IH BID #1 inhaler 09/02/18 [SYMBICORT 160/4.5mcg -] HOSPITAL COURSE: Date of Admission:01/17/19 Date of Discharge: 01/21/19 This patient is a 38yo Female with PMHx of asthma with hx of intubation in 2012 , HTN, HLD, and NIDDM, medication noncompliant, who presents with sob, and wheezing since yesterday. Patient reports that it's all her fault since has no place to go and slept in the car. patient was placed on bipap in Ed. and given multiple treatments. Acute asthma exacerbation ; on Robitussin Ac, neb. treatments, inhaler Cardiomegaly likely due to uncontrolled HTN HTN urgency; added hydralazine 25mg tid to her regimen since blood pressure was elevated. continue lisinopril/norvasc/hctz HLD NIDDM Minutes to complete discharge: 30 Discharge Summary Reason For Visit: ASTHMA WITH ACUTE EXACERBATION Condition: Good - Instructions Disposition: AGAINST MEDICAL ADVICE - Home Medications Comprehensive Discharge Medication List: Ambulatory Orders Amlodipine Besylate [Norvasc -] 10 mg PO DAILY #30 tablet 10/21/16 Tiotropium [place] [Spiriva] 1 puff IH DAILY #1 inh 02/27/17 Hydrochlorothiazide 25 mg PO DAILY #30 tablet 02/28/17 Lisinopril [Prinivil -] 40 mg PO DAILY #30 tablet 02/28/17 Albuterol 0.083% Nebulizer [place] [Ventolin 0.083% Nebulizer Soln -] 1 neb NEB QID PRN #1 inh 09/02/18 Budesonide/Formeterol Fumarate [SYMBICORT 160/4.5mcg -] 2 puff IH BID #1 inhaler 09/02/18 This patient is new to me today: No Emergency Visit: Yes ED Registration Date: 01/17/19 Care time: The patient presented to the Emergency Department on the above date and was hospitalized for further evaluation of their emergent condition. Critical Care patient: No - Discharge Referral Referred to [facility] No
== END 2019-01-20 02:45 | disposition left against medical advice (07) | DRG 141 ==
LOC: JER 08:59 → JERBED 12:52 → OBSVTOIN 13:19 → J8W 22:49
PROVIDERS: ADMIT Internal Medicine; ATTEND Internal Medicine
DX: J45.901 Unspecified asthma with (acute) exacerbation (principal); I16.0 Hypertensive urgency; E78.5 Hyperlipidemia, unspecified; E11.9 Type 2 diabetes mellitus without complications; Z91.14 Patient's other noncompliance with medication regimen; R00.0 Tachycardia, unspecified; I51.7 Cardiomegaly
CPT/HCPCS: 36415; 71045-TC-FY; 80048; 80053; 80061; 81003; 82962; 83036; 83721; 83735; 84100; 84703; 85025; 87804; 93005; 93010; 94640; 94660; 99284-25; G0378

== ENCOUNTER 2019-05-19 18:29 | Inpatient (IN) | payer OTHER ==
--- NOTE | 2019-05-19 18:49 | PDOC ---
Rapid Medical Evaluation Time Seen by Provider: 05/19/19 18:48 Medical Evaluation: Allergies Allergy/AdvReac Type Severity Reaction Status Date / Time apple Allergy Verified 08/30/18 22:44 burton Allergy Verified 08/30/18 22:44 peach Allergy Verified 08/30/18 22:44 plum Allergy Verified 08/30/18 22:44 05/19/19 18:48 HPI: Asthma exacerbations PE: diffuse wheezing ORDERS: [place] Discharge Disposition - Diagnosis Acute asthma exacerbation - Referrals - Patient Instructions - Post Discharge Activity
[2019-05-19] MEDS: ALBUTEROL SO4 2.5/IPRATROPIUM 0.5 INH SOL 3 ML VIAL.NEB. NEB SCH ×2 (18:54→19:49)
[2019-05-19] MEDS ORDERED: ALBUTEROL SO4 2.5/IPRATROPIUM 0.5 INH SOL 3 ML VIAL.NEB. NEB ONE (19:50)
[2019-05-19] MEDS ORDERED: methylPREDNISolone NA SUCC 125 MG/2 ML VIAL IVPUSH ONE (20:48)
[2019-05-19] MEDS ORDERED: MAGNESIUM SULF 50% (8.12 MEQ/2 ML-1 GM VIAL) IVPB ONE (20:48)
[2019-05-19] MEDS ORDERED: MAGNESIUM 1GM/D5W - 2 GM/200 ML IVPB IVPB ONE (21:01)
[2019-05-19] MEDS ORDERED: methylPREDNISolone NA SUCC 125 MG/2 ML VIAL ONE (21:03)
--- NOTE | 2019-05-19 21:09 | PDOC ---
History of Present Illness - General Chief Complaint: Respiratory Stated Complaint: ASTHMA Time Seen by Provider: 05/19/19 18:48 History Source: Patient Exam Limitations: No Limitations - History of Present Illness Initial Comments: 05/19/19 21:05 38yo F with PMH of Asthma, NIDDM, HTN, HLD presenting to ED with complaints of asthma exacerbation. She says that she started to feel short of breath last week and went to her bit setter who prescribed steroids and a breathing treatment. She finished the steroids 4d ago and says that she feels as if her breathing is getting worse. She states she has chest tightness and cannot take in a deep breath. Denies cough, fevers, chills, chest pain, n/v/d, leg swelling , recent travel, palpitations. She has been intubated once in the past 03/2013 and required ICU stay. Denies smoking. PMD: Christina Pulm: Mae PMH: see hpi PSH: Meds: see med rec Allergies: nkda Social: denies Past History - Past Medical History Allergies/Adverse Reactions: Allergies Allergy/AdvReac Type Severity Reaction Status Date / Time apple Allergy Verified 05/19/19 18:56 burton Allergy Verified 05/19/19 18:56 peach Allergy Verified 05/19/19 18:56 plum Allergy Verified 05/19/19 18:56 Home Medications: Ambulatory Orders Amlodipine Besylate [Norvasc -] 10 mg PO DAILY #30 tablet 10/21/16 Tiotropium [place] [Spiriva] 1 puff IH DAILY #1 inh 02/27/17 Hydrochlorothiazide 25 mg PO DAILY #30 tablet 02/28/17 Lisinopril [Prinivil -] 40 mg PO DAILY #30 tablet 02/28/17 Albuterol 0.083% Nebulizer Nahomy [Ventolin 0.083% Nebulizer Soln -] 1 neb NEB QID PRN #1 inh 09/02/18 Budesonide/Formeterol Fumarate [SYMBICORT 160/4.5mcg -] 2 puff IH BID #1 inhaler 09/02/18 Ipratropium 0.02% Nebulizer [Atrovent] 1 neb NEB ASDIR 05/19/19 Anemia: No Asthma: Yes (intubation x1) Cancer: No Cardiac Disorders: No CVA: No COPD: No CHF: No Dementia: No Diabetes: Yes (niddm) Dialysis: No GI Disorders: No Disorders: No HTN: Yes Hypercholesterolemia: Yes Kidney Stones: No Liver Disease: No Seizures: No Thyroid Disease: No - Surgical History Abdominal Surgery: No Appendectomy: No Cardiac Surgery: No Cholecystectomy: No Neurologic Surgery: No - Immunization History Td Vaccination: Yes TDAP Vaccination: No Immunization Up to Date: Yes - Suicide/Smoking/Psychosocial Hx Smoking Status: No Smoking History: Unknown if ever smoked Years of Tobacco Use: 0 Have you smoked in the past 12 months: No Number of Cigarettes Smoked Daily: 0 Cigars Per Day: 0 Hx Alcohol Use: No Drug/Substance Use Hx: No Substance Use Type: None Hx Substance Use Treatment: No Respiratory Specific PMHX - Complaint Specific PMHX Bronchitis: Yes Review of Systems - Review of Systems Constitutional: No: Symptoms Reported HEENTM: No: Symptoms Reported Respiratory: Yes: See HPI, Shortness of Breath, Wheezing. No: Cough, Productive cough Cardiac (ROS): Yes: Chest Tightness ABD/GI: No: Symptoms Reported : No: Symptoms Reported Musculoskeletal: No: Symptoms Reported Integumentary: No: Symptoms Reported Neurological: No: Symptoms reported *Physical Exam - Vital Signs Last Vital Signs Temp Pulse Resp BP Pulse Ox 98.7 F 99 H 20 197/110 H 100 05/19/19 18:55 05/19/19 18:55 05/19/19 18:55 05/19/19 18:55 05/19/19 18:55 - Physical Exam General Appearance: Yes: Nourished, Appropriately Dressed. No: Apparent Distress HEENT: positive: EOMI, TAMMY Neck: positive: Trachea midline, Supple. negative: Lymphadenopathy (R), Lymphadenopathy (L) Respiratory/Chest: positive: Wheezing. negative: Accessory Muscle Use, Crackles , Rales, Rhonchi, Stridor Cardiovascular: positive: Regular Rhythm, Regular Rate, S1, S2. negative: Edema , JVD, Murmur Vascular Pulses: Dorsalis-Pedis (R): 2+, Doralis-Pedis (L): 2+ Gastrointestinal/Abdominal: positive: Normal Bowel Sounds, Soft. negative: Tender Extremity: positive: Normal Capillary Refill. negative: Pedal Edema, Swelling Integumentary: positive: Normal Color, Dry, Warm Neurologic: positive: card cleaner II-XII NML intact, Fully Oriented, Alert, Normal Mood/ Affect, Normal Response, Motor Strength 02/09 ED Treatment Course - LABORATORY CBC & Chemistry Diagram: 05/19/19 20:56 05/19/19 20:56 - RADIOLOGY Radiology Studies Ordered: Category Date Time Status CHEST PA & LAT [RAD] Stat Radiology 05/19/19 20:48 Ordered - Medications Given in the ED: ED Medications Discontinued Medications Generic Name Dose Route Start Last Admin Trade Name Jesús PRN Reason Stop Dose Admin Albuterol/Ipratropium 1 amp 05/19/19 19:00 05/19/19 19:49 Duoneb - NEB 05/19/19 19:46 1 amp Q15M SARAVANAN Administration Medical Decision Making - Medical Decision Making 05/19/19 21:09 38yo F with PMH of Asthma, NIDDM, HTN, HLD presenting to ED with complaints of asthma exacerbation. She says that she started to feel short of breath last week and went to her bit setter who prescribed steroids and a breathing treatment. She finished the steroids 4d ago and says that she feels as if her breathing is getting worse. She states she has chest tightness and cannot take in a deep breath. Denies cough, fevers, chills, chest pain, n/v/d, leg swelling , recent travel, palpitations. She has been intubated once in the past 03/2013 and required ICU stay. Denies smoking. Vitals: PE: diffuse wheezing likely asthma exacerbation. no signs of infection. low suspicion for pna, chf, copd Duoneb treatments ordered by RME. Will add labs, cxr, ekg. solumedrol, magnesium, ipratropium. labs wnl cxr: no consolidations or infiltrates. ekg: sinus at 91 with pac. no pérez or depressions. pt not feeling better after treatment, failed outpt treatment. will benefit from admission. peak flow order for hospitalist placed. 370. accepted by hospitalist. *DC/Admit/Observation/Transfer Diagnosis at time of Disposition: Acute asthma exacerbation Qualifiers: Asthma severity: unspecified severity Asthma persistence: unspecified Qualified Code(s): J45.901 - Unspecified asthma with (acute) exacerbation - Discharge Dispostion Condition at time of disposition: Stable Decision to Admit order: Yes - Referrals - Patient Instructions - Post Discharge Activity
[2019-05-19] MEDS ORDERED: IPRATROPIUM BR 0.02% 0.5 MG/2.5 ML VIAL.NEB. NEB ONE ×2 (21:14→21:27)
[2019-05-19 21:29] LABS: BASO % 1.5 % (0-2.0); EOS % 5.3 % (0-4.5); HEMATOCRIT 35.5 % (32.4-45.2); HEMOGLOBIN 11.8 GM/dL (10.7-15.3); LYMPH % 52.5 % (8-40); MCH 26.6 pg (25.7-33.7); MCHC 33.3 g/dl (32.0-36.0); MEAN CELL VOLUME 79.9 fl (80-96); MEAN PLT VOLUME 8.2 fl (7.5-11.1); MONO % 5.9 % (3.8-10.2); NEUT % 34.8 % (42.8-82.8); PLATELET COUNT 249 K/MM3 (134-434); RBC 4.45 M/mm3 (3.60-5.2); RDW 16.4 % (11.6-15.6); WHITE BLOOD COUNT 8.4 K/mm3 (4.0-10.0)
[2019-05-19 21:59] LABS: ALBUMIN 3.5 g/dl (3.4-5.0); BILIRUBIN,TOTAL 0.4 mg/dL (0.2-1); BLOOD UREA NITROGEN 9.8 mg/dL (7-18); CALCIUM 8.8 mg/dL (8.5-10.1); CREATININE 0.9 mg/dL (0.55-1.3); MAGNESIUM 1.9 mg/dL (1.8-2.4); POTASSIUM 4.3 mmol/L (3.5-5.1)
--- NOTE | 2019-05-19 22:05 | PDOC ---
Documentation entered by Consuelo Fischer SCRIBE, acting as scribe for Juan Simmons MD. Juan Simmons MD: This documentation has been prepared by the paigeibe, Consuelo Fischer SCRIBE, under my direction and personally reviewed by me in its entirety. I confirm that the documentation accurately reflects all work, treatment, procedures, and medical decision making performed by me. Attending Attestation - Resident Resident Name: Criss Roy - ED Attending Attestation I have performed the following: I have examined & evaluated the patient, The case was reviewed & discussed with the resident, I agree w/resident's findings & plan, Exceptions are as noted - HPI HPI: 05/19/19 21:14 The patient is a 38-year-old female, with a past medical history of asthma, NIDDM, HTN, HLD, who presents to the ED for asthma exacerbation. The patient states that she has been experiencing shortness of breath for the past week. She visited her portal administrator 4 days ago and was prescribed steroids, which she has been taking in conjunction with her inhaler. The patient finished the steroids 4 days ago but reports that her shortness of breath is worsening. The patient denies fevers, chills, nausea, vomiting, diarrhea, or abdominal pain. Denies any chest pain, palpitations. Denies any weakness, dizziness, or changes in strength or sensation. Allergies: Apple, burton, peach, plum. Ring Cutter Lathe Operator: Dr. Wall PCP: Dr. Vasquez - Physicial Exam PE: 05/19/19 21:18 GENERAL: Awake, alert, and fully oriented, in no acute distress. HEAD: No signs of trauma EYES: PERRLA, EOMI, sclera anicteric, conjunctiva clear ENT: Auricles normal inspection, hearing grossly normal, nares patent, oropharynx clear without exudates. Moist mucosa NECK: Nontender, no stepoffs, Normal ROM, supple, no lymphadenopathy, JVD, or masses LUNGS: + diffuse wheezing HEART: Regular rate and rhythm, normal S1 and S2, no murmurs, rubs or gallops ABDOMEN: Soft, nontender, normoactive bowel sounds. No guarding, no rebound. No masses EXTREMITIES: Normal range of motion, no edema. No clubbing or cyanosis. No cords, erythema, or tenderness NEUROLOGICAL: Cranial nerves II through XII intact. 5/5 strength and sensation in all extremities, Normal speech, normal gait, normal cerebellar function SKIN: Warm, Dry, normal turgor, no rashes or lesions noted. - Medical Decision Making 05/19/19 22:08 38 F with SOB, wheezing. Likely asthma flare. - Labs - CXR - Nebs, steroids
[2019-05-19] MEDS ORDERED: ALBUTEROL SO4 0.083% IH SOL 2.5 MG/3 ML VIAL.NEB. NEB PRN (23:32)
[2019-05-19] MEDS ORDERED: LISINOPRIL 20 MG TABLET (FP) PO ONE (23:38)
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
[2019-05-20] MEDS ORDERED: LISINOPRIL 20 MG TABLET (FP) ONE (00:59)
[2019-05-20] MEDS ORDERED: ALBUTEROL SO4 2.5/IPRATROPIUM 0.5 INH SOL 3 ML VIAL.NEB. NEB ONE (01:00)
[2019-05-20] MEDS: ALBUTEROL SO4 2.5/IPRATROPIUM 0.5 INH SOL 3 ML VIAL.NEB. NEB SCH ×5 (01:17→19:47)
[2019-05-20] MEDS: methylPREDNISolone NA SUCC 125 MG/2 ML VIAL IVPUSH SCH ×4 (04:22→21:25)
[2019-05-20 04:39] VITALS: BMI 36.7
[2019-05-20 07:52] LABS: ARTERIAL BLD GAS O2 SATURATION 94.3 % (95-98); ARTERIAL BLOOD GAS BASE EXCESS -1.7 meq/l (-2-2); ARTERIAL BLOOD GAS PCO2 38.9 mmHg (35-45); ARTERIAL BLOOD GAS PO2 75.6 mmHg (80-105); ARTERIAL BLOOD GAS pH 7.38 (7.35-7.45)
[2019-05-20 07:53] LABS: ALLENS TEST POSITIVE
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
[2019-05-20] MEDS: amLODIPine BESYLATE 10 MG TABLET (FP) PO SCH (10:11)
[2019-05-20] MEDS: LISINOPRIL 20 MG TABLET (FP) PO SCH (10:11)
--- NOTE | 2019-05-20 11:25 | EKG ---
Test Reason : Blood Pressure : / mmHG Vent. Rate : 091 BPM Atrial Rate : 091 BPM P-R Int : 162 ms QRS Dur : 080 ms QT Int : 386 ms P-R-T Axes : 056 021 024 degrees QTc Int : 474 ms SINUS RHYTHM WITH PREMATURE ATRIAL COMPLEXES OTHERWISE NORMAL ECG WHEN COMPARED WITH ECG OF 19-JAN-2019 18:46, PREMATURE ATRIAL COMPLEXES ARE NOW PRESENT Confirmed by Mendoza Freitas MD ([id number]) on 05/20/2019 11:25:11 AM Referred By: Confirmed By:Mendoza Freitas MD
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
[2019-05-20] MEDS ORDERED: METOPROLOL TARTRATE 25 MG TABLET (FP) PO ONE (14:24)
[2019-05-20] MEDS: HYDROCHLOROTHIAZIDE 25 MG TABLET (FP) PO SCH (15:05)
--- NOTE | 2019-05-20 15:21 | PN ---
Progress Note (short form) - Note Progress Note: PULMONARY CONSULTATION DICTATED 05/20/19 IMP CHRONIC PERSISTENT ASTHMA WITH ACUTE EXACERBATION HTN NIDDM OFELIA ON CPAP SINUSITIS NASAL FX PLAN IV STEROIDS INHALED BRONCHODILATORS PEAK FLOW ABX MONITOR BP DR RIVERA Problem List - Problems (1) Obesity (BMI 30-39.9) Code(s): E66.9 - OBESITY, UNSPECIFIED (2) Acute asthma exacerbation Code(s): J45.901 - UNSPECIFIED ASTHMA WITH (ACUTE) EXACERBATION Qualifiers: Asthma severity: unspecified severity Asthma persistence: unspecified Qualified Code(s): J45.901 - Unspecified asthma with (acute) exacerbation (3) Hypertension Code(s): I10 - ESSENTIAL (PRIMARY) HYPERTENSION
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
--- NOTE | 2019-05-20 21:06 | EKG ---
Test Reason : Blood Pressure : / mmHG Vent. Rate : 074 BPM Atrial Rate : 074 BPM P-R Int : 152 ms QRS Dur : 082 ms QT Int : 362 ms P-R-T Axes : 056 024 005 degrees QTc Int : 401 ms NORMAL SINUS RHYTHM WITH SINUS ARRHYTHMIA NORMAL ECG WHEN COMPARED WITH ECG OF 19-MAY-2019 21:39, PREMATURE ATRIAL COMPLEXES ARE NO LONGER PRESENT QT HAS SHORTENED Confirmed by MD MICHELE, ANAMARIA ([id number]) on 05/20/2019 9:05:42 PM Referred By: NATHANIEL MCALLISTER Confirmed By:ANAMARIA BAUTISTA MD
[2019-05-21] MEDS: methylPREDNISolone NA SUCC 125 MG/2 ML VIAL IVPUSH SCH ×2 (04:16→09:38)
[2019-05-21] MEDS: ALBUTEROL SO4 2.5/IPRATROPIUM 0.5 INH SOL 3 ML VIAL.NEB. NEB SCH (07:31)
[2019-05-21] MEDS: LISINOPRIL 20 MG TABLET (FP) PO SCH (09:39)
[2019-05-21] MEDS: amLODIPine BESYLATE 10 MG TABLET (FP) PO SCH (09:39)
[2019-05-21] MEDS: HYDROCHLOROTHIAZIDE 25 MG TABLET (FP) PO SCH (09:39)
[2019-05-21 11:01] VITALS: BP 155/86; PULSE 84; TEMP 98.4
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
== END 2019-05-21 11:08 | disposition home or self-care (01) | DRG 141 ==
LOC: JER 18:29 → JERBED 22:11 → J7W 05-20 04:17
PROVIDERS: ADMIT Internal Medicine; ATTEND Internal Medicine
PROC: 3E0F7GC Introduction of Other Therapeutic Substance into Respiratory Tract, Via Natural or Artificial Opening (ICD-10-PCS; principal; 2019-05-19)
DX: J45.31 Mild persistent asthma with (acute) exacerbation (principal); E11.9 Type 2 diabetes mellitus without complications; I10 Essential (primary) hypertension; Z68.35 Body mass index [BMI] 35.0-35.9, adult; E66.9 Obesity, unspecified; F12.10 Cannabis abuse, uncomplicated; J32.9 Chronic sinusitis, unspecified; Z87.81 Personal history of (healed) traumatic fracture; G47.33 Obstructive sleep apnea (adult) (pediatric); Z99.89 Dependence on other enabling machines and devices
CPT/HCPCS: 36415; 36600; 70486-TC; 71046-TC-FY; 80053; 82803; 83735; 84484; 84703; 85025; 93005; 93010; 94150; 94640; 99285-25

== ENCOUNTER 2019-11-20 05:59 | Emergency (ER) | payer OTHER ==
[2019-11-20] MEDS ORDERED: ALBUTEROL SO4 2.5/IPRATROPIUM 0.5 INH SOL 3 ML VIAL.NEB. NEB ONE ×3 (06:20→08:09)
[2019-11-20 06:32] VITALS: BMI 36.7
--- NOTE | 2019-11-20 07:24 | PDOC ---
Attending Attestation - Resident Resident Name: Ovidio Laws - HPI HPI: 11/21/19 09:15 Pt presents to the ED complaining of wheezing and shortness of breath consistent with her normal asthma attacks. States that her nebulizer has broken , and her inhaler does not effectively treat her symptoms. - Physicial Exam PE: 11/21/19 09:42 Agree with resident exam. PAtient is alert and oriented and in no acute distress. + diffuse wheezing bilaterally with good air entry, speaking in complete sentences. Heart: regular rate and rhythm, no murmurs. - Medical Decision Making 11/21/19 09:45 Pt presents to the ED complaining of wheezing and shortness of breath consistent with prior asthma attacks. Improved in the ED after nebs and steroids. Will discharge home.
[2019-11-20] MEDS ORDERED: methylPREDNISolone NA SUCC 125 MG/2 ML VIAL IVPUSH ONE (07:26)
--- NOTE | 2019-11-20 07:28 | PDOC ---
History of Present Illness - General Chief Complaint: Asthma Stated Complaint: DIFFICULTY BREATHING/ASTHMA Past History - Past Medical History Allergies/Adverse Reactions: Allergies Allergy/AdvReac Type Severity Reaction Status Date / Time apple Allergy Verified 11/20/19 06:31 burton Allergy Verified 11/20/19 06:31 peach Allergy Verified 11/20/19 06:31 plum Allergy Verified 11/20/19 06:31 Home Medications: Ambulatory Orders Amlodipine Besylate [Norvasc -] 10 mg PO DAILY #30 tablet 10/21/16 Tiotropium [place] [Spiriva] 1 puff IH DAILY #1 inh 02/27/17 Hydrochlorothiazide 25 mg PO DAILY #30 tablet 02/28/17 Lisinopril [Prinivil -] 40 mg PO DAILY #30 tablet 02/28/17 Albuterol 0.083% Nebulizer Nahomy [Ventolin 0.083% Nebulizer Soln -] 1 neb NEB QID PRN #1 inh 09/02/18 Budesonide/Formeterol Fumarate [SYMBICORT 160/4.5mcg -] 2 puff IH BID #1 inhaler 09/02/18 Ipratropium 0.02% Nebulizer [Atrovent 0.02% Nebulizer -] 1 neb NEB ASDIR Azithromycin 250 mg PO DAILY #5 tablet 05/20/19 Prednisone See Taper PO ASDIR #21 tablet 05/21/19 Anemia: No Asthma: Yes Cancer: No Cardiac Disorders: No CVA: No COPD: No CHF: No Dementia: No Diabetes: No Dialysis: No GI Disorders: No Disorders: No HTN: Yes Hypercholesterolemia: Yes Kidney Stones: No Liver Disease: No Seizures: No Thyroid Disease: No - Surgical History Abdominal Surgery: No Appendectomy: No Cardiac Surgery: No Cholecystectomy: No Neurologic Surgery: No - Immunization History Td Vaccination: Yes TDAP Vaccination: No Immunization Up to Date: Yes - Psycho Social/Smoking Cessation Hx Smoking Status: No Smoking History: Never smoked Years of Tobacco Use: 0 Have you smoked in the past 12 months: No Number of Cigarettes Smoked Daily: 0 Cigars Per Day: 0 Hx Alcohol Use: No Drug/Substance Use Hx: No Substance Use Type: None Hx Substance Use Treatment: No *Physical Exam - Vital Signs Last Vital Signs Temp Pulse Resp BP Pulse Ox 98.3 F 120 H 24 H 204/98 H 95 11/20/19 06:00 11/20/19 06:00 11/20/19 06:00 11/20/19 06:00 11/20/19 06:00 ED Treatment Course - Medications Given in the ED: ED Medications Discontinued Medications Generic Name Dose Route Start Last Admin Trade Name Frebladimir PRN Reason Stop Dose Admin Albuterol/Ipratropium 3 amp 11/20/19 06:20 11/20/19 06:34 Duoneb - NEB 11/20/19 06:21 3 amp ONCE ONE Administration Discharge - Discharge Information Condition: Fair - Follow up/Referral Referrals: Rafita Vasquez MD [Primary Care Provider] - - Patient Discharge Instructions - Post Discharge Activity
--- NOTE | 2019-11-20 07:35 | PDOC ---
History of Present Illness - General Chief Complaint: Asthma Stated Complaint: DIFFICULTY BREATHING/ASTHMA Time Seen by Provider: 11/20/19 07:24 History Source: Patient Exam Limitations: No Limitations - History of Present Illness Initial Comments: 11/20/19 07:30 PCP: Dr. Vasquez HPI: 39yo F pmh asthma (states that she has required intubation in the past) presenting with wheezing, SOB, chest tightness for 3 days. Reports that her nebulizer machine broke 3 days ago, and symptoms have progressively worsened since that time. Denies chest pain, syncope, leg swelling, recent immobilization , flights, OCPs, hemoptysis. Seen at [facility] last week, diagnosed with bronchitis, discharged from the ED with tessalon nataliels, prednisone course ( finished), and Omnicef 300 mg 10 days BID (1 day remaining). Since this time, she reports she has failed to improved and when she returned to work, "everyone has the flu and makes me anxious and mad." Symptoms are consistent with her asthma, + nonproductive cough that has persisted for 1.5 weeks despite the treatment from [facility]. Has not taken her home medications this morning. All: NKDA Meds: Per chart PMH: HTN, Asthma PSH: Denies Past History - Travel Traveled outside of the country in the last 30 days: No Close contact w/someone who was outside of country & ill: No - Past Medical History Allergies/Adverse Reactions: Allergies Allergy/AdvReac Type Severity Reaction Status Date / Time apple Allergy Verified 11/20/19 06:31 burton Allergy Verified 11/20/19 06:31 peach Allergy Verified 11/20/19 06:31 plum Allergy Verified 11/20/19 06:31 Home Medications: Ambulatory Orders Amlodipine Besylate [Norvasc -] 10 mg PO DAILY #30 tablet 10/21/16 Tiotropium Gap [Spiriva] 1 puff IH DAILY #1 inh 02/27/17 Hydrochlorothiazide 25 mg PO DAILY #30 tablet 02/28/17 Lisinopril [Prinivil -] 40 mg PO DAILY #30 tablet 02/28/17 Albuterol 0.083% Nebulizer Nahomy [Ventolin 0.083% Nebulizer Soln -] 1 neb NEB QID PRN #1 inh 09/02/18 Budesonide/Formeterol Fumarate [SYMBICORT 160/4.5mcg -] 2 puff IH BID #1 inhaler 09/02/18 Ipratropium 0.02% Nebulizer [Atrovent 0.02% Nebulizer -] 1 neb NEB ASDIR Azithromycin 250 mg PO DAILY #5 tablet 05/20/19 Prednisone See Taper PO ASDIR #21 tablet 05/21/19 Nebulizer and Compressor [Comp-Air Nebulizer System] 1 each MC PRN #1 each 11/20 Anemia: No Asthma: Yes Cancer: No Cardiac Disorders: No CVA: No COPD: No CHF: No Dementia: No Diabetes: No Dialysis: No GI Disorders: No Disorders: No HTN: Yes Hypercholesterolemia: Yes Kidney Stones: No Liver Disease: No Seizures: No Thyroid Disease: No - Surgical History Abdominal Surgery: No Appendectomy: No Cardiac Surgery: No Cholecystectomy: No Neurologic Surgery: No - Immunization History Td Vaccination: Yes TDAP Vaccination: No Immunization Up to Date: Yes - Psycho Social/Smoking Cessation Hx Smoking Status: No Smoking History: Never smoked Years of Tobacco Use: 0 Have you smoked in the past 12 months: No Number of Cigarettes Smoked Daily: 0 Cigars Per Day: 0 Hx Alcohol Use: No Drug/Substance Use Hx: No Substance Use Type: None Hx Substance Use Treatment: No Review of Systems - Review of Systems Able to Perform ROS?: Yes Is the patient limited Romansh proficient: Yes Constitutional: No: Chills, Diaphoresis, Fever HEENTM: No: Recent change in vision, Nose Congestion, Throat Pain Respiratory: Yes: Cough, Shortness of Breath, Wheezing. No: SOB with Exertion, SOB at Rest, Stridor, Productive cough Cardiac (ROS): Yes: Chest Tightness. No: Chest Pain, Irregular Heart Rate, Lightheadedness, Palpitations, Syncope ABD/GI: No: Constipated, Diarrhea, Nausea, Vomiting : No: Dysuria, Discharge, Frequency Musculoskeletal: No: Muscle Pain, Muscle Weakness Integumentary: No: Pruritus, Rash Neurological: No: Headache, Numbness, Tingling, Weakness Psychiatric: No: Stressors, Change in Appetite Endocrine: No: Increased Thirst, Increased Urine Hematologic/Lymphatic: No: Anemia, Blood Clots, Easy Bleeding All Other Systems: Reviewed and Negative *Physical Exam - Vital Signs Last Vital Signs Temp Pulse Resp BP Pulse Ox 98.3 F 120 H 24 H 204/98 H 95 11/20/19 06:00 11/20/19 06:00 11/20/19 06:00 11/20/19 06:00 11/20/19 06:00 - Physical Exam 11/20/19 07:34 Vitals reviewed, AF, hypertensive, tachycardic, tachypnic GEN: Well appearing, appears stated age, NAD, comfortable. AAOx3. HEENT: NCAT, EOMI, PERRL. Sclera anicteric, noninjected. No facial asymmetry. Moist mucous membranes. Normal voice. Trachea midline. CV: RRR, S1/S2, no murmurs / rubs / gallops appreciated. LUNG: Diffuse wheezes throughout all lung alvarado, normal work of breathing. + Cough. Speaking full sentences. No accessory muscle use. GI: Soft, NTND, +BS, no guarding, no rebound. No masses. Neg CVAT b/l. EXTREMITIES: 2+ distal pulses. No LE edema. No obvious deformities of all extremities. SKIN: Warm, dry, no rashes appreciated, non-jaundiced. PSYCH: Normal mood and affect. Cooperative and appropriate. NEURO: CN grossly intact. Moving all extremities well. Normal strength and sensation grossly. ED Treatment Course - LABORATORY CBC & Chemistry Diagram: 11/20/19 07:46 11/20/19 07:46 - RADIOLOGY Radiology Studies Ordered: Category Date Time Status CHEST PA & LAT [RAD] Stat Radiology 11/20/19 07:27 Ordered - Medications Given in the ED: ED Medications Discontinued Medications Generic Name Dose Route Start Last Admin Trade Name Freq PRN Reason Stop Dose Admin Albuterol/Ipratropium 3 amp 11/20/19 06:20 11/20/19 06:34 Duoneb - NEB 11/20/19 06:21 3 amp ONCE ONE Administration Medical Decision Making - Medical Decision Making 11/20/19 07:35 39yo F pmh asthma (states that she has required intubation in the past) presenting with wheezing, SOB, chest tightness for 3 days in setting for recently diagnosed and treated bronchitis and malfunctioning nebulizer pump. History notable for above. Exam notable for hypertension, tachycardia, tachypnea , diffuse wheezing throughout lung alvarado. DDX: Asthma exacerbation, PNA, bronchitis, influenza. Patient agrees to call / see Dr. Vasquez today for nebulizer script. - CBC, CMP - Duonebs x4 - Solu-medrol 125 - Influenza swab - CXR, EKG 11/20/19 08:14 - Ordered for Lisinopril 40 mg, other antihypertensive has changed, patient doesn't know the name, pharmacy is closed currently ([place]) 11/20/19 08:59 - No leukocytosis, no anemia - Electrolytes, LFTs, renal function wnl - Influenza negative - CXR without effusion, infiltrate, ptx on my read, official pending - Reluctant to take lisinopril, has BP medications in her car, pays for care out -of-pocket Dispo: Home 11/20/19 09:53 - Re-evaluated, wheezing improved, patient comfortable following up with PCP - Nebulizer sent to pharmacy, Sunlight has in stock Discharge - Discharge Information Problems reviewed: Yes Clinical Impression/Diagnosis: Hypertension Qualifiers: Hypertension type: unspecified Qualified Code(s): I10 - Essential (primary) hypertension Asthma exacerbation Qualifiers: Asthma severity: unspecified severity Asthma persistence: unspecified Qualified Code(s): J45.901 - Unspecified asthma with (acute) exacerbation Condition: Fair Disposition: HOME - Admission No - Additional Discharge Information Prescriptions: Nebulizer and Compressor [Comp-Air Nebulizer System] 1 each MC PRN #1 each - Follow up/Referral Referrals: Rafita Vasquez MD [Primary Care Provider] - - Patient Discharge Instructions Patient Printed Discharge Instructions: Asthma -- Adult Additional Instructions: You were seen and evaluated for asthma. Your workup was negative for the flu or PNA. Please continue your home medications as directed. Nebulizer has been sent to your pharmacy, please pick this up and use as directed. It is essential that you call or see your primary care doctor today for a prescription for a new nebulizer machine. Please return to the ED for any new or concerning symptoms. - Post Discharge Activity
[2019-11-20] MEDS ORDERED: methylPREDNISolone NA SUCC 125 MG/2 ML VIAL ONE (07:50)
[2019-11-20 08:21] LABS: BASO % 1.4 % (0-2.0); EOS % 4.7 % (0-4.5); HEMOGLOBIN 12.3 GM/dL (10.7-15.3); LYMPH % 37.4 % (8-40); MCHC 33.3 g/dl (32.0-36.0); MEAN CELL VOLUME 81.1 fl (80-96); MEAN PLT VOLUME 8.2 fl (7.5-11.1); NEUT % 50.5 % (42.8-82.8); PLATELET COUNT 297 K/MM3 (134-434); RBC 4.57 M/mm3 (3.60-5.2); RDW 15.7 % (11.6-15.6); WHITE BLOOD COUNT 7.5 K/mm3 (4.0-10.0)
[2019-11-20 08:48] LABS: ALBUMIN 3.4 g/dl (3.4-5.0); BILIRUBIN,TOTAL 0.3 mg/dL (0.2-1); BLOOD UREA NITROGEN 10.5 mg/dL (7-18); CALCIUM 8.7 mg/dL (8.5-10.1); CREATININE 0.9 mg/dL (0.55-1.3); POTASSIUM 4.1 mmol/L (3.5-5.1); TOT PROT 6.9 g/dl (6.4-8.2)
[2019-11-20] MEDS ORDERED: LISINOPRIL 20 MG TABLET (FP) ONE (09:46)
[2019-11-20] MEDS ORDERED: LISINOPRIL 20 MG TABLET (FP) PO SCH (10:00)
[2019-11-20 10:41] VITALS: BP 208/113; PULSE 110; TEMP 97.8
[2019-11-20] MEDS ORDERED: amLODIPine BESYLATE 10 MG TABLET (FP) PO ONE (10:42)
[2019-11-20] MEDS ORDERED: amLODIPine BESYLATE 5 MG TABLET (FP) ONE (10:46)
--- NOTE | 2019-11-20 11:30 | EKG ---
Test Reason : Blood Pressure : / mmHG Vent. Rate : 093 BPM Atrial Rate : 093 BPM P-R Int : 144 ms QRS Dur : 082 ms QT Int : 386 ms P-R-T Axes : 051 018 029 degrees QTc Int : 479 ms NORMAL SINUS RHYTHM POSSIBLE ANTERIOR INFARCT , AGE UNDETERMINED ABNORMAL ECG WHEN COMPARED WITH ECG OF 20-MAY-2019 15:32, QT HAS LENGTHENED Confirmed by PRIYA BRIZUELA, JULIAN ([id number]) on 11/20/2019 11:29:47 AM Referred By: Confirmed By:JULIAN POWERS MD
== END 2019-11-20 10:55 | disposition home or self-care (01) ==
LOC: JER 05:59
PROC: 3E0F7GC Introduction of Other Therapeutic Substance into Respiratory Tract, Via Natural or Artificial Opening (ICD-10-PCS; principal; 2019-11-20)
PROC: 3E0333Z Introduction of Anti-inflammatory into Peripheral Vein, Percutaneous Approach (ICD-10-PCS; 2019-11-20)
DX: J45.901 Unspecified asthma with (acute) exacerbation (principal); I10 Essential (primary) hypertension; Z91.018 Allergy to other foods
CPT/HCPCS: 36415; 71046-TC-FY; 80053; 85025; 87804; 93005; 93010; 99285-25